=== PATIENT | female | born 1980 | race Caucasian/White ===

== ENCOUNTER → 2017-06-18 13:46 | Outpatient (REF) | payer OTHER, SELFPAY ==
[2017-06-18 15:12] LABS: Amphetamine/Metha Screen,Urine Positive ng/mL (<1000); Barbiturates Screen,Urine Negative ng/mL (<200); Benzodiazepines Screen,Urine Negative ng/mL (200); Cannabinoid Screen,Urine Negative ng/mL (<50); Cocaine Screen,Urine Negative ng/g (<300); Methadone Screen,Urine Negative ng/mL (<300); Opiate Screen,Urine Negative ng/mL (<300); Phencyclidine Screen,Urine Negative ng/mL (<25)
== END ==
LOC: LAB 13:46
PROVIDERS: Visit Provider Emergency Medicine
DX: Z79.899 Other long term (current) drug therapy (principal)
CPT/HCPCS: 80305

== ENCOUNTER → 2017-07-16 12:45 | Outpatient (CLI) | payer OTHER, SELFPAY ==
--- NOTE | 2017-07-16 12:50 | MR_ITS ---
MR lumbar spine wo con, MR 3-d myelogram/MRCP HISTORY: Low back pain with bilateral leg pain ORDERING PHYSICIAN: Markell Mejia MD PATIENT AGE: 36 years COMPARISON: None TECHNIQUE: Standard multiplanar multiecho sequences are performed without contrast. 3-D MIP and myelographic images are also rendered and reviewed FINDINGS: There is normal alignment. Spinal cord ends at the L1-L2 level. T12-L1, L1-L2, L2-L3, L3-L4, and L4-L5 have an unremarkable appearance. Minimal bulging disc at L5-S1. There is mild left-sided foraminal narrowing with some facet hypertrophic change on the left. No disc disc herniation or canal stenosis. Incidental note is a T2 hyperintensity of the T11 vertebral body which measures 5 mm isointense on T1. This is of unknown clinical significance. IMPRESSION: 1. Minimal bulging disc at L5-S1 with mild left-sided foraminal narrowing. 2. No disc herniation or canal stenosis. 3. Nonspecific T2 hyperintensity of T11 vertebral body. If there is pain in this region then consider bone scan for further evaluation to determine activity of the lesion.
== END ==
PROVIDERS: Family Provider Emergency Medicine; PCP Emergency Medicine; Visit Provider Emergency Medicine
DX: M54.9 Dorsalgia, unspecified (principal); M54.5 Low back pain
CPT/HCPCS: 72148; 76376

== ENCOUNTER 2017-07-16 14:16 | Outpatient (RCR) | payer OTHER, SELFPAY | END 2017-07-16 14:17 | disposition home or self-care (01) | LOC: PT 14:16 | PROVIDERS: Family Provider Emergency Medicine; PCP Emergency Medicine; Visit Provider Emergency Medicine | DX: M54.9 Dorsalgia, unspecified (principal) ==

== ENCOUNTER → 2017-08-06 11:15 | Outpatient (REF) | payer OTHER, SELFPAY ==
[2017-08-06 13:37] LABS: Microscopic, Urine URINE MICROSCOPIC (MICROSCOPIC)
[2017-08-06 13:55] LABS: Appearance,Urine SL CLOUDY (Clear); Bilirubin,Urine Negative (Negative); Blood, Urine Negative (Negative); Color,Urine YELLOW (Yellow); Glucose,Urine (UA) Negative (Negative); Ketones,Urine Negative (Negative); Leukocyte Esterase,Urine TRACE (Negative); Nitrate,Urine POSITIVE (Negative); Protein,Urine Negative (Negative); Specific Gravity, Urine 1.025 (1.005-1.030); Urobilinogen,Urine 0.2 EU/dl (0.2)
[2017-08-06 14:00] LABS: Basophils # 0.1 K/mm3 (0-0.2); Basophils % 0.6 % (0.1-2.0); Eosinophils # 0.2 K/mm3 (0.0-0.4); Eosinophils % 2.5 % (0.1-12.0); Hematocrit 42.1 % (37.0-47.0); Hemoglobin 13.4 g/dL (12.2-16.2); Lymphocytes # 2.3 K/mm3 (0.7-4.5); Lymphocytes % 31.4 K/mm3 (10-50); Mean Corpuscular HGB Conc 31.8 g/dL (31.8-35.4); Mean Corpuscular Hemoglobin 30.5 pg (27.0-31.2); Mean Corpuscular Volume 96.1 fl (81-99); Mean Platelet Volume 8.8 fl (7.4-10.4); Monocytes # 0.5 K/mm3 (0.1-1.0); Monocytes % 6.4 % (1.7-9.3); Neutrophils # 4.4 K/mm3 (1.8-7.8); Neutrophils % 59.1 % (37.0-80.0); Platelet Count 224 K/mm3 (142-424); Red Blood Count 4.38 M/mm3 (4.20-5.40); Red Cell Distribution Width 13.6 % (11.5-17.5); White Blood Count 7.4 K/mm3 (4.8-10.8)
[2017-08-06 14:20] LABS: Amphetamine/Metha Screen,Urine Negative ng/mL (<1000); Barbiturates Screen,Urine Negative ng/mL (<200); Benzodiazepines Screen,Urine Negative ng/mL (200); Cannabinoid Screen,Urine Negative ng/mL (<50); Cocaine Screen,Urine Negative ng/g (<300); Methadone Screen,Urine Negative ng/mL (<300); Opiate Screen,Urine Positive ng/mL (<300); Phencyclidine Screen,Urine Negative ng/mL (<25)
[2017-08-06 14:45] LABS: Bacteria,Urine 3+ /lpf
[2017-08-06 15:20] LABS: Erythrocyte Sedimentation Rate 13 mm/hr (0-20)
[2017-08-06 15:57] LABS: C-Reactive Protein < 0.2 mg/L (0.0-0.9)
== END ==
LOC: LAB 11:15
PROVIDERS: Visit Provider Emergency Medicine
DX: R35.0 Frequency of micturition (principal); R53.83 Other fatigue; Z79.899 Other long term (current) drug therapy
CPT/HCPCS: 80305; 81001; 85025; 85651; 86140; 87086; 87088; 87186

== ENCOUNTER → 2017-08-11 13:28 | Outpatient (REF) | payer OTHER, SELFPAY ==
[2017-08-11 18:36] LABS: Amphetamine/Metha Screen,Urine Positive ng/mL (<1000); Barbiturates Screen,Urine Negative ng/mL (<200); Benzodiazepines Screen,Urine Negative ng/mL (200); Cannabinoid Screen,Urine Negative ng/mL (<50); Cocaine Screen,Urine Negative ng/g (<300); Methadone Screen,Urine Negative ng/mL (<300); Opiate Screen,Urine Negative ng/mL (<300); Phencyclidine Screen,Urine Negative ng/mL (<25)
[2017-08-17 23:20] LABS: Opiates Negative ng/mL (Cutoff=100)
== END ==
LOC: LAB 13:28
PROVIDERS: Physician Assistant; Visit Provider Emergency Medicine
DX: Z79.899 Other long term (current) drug therapy (principal)
CPT/HCPCS: 80305; 80361; G0480

== ENCOUNTER → 2017-08-12 12:58 | Outpatient (REF) | payer OTHER, SELFPAY ==
[2017-08-17 12:12] LABS: Amphetamine Positive (.); Amphetamines Positive (.); Methamphetamine Positive (.)
[2017-08-17 23:19] LABS: Amphetamine (GC/MS) 5720 ng/mL (Cutoff=500); Methamphetamine (GC/MS) >4000 ng/mL (Cutoff=500)
== END ==
LOC: LAB 12:58
PROVIDERS: Visit Provider Physician Assistant
DX: Z79.899 Other long term (current) drug therapy (principal)
CPT/HCPCS: 80324

== ENCOUNTER → 2017-08-22 08:54 | Outpatient (CLI) | payer OTHER, SELFPAY ==
[2017-08-22 16:01] LABS: Amphetamine/Metha Screen,Urine Negative ng/mL (<1000); Barbiturates Screen,Urine Negative ng/mL (<200); Benzodiazepines Screen,Urine Negative ng/mL (200); Cannabinoid Screen,Urine Negative ng/mL (<50); Cocaine Screen,Urine Negative ng/g (<300); Methadone Screen,Urine Negative ng/mL (<300); Opiate Screen,Urine Negative ng/mL (<300); Phencyclidine Screen,Urine Negative ng/mL (<25)
== END ==
PROVIDERS: Visit Provider Emergency Medicine
DX: Z79.899 Other long term (current) drug therapy (principal)
CPT/HCPCS: 80305

== ENCOUNTER → 2017-08-25 10:46 | Outpatient (REF) | payer OTHER, SELFPAY ==
[2017-08-25 14:47] LABS: Amphetamine/Metha Screen,Urine Negative ng/mL (<1000); Barbiturates Screen,Urine Negative ng/mL (<200); Benzodiazepines Screen,Urine Negative ng/mL (200); Cannabinoid Screen,Urine Negative ng/mL (<50); Cocaine Screen,Urine Negative ng/g (<300); Methadone Screen,Urine Negative ng/mL (<300); Opiate Screen,Urine Negative ng/mL (<300); Phencyclidine Screen,Urine Negative ng/mL (<25)
== END ==
LOC: LAB 10:46
PROVIDERS: Visit Provider Emergency Medicine
DX: Z79.899 Other long term (current) drug therapy (principal)
CPT/HCPCS: 80305

== ENCOUNTER → 2017-08-25 11:23 | Outpatient (CLI) | payer OTHER, SELFPAY ==
--- NOTE | 2017-08-25 11:29 | NM_ITS ---
NM bone scan limited area Ordering Physician: Markell Mejia MD Patient Age: 36 years: Female HISTORY: ITS.REASON: abnormal finding on MRI L/Spine TECHNIQUE: 3 hours after administration of 24 mCi in the HDP images of the thoracolumbar spine were performed. There are no abnormal areas COMPARISON : CT abdomen pelvis November FINDINGS No significant areas of abnormal activity are seen at the thoracolumbar spine. Lower ribs appear intact as well. I have also reviewed the subtle focal signal abnormality on recent MRI from 07/16/2017. I favor this is a benign focus of some form possibly prominent vascular channel tiny tiny hemangioma or tiny cystic area. In reviewing old CT studies from November 2016 & February 2012 there 4 mm tiny round sclerotic on those studies at T 11 as well as T10 which seems to match and may reflect prominent vascular channel, versus a tiny hemangioma or cyst.. However very tiny indolent appearing feature at this same location on those prior studies tends which is not shown any prominent change intensity reassuring as well. . The remainder areas included in this bone scan areas appears satisfactory as well. The pelvis and lower lumbar spine satisfactory. Normal renal activity bilaterally. Hips unremarkable. ===IMPRESSION======= Normal limited bone scan Normal bone scan of the thoracolumbar spine and pelvis No abnormal activity at T11 nor other vertebral bodies. No significant lesions are felt to be present here. See comments in text
== END ==
PROVIDERS: Family Provider Emergency Medicine; PCP Emergency Medicine; Visit Provider Emergency Medicine
DX: R93.7 Abnormal findings on diagnostic imaging of other parts of musculoskeletal system (principal)
CPT/HCPCS: 78300; A9503

== ENCOUNTER → 2017-09-08 15:08 | Outpatient (POV) | payer OTHER, SELFPAY ==
[2017-09-08 15:12] VITALS: BP 125/87; PULSE 91; RESP 20; O2SAT 99; BMI 23.2
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
== END ==
PROVIDERS: Family Provider Emergency Medicine; PCP Emergency Medicine; Visit Provider Clinical Nurse Specialist Family Health
DX: M54.16 Radiculopathy, lumbar region (principal)
CPT/HCPCS: 99212; 99202

== ENCOUNTER → 2017-09-09 14:08 | Outpatient (REF) | payer OTHER, SELFPAY ==
[2017-09-09 19:40] LABS: Amphetamine/Metha Screen,Urine Negative ng/mL (<1000); Barbiturates Screen,Urine Negative ng/mL (<200); Benzodiazepines Screen,Urine Negative ng/mL (200); Cannabinoid Screen,Urine Negative ng/mL (<50); Cocaine Screen,Urine Negative ng/g (<300); Methadone Screen,Urine Negative ng/mL (<300); Opiate Screen,Urine Negative ng/mL (<300); Phencyclidine Screen,Urine Negative ng/mL (<25)
== END ==
LOC: LAB 14:08
PROVIDERS: Visit Provider Emergency Medicine
DX: Z79.899 Other long term (current) drug therapy (principal); N39.0 Urinary tract infection, site not specified
CPT/HCPCS: 80305; 87086; 87088; 87186

== ENCOUNTER → 2017-10-06 10:14 | Outpatient (REF) | payer OTHER, SELFPAY ==
[2017-10-06 15:07] LABS: Amphetamine/Metha Screen,Urine Negative ng/mL (<1000); Barbiturates Screen,Urine Negative ng/mL (<200); Benzodiazepines Screen,Urine Negative ng/mL (200); Cannabinoid Screen,Urine Negative ng/mL (<50); Cocaine Screen,Urine Negative ng/g (<300); Methadone Screen,Urine Negative ng/mL (<300); Opiate Screen,Urine Negative ng/mL (<300); Phencyclidine Screen,Urine Negative ng/mL (<25)
== END ==
LOC: LAB 10:14
PROVIDERS: Visit Provider Emergency Medicine
DX: Z79.899 Other long term (current) drug therapy (principal)
CPT/HCPCS: 80305

== ENCOUNTER → 2017-11-04 10:07 | Outpatient (REF) | payer OTHER, SELFPAY ==
[2017-11-04 15:27] LABS: Amphetamine/Metha Screen,Urine Positive ng/mL (<1000); Barbiturates Screen,Urine Negative ng/mL (<200); Benzodiazepines Screen,Urine Negative ng/mL (200); Cannabinoid Screen,Urine Negative ng/mL (<50); Cocaine Screen,Urine Negative ng/g (<300); Methadone Screen,Urine Negative ng/mL (<300); Opiate Screen,Urine Negative ng/mL (<300); Phencyclidine Screen,Urine Negative ng/mL (<25)
== END ==
LOC: LAB 10:07
PROVIDERS: Visit Provider Emergency Medicine
DX: M54.16 Radiculopathy, lumbar region (principal); Z79.899 Other long term (current) drug therapy; N39.0 Urinary tract infection, site not specified
CPT/HCPCS: 80305; 87086; 87088; 87186

== ENCOUNTER → 2017-11-18 10:31 | Outpatient (REF) | payer OTHER, SELFPAY ==
[2017-11-18 14:39] LABS: Amphetamine/Metha Screen,Urine Positive ng/mL (<1000); Barbiturates Screen,Urine Negative ng/mL (<200); Benzodiazepines Screen,Urine Negative ng/mL (200); Cannabinoid Screen,Urine Negative ng/mL (<50); Cocaine Screen,Urine Negative ng/g (<300); Methadone Screen,Urine Negative ng/mL (<300); Opiate Screen,Urine Negative ng/mL (<300); Phencyclidine Screen,Urine Negative ng/mL (<25)
== END ==
LOC: LAB 10:31
PROVIDERS: Visit Provider Emergency Medicine
DX: Z79.899 Other long term (current) drug therapy (principal); M54.9 Dorsalgia, unspecified
CPT/HCPCS: 80305; 87086

== ENCOUNTER 2017-12-12 09:35 | Outpatient (CLI) | payer OTHER, SELFPAY ==
--- NOTE | 2017-12-12 11:14 | XR_ITS ---
XR clavicle LT CLINICAL INDICATION: Left clavicular pain ITS.REASON: shoulder pain ORDERING PHYSICIAN: Markell Mejia MD PATIENT AGE: 37 years Comparison: None FINDINGS: No fracture, dislocation, or bony destructive process or significant arthritic change evident IMPRESSION: Negative left clavicle
--- NOTE | 2017-12-12 11:14 | XR_ITS ---
XR shoulder LT min 2V HISTORY: ITS.REASON: shoulder pain ORDERING PHYSICIAN: Markell Mejia MD PATIENT AGE: 37 years Comparison: None FINDINGS: No fracture or dislocation. No lytic or blastic change. There is normal mineralization. The joint spaces are well-preserved. No significant degenerative/arthritic changes. No erosive changes evident. IMPRESSION: Negative, no acute finding
[2017-12-12 11:45] VITALS: BP 120/78; PULSE 83; RESP 18; TEMP 36.5; O2SAT 100
[2017-12-12 12:15] VITALS: BP 120/73; PULSE 86; RESP 18
[2017-12-12 12:23] VITALS: BMI 20.5
[2017-12-12 12:45] VITALS: BP 116/75; PULSE 85; RESP 18
[2017-12-12 13:15] VITALS: BP 105/65; PULSE 78; RESP 18
[2017-12-12 17:16] LABS: Amphetamine/Metha Screen,Urine Positive ng/mL (<1000); Barbiturates Screen,Urine Negative ng/mL (<200); Benzodiazepines Screen,Urine Negative ng/mL (<200); Cannabinoid Screen,Urine Negative ng/mL (<50); Cocaine Screen,Urine Negative ng/mL (<300); Methadone Screen,Urine Negative ng/mL (<300); Opiate Screen,Urine Negative ng/mL (<300); Phencyclidine Screen,Urine Negative ng/mL (<25)
== END 2017-12-12 13:15 | disposition home or self-care (01) ==
LOC: LAB 09:41 → INF 11:05
PROVIDERS: Visit Provider Emergency Medicine
DX: N39.0 Urinary tract infection, site not specified (principal); E86.0 Dehydration; M25.512 Pain in left shoulder; Z79.899 Other long term (current) drug therapy
CPT/HCPCS: 73000; 73030; 80305; 87086; 87088; 87186; 96360; 96375; J2405

== ENCOUNTER → 2018-01-12 11:16 | Outpatient (REF) | payer OTHER, SELFPAY ==
[2018-01-12 14:19] LABS: Amphetamine/Metha Screen,Urine Negative ng/mL (<1000); Barbiturates Screen,Urine Negative ng/mL (<200); Benzodiazepines Screen,Urine Negative ng/mL (<200); Cannabinoid Screen,Urine Negative ng/mL (<50); Cocaine Screen,Urine Negative ng/mL (<300); Methadone Screen,Urine Negative ng/mL (<300); Opiate Screen,Urine Positive ng/mL (<300); Phencyclidine Screen,Urine Negative ng/mL (<25)
== END ==
LOC: LAB 11:16
PROVIDERS: Visit Provider Emergency Medicine
DX: Z79.899 Other long term (current) drug therapy (principal); R53.83 Other fatigue
CPT/HCPCS: 80305

== ENCOUNTER → 2018-02-11 11:07 | Outpatient (CLI) | payer OTHER, SELFPAY ==
[2018-02-11 14:07] LABS: Amphetamine/Metha Screen,Urine Positive ng/mL (<1000); Barbiturates Screen,Urine Negative ng/mL (<200); Benzodiazepines Screen,Urine Negative ng/mL (<200); Cannabinoid Screen,Urine Negative ng/mL (<50); Cocaine Screen,Urine Negative ng/mL (<300); Methadone Screen,Urine Negative ng/mL (<300); Opiate Screen,Urine Negative ng/mL (<300); Phencyclidine Screen,Urine Negative ng/mL (<25)
== END ==
PROVIDERS: Visit Provider Emergency Medicine
DX: Z79.899 Other long term (current) drug therapy (principal)
CPT/HCPCS: 80305

== ENCOUNTER → 2018-03-11 11:23 | Outpatient (CLI) | payer OTHER, SELFPAY | PROVIDERS: Visit Provider Emergency Medicine | DX: Z79.899 Other long term (current) drug therapy (principal) ==

== ENCOUNTER → 2018-04-13 13:56 | Outpatient (CLI) | payer OTHER, SELFPAY ==
[2018-04-13 15:20] LABS: Amphetamine/Metha Screen,Urine Negative ng/mL (<1000); Barbiturates Screen,Urine Negative ng/mL (<200); Benzodiazepines Screen,Urine Negative ng/mL (<200); Cannabinoid Screen,Urine Negative ng/mL (<50); Cocaine Screen,Urine Negative ng/mL (<300); Methadone Screen,Urine Negative ng/mL (<300); Opiate Screen,Urine Negative ng/mL (<300); Phencyclidine Screen,Urine Negative ng/mL (<25)
== END ==
PROVIDERS: Visit Provider Emergency Medicine
DX: Z79.899 Other long term (current) drug therapy (principal)
CPT/HCPCS: 80305

== ENCOUNTER → 2018-05-12 13:21 | Outpatient (CLI) | payer OTHER, SELFPAY ==
[2018-05-12 14:21] LABS: Amphetamine/Metha Screen,Urine Positive ng/mL (<1000); Barbiturates Screen,Urine Negative ng/mL (<200); Benzodiazepines Screen,Urine Negative ng/mL (<200); Cannabinoid Screen,Urine Negative ng/mL (<50); Cocaine Screen,Urine Negative ng/mL (<300); Methadone Screen,Urine Negative ng/mL (<300); Opiate Screen,Urine Negative ng/mL (<300); Phencyclidine Screen,Urine Negative ng/mL (<25)
[2018-05-27 02:13] LABS: Amphetamine Positive (.); Amphetamines Positive (.); Methamphetamine Positive (.)
[2018-05-27 06:19] LABS: Amphetamine (GC/MS) >4000 ng/mL (Cutoff=500); Methamphetamine (GC/MS) >4000 ng/mL (Cutoff=500); Opiates Negative (Cutoff=100)
== END ==
PROVIDERS: Visit Provider Emergency Medicine
DX: Z79.899 Other long term (current) drug therapy (principal)
CPT/HCPCS: 80305; 80324; 80361; 80365; G0480

== ENCOUNTER → 2018-06-11 14:00 | Outpatient (CLI) | payer OTHER, SELFPAY ==
[2018-06-11 14:42] LABS: Amphetamine/Metha Screen,Urine Negative ng/mL (<1000); Barbiturates Screen,Urine Negative ng/mL (<200); Benzodiazepines Screen,Urine Negative ng/mL (<200); Cannabinoid Screen,Urine Negative ng/mL (<50); Cocaine Screen,Urine Negative ng/mL (<300); Methadone Screen,Urine Negative ng/mL (<300); Opiate Screen,Urine Negative ng/mL (<300); Phencyclidine Screen,Urine Negative ng/mL (<25)
== END ==
PROVIDERS: Visit Provider Emergency Medicine
DX: Z79.899 Other long term (current) drug therapy (principal)
CPT/HCPCS: 80305; 80365

== ENCOUNTER → 2018-07-06 11:16 | Outpatient (CLI) | payer OTHER, SELFPAY ==
[2018-07-06 11:28] LABS: Basophils # 0.1 K/mm3 (0-0.2); Basophils % 0.7 % (0.1-2.0); Eosinophils # 0.2 K/mm3 (0.0-0.4); Eosinophils % 2.8 % (0.1-12.0); Hematocrit 41.9 % (37.0-47.0); Hemoglobin 13.1 g/dL (12.2-16.2); Lymphocytes # 2.7 K/mm3 (0.7-4.5); Lymphocytes % 41.4 % (10-50); Mean Corpuscular HGB Conc 31.2 g/dL (31.8-35.4); Mean Corpuscular Volume 96.3 fl (81-99); Mean Platelet Volume 8.1 fl (7.4-10.4); Monocytes # 0.5 K/mm3 (0.1-1.0); Monocytes % 7.2 % (1.7-9.3); Neutrophils # 3.1 K/mm3 (1.8-7.8); Platelet Count 244 K/mm3 (142-424); Red Blood Count 4.35 M/mm3 (4.20-5.40); Red Cell Distribution Width 13.2 % (11.5-17.5); White Blood Count 6.5 K/mm3 (4.8-10.8)
[2018-07-06 12:30] LABS: Thyroid Stimulating Hormone 1.45 uIU/ml (0.358-3.740)
== END ==
PROVIDERS: Visit Provider Obstetrics & Gynecology
DX: R53.83 Other fatigue (principal); F41.9 Anxiety disorder, unspecified
CPT/HCPCS: 36415; 84443; 85025

== ENCOUNTER → 2018-07-08 13:26 | Outpatient (CLI) | payer OTHER, SELFPAY ==
[2018-07-08 17:25] LABS: Amphetamine/Metha Screen,Urine Negative ng/mL (<1000); Barbiturates Screen,Urine Negative ng/mL (<200); Benzodiazepines Screen,Urine Negative ng/mL (<200); Cannabinoid Screen,Urine Negative ng/mL (<50); Cocaine Screen,Urine Negative ng/mL (<300); Methadone Screen,Urine Negative ng/mL (<300); Opiate Screen,Urine Negative ng/mL (<300); Phencyclidine Screen,Urine Negative ng/mL (<25)
[2018-07-12 17:20] LABS: Opiates Negative (Cutoff=100)
== END ==
PROVIDERS: Visit Provider Emergency Medicine
DX: Z79.899 Other long term (current) drug therapy (principal)
CPT/HCPCS: 80305; 80361; 80365; G0480

== ENCOUNTER → 2018-07-09 15:24 | Outpatient (CLI) | payer OTHER, SELFPAY ==
--- NOTE | 2018-07-09 15:29 | US_ITS ---
US transvaginal HISTORY: Abnormal uterine bleeding with intermittent pelvic pain ITS.REASON: pelvic pain ORDERING PHYSICIAN: Han Yen MD PATIENT AGE: 37 years Comparison: None FINDINGS: The uterus is 8 x 4 x 5 cm with a combined endometrial thickness of 2 mm. There is a hypoechoic area to the right of the endometrium in the fundal region which measures 12 x 10 x 7 mm. This does show enhanced through transmission of sound. There was heterogeneous echogenicity in this region on previous ultrasound of 03/03/2007. The right ovary is 2.5 x 2.5 cm and contains 3 small cysts the largest at 1 cm. The left ovary is 2.7 x 1.9 cm and has an unremarkable appearance. There is bilateral ovarian blood flow. No cul-de-sac fluid. IMPRESSION: 1. Hypoechoic area adjacent to the endometrium with enhanced through transmission of sound and may represent a degenerated fibroid 2. Small right ovarian cysts
--- NOTE | 2018-07-09 15:31 | XR_ITS ---
XR scoliosis survey CLINICAL INDICATION: ITS.REASON: scoliosis ORDERING PHYSICIAN: Han Yen MD PATIENT AGE: 37 years Comparison: None FINDINGS: There is mild thoracic scoliosis convex right measuring 11 degrees. No congenital bony anomaly evident. IMPRESSION: Mild dextroscoliosis of the thoracic spine
== END ==
PROVIDERS: PCP Emergency Medicine; Visit Provider Obstetrics & Gynecology
DX: R10.2 Pelvic and perineal pain (principal); M54.9 Dorsalgia, unspecified
CPT/HCPCS: 72081; 76830

== ENCOUNTER → 2018-07-28 11:32 | Outpatient (CLI) | payer OTHER, SELFPAY ==
[2018-07-28 11:38] LABS: Microscopic, Urine URINE MICROSCOPIC (MICROSCOPIC)
[2018-07-28 11:55] LABS: Appearance,Urine TURBID (Clear); Bilirubin,Urine Negative (Negative); Blood, Urine 2+ (Negative); Color,Urine YELLOW (Yellow); Glucose,Urine (UA) Negative (Negative); Ketones,Urine Negative (Negative); Leukocyte Esterase,Urine Negative (Negative); Nitrate,Urine Negative (Negative); Protein,Urine Negative (Negative); Urobilinogen,Urine 0.2 EU/dl (0.2)
[2018-07-28 12:43] LABS: HCG Qualitative, Serum Negative (Negative)
[2018-07-28 12:46] LABS: Bacteria,Urine Trace /lpf; Basophils # 0.1 K/mm3 (0-0.2); Basophils % 0.9 % (0.1-2.0); Eosinophils # 0.1 K/mm3 (0.0-0.4); Eosinophils % 1.8 % (0.1-12.0); Hematocrit 46.2 % (37.0-47.0); Hemoglobin 14.3 g/dL (12.2-16.2); Lymphocytes # 2.2 K/mm3 (0.7-4.5); Lymphocytes % 33.6 % (10-50); Mean Corpuscular HGB Conc 30.9 g/dL (31.8-35.4); Mean Corpuscular Volume 97.1 fl (81-99); Mean Platelet Volume 7.5 fl (7.4-10.4); Monocytes # 0.3 K/mm3 (0.1-1.0); Monocytes % 4.6 % (1.7-9.3); Neutrophils # 3.9 K/mm3 (1.8-7.8); Neutrophils % 59.2 % (37.0-80.0); Platelet Count 236 K/mm3 (142-424); Red Blood Count 4.76 M/mm3 (4.20-5.40); Squamous Epithelial Cell,Urine Occasional #/hpf (0-5); White Blood Count 6.5 K/mm3 (4.8-10.8)
[2018-07-28 15:20] LABS: Alanine Aminotransferase 104 U/L (12-78); Albumin Level 3.9 gm/dL (3.4-5.0); Albumin/Globulin Ratio 1.1 (1.1-1.8); Alkaline Phosphatase 36 U/L (46-116); Anion Gap 11.6 mEq/L (5-15); Aspartate Amino Transferase 57 U/L (15-37); Bilirubin,Total 0.2 mg/dL (0.2-1.0); Blood Urea Nitrogen 9 mg/dL (7-18); Calcium 8.1 mg/dL (8.5-10.1); Carbon Dioxide 29 mmol/L (21.0-32.0); Chloride 105 mmol/L (98-107); Creatinine,Serum 0.74 mg/dL (0.55-1.02); Estimated Glomerular Filt Rate 89 ml/min (>60); GFR (African American) 107 ML/MIN (>60); Globulin 3.7 gm/dl (1.3-3.2); Glucose 76 mg/dL (74-106); Potassium 3.6 mmoL/L (3.5-5.1); Sodium 142 mmol/L (136-145); Total Protein,Serum 7.6 gm/dL (6.4-8.2)
== END ==
PROVIDERS: Visit Provider Obstetrics & Gynecology
DX: Z01.818 Encounter for other preprocedural examination (principal); N93.8 Other specified abnormal uterine and vaginal bleeding; R10.2 Pelvic and perineal pain
CPT/HCPCS: 36415; 80053; 81001; 84703; 85025

== ENCOUNTER 2018-08-06 08:28 | Inpatient (IN) ==
--- NOTE | 2018-08-06 11:40 | Operative Note ---
Date of procedure: 08/06/18 Pre-op Diagnosis:: 1. Dysfunctional uterine bleeding. 2. Pelvic pain. 3. Leiomyomata uteri. 4. Pelvic adhesions. Post-op Diagnosis:: 1. Dysfunctional uterine bleeding. 2. Pelvic pain. 3. Pelvic adhesions. Procedure performed:: Total abdominal hysterectomy, left salpingo-oophorectomy, right salpingectomy, with lysis of adhesions. Surgeon:: Han Yen MD Maintenance Truck Driver(s):: TAHMINA Farmer FURNITURE MOVER HELPER:: Ilya Hodge Anesthesia: GETA Estimated blood loss (mL): 400 Operative findings:: Extensive pelvic adhesions. Operative note:: After the patient was prepped and draped in the usual fashion and general anesthesia was administered, a low Pfannenstiel incision was made to the previous fashion, bleeders being clamped and coagulated along the way. The peritoneum was entered with Metzenbaum scissors, and extended above and below. The bowel was packed away, and the self-retaining [place] retractor with bladder blade was placed. The uterus was slightly boggy, but symmetrical. Each tube showed evidence of previous ligation. Each ovary appeared normal. The left adnexa was adherent deep in the pelvis, but there were no extensive adhesions posterior to the uterus. The uterine fundus was grasped with a double-tooth tenaculum, and the round ligament on either side, cut, and Katina suture with #1 Vicryl. The bladder peritoneum was sharply and bluntly dissected free. The right ovarian ligament was crossclamped and cut, including the proximal portion of the tube within the uterine specimen. This pedicle was Katina sutured, and then free tied with #1 Vicryl. The same process was carried out on the left side. The uterine vessels, the cardinal and uterosacral ligaments were individually, bilaterally, Katina clamped, cut, and Katina suture with #1 Vicryl. Extensive lysis of adhesions was carried out on the left side. The vagina was entered anteriorly with a knife, and uterine specimen was removed with Minh scissors. Alderson clamps were used to tent up the vaginal cuff, which was closed with a running locked suture of #1 Vicryl. The right fallopian tube was then grasped with the Danny clamp, and the mesosalpinx was crossclamped with a hemostat, and excised. This pedicle was suture-ligated and then free tied with 2-0 Vicryl. There was no undue bleeding from that side. However, on the left side there continued to be bleeding and oozing from the left ovarian pedicle and the left pelvic sidewall. After several attempts at suturing, the decision was made to remove the left ovary and distal tube. The infundibulopelvic ligament was crossclamped and cut, thus accomplishing that portion of the procedure. This pedicle was then Katina sutured and then free tied with #1 Vicryl. Extensive irrigation was then carried out, and Gelfoam was placed against the back of the vaginal cuff, which also required spot suturing with 0 Vicryl. A #10 flat Kervin-Valerio drain was placed in the pelvis and brought out to the left of the Pfannenstiel incision. It was sewn in place and attached to a grenade. The peritoneum was grasped with 2 Natalie clamps, and closed with a running semi-lock suture of 0 Vicryl. The muscle was approximated the fascia was closed with a running lock suture of #1 Vicryl. The subcutaneous fat and Evelyn's fascia were closed with a running unlocked suture of 2-0 Vicryl. The skin was closed with a subcuticular suture of 3-0 Vicryl, and appropriately dressed. The urine was clear in the Agrawal catheter. The sponge and needle counts correct. The estimated blood loss was 400 cc. The patient tolerated the procedure well, was taken to PACU in excellent condition. She will be admitted postoperatively. Condition: stable Disposition: PACU Specimens:: 1. Uterus 2. Left tube and ovary. 3. Right fallopian tube. Complications:: None
--- NOTE | 2018-08-06 11:52 | Progress Note ---
[facility] Anesthesia Checklist - Patient Identification Patient Identification: Arm Band - Structural Data Admitted From: Home Planned Operative Procedure/s: Amilcar, right salpingectom, Left SO Consent for Planned Operative Procedure(s) Verified: Yes Verified Documents: Surgical Consent, History and Physical - NPO Status Verified Time NPO: 00:00 - Additional verifications Anesthesia Reactions: No - Airway Assessment C-Spine Mobility Assessed: Yes (mp2) TMJ Mobility Assessed: Yes Dentition: Edentulous - Neurological Assessment Level of Consciousness: Awake, Alert - Anesthesia Plan Anesthesia Risk discussed: Yes Anesthesia Plan: Verified ASA Class: III [facility] History I have reviewed the patient's past medical history: Yes Medical History: Reports:: Anxiety, Asthma, Hepatitis (c), Kidney Stones Denies:: Cancer, Diabetes Mellitus Type 1, Diabetes Mellitus Type 2, Internal Pacemaker, MRSA, Seizures *Have you ever received a pneumonia vaccine?: No *Have you received a flu vaccine this season?: Yes Other Medical History: Denies: Blood Transfusion Reaction Laterality Cases: Bilateral: Tonsillectomy Other Surgeries: Yes: , Ureter Stent. No: Pacemaker Amputation: No Fractures: No - *Social History Educational Level: Completed College Smoking Status: Current every day smoker Tobacco Type: cigarettes # Packs/Day (cigarettes): 1 Alcohol Intake: never Alcohol Intake Frequency:: other Substance Use Type: former substance user *Occupational Status:: unemployed Housing: apartment Household Members: spouse *Travel in the last 8 weeks: None - Psychiatric History Expresses thoughts of harming self/others: None Suicide Plan Description: No Plan Pschychiatric History:: Reports:: Anxiety Family Hx:: Cancer, Diabetes, Heart Attack, Stroke, Thyroid Disorder
--- NOTE | 2018-08-06 11:52 | Progress Note ---
[facility] Anesthesia Record Part I Intake, IV Amount: 900 Estimated blood loss (mL): 400 Urine output (mL): 30 Blood Pressure: 157/93 SaO2: 97 Pulse Rate: 98 Respiratory Rate: 16 Temperature: 98.2 F Patient is:: Drowsy, Stable Stable to PACU at:: 11:40
--- NOTE | 2018-08-06 11:53 | Progress Note ---
[facility] Anesthesia Record Part II Discharge Time: 12:10 Destination: 2nd floor PACU nurse assessment reviewed?: Yes Patient Condition:: Good Anesthesia Complications:: None Swallowing reflex intact?: Yes Cyanosis?: No
[2018-08-06 13:19] LABS: Hematocrit 34.6 % (37.0-47.0); Hemoglobin 11.1 g/dL (12.2-16.2)
--- NOTE | 2018-08-06 14:28 | Progress Note ---
Internal Medicine - PN: Subj *Date: 08/06/18 *Time: 14:27 Interval history: This is day of surgery. I was called to see the patient at approximately 1400 hrs. because of hematuria in her Agrawal catheter. She also has a ALBIN drain, which is draining well. After flushing the Agrawal, bright red blood continues to extrude. I have spoken with Dr. Fitzpatrick (radiologist), and have ordered a cystogram done today. She seems otherwise stable. Exam Vital signs and Labs for Last 24 Hours: Temp Pulse Resp BP Pulse Ox 97.0 F L 88 16 134/85 98 08/06/18 13:30 08/06/18 13:30 08/06/18 13:30 08/06/18 13:30 08/06/18 13:30 Laboratory Results - last 24 hr 08/06/18 08:53: Urine HCG, Qual Negative 08/06/18 12:48: Hgb 11.1 L, Hct 34.6 L I & O for Last 24 hours: Intake & Output 08/04/18 08/05/18 08/06/18 08/07/18 11:59 11:59 11:59 11:59 Intake Total 900 / 900 Output Total 100 / 100 Balance 870 / 870 -100 / -100 Weight 130 lb
[2018-08-06 15:19] LABS: Hematocrit 32.8 % (37.0-47.0); Hemoglobin 10.5 g/dL (12.2-16.2)
--- NOTE | 2018-08-06 15:37 | Progress Note ---
Internal Medicine - PN: Subj *Date: 08/06/18 *Time: 15:36 Interval history: Patient's vital signs are stable, but she continues to have hematuria. A cystogram revealed a posterior bladder leak, and I have spoken with Dr. Davy Allred (urologist), who has agreed to accept the patient in transfer for possible repair. I have discussed this with the patient and her in detail and they accept this process. Transfer and transport are being arranged. Exam Vital signs and Labs for Last 24 Hours: Temp Pulse Resp BP Pulse Ox 97.3 F L 81 16 130/87 98 08/06/18 14:55 08/06/18 14:55 08/06/18 14:55 08/06/18 14:55 08/06/18 14:55 Laboratory Results - last 24 hr 08/06/18 07:20: Urine Color Yellow, Urine Appearance Cloudy, Urine pH 8.5, Ur Specific [place] 1.015, Urine Protein Negative, Urine Glucose (UA) Negative, Urine Ketones 1+, Urine Blood Negative, Urine Nitrate Negative, Urine Bilirubin Negative, Urine Urobilinogen 0.2, Ur Leukocyte Esterase Negative 08/06/18 08:53: Urine HCG, Qual Negative 08/06/18 12:48: Hgb 11.1 L, Hct 34.6 L 08/06/18 15:10: Hgb 10.5 L, Hct 32.8 L I & O for Last 24 hours: Intake & Output 08/04/18 08/05/18 08/06/18 08/07/18 11:59 11:59 11:59 11:59 Intake Total 900 / 900 100 / 100 Output Total 888 / 888 Balance 870 / 870 -788 / -788 Weight 130 lb
--- NOTE | 2018-08-06 16:18 | Discharge Summary ---
General - General Admission date:: 08/06/18 Discharge date: 08/06/18 (Was admitted this morning for definitive surgery for dysfunctional uterine bleeding. Under general anesthesia, she underwent a total abdominal hysterectomy, left salpingo-oophorectomy, and right salpingectomy. There were extensive adhesions especially along the left side of the pelvis, but the procedure went reasonably well. Gelfoam was placed against the back of the vaginal cuff, and a #10 flat ALBIN drain was placed in the pelvis. When the patient returned to the floor from PACU, all amount of blood was noted in the Agrawal catheter. Over time this increased to gross hematuria. The patient's vital signs remained stable. Her hemoglobin prior to surgery was 14 g; her most recent hemoglobin is 10.5 g (400 cc blood loss at surgery). She continues to also drain from her ALBIN drain. After flushing the Agrawal catheter, hematuria persisted. Therefore, a cystogram was carried out in radiology, with the resultant report of a bladder leak posteriorly. I discussed the situation with Dr. Jhonathan Allred (urologist), who agreed to accept the patient in transfer for possible repair. This was discussed in detail with the patient and her , who agreed to the course of action. The patient will be transferred today.) Objective Vital signs: Temp Pulse Resp BP Pulse Ox 97.9 F 75 20 150/94 H 98 08/06/18 16:00 08/06/18 16:00 08/06/18 16:00 08/06/18 16:00 08/06/18 15:30 Results Labs on day of discharge: Labs from last 24 hours 08/06/18 08/06/18 08/06/18 15:10 12:48 08:53 Hgb 10.5 L 11.1 L Hct 32.8 L 34.6 L Urine Color Urine Appearance Urine pH Ur Specific Sutton Urine Protein Urine Glucose (UA) Urine Ketones Urine Blood Urine Nitrate Urine Bilirubin Urine Urobilinogen Ur Leukocyte Esterase Urine RBC Urine WBC Ur Squamous Epith Cells Urine Bacteria Urine HCG, Qual Negative 08/06/18 07:20 Hgb Hct Urine Color Yellow Urine Appearance Cloudy Urine pH 8.5 Ur Specific Sutton 1.015 Urine Protein Negative Urine Glucose (UA) Negative Urine Ketones 1+ Urine Blood Negative Urine Nitrate Negative Urine Bilirubin Negative Urine Urobilinogen 0.2 Ur Leukocyte Esterase Negative Urine RBC None Urine WBC None Ur Squamous Epith Cells Occasional Urine Bacteria Trace Urine HCG, Qual Discharge Plan - Patient Discharge Instructions DIET: NPO - Follow up Plan Disposition: Xfer Other Home Medications: Home Medications Medication Instructions Recorded Confirmed Type Ketotifen Fumarate [Zaditor] 1 drp OPHTHALMIC (EYE) BID 12/12/17 08/06/18 History Loratadine [Allergy Relief] 10 mg PO DAILY 12/12/17 08/06/18 History albuterol sulfate HFA 90 2 puff INHALATION BID #18 g 05/12/18 08/06/18 Rx mcg/actuation aerosol inhaler oxycodone-acetaminophen 5 mg-325 1 tab PO BID PRN #60 tab 07/08/18 08/06/18 Rx mg tablet Diclofenac Sodium [Voltaren 100gm 2 g TOPICAL BID 08/04/18 08/06/18 History Topical Gel] Fluticasone Propionate 1 spray INTRANASAL DAILY 08/04/18 08/06/18 History Gabapentin 600 mg PO TID 08/04/18 08/06/18 History Mupirocin Calcium [Bactroban 2% 1 applic TOPICAL BID 08/04/18 08/06/18 History Cream 15gm] Quetiapine Fumarate 50 mg PO DAILY 08/04/18 08/06/18 History Prescriptions/Medication Reconciliation: New 0.9 % Sodium Chloride [Sod Chlor 0.9% 25mL Bag] 25 ml IV NEEDED PRN bag PRN Reason: For Use With Iv Promethazine 0.9 % Sodium Chloride [Saline Flush 10mL syringe] 10 ml IV NEEDED PRN syringe PRN Reason: Maintain Iv Site 0.9 % Sodium Chloride [Sod Chlor 0.9% 25mL Bag] 25 ml IV NEEDED PRN bag PRN Reason: For Use With Iv Promethazine Discontinued albuterol sulfate HFA 90 mcg/actuation aerosol inhaler 2 puff INHALATION BID #18 g oxycodone-acetaminophen 5 mg-325 mg tablet 1 tab PO BID PRN #60 tab PRN Reason: pain Ketotifen Fumarate [Zaditor] 1 drp OPHTHALMIC (EYE) BID Mupirocin Calcium [Bactroban 2% Cream 15gm] 1 applic TOPICAL BID Gabapentin 600 mg PO TID Fluticasone Propionate 1 spray INTRANASAL DAILY Quetiapine Fumarate 50 mg PO DAILY Loratadine [Allergy Relief] 10 mg PO DAILY Diclofenac Sodium [Voltaren 100gm Topical Gel] 2 g TOPICAL BID
[2018-08-06 16:38] LABS: Hemoglobin 9.5 g/dL (12.2-16.2)
== END 2018-08-06 16:45 | disposition short-term general hospital (02) | DRG 742 ==
LOC: OR 08:28 → 2ND 08:35 → OB 12:49
PROVIDERS: ADMIT Obstetrics & Gynecology; ATTEND Obstetrics & Gynecology
CPT/HCPCS: 36415; 74430; 81001; 81025; 85014; 85018; 96374; J2405; Q9966

== ENCOUNTER 2018-08-19 15:46 | Outpatient (CLI) | payer OTHER, SELFPAY ==
[2018-08-19 17:05] VITALS: BP 125/76; PULSE 82; RESP 18; O2SAT 99
--- NOTE | 2018-08-19 17:29 | PC.NURSE ---
1715 - ZOFRAN 4MG AND MORPHINE 4 MG GIVEN IVP OVER 3 MIN. AT THIS TIME.
[2018-08-19 17:35] VITALS: BP 109/77; PULSE 78; RESP 18; O2SAT 99
[2018-08-19 18:13] VITALS: BP 98/73; PULSE 77; RESP 18; O2SAT 99
== END 2018-08-19 18:19 | disposition home or self-care (01) ==
LOC: INF 15:47
PROVIDERS: PCP Emergency Medicine; Visit Provider Emergency Medicine
DX: G89.18 Other acute postprocedural pain (principal); R11.2 Nausea with vomiting, unspecified
CPT/HCPCS: 96360; 96374; 96375; J2405

== ENCOUNTER → 2018-10-14 16:36 | Outpatient (CLI) | payer OTHER, SELFPAY ==
[2018-10-14 18:40] LABS: Amphetamine/Metha Screen,Urine Positive ng/mL (<1000); Barbiturates Screen,Urine Negative ng/mL (<200); Benzodiazepines Screen,Urine Negative ng/mL (<200); Cannabinoid Screen,Urine Negative ng/mL (<50); Cocaine Screen,Urine Negative ng/mL (<300); Methadone Screen,Urine Negative ng/mL (<300); Opiate Screen,Urine Negative ng/mL (<300); Phencyclidine Screen,Urine Negative ng/mL (<25)
[2018-10-19 00:06] LABS: Amphetamines Negative (Cutoff=500)
[2018-10-20 15:09] LABS: Alprazolam Negative (Cutoff=100); Benzodiazepines Negative ng/mL (Cutoff=100); Clonazepam Negative (Cutoff=100); Flurazepam Negative (Cutoff=100); Lorazepam Negative (Cutoff=100); Midazolam Negative (Cutoff=100); Temazepam Negative (Cutoff=100); Triazolam Negative (Cutoff=100)
[2018-10-21 06:52] LABS: Opiates Negative (Cutoff=100)
== END ==
PROVIDERS: Visit Provider Emergency Medicine
DX: Z79.899 Other long term (current) drug therapy (principal)
CPT/HCPCS: 80305; 80324; 80346; 80361; 80365; G0480

== ENCOUNTER → 2019-01-11 13:52 | Outpatient (CLI) | payer OTHER, SELFPAY ==
[2019-01-11 15:44] LABS: Amphetamine/Metha Screen,Urine Negative ng/mL (<1000); Barbiturates Screen,Urine Negative ng/mL (<200); Benzodiazepines Screen,Urine Negative ng/mL (<200); Cannabinoid Screen,Urine Negative ng/mL (<50); Cocaine Screen,Urine Negative ng/mL (<300); Methadone Screen,Urine Negative ng/mL (<300); Opiate Screen,Urine Negative ng/mL (<300); Phencyclidine Screen,Urine Negative ng/mL (<25)
== END ==
PROVIDERS: Visit Provider Emergency Medicine
DX: Z79.899 Other long term (current) drug therapy (principal)
CPT/HCPCS: 80305

== ENCOUNTER → 2019-02-05 13:23 | Outpatient (CLI) | payer OTHER, SELFPAY ==
[2019-02-05 15:18] LABS: Amphetamine/Metha Screen,Urine Negative ng/mL (<1000); Barbiturates Screen,Urine Negative ng/mL (<200); Benzodiazepines Screen,Urine Positive ng/mL (<200); Cannabinoid Screen,Urine Negative ng/mL (<50); Cocaine Screen,Urine Negative ng/mL (<300); Methadone Screen,Urine Negative ng/mL (<300); Opiate Screen,Urine Positive ng/mL (<300); Phencyclidine Screen,Urine Negative ng/mL (<25)
[2019-02-06 22:28] LABS: HIV Screen 4th Generation wRfx Non Reactive (Non Reactive)
== END ==
PROVIDERS: Visit Provider Emergency Medicine
DX: Z79.899 Other long term (current) drug therapy (principal); R53.83 Other fatigue
CPT/HCPCS: 80305; 86703; G0432

== ENCOUNTER → 2019-03-05 13:44 | Outpatient (CLI) | payer OTHER, SELFPAY ==
[2019-03-05 17:38] LABS: Amphetamine/Metha Screen,Urine Negative ng/mL (<1000); Barbiturates Screen,Urine Negative ng/mL (<200); Benzodiazepines Screen,Urine Negative ng/mL (<200); Cannabinoid Screen,Urine Negative ng/mL (<50); Cocaine Screen,Urine Negative ng/mL (<300); Methadone Screen,Urine Negative ng/mL (<300); Opiate Screen,Urine Positive ng/mL (<300); Phencyclidine Screen,Urine Negative ng/mL (<25)
== END ==
PROVIDERS: Visit Provider Emergency Medicine
DX: Z79.891 Long term (current) use of opiate analgesic (principal)
CPT/HCPCS: 80305

== ENCOUNTER → 2019-05-03 13:29 | Outpatient (CLI) | payer OTHER, SELFPAY ==
[2019-05-03 15:31] LABS: Amphetamine/Metha Screen,Urine Negative ng/mL (<1000); Barbiturates Screen,Urine Negative ng/mL (<200); Benzodiazepines Screen,Urine Negative ng/mL (<200); Cannabinoid Screen,Urine Negative ng/mL (<50); Cocaine Screen,Urine Negative ng/mL (<300); Methadone Screen,Urine Negative ng/mL (<300); Opiate Screen,Urine Positive ng/mL (<300); Phencyclidine Screen,Urine Negative ng/mL (<25)
== END ==
PROVIDERS: Visit Provider Emergency Medicine
DX: Z79.899 Other long term (current) drug therapy (principal)
CPT/HCPCS: 80305

== ENCOUNTER → 2019-05-25 13:54 | Outpatient (CLI) | payer OTHER, SELFPAY ==
[2019-05-25 16:43] LABS: Amphetamine/Metha Screen,Urine Negative ng/mL (<1000); Barbiturates Screen,Urine Negative ng/mL (<200); Benzodiazepines Screen,Urine Negative ng/mL (<200); Cannabinoid Screen,Urine Negative ng/mL (<50); Cocaine Screen,Urine Negative ng/mL (<300); Methadone Screen,Urine Negative ng/mL (<300); Opiate Screen,Urine Positive ng/mL (<300); Phencyclidine Screen,Urine Negative ng/mL (<25)
[2019-06-03 10:21] LABS: Oxycodone Positive (.); Oxymorphone Negative (Cutoff=100)
[2019-06-03 11:13] LABS: Oxycodone Confirm >3000 ng/mL (Cutoff=100)
== END ==
PROVIDERS: Visit Provider Emergency Medicine
DX: Z79.899 Other long term (current) drug therapy (principal)
CPT/HCPCS: 80305; 80365

== ENCOUNTER → 2019-06-28 12:44 | Outpatient (POV) | payer OTHER, SELFPAY | PROVIDERS: Visit Provider Specialist | DX: M79.602 Pain in left arm (principal) | CPT/HCPCS: 95886; 95908 ==

== ENCOUNTER → 2019-07-21 13:51 | Outpatient (CLI) | payer MEDICAID, SELFPAY ==
[2019-07-21 19:31] LABS: Amphetamine/Metha Screen,Urine Positive ng/mL (<1000); Barbiturates Screen,Urine Negative ng/mL (<200); Benzodiazepines Screen,Urine Negative ng/mL (<200); Cannabinoid Screen,Urine Negative ng/mL (<50); Cocaine Screen,Urine Negative ng/mL (<300); Methadone Screen,Urine Negative ng/mL (<300); Opiate Screen,Urine Negative ng/mL (<300); Phencyclidine Screen,Urine Negative ng/mL (<25)
[2019-08-01 18:13] LABS: Amphetamine Positive (.); Amphetamines Positive (.); Methamphetamine Positive (.)
[2019-08-01 22:06] LABS: Amphetamine (GC/MS) 1982 ng/mL (Cutoff=500); Methamphetamine (GC/MS) 5752 ng/mL (Cutoff=500); Opiates Negative (Cutoff=100)
== END ==
PROVIDERS: Visit Provider Emergency Medicine
DX: Z79.899 Other long term (current) drug therapy (principal)
CPT/HCPCS: 80305; 80324; 80361; 80365; G0480

== ENCOUNTER → 2019-07-22 13:39 | Outpatient (CLI) | payer MEDICAID, SELFPAY ==
--- NOTE | 2019-07-22 13:40 | MR_ITS ---
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 3-D MIP and myelographic images are also rendered and reviewed FINDINGS: There is straightening of the cervical lordosis which could be due to patient positioning or muscle spasm. The craniocervical junction has an unremarkable appearance. Unremarkable appearing spinal cord. C2-C3: Unremarkable. C3-C4: Unremarkable. C4-C5: Unremarkable. C5-C6: There is mild degenerative disc disease at C5-C6. There is a broad based disc protrusion with associated mild uncovertebral osteophytes. This is causing narrowing of the canal measuring 8 mm. This is slightly eccentric toward the left and is causing severe bilateral lateral recess and foraminal narrowing which is greater on the left. There is some compression with contour deformity of the anterior aspect of the cord. C6-C7, C7-T1, and T1-T2 to have an unremarkable appearance. IMPRESSION: Broad-based disc protrusion/disc osteophyte complex at C5-C6 which is eccentric toward the left causing canal stenosis with severe bilateral lateral recess and foraminal narrowing greater on the left. The canal measures 8 mm. There is some compression with contour deformity along the anterior aspect of the cord with associated degenerative disc disease at this level. Reversal of cervical lordosis Dictated by: Dallas Fitzpatrick MD 07/23/2019 10:21 Electronically signed by Dallas Fitzpatrick MD in [place] 07/23/2019 10:21
== END ==
PROVIDERS: PCP Emergency Medicine; Visit Provider Emergency Medicine
DX: M54.2 Cervicalgia (principal); R94.130 Abnormal response to nerve stimulation, unspecified; R94.131 Abnormal electromyogram [EMG]
CPT/HCPCS: 72141; 76376

== ENCOUNTER → 2019-10-04 15:57 | Outpatient (CLI) | payer MEDICAID, SELFPAY ==
[2019-10-04 16:02] LABS: Microscopic, Urine URINE MICROSCOPIC (MICROSCOPIC)
[2019-10-04 16:21] LABS: Basophils # 0.1 K/mm3 (0-0.2); Basophils % 0.9 % (0.1-2.0); Eosinophils # 0.2 K/mm3 (0.0-0.4); Eosinophils % 2.2 % (0.1-12.0); Hematocrit 48.6 % (37.0-47.0); Hemoglobin 15.4 g/dL (12.2-16.2); Lymphocytes # 2.5 K/mm3 (0.7-4.5); Lymphocytes % 33.9 % (10-50); Mean Corpuscular HGB Conc 31.8 g/dL (31.8-35.4); Mean Corpuscular Hemoglobin 30.4 pg (27.0-31.2); Mean Corpuscular Volume 95.5 fl (81-99); Mean Platelet Volume 8.2 fl (7.4-10.4); Monocytes # 0.4 K/mm3 (0.1-1.0); Monocytes % 5.6 % (1.7-9.3); Neutrophils # 4.2 K/mm3 (1.8-7.8); Neutrophils % 57.4 % (37.0-80.0); Platelet Count 252 K/mm3 (142-424); Red Blood Count 5.09 M/mm3 (4.20-5.40); Red Cell Distribution Width 12.9 % (11.5-17.5); White Blood Count 7.3 K/mm3 (4.8-10.8)
[2019-10-04 16:22] LABS: Appearance,Urine CLEAR (Clear); Bilirubin,Urine Negative (Negative); Blood, Urine TRACE-I (Negative); Color,Urine YELLOW (Yellow); Glucose,Urine (UA) Negative (Negative); Ketones,Urine Negative (Negative); Leukocyte Esterase,Urine Negative (Negative); Nitrate,Urine POSITIVE (Negative); Protein,Urine Negative (Negative); Specific Gravity, Urine 1.025 (1.005-1.030); Urobilinogen,Urine 0.2 EU/dl (0.2)
[2019-10-04 16:36] LABS: Bacteria,Urine 1+ /lpf; Urine Pregnancy, HCG Qual. Negative (Negative)
[2019-10-04 17:49] LABS: Chloride 104 mmol/L (98-107); Potassium 4.6 mmoL/L (3.5-5.1); Sodium 140 mmol/L (136-145)
[2019-10-04 17:52] LABS: Anion Gap 15.6 mEq/L (5-15); Blood Urea Nitrogen 20 mg/dl (7-17); Carbon Dioxide 25 mmol/L (22.0-30.0); Estimated Glomerular Filt Rate 94 ml/min (>60); GFR (African American) 114 ML/MIN (>60)
[2019-10-04 17:53] LABS: Calcium 10.2 mg/dl (8.4-10.2); Glucose 81 mg/dl (74-100)
[2019-10-04 18:34] LABS: Activated Partial Thrombo Time 27.5 seconds (23.6-34.0); INR 1.01 (0.9-1.1); Prothrombin Time 10.5 seconds (9.4-11.8)
== END ==
PROVIDERS: Visit Provider Neurological Surgery
DX: M79.602 Pain in left arm (principal)
CPT/HCPCS: 36415; 80048; 81001; 81025; 85025; 85610; 85730; 87086; 87088; 87186

== ENCOUNTER → 2020-01-17 16:25 | Outpatient (CLI) | payer MEDICAID, SELFPAY ==
--- NOTE | 2020-01-17 16:29 | XR_ITS ---
PROCEDURE: XR CERVICAL SPINE 5V CLINICAL INDICATION: neck pain Neck pain following injury, prior surgery COMPARISON: No exams were available for comparison FINDINGS: Prior anterior cervical disc fusion at C5-C6 with disc spacer. There is good alignment. There is reversal of the upper cervical lordosis which may be due to patient positioning or muscle spasm. There is 2-3 mm anterolisthesis of C2 on C3. No acute fracture or dislocation. The disc spaces and neural foramina are well preserved. IMPRESSION: Postsurgical changes. Reversal of cervical lordosis which may be due to patient positioning or muscle spasm. No acute fracture Dictated b Dallas Fitzpatrick MD 01/17/2020 22:50 Dallas Fitzpatrick MD in [facility] 01/17/2020 22:50
== END ==
PROVIDERS: PCP Emergency Medicine; Visit Provider Emergency Medicine
DX: M54.2 Cervicalgia (principal)
CPT/HCPCS: 72050

== ENCOUNTER 2020-03-21 19:02 | Emergency (ER) | payer MEDICAID, SELFPAY ==
[2020-03-21 19:04] VITALS: BP 140/81; PULSE 68; RESP 16; TEMP 37.1; O2SAT 99; BMI 24.7
[2020-03-21 19:16] VITALS: BMI 24.7
--- NOTE | 2020-03-21 19:17 | CT_ITS ---
PROCEDURE: CT CERVICAL SPINE WO CON CLINICAL INDICATION: fall Left-sided neck pain following injury COMPARISON: No exams were available for comparison TECHNIQUE: Axial images obtained with sagittal and coronal reformats. All CT scans at the facility use one or more dose reduction, viz: automated exposure control, ma/kV adjustment per patient size (including targeted exams where dose is matched to indication, i.e. head), or iterative reconstruction technique. Axial spiral CT scanning performed of the cervical spine beginning at the base of the skull and continuing to the upper T-spine. 3-D multiplanar reconstruction with 3-D manipulation of volumetric data set in image rendering was completed by the radiologist and/or technologist with the supervision of the radiologist on independent workstation. FINDINGS: Normal alignment. No fracture or dislocation. Prior anterior cervical disc fusion at C5-C6 with degenerative disc disease. There is uncovertebral hypertrophy with bilateral foraminal narrowing greater on the left. There is canal stenosis at 10 mm. There is mild cervical curvature convex right. IMPRESSION: 1. No acute finding. 2. Prior anterior cervical fusion at C5-C6 with degenerative disc disease at that level with narrowing of the canal and mild bilateral foraminal narrowing Dictated by: Dallas Fitzpatrick MD 03/22/2020 06:42 Dallas Fitzpatrick MD in [facility] 03/22/2020 06:42
--- NOTE | 2020-03-21 19:17 | XR_ITS ---
PROCEDURE: XR CHEST 2V CLINICAL HISTORY: fall Posttraumatic pain COMPARISON: CR CXR CHEST(2 VIEWS-NOT PORTABLE) from 09/21/2015 CR CXR CHEST(2 VIEWS-NOT PORTABLE) from 10/15/2016 CR XR CHEST 2V from 08/14/2019 FINDINGS: The cardiomediastinal silhouette and pulmonary vascularity are within normal limits. The lungs are clear without infiltrates, suspicious nodules, or pleural effusions. Bone plate is present along the lower cervical spine. IMPRESSION: No acute findings. Dictated by: Dallas Fitzpatrick MD 03/22/2020 05:21 Dallas Fitzpatrick MD in [facility] 03/22/2020 05:21
--- NOTE | 2020-03-21 19:18 | XR_ITS ---
PROCEDURE: XR PELVIS 1-2V CLINICAL INDICATION: fall Pain COMPARISON: No exams were available for comparison TECHNIQUE: XR Pelvis AP View FINDINGS: No fracture or dislocation is evident. No significant degenerative change. There is a 16 mm sclerotic focus overlying the proximal shaft of the femur medially on the right. Femur films may provide further evaluation. IMPRESSION: 16 mm sclerotic focus proximal right femur. Suggest dedicated femur films for further evaluation. Otherwise negative with no acute finding. Dictated by: Dallas Fitzpatrick MD 03/22/2020 05:23 Dallas Fitzpatrick MD in [facility] 03/22/2020 05:23
[2020-03-21 19:30] VITALS: BP 147/82; PULSE 66; RESP 17; O2SAT 99
[2020-03-21 20:00] VITALS: BP 137/79; PULSE 69; RESP 17; O2SAT 100
--- NOTE | 2020-03-21 20:14 | HMH.EDFALL ---
ED Disposition Clinical Impression: Cervical radicular pain Disposition: Home, Self-Care Condition on Discharge: Good Instructions: DI for Cervical Radiculopathy Additional Instructions: use meds and call pcp in am for follow up and possible mri Prescriptions: predniSONE [Prednisone 20mg Tab] 20 mg PO BID #10 tab Transmission Status: Pending to [facility] Referrals: Markell Mejia MD [Primary Care Provider] - - Critical Care Critical Care Time: No Attestation: On 03/21/20, the high probability of a clinically significant, sudden or life threatening deterioration of the following system(s) required my full and direct attention, intervention and personal management. The time I documented below is in addition to time spent performing reported procedures but includes the following listed in this critical care notation. Medical Decision Making - Medical Records Medical records reviewed: Yes: I reviewed the patient's medical records. - Tab Inquiry Pt receiving controlled substance: No Vital Signs: 03/21/20 19:04 03/21/20 19:30 03/21/20 20:00 Temperature 98.8 F Temperature Source Oral Pulse Rate [Left Radial] 68 66 69 Respiratory Rate 16 17 17 Blood Pressure [Right Arm] 140/81 147/82 H 137/79 Blood Pressure Mean [Right Arm] 100 103 98 Blood Pressure Source [Right Arm] Automatic Cuff Automatic Cuff Automatic Cuff Blood Pressure Position [Right Arm] Sitting Supine Supine 02 Sat by Pulse Oximetry 99 99 100 Oxygen Delivery Method Room Air Room Air Room Air Orders (Tests/Meds): ORDERS Category Date Time Status CT cervical spine wo con Stat Cat Scan 03/21/20 19:17 Taken Chest XR 2 view (NOT portable) [XR chest 2V] Stat Exams 03/21/20 19:17 Taken XR pelvis 1-2V Stat Exams 03/21/20 19:18 Taken - Radiology Data #1 Image(s): Chest, Pelvis Image Reviewed: Yes I reviewed the patient's radiology image Preliminary Findings: No Fracture Seen - CT Data CT Scan: C-Spine Time Received: 20:[address] Reviewed: Yes: I have viewed the radiologist's interpretation Preliminary Findings: No Fracture Seen - Reevaluation(s) Time: 20:46 Reevaluation #1: no clincal evid of cord syndrome such as ant or central Fall HPI - General Chief Complaint: Extremity Injury, Upper Stated Complaint: AO [id number] injured neck, arm Time Seen by Provider: 03/21/20 20:00 Mode of Arrival: Ambulatory Source of Information: Patient, Relative, Medical Record Limitations: No Limitations Description of Symptoms (Recalled from ER Triage Doc. by RN): Pt c/o tingling left arm pain that radiates to right shoulder from a fall friday night/friday morning. Pt reports sx in September [address] plate for c4-c5 injury. Friday she was bowling and she fell out of bed early friday morning, denies LOC or injury to head. - History of Present Illness HPI Narrative: bowling on friday and had pain to c spine and then fall with dec rom of lt upper ext - hx of neck surg - able to move lt upper ext but has pain - sensation ok MD complaint: fall Onset (ago): day(s) Fall from: standing Fall witnessed: yes, by family Place fall occurred: home Loss of consciousness: none Prolonged down time: no Symptoms prior to fall: none Location of injury: neck Severity: moderate Associated symptoms (after fall): denies - Related Data Home Medications Medication Instructions Recorded Confirmed Cyclobenzaprine HCl 10 mg PO BIDP PRN 03/21/20 03/21/20 [Cyclobenzaprine 10mg Tab*] Ibuprofen [Ibuprofen 800mg 800 mg PO BID PRN 03/21/20 03/21/20 Tablet] Previous Rx's Medication Instructions Recorded predniSONE [Prednisone 20mg 20 mg PO BID #10 tab 03/21/20 Tab] Allergies Allergy/AdvReac Type Severity Reaction Status Date / Time tetracycline [TETRACYCLINE] Allergy Mild Verified 01/17/20 15:44 silver Allergy Verified 01/17/20 15:44 [From Tegaderm AG Mesh] [facility] History - Hep
[2020-03-21 20:30] VITALS: BP 139/78; PULSE 71; RESP 17; O2SAT 99
[2020-03-21 20:58] VITALS: BP 123/74; PULSE 75; RESP 15; TEMP 36.6; O2SAT 98
== END 2020-03-21 21:01 | disposition home or self-care (01) ==
PROVIDERS: Emergency Provider Emergency Medicine; PCP Emergency Medicine
DX: M54.12 Radiculopathy, cervical region (principal); F41.9 Anxiety disorder, unspecified; Z87.442 Personal history of urinary calculi; F17.210 Nicotine dependence, cigarettes, uncomplicated; Z90.710 Acquired absence of both cervix and uterus
CPT/HCPCS: 71046; 72125; 72170; 99283

== ENCOUNTER → 2020-03-30 13:43 | Outpatient (CLI) | payer MEDICAID, SELFPAY ==
--- NOTE | 2020-03-30 13:53 | XR_ITS ---
PROCEDURE: XR FEMUR RT 2V CLINICAL INDICATION: leg pain Follow-up mass COMPARISON: CT ABDPELW/O CT ABD PELVIS W/O CONTRAST from 12/04/2016 CR XR PELVIS 1-2V from 03/21/2020 FINDINGS: There is a sclerotic focus along the proximal femoral shaft medially. This is nonspecific and may only be related to some mild asymmetric cortical thickening. Probably benign. Recommend 3 month follow-up to confirm stability. No fracture or dislocation. No lytic change. Other findings:None. IMPRESSION: Small sclerotic focus along the proximal femoral shaft medially nonspecific possibly related to asymmetric cortical thickening. Consider 3 month follow-up to confirm short term stability. Dictated by: Dallas Fitzpatrick MD 03/30/2020 14:24 Dallas Fitzpatrick MD in [place] 03/30/2020 14:24
== END ==
PROVIDERS: PCP Emergency Medicine; Visit Provider Emergency Medicine
DX: M79.604 Pain in right leg
CPT/HCPCS: 73552

== ENCOUNTER → 2020-04-06 08:50 | Outpatient (CLI) | payer MEDICAID, SELFPAY ==
--- NOTE | 2020-04-06 08:50 | MR_ITS ---
PROCEDURE: MR CERVICAL SPINE WO CON CLINICAL INDICATION: neck pain LT ARM TINGLING AND NUMBNESS. NECK SURGERY IN 09/26. NEEWSYMPTOMS X2-3MONTHS. COMPARISON: MR MR CERVICAL SPINE WO CON from 07/22/2019 TECHNIQUE: Standard multiplanar multiecho sequences are performed without contrast. 3-D MIP and myelographic images are also rendered and reviewed FINDINGS: There is normal alignment. The craniocervical junction has an unremarkable appearance. C2-C3: Minimal anterolisthesis of C2 2 mm. C3-C4: Unremarkable. C4-C5: Mild degenerative disc disease with a small broad-based bulging disc or protrusion which is slightly eccentric toward the left without impingement. Better demonstrated on the axial images.. C5-C6: Interval anterior cervical disc fusion. There is narrowing of the canal at this level at 10 mm with no obvious impingement. There is bilateral foraminal narrowing. Previously noted broad-based disc protrusion at this level is no longer apparent with interval improvement in the canal stenosis and cord compression compared to the previous exam. C6-C7: Unremarkable. C7-T1: Minimal right paracentral disc protrusion without impingement. IMPRESSION: 1. C4-C5: Mild degenerative disc disease with a small broad-based bulging disc or protrusion which is slightly eccentric toward the left without impingement. Better demonstrated on the axial images.. 2. C5-C6: Interval anterior cervical disc fusion. There is narrowing of the canal at this level at 10 mm with no obvious impingement. There is bilateral foraminal narrowing. Previously noted broad-based disc protrusion at this level is no longer apparent with interval improvement in the canal stenosis and cord compression compared to the previous exam. 3. C7-T1: Minimal right paracentral disc protrusion without impingement. Dictated by: Dallas Fitzpatrick MD 04/07/2020 14:29 Dallas Fitzpatrick MD in [place] 04/07/2020 14:29
== END ==
PROVIDERS: PCP Emergency Medicine; Visit Provider Emergency Medicine
DX: M54.2 Cervicalgia (principal)
CPT/HCPCS: 72141; 76376

== ENCOUNTER 2020-04-08 16:15 | Emergency (ER) | payer MEDICAID, SELFPAY ==
[2020-04-08 16:22] VITALS: BMI 27.4
--- NOTE | 2020-04-08 16:27 | XR_ITS ---
PROCEDURE: XR HAND LT MIN 3V CLINICAL INDICATION: CUT WITH SAW Pain and deformity COMPARISON: No exams were available for comparison FINDINGS: There is severely comminuted fracture involving the middle phalanx of the 2nd digit with prominent soft tissue defect with ulnar angulation and displacement of the distal fracture fragments which are severely comminuted. IMPRESSION: Severely comminuted fracture with associated soft tissue defect involving the middle phalanx of the 2nd finger Dictated by: Dallas Fitzpatrick MD 04/08/2020 20:08 Dallas Fitzpatrick MD in [place] 04/08/2020 20:08
--- NOTE | 2020-04-08 16:28 | PC.NURSE ---
RACHAEL JOYA speaking with [facility] hand surgery at this time
[2020-04-08 16:29] VITALS: BP 140/113; PULSE 104; RESP 16; TEMP 36.6; O2SAT 96; BMI 27.4
--- NOTE | 2020-04-08 16:35 | HMH.EDWNDL ---
ED Disposition Clinical Impression: Amputation finger-complicated Qualifiers: Encounter type: initial encounter Qualified Code(s): S68.119A - Complete traumatic metacarpophalangeal amputation of unspecified finger, initial encounter Disposition: Xfer Short-Term Hosp Condition on Discharge: Good Instructions: DI for Laceration Repair Referrals: PCP,No [Primary Care Provider] - Forms: Transfer Record - ED - Critical Care Critical Care Time: No Attestation: On 04/08/20, the high probability of a clinically significant, sudden or life threatening deterioration of the following system(s) required my full and direct attention, intervention and personal management. The time I documented below is in addition to time spent performing reported procedures but includes the following listed in this critical care notation. Medical Decision Making - Tab Inquiry Pt receiving controlled substance: No Vital Signs: 04/08/20 16:29 Temperature 98 F Temperature Source Oral Pulse Rate [Radial] 104 H Respiratory Rate 16 Blood Pressure [Right Arm] 140/113 H Blood Pressure Mean [Right Arm] 122 Blood Pressure Position [Right Arm] Sitting 02 Sat by Pulse Oximetry 96 Oxygen Delivery Method Room Air Orders (Tests/Meds): ED MEDICATIONS Generic Name Dose Route Start Last Admin Trade Name Freq PRN Reason Stop Dose Admin Cefazolin Sodium 2 gm/ Sodium 50 mls @ 100 mls/hr 04/08/20 16:32 Chloride IV 04/08/20 17:01 ONCE ONE Protocol Discontinued Medications Generic Name Dose Route Start Last Admin Trade Name Freq PRN Reason Stop Dose Admin Cefazolin Sodium 1 gm 04/08/20 16:28 Cefazolin 1gm Vial IM 04/08/20 16:29 ONCE ONE Protocol Hydromorphone HCl 1 mg 04/08/20 16:22 04/08/20 16:23 Hydromorphone 2mg/Ml Syringe IV 04/08/20 16:23 1 mg ONCE ONE Administration Ondansetron HCl 4 mg 04/08/20 16:22 04/08/20 16:23 Ondansetron 4mg/2ml Vial IV 04/08/20 16:23 4 mg ONCE ONE Administration Tetanus/Reduced Diphtheria/Acell Pertussis 0.5 ml 04/08/20 16:34 Tet/Diphth/Pert-Adult 0.5ml Syringe IM 04/08/20 16:35 .ONCE ONE ORDERS Category Date Time Status XR hand LT min 3V Stat Exams 04/08/20 16:27 Taken - Radiology Data #1 Image Reviewed: Yes I reviewed the patient's radiology image Preliminary Findings: Abnormal Amputation fracture of the left index finger beyond the PIP joint Medical Decision Narrative: 39-year-old female who presents acutely after dropping a bed frame on her left index finger causing a partial amputation just distal to the PIP joint. She is in severe pain and family members have brought the remaining finger fragments to the ED with her. She will be prophylactically given 2 g of Ancef as well as a tetanus vaccination and treated with IV Dilaudid for pain. X-rays of the hand are obtained demonstrating amputation open fracture and due to the severe nature and requirement for revision amputation the patient was transferred to the [facility] for hand surgery evaluation. Wound/Laceration HPI - General Chief Complaint: Wound/Laceration Stated Complaint: LACERATION Time Seen by Provider: 04/08/20 16:35 Mode of Arrival: Ambulatory Source of Information: Patient, Parent(s) Limitations: No Limitations Description of Symptoms (Recalled from ER Triage Doc. 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 - History of Present Illness Onset (ago): minute(s) Extremity Location: Left: hand (partial amputation) Place: home Patient tetanus UTD: No Context: crush injury Associated symptoms: pain, loss of feeling/numbness, unable to move injured part - Related Data Home Medications Medication Instructions Recorded Confirmed Cyclobenzaprine HCl 10 mg PO BIDP PRN 03/21/20 03/27/20 [Cyclobenzaprine 10mg Tab*] Ibuprofen [Ibuprofen 800mg 800 mg PO BID PRN 03/21/20 03/27/20 Tablet
--- NOTE | 2020-04-08 16:39 | PC.NURSE ---
hand surgeon at has accepted pt to the ER
--- NOTE | 2020-04-08 16:40 | PC.NURSE ---
PT CRYING MOANING WRITHING ON STRETCHER DUE TO PAIN
--- NOTE | 2020-04-08 16:41 | PC.NURSE ---
FAMILY AT BEDSIDE UPDATED ON PLAN OF CARE
[2020-04-08 17:07] VITALS: BP 140/100; PULSE 104; RESP 24; TEMP 36.6; O2SAT 98
--- NOTE | 2020-04-08 17:07 | PC.NURSE ---
REPORT CALLED TO [facility] ED
== END 2020-04-08 17:09 | disposition short-term general hospital (02) ==
PROVIDERS: Emergency Provider Student in an Organized Health Care Education/Training Program
DX: S68.121A Partial traumatic metacarpophalangeal amputation of left index finger, initial encounter (principal); W22.8XXA Striking against or struck by other objects, initial encounter; Y92.019 Unspecified place in single-family (private) house as the place of occurrence of the external cause; F41.9 Anxiety disorder, unspecified; J45.909 Unspecified asthma, uncomplicated; Z87.442 Personal history of urinary calculi; F17.210 Nicotine dependence, cigarettes, uncomplicated; Z23 Encounter for immunization
CPT/HCPCS: 73130; 90715; 96365; 96375; 96376; 99283; J2405

== ENCOUNTER 2020-06-13 18:58 | Emergency (ER) | payer MEDICAID, SELFPAY ==
[2020-06-13 19:41] VITALS: BP 142/87; PULSE 68; RESP 19; TEMP 37; O2SAT 99; BMI 23.0
--- NOTE | 2020-06-13 20:09 | HMH.EDUTC ---
[facility] [place] Clinical Impression: Encounter for laboratory testing for COVID-19 virus Vomiting Qualifiers: Vomiting type: unspecified Vomiting Intractability: unspecified Nausea presence: with nausea Qualified Code(s): R11.2 - Nausea with vomiting, unspecified Disposition: Home, Self-Care Condition on Discharge: Good Instructions: DI for Vomiting -- Adult, DI for Fever (Symptom) -- Adult, Nausea and Vomiting-Adult, DI for COVID-19 (Suspected or Confirmed ), COVID-19: Testing and Tracing, Preventing the Spread of Coronavirus Discharge Instructions Additional Instructions: *Monitor Temp, Over the counter Motrin or Tylenol as directed/as needed Tylenol every 4 hours and Motrin every 6 hours (as long as your family doctor has told you that you can take it) for fever or pain. and straight to ER if unable to lower temp less than 101.0 after medication given ? Avoid fruit juices, as these do not replace minerals and can actually increase diarrhea. ? Children and adults can use sports drinks to replenish electrolytes. Younger children and infants should use products formulated for children, like oral rehydration solutions. ? Eat food in small amounts and let your stomach recover. ? Get lots of rest. You may feel tired or weak. ? No greasy or fried foods for the next 24-48 hours BRAT diet Bananas Rice Apples and [place] ? Make sure to drink plenty of liquids ? Return if needed ? Straight to ER if any life threatening symptoms ? Zofran as prescribed ? You was given an outpatient order for diarrhea panel, please collect specimen and bring back to outpatient lab then call back to the [facility] or follow up with family doctor for results ? Follow up with family doctor in the next 48-72 hours if no improvement or any worsening of symptoms Follow up IMMEDIATELY for new or worsening symptoms or no Noticeable improvement over the next 48-72 hours. 911 for difficulty breathing or swallowing You were tested for today for COVID19 your test result should be back in the next 24-48 hours, you may call to the [facility] to see if your test results are back in the next 48 hours [phone] [facility] hours are 9am-9pm You was given a handout with instructions for Self Quarantine and Self isolation for while you wait on test results and what to do if they are positive If you are positive the Health Dept will be contacting you also Prescriptions: Ondansetron [Zofran 4mg ODT] 4 mg PO TIDP PRN #6 tab PRN Reason: Vomiting Transmission Status: Pending to [facility] Referrals: Markell Mejia MD [Primary Care Provider] - As needed Forms: Work/School Release Time of Disposition: 20:11 Medical Decision Making - Tab Inquiry Pt receiving controlled substance: No Tab was queried for this patient: No Vital Signs: 06/13/20 19:41 06/13/20 20:24 Temperature 98.6 F 98.6 F Temperature Source Oral Pulse Rate 68 Pulse Rate [Right Brachial] 68 Respiratory Rate 19 19 Blood Pressure 142/87 H Blood Pressure [Right Arm] 142/87 H Blood Pressure Mean [Right Arm] 105 Blood Pressure Source [Right Arm] Automatic Cuff Blood Pressure Position [Right Arm] Sitting 02 Sat by Pulse Oximetry 99 Oxygen Delivery Method Room Air Orders (Tests/Meds): ED MEDICATIONS Discontinued Medications Generic Name Dose Route Start Last Admin Trade Name Freq PRN Reason Stop Dose Admin Ondansetron HCl 4 mg 06/13/20 20:24 Ondansetron 4mg Odt SL 06/13/20 20:25 ONCE ONE ORDERS Category Date Time Status Covid-19 Nasal PCR ([facility]) Routine Lab 06/13/20 19:24 Received Medical Decision Narrative: Patient states that she is no longer taking any of her previous prescribed medications and denies [facility] [place] - General Stated complaint: covid test, vomiting Time Seen by Provider: 06/13/20 20:09 Mode of Arrival: Ambulatory Source of Information: Patient Limitations: No Limitations Description of Symptoms (Recalled from Triage Doc. by RN
[2020-06-13 20:24] VITALS: BP 142/87; PULSE 68; RESP 19; TEMP 37; O2SAT 99
== END 2020-06-13 20:30 | disposition home or self-care (01) ==
PROVIDERS: Emergency Provider Nurse Practitioner; PCP Emergency Medicine
DX: Z20.822 Contact with and (suspected) exposure to COVID-19 (principal); J45.909 Unspecified asthma, uncomplicated; F41.9 Anxiety disorder, unspecified; F17.210 Nicotine dependence, cigarettes, uncomplicated
CPT/HCPCS: 99202; G0463; U0003

== ENCOUNTER → 2020-10-09 17:02 | Outpatient (CLI) | payer MEDICAID, SELFPAY ==
[2020-10-09 18:41] LABS: Amphetamine/Metha Screen,Urine Negative ng/ml (<1000)
[2020-10-09 18:42] LABS: Barbiturates Screen,Urine Negative ng/ml (<200)
[2020-10-09 18:43] LABS: Benzodiazepines Screen,Urine Negative ng/ml (<200)
[2020-10-09 18:45] LABS: Cocaine Screen,Urine Negative ng/ml (<300); Methadone Screen,Urine Negative ng/ml (<300)
[2020-10-09 18:46] LABS: Opiate Screen,Urine Negative ng/ml (<300); Phencyclidine Screen,Urine Negative ng/ml (<25)
[2020-10-09 18:52] LABS: Cannabinoid Screen,Urine Negative ng/ml (<50)
== END ==
PROVIDERS: Visit Provider Nurse Practitioner
DX: Z79.899 Other long term (current) drug therapy (principal)
CPT/HCPCS: 80305

== ENCOUNTER → 2020-10-25 08:28 | Outpatient (CLI) | payer MEDICAID, SELFPAY ==
[2020-10-25 11:29] LABS: Opiate Screen,Urine Negative ng/ml (<300); Phencyclidine Screen,Urine Negative ng/ml (<25)
[2020-10-25 11:31] LABS: Amphetamine/Metha Screen,Urine Negative ng/ml (<1000); Barbiturates Screen,Urine Negative ng/ml (<200)
[2020-10-25 11:32] LABS: Benzodiazepines Screen,Urine Negative ng/ml (<200)
[2020-10-25 11:34] LABS: Cannabinoid Screen,Urine Negative ng/ml (<50)
[2020-10-25 11:35] LABS: Cocaine Screen,Urine Negative ng/ml (<300)
[2020-10-25 11:36] LABS: Methadone Screen,Urine Negative ng/ml (<300)
== END ==
PROVIDERS: Visit Provider Nurse Practitioner
DX: Z79.899 Other long term (current) drug therapy (principal)
CPT/HCPCS: 80305

== ENCOUNTER → 2020-11-20 18:27 | Outpatient (CLI) | payer MEDICAID, SELFPAY ==
[2020-11-20 19:00] LABS: Basophils % 0.6 % (0.1-2.0); Eosinophils # 0.1 K/mm3 (0.0-0.4); Eosinophils % 1.7 % (0.1-12.0); Hematocrit 41.8 % (37.0-47.0); Hemoglobin 13.8 g/dL (12.2-16.2); Lymphocytes # 2.6 K/mm3 (0.7-4.5); Lymphocytes % 32.9 % (10-50); Mean Corpuscular Hemoglobin 30.4 pg (27.0-31.2); Mean Corpuscular Volume 92.1 fl (81-99); Mean Platelet Volume 7.4 fl (7.4-10.4); Monocytes # 0.4 K/mm3 (0.1-1.0); Monocytes % 4.8 % (1.7-9.3); Neutrophils # 4.7 K/mm3 (1.8-7.8); Platelet Count 236 K/mm3 (142-424); Red Blood Count 4.54 M/mm3 (4.20-5.40); Red Cell Distribution Width 13.3 % (11.5-17.5); White Blood Count 7.8 K/mm3 (4.8-10.8)
[2020-11-20 19:17] LABS: Amphetamine/Metha Screen,Urine Negative ng/ml (<1000)
[2020-11-20 19:18] LABS: Barbiturates Screen,Urine Negative ng/ml (<200)
[2020-11-20 19:19] LABS: Benzodiazepines Screen,Urine Negative ng/ml (<200); Cannabinoid Screen,Urine Negative ng/ml (<50)
[2020-11-20 19:20] LABS: Cocaine Screen,Urine Negative ng/ml (<300)
[2020-11-20 19:21] LABS: Methadone Screen,Urine Negative ng/ml (<300); Opiate Screen,Urine Negative ng/ml (<300)
[2020-11-20 19:22] LABS: Phencyclidine Screen,Urine Negative ng/ml (<25)
[2020-11-20 19:27] LABS: Chloride 105 mmol/L (98-107)
[2020-11-20 19:28] LABS: Potassium 4.2 mmoL/L (3.5-5.1); Sodium 140 mmol/L (136-145)
[2020-11-20 19:30] LABS: Alanine Aminotransferase 65 U/L (12-78); Albumin Level 4.8 g/dl (3.5-5.0); Albumin/Globulin Ratio 1.3 (1.1-1.8); Alkaline Phosphatase 49 U/L (38-126); Anion Gap 13.2 mEq/L (5-15); Aspartate Amino Transferase 48 U/L (14-36); Bilirubin,Total 0.3 mg/dl (0.2-1.3); Blood Urea Nitrogen 15 mg/dl (7-17); Carbon Dioxide 26 mmol/L (22.0-30.0); Estimated Glomerular Filt Rate 80 ml/min (>60); GFR (African American) 97 ML/MIN (>60); Globulin 3.7 g/dL (1.3-3.2); Total Protein,Serum 8.5 g/dl (6.3-8.2)
[2020-11-20 19:31] LABS: Calcium 9.3 mg/dl (8.4-10.2); Glucose 74 mg/dl (74-100)
[2020-11-20 19:34] LABS: INR 0.93 (0.9-1.1)
[2020-11-22 09:23] LABS: HIV Screen 4th Generation wRfx Non Reactive (Non Reactive)
[2020-11-22 12:48] LABS: Hepatitis C Antibody >11.0 s/co ratio (0.0-0.9)
== END ==
PROVIDERS: Visit Provider Emergency Medicine
DX: Z79.899 Other long term (current) drug therapy (principal); Z11.4 Encounter for screening for human immunodeficiency virus [HIV]; R76.8 Other specified abnormal immunological findings in serum
CPT/HCPCS: 36415; 80053; 80305; 85025; 85610; 86703; 87380; G0432

== ENCOUNTER → 2020-12-13 15:10 | Outpatient (CLI) | payer MEDICAID, SELFPAY ==
[2020-12-13 18:05] LABS: Amphetamine/Metha Screen,Urine Negative ng/ml (<1000)
[2020-12-13 18:06] LABS: Barbiturates Screen,Urine Negative ng/ml (<200); Benzodiazepines Screen,Urine Negative ng/ml (<200)
[2020-12-13 18:07] LABS: Cannabinoid Screen,Urine Negative ng/ml (<50)
[2020-12-13 18:08] LABS: Cocaine Screen,Urine Negative ng/ml (<300); Methadone Screen,Urine Negative ng/ml (<300)
[2020-12-13 18:09] LABS: Opiate Screen,Urine Negative ng/ml (<300)
[2020-12-13 18:10] LABS: Phencyclidine Screen,Urine Negative ng/ml (<25)
== END ==
PROVIDERS: Visit Provider Nurse Practitioner
DX: F11.20 Opioid dependence, uncomplicated (principal)
CPT/HCPCS: 80305

== ENCOUNTER 2022-01-29 15:42 | Emergency (ER) | payer MEDICAID, SELFPAY ==
[2022-01-29 16:24] VITALS: BP 137/73; PULSE 77; RESP 18; TEMP 36.9; O2SAT 98; BMI 31.4
--- NOTE | 2022-01-29 16:31 | HMH.EDUTC ---
[facility] [place] Disposition Clinical Impression: History of exposure to blood or body fluid, Viral syndrome Otitis media Qualifiers: Otitis media type: suppurative Chronicity: acute Laterality: bilateral Recurrence: non-recurrent Spontaneous tympanic membrane rupture: without spontaneous rupture Qualified Code(s): H66.003 - Acute suppurative otitis media without spontaneous rupture of ear drum, bilateral Disposition: Home, Self-Care Condition on Discharge: Good Instructions: Middle Ear Infection Additional Instructions: Drink plenty of fluids. Take tylenol or ibuprofen for pain or fever. Take the medications as directed. Follow up with your regular doctor. GO TO THE ER FOR ANY WORSENING SYMPTOMS Quarantine until you know the results of your covid-19 test. Notify your school or workplace of your results and follow their instructions regarding return to work/school. Prescriptions: cephALEXin [cephALEXin 500mg capsule] 500 mg PO Q6H 10 Days #40 cap Transmission Status: Received by [facility] predniSONE [Prednisone 20mg Tab] 20 mg PO BID 3 Days #6 tab Transmission Status: Received by [facility] Referrals: Provider,Referral, [Primary Care Provider] - Time of Disposition: 16:37 Medical Decision Making - Medical Records Medical records reviewed: No: I reviewed the patient's medical records. - Tab Inquiry Pt receiving controlled substance: No Vital Signs: 01/29/22 16:24 01/29/22 17:19 Temperature 98.5 F 98.5 F Temperature Source Oral Pulse Rate 77 Pulse Rate [Left] 77 Respiratory Rate 18 18 Blood Pressure 137/73 Blood Pressure [Right Arm] 137/73 Blood Pressure Mean [Right Arm] 94 02 Sat by Pulse Oximetry 98 - Lab Data Lab results reviewed: Yes: I reviewed the patient's lab results. Orders (Tests/Meds): ORDERS Category Date Time Status Covid-19 Nasal PCR ([facility]) Routine Lab 01/29/22 16:48 Received HIV Panel [id number] Stat Lab 01/29/22 17:15 Received Hepatitis Panel (4) Stat Lab 01/29/22 17:15 Received [facility] HPI - General Stated complaint: AO 01/25@1730@WM STRAUSS Time Seen by Provider: 01/29/22 16:31 Mode of Arrival: Ambulatory Source of Information: Patient Limitations: No Limitations Description of Symptoms (Recalled from Triage Doc. by RN): patient comes in for complaints of headache, vomitting. those symptoms began 2 days ago. patient is also here to get her thumb checked out and have lab work done. patient took an at home covid test and it was negative. HEENT Symptoms (Recalled from RN notes): Yes Resp Symptoms (Recalled from RN notes): No Skin Symptoms (Recalled from RN notes): No MS Symptoms (Recalled from RN notes): No Functional Status (Recalled from RN notes): n/a - History of Present Illness Provider Complaint: She states that she needs some blood drawn after she was injured at [email or web address] 4 days ago. She got a laceration on her right thumb from a broken bottle on the shelf at [facility]. She went to then and got 3 stitches and a tdap immunization. She is also having ear pain, ear pressure and a headache for the past 2 days. She states that she gets ear infections at times and she feels like this when she does. - Related Data Previous Rx's Medication Instructions Recorded Ondansetron [Zofran 4mg ODT] 4 mg PO TIDP PRN #6 tab 06/13/20 cephALEXin [cephALEXin 500mg 500 mg PO Q6H 10 Days #40 cap 01/29/22 capsule] predniSONE [Prednisone 20mg 20 mg PO BID 3 Days #6 tab 01/29/22 Tab] Allergies Allergy/AdvReac Type Severity Reaction Status Date / Time tetracycline [TETRACYCLINE] Allergy Mild Verified 04/24/20 15:39 silver Allergy Verified 04/24/20 15:39 [From Teg[employer]erm [employer] Mesh] - Worker's Comp Is this a Worker's Comp case?: No [facility] History - Hepatitis A Screen Attestation statement:: This patient has been screened for Hepatitis A risk factors. I have reviewed the patient's past medical history: Yes
[2022-01-29 17:19] VITALS: BP 137/73; PULSE 77; RESP 18; TEMP 36.9
[2022-01-31 11:22] LABS: HIV Screen 4th Generation wRfx Non Reactive (Non Reactive)
[2022-02-02 21:01] LABS: Hep A Ab, IgM Negative; Hepatitis B Core Antibody IgM Negative; Hepatitis B Surface Antigen Negative; Hepatitis C Antibody >11.0
== END 2022-01-29 17:19 | disposition home or self-care (01) ==
PROVIDERS: Emergency Provider Nurse Practitioner Family
DX: Z77.21 Contact with and (suspected) exposure to potentially hazardous body fluids (principal); B34.9 Viral infection, unspecified
CPT/HCPCS: 80074; 86703; 99212; C9803; G0432; G0463; U0003; U0005

== ENCOUNTER 2024-02-12 14:52 | Emergency (ER) | payer MEDICAID, SELFPAY ==
[2024-02-12 15:10] VITALS: BP 130/73; PULSE 72; RESP 20; TEMP 36.8; O2SAT 98; BMI 34.5
[2024-02-12 15:27] LABS: Apearance,Urine Cloudy (Clear); Bilirubin,Urine Negative (Negative); Blood, Urine Negative (Negative); Color,Urine Dark Yellow (Yellow); Glucose,Urine (UA) Negative (Negative); Ketones,Urine Negative (Negative); PH,Urine 6.5 (5.0-8.5); Protein,Urine Negative (Negative); UTC Leukocyte Esterase,Urine 1+ (Negative); UTC Nitrate,Urine Positive (Negative); Urobilinogen,Urine 0.2 EU/dl (0.2)
--- NOTE | 2024-02-12 15:56 | ED_ITS ---
Discharge Plan Disposition Patient Disposition: Home, Self-Care Condition: Good Prescriptions Prescriptions: New nitrofurantoin monohyd/m-cryst [Macrobid] 100 mg capsule 100 mg PO Q12H 7 Days Qty: 14 0RF Rx Instructions: must administer with a meal/food phenazopyridine [Pyridium] 200 mg tablet 200 mg PO Q8H 2 Days Qty: 6 0RF No Action trazodone 50 mg tablet 50 mg PO HS Patient Comments: TAKE 1/2 TO 1 TABLET BY MOUTH DAILY AT BEDTIME hydrocodone-acetaminophen 7.5-325 mg tablet 1 tab PO Q8HP PRN (Reason: Pain) Patient Comments: TAKE 1 TABLET BY MOUTH EVERY 8 HOURS NEEDED FOR SEVERE PAIN gabapentin 300 mg capsule 300 mg PO DAILY Patient Comments: TAKE ONE CAPSULE BY MOUTH DAILY FOR 7 DAYS THEN TAKE 2 CAPSULES DAILY FOR 7 DAYS THEN START 3 CAPSULES DAILY prazosin 2 mg capsule 2 mg PO DAILY Patient Comments: TAKE 1 CAPSULE BY MOUTH DAILY AT BEDTIME aripiprazole 30 mg tablet 30 mg PO DAILY Patient Comments: TAKE 1 TABLET BY MOUTH DAILY desvenlafaxine succinate 100 mg tablet extended release 24 hr 100 mg PO DAILY Patient Comments: TAKE 1 TABLET BY MOUTH DAILY melatonin-lemon balm leaf extr 10-1 mg tablet 1 tab PO DAILY Patient Comments: TAKE 1 TABLET BY MOUTH EVERY NIGHT AT BEDTIME methocarbamol 750 mg tablet 750 mg PO DAILYP PRN (Reason: Pain) Referrals Follow up/Referrals: Eliseo Ibarra [Primary Care Provider] - See instructions Activity Restrictions/Add. Instructions Additional Instructions/Restrictions: *Increase fluids. Water not Soda or Tea *Start antibiotic immediately and be sure to take as ordered for the FULL length of time although you should start to see improvement over the next 48 hours *Pyridium as needed Remember this medication will turn your urine . This is normal but it will stain what ever it gets on *You should not use Pyridium for more than 48 hours. If so , follow up with your primary physician to review urine culture and ensure that antibiotic is adequate for infection *Be SURE to follow up anytime for new or worsening symptoms with your family doctor. AND in 48 hours for urine culture results with your family doctor, if you do not have a doctor then you may call back to the [facility] for urine culture results and further treatment. We do recommend that you choose and establish care with a Primary Care Physician. ?AND follow up with them ?in 10-14 days to repeat UA to ensure infection is resolved and blood no longer present *Be sure to let your PCP know that we sent urine cultures from the [facility] so they can follow up to ensure that you area the on the correct antibiotic Call your doctor office and make appointment for 48 hours (2 days from today) ?to follow up and get the results of your urine culture and further treatment Clinical Impressions Clinical Impression: UTI (urinary tract infection) Instructions Patient Instructions: DI for Urinary Tract Infection (UTI) Print Language Print Language: Welsh Discharge ED Provider: Aide Ruffin [facility] [place] General Stated complaint: pain and frequent urination Mode of Arrival: Ambulatory Source of Information: Patient Limitations: No Limitations Time Seen by Provider: 02/12/24 15:56 Description of Symptoms (Recalled from Triage Doc. by RN): PATIENT C/O URINARY FREQUENCY AND LOWER BACK PAIN X 4 DAYS. PATIENT ALSO REQUESTING STD TEST HEENT Symptoms (Recalled from RN notes): No Resp Symptoms (Recalled from RN notes): No Skin Symptoms (Recalled from RN notes): No MS Symptoms (Recalled from RN notes): No Functional Status (Recalled from RN notes): WNL History of Present Illness Provider Complaint: Patient states that she has been feeling achy in her lower back, burning with urination and feeling of urgency and frequency States that she feels like she may have a UTI but also wants to get checked for STDs Related Data Home Medications ?Medication ?Instructions ?Recorded ?Confirmed aripiprazole 30 mg tablet 30 mg PO DAILY 02/12/24 02/12/24 desvenlafaxine succinate 100 mg 100 mg PO DAILY 02/12/24 02/12/24 tablet,extended release 24 hr gabapentin 300 mg capsule 300 mg PO DAILY 02/12/24 02/12/24 hydrocodone 7.5 mg-acetaminophen 1 tab PO Q8HP PRN Pain 02/12/24 02/12/24 325 mg tablet melatonin 10 mg-lemon balm leaf 1 tab PO DAILY 02/12/24 02/12/24 extract 1 mg tablet methocarbamol 750 mg tablet 750 mg PO DAILYP PRN Pain 02/12/24 02/12/24 prazosin 2 mg capsule 2 mg PO DAILY 02/12/24 02/12/24 trazodone 50 mg tablet 50 mg PO HS 02/12/24 02/12/24 Previous Rx's ?Medication ?Instructions ?Recorded nitrofurantoin 100 mg PO Q12H 7 days #14 caps 02/12/24 monohydrate/macrocrystals 100 mg capsule (Macrobid) phenazopyridine 200 mg tablet 200 mg PO Q8H pain 2 days #6 tabs 02/12/24 (Pyridium) Allergies Allergy/AdvReac Type Severity Reaction Status Date / Time tetracycline [TETRACYCLINE] Allergy Mild Verified 04/24/20 15:39 silver Allergy Verified 04/24/20 15:39 [From Tegaderm [employer] Mesh] Worker's Comp Is this a Worker's Comp case?: No [facility] Disclaimer: The information contained in this section may have been updated after the patient was seen, as this information can be updated by other users. Medical History (Updated 02/12/24 @ 16:06 by Aide Ruffin APRN) Depression Anxiety Urinary tract infection Kidney stone Asthma Hypertension Surgical History (Updated 02/12/24 @ 15:22 by Carlie Pop RN) History of tonsillectomy History of hysterectomy History of cholecystectomy History of section Social History Smoking Status: Current every day smoker tobacco type: cigarettes packs per day: 1 alcohol intake: never substance use type: former substance user current occupational status: other Travel in the last 8 weeks: None household members: spouse housing: house caffeine: No ROS Obtained: Yes All systems reviewed & no additional complaints except as documented and Yes Systems reviewed as appropriate & no additional complaints except as documented Constitutional Constitutional: Reports system reviewed and no additional complaints, except as documented, Reports as per HPI, Denies body ache, Denies chills, Denies fever(s) and Denies headache(s) ENT Ears, Nose, Mouth, and Throat: Reports system reviewed and no additional complaints, except as documented, Reports as per HPI and Denies headache(s) Cardiovascular Cardiovascular: Reports system reviewed and no additional complaints, except as documented and Reports as per HPI Respiratory Respiratory: Reports system reviewed and no additional complaints, except as documented and Reports as per HPI Gastrointestinal Gastrointestingal: Reports system reviewed and no additional complaints, except as documented and as per HPI; Denies abdominal pain, diarrhea, nausea or vomiting Genitourinary Female Genitourinary: Reports system reviewed and no additional complaints, except as documented, Reports as per HPI, Reports dysuria, Reports urinary frequency and Reports urinary urgency Neurologic Neurologic: Denies headache(s) Physical Exam General General appearance: alert and in no apparent distress ENT ENT exam: Present mucous membranes moist Respiratory Respiratory exam: Present normal lung sounds bilaterally; Absent respiratory distress or wheezes Cardiovascular Cardiovascular exam: Present regular rate, normal rhythm and normal heart sounds Abdominal Exam Abdominal exam: Present soft and normal bowel sounds; Absent distention or tenderness Neurological Exam Neurological exam: Present alert, oriented X3 and normal gait Medical Decision Making Tab Inquiry Pt receiving controlled substance: No Tab was queried for this patient: No Vital Signs: 02/12/24 15:10 Temperature 98.3 F Temperature Source Oral Pulse Rate [Left Brachial] 72 Respiratory Rate 20 Blood Pressure [Left Arm] 130/73 Blood Pressure Mean [Left Arm] 92 Blood Pressure Source [Left Arm] Automatic Cuff Blood Pressure Position [Left Arm] Sitting 02 Sat by Pulse Oximetry 98 Oxygen Delivery Method Room Air Lab Data Lab Results 02/12/24 15:22: Urine Color Dark yellow, Urine Appearance Cloudy, Urine pH 6.5, Ur Specific [place] 1.020, Urine Protein Negative, Urine Glucose (UA) Negative, Urine Ketones Negative, Urine Blood Negative, Urine Nitrate Positive A, Urine Bilirubin Negative, Urine Urobilinogen 0.2, Ur Leukocyte Esterase 1+ A Orders (Tests/Meds): ORDERS Category Date Time Status UA [Urinalysis and Microscopic] Stat Lab 02/12/24 15:22 Ordered Urine Culture Stat Micro 02/12/24 15:15 Received
[2024-02-12 16:03] LABS: Microscopic, Urine URINE MICROSCOPIC (MICROSCOPIC)
[2024-02-12 16:27] VITALS: BP 130/73; PULSE 72; RESP 20; TEMP 36.8; O2SAT 98
[2024-02-12 17:55] LABS: Bilirubin,Urine Negative (Negative); Blood, Urine Negative (Negative); Color,Urine YELLOW (Yellow); Glucose,Urine (UA) Negative (Negative); Ketones,Urine Negative (Negative); Leukocyte Esterase,Urine 1+ (Negative); Nitrate,Urine POSITIVE (Negative); PH,Urine 6.5 (5.0-8.5); Protein,Urine Negative (Negative); Urobilinogen,Urine 0.2 EU/dl (0.2)
[2024-02-12 17:58] LABS: Appearance,Urine Slightly Cloudy (Clear)
[2024-02-12 18:09] LABS: Bacteria,Urine 3+ /lpf
--- NOTE | 2024-02-14 10:59 | PC.NURSE ---
REVIEWED URINE CULTURE RESULTS WITH Chris SHARMA APRN, NO CHANGE NEEDED AT THIS TIME
[2024-02-15 23:07] LABS: Neisseria gonorrhoeae, NAA Negative (Negative)
--- NOTE | 2024-02-16 12:59 | PC.NURSE ---
URINE CULTURE RESULTS REVIEWED BY Micaela ANGUIANO APRN, NO CHANGES NEEDED AT THIS TIME
== END 2024-02-12 16:29 | disposition home or self-care (01) ==
PROVIDERS: Emergency Provider Nurse Practitioner; PCP Family Medicine
DX: N39.0 Urinary tract infection, site not specified (principal); B96.1 Klebsiella pneumoniae [K. pneumoniae] as the cause of diseases classified elsewhere; M54.59 Other low back pain; R30.0 Dysuria; R35.0 Frequency of micturition
CPT/HCPCS: 81001; 81003; 87086; 87088; 87186; 87491; 87591; 99212; 99214; G0463

== ENCOUNTER 2024-02-20 21:08 | Emergency (ER) | payer MEDICAID, SELFPAY ==
[2024-02-20 21:09] VITALS: BP 146/91; PULSE 73; RESP 21; TEMP 36.6; O2SAT 95; BMI 34.7
--- NOTE | 2024-02-20 21:25 | XR_ITS ---
PROCEDURE INFORMATION: Exam: XR Chest Exam date and time: 02/20/2024 9:41 PM Age: 43 years old Clinical indication: Dyspnea TECHNIQUE: Imaging protocol: Radiologic exam of the chest. Views: 1 view. COMPARISON: CR XR CHEST 2V 03/21/2020 7:24 PM FINDINGS: Lungs: Unremarkable. No consolidation. Pleural spaces: Unremarkable. No pleural effusion. No pneumothorax. Heart/Mediastinum: Unremarkable. No cardiomegaly. Bones/joints: Unremarkable. IMPRESSION: No acute findings.
--- NOTE | 2024-02-20 21:41 | ECG_ITS ---
APPROVED REPORT Exam: Resting ECG HR:63 bpm ECG Measurements Heart Rate 63 AXES PA 155 P 52 QRSd 87 QRS 38 QT 395 T 34 QTc 403 Conclusion SINUS RHYTHM NORMAL ECG UNCONFIRMED REPORT Electronically signed by : James Garcia, 02/20/2024 23:45:26
[2024-02-20 22:01] VITALS: BP 145/87; PULSE 69; RESP 21; O2SAT 98
[2024-02-20 22:02] LABS: NT Pro Brain Natriuretic Pep. 251 pg/mL (0-125)
[2024-02-20 22:04] LABS: Appearance,Urine CLEAR (Clear); Bilirubin,Urine Negative (Negative); Blood, Urine Negative (Negative); Color,Urine YELLOW (Yellow); Glucose,Urine (UA) Negative (Negative); Ketones,Urine Negative (Negative); Leukocyte Esterase,Urine Negative (Negative); Microscopic, Urine URINE MICROSCOPIC (MICROSCOPIC); Nitrate,Urine Negative (Negative); Protein,Urine Negative (Negative); Urobilinogen,Urine 0.2 EU/dl (0.2)
[2024-02-20 22:12] LABS: Amorphous Sediment,Urine 2+ /lpf; Bacteria,Urine Trace /lpf; Squamous Epithelial Cell,Urine Occasional #/hpf (0-5); WBC,Urine Occasional #/hpf (0-3)
--- NOTE | 2024-02-20 22:20 | HMH.EDGENADL ---
Discharge Plan Disposition Patient Disposition: Home, Self-Care Condition: Good Prescriptions Prescriptions: No Action trazodone 50 mg tablet 50 mg PO HS Patient Comments: TAKE 1/2 TO 1 TABLET BY MOUTH DAILY AT BEDTIME hydrocodone-acetaminophen 7.5-325 mg tablet 1 tab PO Q8HP PRN (Reason: Pain) Patient Comments: TAKE 1 TABLET BY MOUTH EVERY 8 HOURS NEEDED FOR SEVERE PAIN gabapentin 300 mg capsule 300 mg PO DAILY Patient Comments: TAKE ONE CAPSULE BY MOUTH DAILY FOR 7 DAYS THEN TAKE 2 CAPSULES DAILY FOR 7 DAYS THEN START 3 CAPSULES DAILY prazosin 2 mg capsule 2 mg PO DAILY Patient Comments: TAKE 1 CAPSULE BY MOUTH DAILY AT BEDTIME aripiprazole 30 mg tablet 30 mg PO DAILY Patient Comments: TAKE 1 TABLET BY MOUTH DAILY desvenlafaxine succinate 100 mg tablet extended release 24 hr 100 mg PO DAILY Patient Comments: TAKE 1 TABLET BY MOUTH DAILY melatonin-lemon balm leaf extr 10-1 mg tablet 1 tab PO DAILY Patient Comments: TAKE 1 TABLET BY MOUTH EVERY NIGHT AT BEDTIME methocarbamol 750 mg tablet 750 mg PO DAILYP PRN (Reason: Pain) nitrofurantoin monohyd/m-cryst [Macrobid] 100 mg capsule 100 mg PO Q12H 7 Days Qty: 14 0RF Rx Instructions: must administer with a meal/food phenazopyridine [Pyridium] 200 mg tablet 200 mg PO Q8H 2 Days Qty: 6 0RF Referrals Follow up/Referrals: Gaetano Whitt MD [Staff Physician] - See instructions Eliseo Ibarra [Primary Care Provider] - See instructions Activity Restrictions/Add. Instructions Additional Instructions/Restrictions: No emergent medical condition identified today to review the cause of your edema. No evidence of an acute cardiopulmonary emergency or abnormalities associated with your liver kidneys etc. I do recommend you follow-up closely with our body trimmer for further evaluation of your heart. Clinical Impressions Clinical Impression: Bilateral leg edema, Dyspnea Print Language Print Language: Azeri Discharge ED Provider: Oriana Garcia General Adult HPI General Chief complaint: PAIN Stated complaint: Feet swollen,cough,SOA Time Seen by Provider: 02/20/24 21:17 Mode of Arrival: Ambulatory Source of Information: Patient Limitations: No Limitations Description of Symptoms (Recalled from ER Triage Doc. by RN): pt reports severe pain in the bottoms of both feet when walking, pt states she feels like she is stepping on legos, beginning yesterday. pt is also reporting increased swelling in both ankles and feet. pt is also complaining of shortness of breath and cough that began today. History of Present Illness HPI narrative: Patient is a 43-year-old female presenting today with bilateral lower extremity swelling and shortness of breath. She states this has been ongoing for the last 2 days. She recently was diagnosed with urinary tract infections been on antibiotics but denies any other past medical history including liver or kidney disorder any type of heart failure or cardiovascular disease DVT PE etc. She denies any fevers or chills. States she has had significant exertional dyspnea. Related Data Home Medications ?Medication ?Instructions ?Recorded ?Confirmed aripiprazole 30 mg tablet 30 mg PO DAILY 02/12/24 02/12/24 desvenlafaxine succinate 100 mg 100 mg PO DAILY 02/12/24 02/12/24 tablet,extended release 24 hr gabapentin 300 mg capsule 300 mg PO DAILY 02/12/24 02/12/24 hydrocodone 7.5 mg-acetaminophen 1 tab PO Q8HP PRN Pain 02/12/24 02/12/24 325 mg tablet melatonin 10 mg-lemon balm leaf 1 tab PO DAILY 02/12/24 02/12/24 extract 1 mg tablet methocarbamol 750 mg tablet 750 mg PO DAILYP PRN Pain 02/12/24 02/12/24 prazosin 2 mg capsule 2 mg PO DAILY 02/12/24 02/12/24 trazodone 50 mg tablet 50 mg PO HS 02/12/24 02/12/24 Previous Rx's ?Medication ?Instructions ?Recorded nitrofurantoin 100 mg PO Q12H 7 days #14 caps 02/12/24 monohydrate/macrocrystals 100 mg capsule (Macrobid) phenazopyridine 200 mg tablet 200 mg PO Q8H pain 2 days #6 tabs 02/12/24 (Pyridium) Allergies Allergy/AdvReac Type Severity Reaction Status Date / Time tetracycline [TETRACYCLINE] Allergy Mild Verified 04/24/20 15:39 silver Allergy Verified 04/24/20 15:39 [From Tegaderm AG Mesh] [facility] Disclaimer: The information contained in this section may have been updated after the patient was seen, as this information can be updated by other users. Medical History (Updated 02/20/24 @ 23:10 by Oriana Garcia MD) Depression Anxiety Urinary tract infection Kidney stone Asthma Hypertension Surgical History (Updated 02/12/24 @ 15:22 by Carlie Pop RN) History of tonsillectomy History of hysterectomy History of cholecystectomy History of section Social History Smoking Status: Former smoker tobacco type: cigarettes packs per day: 1 alcohol intake: never substance use type: former substance user current occupational status: other Travel in the last 8 weeks: None household members: spouse housing: house caffeine: No ROS Obtained: Yes All systems reviewed & no additional complaints except as documented Physical Exam General General appearance: alert Respiratory Respiratory exam: Present normal lung sounds bilaterally; Absent respiratory distress Cardiovascular Cardiovascular exam: Present regular rate; Absent normal rhythm Extremities Exam Extremities exam: Present other (2+ symmetric bilateral lower extremity pitting edema) Neurological Exam Neurological exam: Present alert and oriented X3 Medical Decision Making Tab Inquiry Pt receiving controlled substance: No Vital Signs: 02/20/24 21:09 02/20/24 22:01 02/20/24 23:11 Temperature 97.9 F 98.3 F Temperature Source Oral Oral Pulse Rate 69 73 Pulse Rate [Right] 73 Respiratory Rate 21 21 17 Blood Pressure 145/87 H 155/93 H Blood Pressure [Right Arm] 146/91 H Blood Pressure Mean [Right Arm] 109 Blood Pressure Source Automatic Cuff Blood Pressure Position Supine 02 Sat by Pulse Oximetry 95 98 Oxygen Delivery Method Room Air Room Air Lab Data Lab results reviewed: Yes I reviewed the patient's lab results. Lab Results 02/20/24 21:32: WBC Cancelled, Corrected WBC Cancelled, RBC Cancelled, Hgb Cancelled, Hct Cancelled, MCV Cancelled, MCH Cancelled, MCHC Cancelled, RDW Cancelled, Plt Count Cancelled, MPV Cancelled, Neut % (Auto) Cancelled, Lymph % (Auto) Cancelled, Traill % (Auto) Cancelled, Eos % (Auto) Cancelled, Baso % (Auto) Cancelled, Neut # (Auto) Cancelled, Lymph # (Auto) Cancelled, [place]ill # (Auto) Cancelled, Eos # (Auto) Cancelled, Baso # (Auto) Cancelled, Sodium Cancelled, Potassium Cancelled, Chloride Cancelled, Carbon Dioxide Cancelled, Anion Gap Cancelled, BUN Cancelled, Creatinine Cancelled, Estimated Creat Clear Cancelled, Estimated GFR Cancelled, Est GFR ( Amer) Cancelled, Glucose Cancelled, Calcium Cancelled, Total Bilirubin Cancelled, AST Cancelled, ALT Cancelled, Alkaline Phosphatase Cancelled, Troponin I Cancelled, NT-Pro-B Natriuret Pep 251 H, Total Protein Cancelled, Albumin Cancelled, Globulin Cancelled, Albumin/Globulin Ratio Cancelled, TSH Cancelled 02/20/24 22:00: Urine Color Yellow 02/20/24 22:00: Urine Color Yellow, Urine Appearance Clear 02/20/24 22:00: Urine Appearance Sl cloudy, Urine pH 7.0 02/20/24 22:00: Urine pH 7.0, Ur Specific [place] 1.020 02/20/24 22:00: Ur Specific [place] 1.020, Urine Protein Negative 02/20/24 22:00: Urine Protein Negative, Urine Glucose (UA) Negative 02/20/24 22:00: Urine Glucose (UA) Negative, Urine Ketones Negative 02/20/24 22:00: Urine Ketones Negative, Urine Blood Negative 02/20/24 22:00: Urine Blood Negative, Urine Nitrate Negative 02/20/24 22:00: Urine Nitrate Negative, Urine Bilirubin Negative 02/20/24 22:00: Urine Bilirubin Negative, Urine Urobilinogen 0.2 02/20/24 22:00: Urine Urobilinogen 0.2, Ur Leukocyte Esterase Negative 02/20/24 22:00: Ur Leukocyte Esterase Negative, Urine RBC None 02/20/24 22:00: Urine RBC Occasional, Urine WBC Occasional 02/20/24 22:00: Urine WBC 3-5, Ur Squamous Epith Cells Occasional 02/20/24 22:00: Ur Squamous Epith Cells 3-5, Amorphous Sediment 2+ 02/20/24 22:00: Amorphous Sediment 2+, Urine Bacteria Trace 02/20/24 22:00: Urine Bacteria Trace 02/20/24 22:15: WBC 7.3, RBC 4.18 L, Hgb 12.1 L, Hct 38.7, MCV 92.6, MCH 29.0, MCHC 31.3 L, RDW 14.3, Plt Count 275, MPV 7.9, Neut % (Auto) 55.3, Lymph % (Auto) 35.3, Traill % (Auto) 5.5, Eos % (Auto) 3.1, Baso % (Auto) 0.8, Neut # (Auto) 4.0, Lymph # (Auto) 2.6, Traill # (Auto) 0.4, Eos # (Auto) 0.2, Baso # (Auto) 0.1, PT 10.4, INR 0.92, D-Dimer 0.52 H, Sodium 142, Potassium 4.1, Chloride 112 H, Carbon Dioxide 26, Anion Gap 8.1, BUN 19 H, Creatinine 0.80, Estimated Creat Clear 125, Estimated GFR 79, Est GFR ( Amer) 95, Glucose 100, Calcium 9.4, Total Bilirubin 0.3, AST 23, ALT 21, Alkaline Phosphatase 41, Troponin I < 0.01, NT-Pro-B Natriuret Pep < 20.0, Total Protein 6.5, Albumin 3.9, Globulin 2.6, Albumin/Globulin Ratio 1.5 02/20/24 22:15 02/20/24 22:15 Orders (Tests/Meds): ORDERS Category Date Time Status CXR --portable [XR chest portable] Stat Exams 02/20/24 21:25 Completed POCUS Point of Care (ER Only) Stat Exams 02/20/24 21:25 Ordered BNP [NT Pro Brain Natriuretic Pep.] Stat Lab 02/20/24 21:32 Completed Complete Blood Count Auto Diff Stat Lab 02/20/24 22:15 Completed Comprehensive Metabolic Panel Stat Lab 02/20/24 22:15 Completed D-Dimer Stat Lab 02/20/24 22:15 Completed NT Pro Brain Natriuretic Pep. Stat Lab 02/20/24 22:15 Completed PT INR [Prothrombin Time INR] Stat Lab 02/20/24 22:15 Completed Troponin I Stat Lab 02/20/24 22:15 Completed UA [Urinalysis and Microscopic] Stat Lab 02/20/24 22:00 Completed Urinalysis and Microscopic Stat Lab 02/20/24 22:00 Completed Medical Decision Narrative: 43-year-old with above history and physical differential includes decompensated heart failure, pulmonary embolism, liver or kidney disease, etc. Bedside ultrasound of the heart and lungs are unremarkable no evidence of definitive decompensated heart failure remainder of her workup is currently pending Reassessment patient remains very stable vitals stable no evidence of decompensated heart failure D-dimer 0.52 regarding pulmonary embolism this is less than years criteria will not get a CT PE I think that a DVT is very unlikely. Labs otherwise unremarkable no evidence of any significant liver disease kidney disease etc. She has been advised to follow-up closely with cardiology for more comprehensive valuation of her heart. She was discharged in a stable condition and very nontoxic on appearance. She is been advised to use compression stockings and elevation of her lower extremity as she may just have some venous insufficiency. Procedures Miscellaneous Procedure Procedure Performed: Limited cardiac ultrasound Indication: Dyspnea Identified structures: The heart was visualized in the parasternal long axis, parastenal short axis, apical four chamber and subxyphiod views. The IVC was visualized in the short axis and long axis at its entry into the right atrium. Findings: Normal LVEF no evidence of right heart strain IVC is less than 2 cm with normal respirophasic variation Impression: Normal limited bedside ultrasound of the heart Images were saved to permanent archive The study was technically adequate CPT: 64512-99 This study was performed by [facility], and I personally interpreted all images/videos. Based on my clinical judgement, these images were adequate and did not necessitate further imaging. Limited lung ultrasound A focused ultrasound exam of the pleural spaces was performed to evaluate for pneumothorax, pulmonary edema, pleural effusion and/or consolidation. The ultrasound was performed with the following indications, as noted in the H&P: Dyspnea Identified structures: Right and left thoracic cavities were examined. Findings: Bilateral lung sliding present no B-lines or pleural effusions or consolidation Impression: No evidence of pneumothorax pleural effusion B-lines or consolidation Images were sent to permanent archive The study was technically adequate CPT 86142-87 This study was performed by [facility], and I personally interpreted all images/videos. Based on my clinical judgement, these images were adequate and did not necessitate further imaging. Critical Care Critical Care Time Critical Care Time: No
[2024-02-20 22:49] LABS: Albumin Level 3.9 g/dl (3.5-5.0); Chloride 112 mmol/L (98-107); Potassium 4.1 mmoL/L (3.5-5.1); Sodium 142 mmol/L (136-145)
[2024-02-20 22:50] LABS: D-Dimer 0.52 ug/mL (0.0-0.5)
[2024-02-20 22:51] LABS: Basophils # 0.1 K/mm3 (0-0.2); Basophils % 0.8 % (0.1-2.0); Eosinophils # 0.2 K/mm3 (0.0-0.4); Eosinophils % 3.1 % (0.1-12.0); Hematocrit 38.7 % (37.0-47.0); Hemoglobin 12.1 g/dL (12.2-16.2); Lymphocytes # 2.6 K/mm3 (0.7-4.5); Lymphocytes % 35.3 % (10-50); Mean Corpuscular HGB Conc 31.3 g/dL (31.8-35.4); Mean Corpuscular Volume 92.6 fl (81-99); Mean Platelet Volume 7.9 fl (7.4-10.4); Monocytes # 0.4 K/mm3 (0.1-1.0); Monocytes % 5.5 % (1.7-9.3); Neutrophils % 55.3 % (37.0-80.0); Platelet Count 275 K/mm3 (142-424); Red Blood Count 4.18 M/mm3 (4.20-5.40); Red Cell Distribution Width 14.3 % (11.5-17.5); White Blood Count 7.3 K/mm3 (4.8-10.8)
[2024-02-20 22:52] LABS: Alanine Aminotransferase 21 U/L (12-78); Albumin/Globulin Ratio 1.5 (1.1-1.8); Alkaline Phosphatase 41 U/L (38-126); Anion Gap 8.1 mEq/L (5-15); Aspartate Amino Transferase 23 U/L (14-36); Bilirubin,Total 0.3 mg/dl (0.2-1.3); Blood Urea Nitrogen 19 mg/dl (7-17); Calcium 9.4 mg/dl (8.4-10.2); Carbon Dioxide 26 mmol/L (22.0-30.0); Creatinine Clearance Estimated 125 mL/min (50-200); Estimated Glomerular Filt Rate 79 ml/min (>60); GFR (African American) 95 ML/MIN (>60); Globulin 2.6 g/dL (1.3-3.2); Glucose 100 mg/dl (74-100); Total Protein,Serum 6.5 g/dl (6.3-8.2)
[2024-02-20 22:59] LABS: INR 0.92 (0.9-1.1); Prothrombin Time 10.4 seconds (10.1-12.5)
[2024-02-20 23:01] LABS: NT Pro Brain Natriuretic Pep. < 20.0 pg/mL (0-125)
[2024-02-20 23:05] LABS: Troponin I < 0.01 ng/ml (0.00-0.034)
[2024-02-20 23:11] VITALS: BP 155/93; PULSE 73; RESP 17; TEMP 36.8; O2SAT 98
--- NOTE | 2024-02-20 23:16 | PC.NURSE ---
2220: both lower legs and feet wrapped in sophia wraps and feet/legs elevated.
== END 2024-02-20 23:18 | disposition home or self-care (01) ==
PROVIDERS: Emergency Provider Student in an Organized Health Care Education/Training Program; PCP Family Medicine
DX: R06.02 Shortness of breath (principal); R60.0 Localized edema
CPT/HCPCS: 71045; 80053; 81001; 83880; 84484; 85025; 85378; 85610; 93005; 99285

== ENCOUNTER 2024-03-13 16:45 | Emergency (ER) | payer MEDICAID, SELFPAY ==
[2024-03-13 16:46] VITALS: BP 134/68; PULSE 65; RESP 20; TEMP 36.7; O2SAT 98; BMI 34.7
[2024-03-13 16:50] VITALS: BP 134/68; PULSE 66; O2SAT 98
--- NOTE | 2024-03-13 16:54 | ECG_ITS ---
APPROVED REPORT Exam: Resting ECG HR:63 bpm ECG Measurements Heart Rate 63 AXES OK 148 P 63 QRSd 84 QRS 5 QT 391 T 31 QTc 398 Conclusion SINUS RHYTHM WITH SINUS ARRHYTHMIA LOW QRS VOLTAGE IN PRECORDIAL LEADS [QRS DEFLECTION < 1.0 mV IN CHEST LEADS] BORDERLINE ECG UNCONFIRMED REPORT Electronically signed by : James Garcia, 03/14/2024 22:54:41
[2024-03-13 17:01] VITALS: BP 122/67; PULSE 78; O2SAT 96
--- NOTE | 2024-03-13 17:45 | CT_ITS ---
PROCEDURE INFORMATION: Exam: CTA Chest With Contrast Exam date and time: 03/13/2024 6:10 PM Age: 43 years old Clinical indication: Dyspnea; Additional info: Unilateral leg swelling, dyspnea TECHNIQUE: Imaging protocol: Computed tomographic angiography of the chest with contrast. Exam focused on the arteries. 3D rendering (Not supervised by radiologist): MIP and/or 3D reconstructed images were created by the technologist. Radiation optimization: All CT scans at this facility use at least one of these dose optimization techniques: automated exposure control; mA and/or kV adjustment per patient size (includes targeted exams where dose is matched to clinical indication); or iterative reconstruction. Contrast material: ISOUVE 370; Contrast volume: 70 ml; Contrast route: INTRAVENOUS (IV); COMPARISON: CR XR CHEST PORTABLE 02/20/2024 9:41 PM FINDINGS: Limitations: Motion artifact - mild. Pulmonary arteries: No definite pulmonary embolism. Vasculature: Minimal atherosclerotic disease. No aneurysm. Lungs: No consolidation. Calcified granuloma within RIGHT lower lobe. Pleural spaces: No significant pleural effusion. No pneumothorax. Heart: No cardiomegaly. No pericardial effusion. Lymph nodes: Few subcentimeter short axis mediastinal lymph nodes. Gallbladder and biliary ducts: Cholecystectomy. Bones/joints: No acute fracture. Soft tissues: Unremarkable. IMPRESSION: No definite CT evidence of pulmonary embolism.
--- NOTE | 2024-03-13 17:47 | ED_ITS ---
Discharge Plan Disposition Patient Disposition: Home, Self-Care Prescriptions Prescriptions: New cefdinir 300 mg capsule 300 mg PO BID 7 Days Qty: 14 0RF No Action trazodone 100 mg tablet 100 mg PO HS Patient Comments: TAKE 1 TO 2 TABLETS BY MOUTH ONCE A DAY AT BEDTIME hydrocodone-acetaminophen 7.5-325 mg tablet 1 tab PO Q8HP PRN (Reason: Pain) Patient Comments: TAKE 1 TABLET BY MOUTH EVERY 8 HOURS NEEDED FOR SEVERE PAIN gabapentin 300 mg capsule 300 mg PO DAILY Patient Comments: TAKE ONE CAPSULE BY MOUTH DAILY FOR 7 DAYS THEN TAKE 2 CAPSULES DAILY FOR 7 DAYS THEN START 3 CAPSULES DAILY prazosin 2 mg capsule 2 mg PO DAILY Patient Comments: TAKE 1 CAPSULE BY MOUTH DAILY AT BEDTIME aripiprazole 30 mg tablet 30 mg PO DAILY Patient Comments: TAKE 1 TABLET BY MOUTH DAILY desvenlafaxine succinate 100 mg tablet extended release 24 hr 100 mg PO DAILY Patient Comments: TAKE 1 TABLET BY MOUTH DAILY melatonin-lemon balm leaf extr 10-1 mg tablet 1 tab PO DAILY Patient Comments: TAKE 1 TABLET BY MOUTH EVERY NIGHT AT BEDTIME methocarbamol 750 mg tablet 750 mg PO DAILYP PRN (Reason: Pain) Referrals Follow up/Referrals: Eliseo Ibarra [Primary Care Provider] - See instructions Activity Restrictions/Add. Instructions Additional Instructions/Restrictions: No definitive emergent medical condition associated with your edema. No evidence of pulmonary embolism DVT heart failure etc. I recommend that you keep your follow-up appoint with cardiology. Incidentally we found a urinary tract infection which may be the cause of your acute fatigue but we have not definitively ruled out all cardiopulmonary pathology but no evidence of emergent medical condition at the moment. Clinical Impressions Clinical Impression: Dyspnea on exertion, Edema, UTI (urinary tract infection), Fatigue Print Language Print Language: Yoruba Discharge ED Provider: Oriana Garcia General Adult HPI General Chief complaint: Shortness of Breath/Dyspnea Stated complaint: SOA,Right leg pain,no injury Time Seen by Provider: 03/13/24 17:02 Mode of Arrival: Ambulatory Source of Information: Patient Limitations: No Limitations Description of Symptoms (Recalled from ER Triage Doc. by RN): Complaint of SOA for a few weeks and right thigh pain for 1 week. History of Present Illness HPI narrative: Patient is a 43-year-old female presents today with worsening whole body edema and dyspnea over the last several weeks. Actually saw her in the emergency department a few weeks ago she had a D-dimer of 0.52 and was negative from a years criteria standpoint and did not get a CT PE she had whole body edema at that point had no definitive diagnosis such as cirrhosis protein-losing enteropathy nephrotic syndrome etc. She had a bedside ultrasound which was unremarkable. However she states her last several weeks that she has gotten worse from [place] exertion standpoint states that her edema has not improved. She followed up with cardiology and they had planned to do a echo CT PE and a duplex ultrasound of the lower extremities and she return to the emergency department with worsening symptoms. No other specific changes. Related Data Home Medications ?Medication ?Instructions ?Recorded ?Confirmed aripiprazole 30 mg tablet 30 mg PO DAILY 02/12/24 03/10/24 desvenlafaxine succinate 100 mg 100 mg PO DAILY 02/12/24 03/10/24 tablet,extended release 24 hr gabapentin 300 mg capsule 300 mg PO DAILY 02/12/24 03/10/24 hydrocodone 7.5 mg-acetaminophen 1 tab PO Q8HP PRN Pain 02/12/24 03/10/24 325 mg tablet melatonin 10 mg-lemon balm leaf 1 tab PO DAILY 02/12/24 03/10/24 extract 1 mg tablet methocarbamol 750 mg tablet 750 mg PO DAILYP PRN Pain 02/12/24 03/10/24 prazosin 2 mg capsule 2 mg PO DAILY 02/12/24 03/10/24 trazodone 100 mg tablet 100 mg PO HS 03/10/24 03/10/24 Previous Rx's ?Medication ?Instructions ?Recorded cefdinir 300 mg capsule 300 mg PO BID 7 days #14 caps 03/13/24 Allergies Allergy/AdvReac Type Severity Reaction Status Date / Time tetracycline [TETRACYCLINE] Allergy Mild Verified 03/10/24 11:02 silver Allergy Verified 03/10/24 11:02 [From Tegaderm AG Mesh] [facility] Disclaimer: The information contained in this section may have been updated after the patient was seen, as this information can be updated by other users. Medical History Depression Anxiety Urinary tract infection Kidney stone Asthma Hypertension Surgical History History of tonsillectomy History of hysterectomy History of cholecystectomy History of section Social History Smoking Status: Former smoker tobacco type: cigarettes packs per day: 1 alcohol intake: never substance use type: former substance user current occupational status: other Travel in the last 8 weeks: None household members: spouse housing: house caffeine: No Other Medical History Have you received the Flu Vaccine for this season: Yes Have you received the Pneumonia Vaccine: No ROS Obtained: Yes All systems reviewed & no additional complaints except as documented Physical Exam General General appearance: alert Respiratory Respiratory exam: Present other (Oxygen saturations 100% on room air); Absent normal lung sounds bilaterally or respiratory distress Cardiovascular Cardiovascular exam: Present regular rate, normal rhythm and other (2+ bilateral and symmetric lower extremity edema) Neurological Exam Neurological exam: Present alert and oriented X3 Medical Decision Making Medical Records Screening: Per USPSTF and CDC recommendations, given the prevalence of disease in our region, it is our hospital?s policy to screen for HIV and viral Hepatitis for all patients aged 18 and over and those with ongoing risk factors. Tab Inquiry Pt receiving controlled substance: No Vital Signs: 03/13/24 16:46 03/13/24 16:50 03/13/24 17:01 Temperature 98.1 F Temperature Source Oral Pulse Rate 66 78 Pulse Rate [Radial] 65 Respiratory Rate 20 Blood Pressure 134/68 122/67 Blood Pressure [Right Arm] 134/68 Blood Pressure Mean 83 77 Blood Pressure Mean [Right Arm] 90 Blood Pressure Source [Right Arm] Automatic Cuff Blood Pressure Position [Right Arm] Sitting 02 Sat by Pulse Oximetry 98 98 96 Oxygen Delivery Method Room Air Room Air Room Air 03/13/24 18:27 03/13/24 18:30 Temperature Temperature Source Pulse Rate 57 L 58 L Pulse Rate [Radial] Respiratory Rate Blood Pressure 111/62 105/57 L Blood Pressure [Right Arm] Blood Pressure Mean 74 72 Blood Pressure Mean [Right Arm] Blood Pressure Source [Right Arm] Blood Pressure Position [Right Arm] 02 Sat by Pulse Oximetry 98 96 Oxygen Delivery Method Room Air Room Air Lab Data Lab results reviewed: Yes I reviewed the patient's lab results. Lab Results 03/13/24 17:10: WBC 7.4, RBC 4.27, Hgb 12.9, Hct 38.5, MCV 90.1, MCH 30.3, MCHC 33.6, RDW 14.0, Plt Count 198, MPV 8.7, Neut % (Auto) 60.8, Lymph % (Auto) 28.8, [place] % (Auto) 5.9, Eos % (Auto) 3.5, Baso % (Auto) 0.9, Neut # (Auto) 4.5, Lymph # (Auto) 2.1, [place] # (Auto) 0.4, Eos # (Auto) 0.3, Baso # (Auto) 0.1, PT 10.4, INR 0.92, Sodium 137, Potassium 4.0, Chloride 102, Carbon Dioxide 28, Anion Gap 11.0, BUN 13, Creatinine 0.80, Estimated Creat Clear 125, Estimated GFR 79, Est GFR ( Amer) 95, Glucose 101 H, Calcium 9.8, Total Bilirubin 0.3, AST 21, ALT 16, Alkaline Phosphatase 39, Troponin I < 0.01, NT-Pro-B Natriuret Pep < 20.0, Total Protein 7.3, Albumin 4.4, Globulin 2.9, Albumin/Globulin Ratio 1.5, TSH 2.07, HIV 1&2 Antibody Rapid Nonreactive 03/13/24 17:50: Urine Color Yellow, Urine Appearance Cloudy, Urine pH 7.5, Ur Specific [place] 1.015, Urine Protein Negative, Urine Glucose (UA) Negative, Urine Ketones Negative, Urine Blood Negative, Urine Nitrate Positive, Urine Bilirubin Negative, Urine Urobilinogen 0.2, Ur Leukocyte Esterase Trace, Urine RBC Occasional, Urine WBC 3-5, Ur Squamous Epith Cells 3-5, Amorphous Sediment 1+, Urine Bacteria 4+ 03/13/24 17:10 03/13/24 17:10 Orders (Tests/Meds): ED MEDICATIONS Discontinued Medications Generic Name Dose Route Start Last Admin Trade Name Freq PRN Reason Stop Dose Admin Iopamidol 70 ml 03/13/24 18:13 03/13/24 18:14 Iopamidol-370 (76%);100ml Bottle IV 03/13/24 18:14 70 ml ONCE ONE Administration Sodium Chloride 50 ml 03/13/24 18:13 03/13/24 18:14 0.9 % Sodium Chloride 50 Ml Vial IV 03/13/24 18:14 50 ml ONCE ONE Administration ORDERS Category Date Time Status CT angio chest PE protocol Stat Cat Scan 03/13/24 17:45 Taken POCUS Point of Care (ER Only) Stat Exams 03/13/24 17:46 Ordered BNP [NT Pro Brain Natriuretic Pep.] Stat Lab 03/13/24 17:10 Completed CBC w/Auto Diff [Complete Blood Count Auto Diff] Stat Lab 03/13/24 17:10 Completed CMP [Comprehensive Metabolic Panel] Stat Lab 03/13/24 17:10 Completed HIV (1&2) Antibody Rapid Stat Lab 03/13/24 17:10 Completed Hep C Ab with Reflex to RNA Stat Lab 03/13/24 17:10 Received PT INR [Prothrombin Time INR] Stat Lab 03/13/24 17:10 Completed TSH [Thyroid Stimulating Hormone] Stat Lab 03/13/24 17:10 Completed Trop I [Troponin I] Stat Lab 03/13/24 17:10 Completed Troponin I Q3H Lab 03/13/24 21:00 Ordered Troponin I Q3H Lab 03/14/24 00:00 Ordered UA [Urinalysis and Microscopic] Stat Lab 03/13/24 17:50 Completed Urine Culture Stat Micro 03/13/24 17:50 Received Medical Decision Narrative: 43-year-old with above history and physical with worsening symptoms with associated edema. Differential remains liver disease kidney disease heart failure clotting disorder pulmonary embolism DVT etc. I had a discussion with her last time with a D-dimer of 0.52 which is right around the cutoff for a DVT but at that time at a low pretest probability of PE and it was unlikely to be a PE at that point based on years criteria do not get a CT PE however symptoms are worsening we will obtain that test today. I will also do a bedside ultrasound of her heart as well as of her lower extremity to rule out a DVT. I still favor a more systemic condition at this point. She is in no respiratory distress has normal vital signs no oxygenation issues and will reassess shortly. Reassessment 722 patient's vital signs of remained very stable and on serial assessment she looks very good. CT scan performed [facility] but shows no evidence of pulmonary embolism or any other lung pathology. Limited ultrasound of the heart was unremarkable as well as DVT ultrasound. She had some localized discomfort in the popliteal fossa on the right knee and there is no abnormality there specifically no evidence of any clots soft tissue erythema or redness or swelling or fluid collection such as a Delgado's cyst etc. Her weight also was 189 pounds which is only 4 pounds above her normal weight prior to this episode. Overall she does not have any significant anasarca any distress any edema that seems to be elsewhere in the lungs etc. She is fatigued and has had some dyspnea on exertion on her urinalysis she was nitrate positive with trace leuks and whites as well as bacteria. This could be the cause of her fatigue and we will treat her with 7 days of cefdinir. Overall there remain some diagnostic uncertainty as I do not believe we have explained to completely her exertional dyspnea etc. While there is no evidence of a definitive emergent medical condition I have added advised that she continue to follow-up with cardiology and her primary care doctor. Patient was discharged in a stable condition Procedures Miscellaneous Procedure Procedure Performed: Limited cardiac ultrasound Indication: Dyspnea Identified structures: The heart was visualized in the parasternal long axis, parastenal short axis, apical four chamber and subxyphiod views. The IVC was visualized in the short axis and long axis at its entry into the right atrium. Findings: Normal LVEF no pericardial effusion no evidence of advanced right heart strain IVC is less than 2 cm with 100% respirophasic variation Impression: Normal limited cardiac ultrasound Images were saved to permanent archive The study was technically adequate CPT: 96128-90 This study was performed by me, and I personally interpreted all images/videos. Based on my clinical judgement, these images were adequate and did not necessitate further imaging. Structures identified Common femoral veins and popliteal veins on the right Findings complete compression of right common femoral veins and right popliteal veins with normal augmentation Impression no evidence of right DVT The study was performed by me and I personally interpreted all images and videos based on my clinical judgment these images were adequate and did not necessitate further imaging Critical Care Critical Care Time Critical Care Time: No
[2024-03-13 17:57] LABS: Basophils # 0.1 K/mm3 (0-0.2); Basophils % 0.9 % (0.1-2.0); Eosinophils # 0.3 K/mm3 (0.0-0.4); Eosinophils % 3.5 % (0.1-12.0); Hematocrit 38.5 % (37.0-47.0); Hemoglobin 12.9 g/dL (12.2-16.2); Lymphocytes # 2.1 K/mm3 (0.7-4.5); Lymphocytes % 28.8 % (10-50); Mean Corpuscular HGB Conc 33.6 g/dL (31.8-35.4); Mean Corpuscular Hemoglobin 30.3 pg (27.0-31.2); Mean Corpuscular Volume 90.1 fl (81-99); Mean Platelet Volume 8.7 fl (7.4-10.4); Monocytes # 0.4 K/mm3 (0.1-1.0); Monocytes % 5.9 % (1.7-9.3); Neutrophils # 4.5 K/mm3 (1.8-7.8); Neutrophils % 60.8 % (37.0-80.0); Platelet Count 198 K/mm3 (142-424); Red Blood Count 4.27 M/mm3 (4.20-5.40); White Blood Count 7.4 K/mm3 (4.8-10.8)
[2024-03-13 18:01] LABS: Chloride 102 mmol/L (98-107)
[2024-03-13 18:02] LABS: Albumin Level 4.4 g/dl (3.5-5.0); Sodium 137 mmol/L (136-145)
[2024-03-13 18:05] LABS: Alanine Aminotransferase 16 U/L (12-78); Albumin/Globulin Ratio 1.5 (1.1-1.8); Alkaline Phosphatase 39 U/L (38-126); Aspartate Amino Transferase 21 U/L (14-36); Bilirubin,Total 0.3 mg/dl (0.2-1.3); Blood Urea Nitrogen 13 mg/dl (7-17); Calcium 9.8 mg/dl (8.4-10.2); Carbon Dioxide 28 mmol/L (22.0-30.0); Creatinine Clearance Estimated 125 mL/min (50-200); Estimated Glomerular Filt Rate 79 ml/min (>60); GFR (African American) 95 ML/MIN (>60); Globulin 2.9 g/dL (1.3-3.2); Glucose 101 mg/dl (74-100); Total Protein,Serum 7.3 g/dl (6.3-8.2)
[2024-03-13 18:06] LABS: INR 0.92 (0.9-1.1); Prothrombin Time 10.4 seconds (10.1-12.5)
[2024-03-13 18:08] LABS: Microscopic, Urine URINE MICROSCOPIC (MICROSCOPIC)
[2024-03-13 18:10] LABS: Bilirubin,Urine Negative (Negative); Blood, Urine Negative (Negative); Color,Urine YELLOW (Yellow); Glucose,Urine (UA) Negative (Negative); Ketones,Urine Negative (Negative); Leukocyte Esterase,Urine TRACE (Negative); Nitrate,Urine POSITIVE (Negative); PH,Urine 7.5 (5.0-8.5); Protein,Urine Negative (Negative); Specific Gravity, Urine 1.015 (1.005-1.030); Urobilinogen,Urine 0.2 EU/dl (0.2)
[2024-03-13 18:12] LABS: HIV (1&2) Antibody Rapid NONREACTIVE (NONREACTIVE)
[2024-03-13 18:13] LABS: NT Pro Brain Natriuretic Pep. < 20.0 pg/mL (0-125)
[2024-03-13] MEDS: 0.9 % SODIUM CHLORIDE 50 ML VIAL IV (18:14)
[2024-03-13] MEDS: IOPAMIDOL-370 (76%);100ML BOTTLE 70 ML IV (18:14)
[2024-03-13 18:18] LABS: Troponin I < 0.01 ng/ml (0.00-0.034)
[2024-03-13 18:27] VITALS: BP 111/62; PULSE 57; O2SAT 98
[2024-03-13 18:30] VITALS: BP 105/57; PULSE 58; O2SAT 96
[2024-03-13 18:35] LABS: Thyroid Stimulating Hormone 2.07 uIU/mL (0.465-4.68)
[2024-03-13 18:45] LABS: Appearance,Urine Cloudy (Clear)
[2024-03-13 19:03] LABS: RBC,Urine Occasional #/hpf (0-3)
[2024-03-13 19:04] LABS: Amorphous Sediment,Urine 1+ /lpf; Bacteria,Urine 4+ /lpf
[2024-03-13 19:23] VITALS: BP 134/87; PULSE 65; RESP 16; TEMP 36.3; O2SAT 99
--- NOTE | 2024-03-16 08:03 | PC.NURSE ---
reviewed urine culture results with Dr. Ordaz. No new orders.
== END 2024-03-13 19:28 | disposition home or self-care (01) ==
PROVIDERS: Emergency Provider Student in an Organized Health Care Education/Training Program; PCP Family Medicine
DX: N39.0 Urinary tract infection, site not specified (principal); R06.00 Dyspnea, unspecified; R53.83 Other fatigue; R60.9 Edema, unspecified; R06.09 Other forms of dyspnea
CPT/HCPCS: 71275; 80053; 81001; 83880; 84443; 84484; 85025; 85610; 87086; 87088; 87186; 87389; 93005; 96374; 96375; 99285; Q9967

== ENCOUNTER 2024-03-17 10:14 | Outpatient (CLI) | payer MEDICAID, SELFPAY ==
--- NOTE | 2024-03-17 10:18 | CA_ITS ---
FINAL REPORT CLINICAL HISTORY: Bilateral lower extremity edema. FINDINGS: Color Doppler, duplex Doppler and compression sonography of the bilateral lower extremities was performed. There is no evidence of deep venous thrombosis from the level of the groin to the calf. The deep veins are patent and compressible. IMPRESSION: No evidence of deep venous thrombosis bilateral lower extremities. Reviewed, Interpreted and Dictated by Ray Solomon III, MD Transcribed by Sadaf Whiting Authenticated and [facility]
--- NOTE | 2024-03-17 10:19 | CT_ITS ---
FINAL REPORT TECHNIQUE: Thin section axial CT images of the chest were obtained with contrast. Three-D reformatted images were also obtained.This study was performed with techniques to keep radiation doses as low as reasonably achievable (ALARA). Individualized dose reduction techniques using automated exposure control or adjustment of mA and/or kV according to the patient's size were employed. CLINICAL HISTORY: rule out PE/elevated d-dimer COMPARISON: 03/13/2024 FINDINGS: There is no evidence of pulmonary embolism. There is no evidence of thoracic aortic aneurysm or dissection. There is no evidence of mediastinal or hilar mass or adenopathy. There is no evidence of pulmonary mass or suspicious nodule. A calcified granuloma is present at the right lung base. No localized inflammatory process is seen within the lungs. Limited images of the upper abdomen reveal that a prior cholecystectomy has been performed. IMPRESSION: No evidence of pulmonary embolism. No mass or localized inflammatory process. Reviewed, Interpreted and Dictated by Ray Solomon III, MD Transcribed by Tana Garentt Authenticated and [facility]
[2024-03-17] MEDS: SODIUM CHLORIDE 0.9% 10ML SYR (RAD ONLY) 10 ML IV (10:54)
[2024-03-17] MEDS: IOPAMIDOL-370 (76%);100ML BOTTLE 75 ML IV (10:54)
[2024-03-17] MEDS: 0.9 % SODIUM CHLORIDE 50 ML VIAL IV (10:54)
== END 2024-03-17 23:59 | disposition home or self-care (01) ==
LOC: RT 10:15
PROVIDERS: PCP Family Medicine; Visit Provider Nurse Practitioner Family
DX: R07.89 Other chest pain (principal); R06.09 Other forms of dyspnea; R60.0 Localized edema; R79.89 Other specified abnormal findings of blood chemistry
CPT/HCPCS: 71275; 93970; Q9967

== ENCOUNTER 2024-03-19 09:14 | Outpatient (CLI) | payer MEDICAID, SELFPAY ==
--- NOTE | 2024-03-19 | CA_ITS ---
APPROVED REPORT Exam: Exercise Treadmill Technologist: Molly Cheema, Ht: 5 ft 3 in Wt: 193 lbs BSA: 1.90 m2 HR: 62 bpm BP: 132/76 mmHg Rhythm: Nsr, ns t wave abns inferiorly Medical History Medical History: HTN, Smoking Medications: Trazadone,,,,, Gabapentin,,,,, PraZOSIN,,,,, MeLATONIN,,,,, Methocarbamol,,,,, Aripiprazole,,,,, Hydrocodone Acetaminophen,,,,, Desvenlafaxine SUCCINATE er,,,,, Allergies: tetracycline, silver Cardiac Risk Factors: HTN, FHX of CAD, Smoking Stress Test Details Test: Robe, Exercise stress testing was performed using a modified Robe protocol. HR Resting HR: 64 bpm Max Heart Rate (APMHR): 178 bpm Max HR Achieved: 147 bpm Target HR (85% APMHR): 151 bpm % of APMHR: 83 Recovery HR: 73 bpm HR response to stress: Blunted HR response to stress BP Resting BP: 132.0/76 mmHg Max BP: 216/82 mmHg Recovery BP: 134.0/76.0 mmHg BP response to stress: Abnormal hypertensive response to stress. ECG Resting ECG: Nsr, t wave abns inferiorly Stress EC mm horizontal ST depression Arrhythmia: None Clinical Exercise duration: 06:15 min Highest Stage Achieved: Exercise capacity: 7.0 METs Stress ECG Conclusion Pt exercised 6:15 on Robe protocol Max HR: 147 % of PM: 83% Max BP: 216/82 Mets: 7.0 Test stopped due to: soa No cp [address] depression Conclusion: Overall nondiagnostic ECG stress test. Equivocal EKG changes for HR achieved (83% of PM) GXT only (no imaging). Further evaluation with alternative imaging modalities is recommended. Test Summary REST . . . . . . . Standing REST . . . . . . . Sitting REST 03:45 0.0 0.0 64 . 132/ 76 . . Stage 1 01:00 10.0 1.7 108 . . . . Stage 1 02:00 10.0 1.7 112 . . . . Stage 1 03:00 10.0 1.7 115 . 176/ 86 . . Stage 2 01:00 12.0 2.5 124 . . . . Stage 2 02:00 12.0 2.5 134 . . . . Stage 2 03:00 12.0 2.5 140 . 216/ 82 . . Stage 3 00:15 14.0 3.4 142 . . . Stop exercise at 06:15 RECOVERY 01:00 0.0 0.0 116 . . . . RECOVERY 02:00 0.0 0.0 95 . 184/ 84 . . RECOVERY 03:00 0.0 0.0 78 . 136/ 80 . . RECOVERY 04:00 0.0 0.0 77 . 136/ 80 . . RECOVERY 05:00 0.0 0.0 72 . 134/ 76 . . RECOVERY 05:20 0.0 0.0 76 . 134/ 76 . . Electronically signed by : Gregoria Potts MD 04/01/2024 13:04:39
--- NOTE | 2024-03-19 09:35 | CA_ITS ---
APPROVED REPORT EXAM: Comprehensive 2D, Doppler, and color-flow Echocardiogram [place] Washing System Operator: Alis Jung, RCS, RVS Ht: 5 ft 3 in Wt: 193lbs BSA: 1.90 BP: 123/63 mmHg Indications: CP, Abn EKG, [place], CP, Smoker 2D Dimensions IVSd 0.68 cm F: 0.6-1.0 LVEF (Visual) 59.10 % PWd 0.74 cm F: 0.6 - 1.0 LA Volume 33.50 mL LVDd 5.08 cm F: 3.9 - 5.3 LA Volume Index [id number] mL/m2 (M/F) 16-34 LVDs 3.48 cm F: 2.2 - 3.5 Left Atrium 3.03 cm F: 2.7 - 3.8 M-Mode Dimensions RVDd 1.31 cm (0.9-2.6) LA Diam 3.40 cm (1.9-4.0) LVDd 5.16 cm (3.5-5.7) LVDs 3.86 cm (3.5-5.7) IVSd 0.84 cm (0.6-1.1) PWd 0.77 cm (0.6-1.1) EF (Teich) 49.40% FS 25.20% EDV (Teich) 127.20 mL ESV (Teich) 64.30 mL LV Diastology E Decel Time 257 (160-240 msec) E/A Ratio 1.44 MED A' 8.90 cm/s LAT A' 11.80 cm/s Aortic Valve DAVID Index 1.38 cm2/m2 AoV Peak Germán. 123.0 (50-130 cm/s) AO Peak GR. 6.00 mmHg AO Mean GR. 3.00 (<5 mmHg) AO VTI 25.1 (18-25 cm) DAVID (VTI) 2.70 (2.5-4.5 cm2) Mitral Valve MV A Velocity 73.0 (40-130 cm/s) E/A Ratio 1.44 Tricuspid Valve TR P. Velocity 225.00 cm/s RAP Estimate 10.00 mmHg RVSP 30.30 mmHg Left Ventricle The left ventricle is normal size. The left ventricular systolic function is normal. The left ventricular ejection fraction is within the normal range. There is normal left ventricular wall thickness. There is normal LV segmental wall motion. The left ventricular diastolic function is normal. LVEF is 55%. Right Ventricle The right ventricle is normal size. The right ventricular systolic function is normal. Atria The left atrium size is normal. The right atrium size is normal. There is no Doppler evidence of interatrial shunt. Aortic Valve The aortic valve opens well. There is no aortic valvular stenosis. No aortic regurgitation is present. Mitral Valve The mitral valve is normal in structure. No evidence of mitral valve stenosis. Trace mitral regurgitation. Tricuspid Valve The tricuspid valve leaflets are thin and pliable. RVSP is 20-25 mmHg. Mild tricuspid regurgitation. Pulmonic Valve The pulmonary valve is normal in structure. Trace pulmonic regurgitation. Great Vessels The aortic root is normal in size. The ascending aorta is not well-visualized. IVC is normal in size and collapses >50% with inspiration. Pericardium There is no pericardial effusion. Other Information Study Quality: Fair Conclusion Normal biventricular systolic function. Mild TR. RVSP 20-25 mmHg. Electronically signed by : Gregoria Potts MD 03/24/2024 10:03:01
== END 2024-03-19 23:59 | disposition home or self-care (01) ==
LOC: RT 09:15
PROVIDERS: PCP Family Medicine; Visit Provider Nurse Practitioner Family
DX: R07.89 Other chest pain (principal); R06.09 Other forms of dyspnea; R60.0 Localized edema; R79.89 Other specified abnormal findings of blood chemistry
CPT/HCPCS: 93017; 93018; 93306

== ENCOUNTER 2024-04-21 19:40 | Emergency (ER) | payer MEDICAID, SELFPAY ==
[2024-04-21] VITALS (9 sets, daily range): BP systolic 122–150; BP diastolic 72–97; PULSE 63–92; RESP 13–20; TEMP 37; O2SAT 96–99; BMI 34.7
--- OUTSIDE RECORDS SUMMARY | 2024-04-21 20:07 | XMS_ITS | Encounter Summary ---
Author Organization [facility] Address [address] 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 (Primary Dx); Spondylosis of cervical region without myelopathy or radiculopathy Social History Tobacco Use Types Packs/Day Years Used Date Smoking Tobacco: Former Cigarettes 0.3 10 0 06/2012 - 06/2022 Smokeless Tobacco: Never Alcohol Use Standard Drinks/Week Comments Never 0 (1 standard drink = 0.6 oz pur e alcohol) Comments No Sex and Gender Information Value Date Recorded Sex Assigned at Not on file Legal Sex Female 7:41 PM EDT Gender Identity Not on file Sexual Orientation Not on file documented as of this encounter Miscellaneous Notes * Progress Notes - Oriana De León, DO - 04/20/2024 11:00 AM EST Images from the original note were not included. Interventional Pain Medicine Follow Up Patient Note Subjective: Interval hx: Patient presents today for follow up of her neck pain. She is undergoing bilateral C3,C4, C5 MBB#2 today. In terms of her medications, she is prescribed hydrocodone/APAP 7.5/325mg TID PRN, Gabapentin 300mgTID, Desvenlafaxine 100mg daily, Robaxin 750 mg QID. Reports still gets at least 50% pain relief from their medication regimen. Denies any medication related side effects including constipation or sedation. Pt reports they keep the medications in a safe place. Last dose of hydrocodone: 04/16/24 History of Present Illness: Taniya Martin is a 43 y.o. female presents for evaluation of neck pain. She is s/p C5-6 ACDF [address]Dr. Connor in September of 2019 for cervical myelopathy. 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 ARIPiprazole (Abilify) 30 MG tablet Take 1 tablet (30 mg) by mouth 1 (one) time each day. desvenlafaxine (Pristiq) 100 MG 24 hr tablet Take 1 tablet (100 mg) by mouth 1 (one) time each day. gabapentin (Neurontin) 300 MG capsule Take 1 capsule (300 mg) by mouth 3 (three) times a day. gabapentin (Neurontin) 300 MG capsule Take 1 capsule (300 mg) by mouth 3 (three) times a day. HYDROcodone-acetaminophen (Afton) 7.5-325 MG tablet Take 1 tablet (7.5 mg of hydrocodone) by mouth every 8 (eight) hours if needed for severe pain (pain). ibuprofen 800 MG tablet Take 1 tablet (800 mg) by mouth 3 (three) times a day if needed. methocarbamol (Robaxin) 750 MG tablet Take 1 tablet (750 mg) by mouth 4 (four) times a day. traZODone (Desyrel) 100 MG tablet TAKE 1 TO 2 TABLETS BY MOUTH ONCE A DAY AT BEDTIME Previous Pain Medications: Afton Methocarbamol Lyrica Previous Non-Interventional Treatment: Physical therapy - unable to tolerate HEP due to pain Ice Ibuprofen Tylenol Previous Interventions/Consults: NSGY Previous Interventional Injections: Denies Other Medical History reports that she quit smoking about 22 months ago. Her smoking use included cigarettes. She startedsmoking about 11 years ago. She has a 2.5 pack-year smoking history. She has never used smokeless tobacco. 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 Patient is appropriate historian and cooperative throughout exam.Well nourished, well groomed. Alert and oriented x4. Head Normocephalic and atraumatic. Eyes Pupils are equal, round, and reactive to light. Neck No tracheal deviation or JVD noted. Cardiovascular Minimal to no peripheral edema Pulmonary/Chest No increased effort noted, no shortness of breath Neurological Alert and oriented to person, place, and time Skin Skin is warm and dry Psychiatric Normal mood and affect, behavior and judgment Neurologic & Musculoskeletal Exam Cervical Region Exam Right (+/-) Left (+/-) Cervical Musculature Tender w/ Palpation + ++ Cervical Facets Pain w/ Extension + + Upper Extremity Spurling's - + Upper Extremity Bakody's - - Sensation Right Left Neck normal normal C5: Shoulder normal normal C6: Thumb, radial aspect hand/forearm (Radial Nerve) normal normal C7: Long finger (Median Nerve) normal normal C8: Little finger, ulnar aspect of hand/forearm (Ulnar n.) normal normal T1: Medial forearm/arm normal normal Motor Strength Right Left C5: Shoulder abduction (Deltoid) 5/5 5/5 C5: Elbow flexion (Biceps, Brachialis) 5/5 5/5 C6: Wrist extension (ECRB, ECRL) 10/11 10/11 C7: Elbow extension (Triceps) 10/11 10/11 C8: Finger flexion (Design Intern Strength) 10/11 10/11 T1: Finger abduction 10/11 10/11 Reflexes Right Left C5: Biceps 2/4 2/4 C6: Brachioradialus 2/4 2/4 C7: Triceps / 2/4 Hoffmans absent absent Clonus <3 beat <3 beat Imaging: Images of the following studies have been personally reviewed and my independent interpretation reveals as written: 12/23/23 Cervical MRI - small disc bulge at C6-C7 without significant compression of nerve roots or spinal cord Assessment & Plan: Taniya Martin is a 43 y.o. female with hx of C5-[address] Connor (2019) who presents for chronic neck pain. #Axial Neck Pain, Chronic Worsening #Cervical Spondylosis #Facetogenic pain -04/20/24 C3,C4,C5 mbb second diagnostic block performed with fluoroscopy today -If successful, will order RFA performed with fluoroscopy #Cervical Radicular Syndrome Chronic Worsening -Symptoms in the C6/C7 dermatome -Can consider CALE pending Cervical MBBs -Follow up 2-4 weeks post-procedure #Chronic Pain #Chronic Prescription Opioid Use -Drug therapy requiring intensive monitoring for toxicity - Currently utilizes Hydrocodone - Acetaminophen 7.5-325mg TID PRN, Gabapentin 300mg TID, Desvenlafaxine 100mg daily, Robaxin 750 mg QID - discussed risk of chronic opoid use, including risk of tolerance and opoid induced hyperalgesia, patient expressed understanding and would like to continue medications until she undergoes injections - Last took Afton: 04/16/24, states only taking Afton several times a week PRN A. Opioid agreement: next visit B. UDS results reviewed: will send LCMS for confirmation purposes -will refill hydrocodone/APAP 7.5/325mg TID PRN #20 and gabapentin 300mg TID #90 today - follow up in one month for medication management C. PDMP/ALONDRA report obtained today and reviewed: appropriative D. As documented in the signed opioid agreement, the patient is aware of the risks associated with the administration of chronic opioids, including the risk of overdose and , the risk of developing misuse, abuse, and addiction to the prescribed medications, as well as the other risks associated with chronic opioid administration. Routine assessment for mental health conditions have been assessed during this visit, and the patient has been properly screened for substance use disorders (riskof developing and presence of these conditions). Cosigned by Markell Lucas MD at 04/20/2024 2:45 PM EST Associated attestation - Markell Lucas MD - 04/20/2024 2:45 PM EST I saw and evaluated the patient with the resident/fellow. I discussed the case with the resident/fellow and agree with the findings and plan as documented. documented in this encounter Plan of Treatment Upcoming Encounters Date Type Department Care Team (Late st Contact Info) Description 05/17/2024 2:00 PM EST Office Visit [facility] Interventional Pain Medicine [address] [place] [address] Markell Lucas MD [address] [facility] [address] [place] [address] 06/08/2024 2:00 PM EST Procedure Visit [facility] Interventional Pain Medicine [address] [place] [address] Markell Lucas MD [address] [facility] [address] [phone] Pending Results Name Type Priority Associated Diagnoses Date /Time Pain Management, Quantitative Urine Drug Testing Lab Routine 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 prescription 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 04/20/2024 11:50 AM EST Pain Management, Quantitative Urine Drug Testing Lab Routine [facility] prescription opiate use 04/20/2024 11:50 AM EST documented as of this encounter Visit Diagnoses Diagnosis [facility] prescription opiate use- Primary Spondylosis of cervical region without myelopathy or radiculopathy documented in this encounter Additional Health Concerns Assessment Noted Time A fall risk assessment has been complete d for the patient 04/20/2024 11:16 AM EST A Body Mass Index follow-up plan has been documented for the patient 04/20/2024 1:08 PM EST documented as of this encounter Care Teams Hair Colorist Relationship Specialty Start Date End Date Eliseo Ibarra MD [address] [place] [id number] PCP - General 01/30/24 documented as of this encounter
--- OUTSIDE RECORDS SUMMARY | 2024-04-21 20:07 | XMS_ITS | Encounter Summary ---
Author Organization [facility] Address [address] [place] [address] Care Team Providers Care Management Trainee Program Stores Name Role Phone Eliseo Ibarra MD Primary Care Provider Encounter Details Date Type Department Care Team (Late st Contact Info) Description 01/30/2024 9:45 AM EDT Office Visit [facility] [address] [place] [address] Osman Connor MD [address] [facility] [address] [place] [address] Cervicalgia (Primary Dx); Status post cervical spinal fusion; Cervical spondylosis with myelopathy Social History Tobacco Use Types Packs/Day Years Used Date Smoking Tobacco: Former Cigarettes 0.3 10 0 06/2012 - 06/2022 Smokeless Tobacco: Never Tobacco Cessation:Counseling Given: Not Answered Alcohol Use Standard Drinks/Week Comments Never 0 (1 standard drink = 0.6 oz pur e alcohol) Comments No Sex and Gender Information Value Date Recorded Sex Assigned at Not on file Legal Sex Female 7:41 PM EDT Gender Identity Not on file Sexual Orientation Not on file documented as of this encounter Last Filed Vital Signs Vital Sign Reading Time Taken Comments Blood Pressure 124/82 01/30/2024 9:45 AM EDT Pulse - - Temperature - - Respiratory Rate - - Oxygen Saturation - - Inhaled Oxygen Concentration - - Weight 78.5 kg (173 lb) 01/30/2024 9:45 AM EDT Height 157.5 cm (5' 2 ) 01/30/2024 9:45 AM EDT Body Mass Index 31.64 01/30/2024 9:45 AM EDT documented in this encounter Miscellaneous Notes * Progress Notes - Marquis Cruz MD - 01/30/2024 9:45 AM EDT We had the pleasure of seeing your patient in our clinic today for Neurosurgical follow up. Chief Complaint Neck and LUE pain History Of Present Illness Taniya Martin is a 43 y.o. female presents for neurosurgical follow-up of axial neck pain with radiation down entire left upper extremity. Patient has a history of C5-[address] Connor in 2019 for cervical myelopathy. 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 She was last seen 2 months ago and found to have small disc bulge at the adjacent C6-7 level without neurologic compression and referred for interventional pain management as she failed physical therapy. Since last seen she continues on her gabapentin, Robaxin, and [place] and these have helped the pain significantly. She missed her appointment for interventional pain so has this scheduled in the near future. She continues to not smoke. No other significant changes. Current medications & allergies and past medical, surgical, family, and social history all reviewed. Review of Systems 14 point review of systems was performed and was negative except as noted per HPI. Physical Exam GEN: well developed, no acute distress HEENT: normocephalic, atraumatic, no scleral icterus, oropharynx clear PULM: clear to auscultation bilaterally, no increased work of breathing, normal effort CV: normal rate and regular rhythm, no gallops/murmurs/rubs ABD: soft, non-tender, non-distended MSK: no joint swelling, normal range of motion SKIN: warm and dry, capillary refill <2 seconds PSYCHE: normal mood and affect Neuro Exam GCS (EMV): 465 Awake, alert, oriented Follows commands appropriately Speech clear PERRL, EOMI CN 2-12 grossly intact No drift Strength 5/5 throughout Reflexes 2+ in bilateral biceps and knees Positive Bassam's bilaterally Last Recorded Vitals Visit Vitals Vitals: 01/30/24 0945 BP: 124/82 Imaging I personally reviewed, independently interpreted, and read available radiology reports (as available) for the following studies, and with the following findings: No new relevant imaging to review since last seen. Again reviewed MRI cervical spine 12/23/2023 demonstrating C5-6 ACDF and adjacent small disc bulge at C6-7 without significant compression of nerve roots or spinal cord Assessment and Plan Taniya Martin is a 43 y.o. female with a history of C5-[place] [address] Connor presenting for neurosurgical follow up for months of axial [id number]-right neck pain with radiation to the entire left upper extremity in a nondermatomal fashion. MRI demonstrates no clear nerve root impin gement or spinal cord compression, only small disc bulge at C6-7 adjacent to previous fusion. Patient was not helped by physical therapy but missed her interventional pain management appointment since last seen, so she has this scheduled for the near future but has not yet undergone intervention. As such we recommend she pursue this conservative method for treatment for pain. We will refill her medications and see her back in March to evaluate response to IVP. Thank you for allowing us to be a part of your patient's care. Please do not hesitate to contact usat the [facility] if there are any questions or concerns. Marquis Cruz MD Resident Physician, PGY-4 Department of Neurosurgery [facility] Cosigned by Osman Connor MD at 01/30/2024 10:28 AM EDT Associated attestation - Osman Connor MD - 01/30/2024 10:28 AM EDT I saw and evaluated the patient with the resident/fellow. I discussed the case with the resident/fellow and agree with the findings and plan as documented. documented in this encounter Plan of Treatment Upcoming Encounters Date Type Department Care Team (Late st Contact Info) Description 05/17/2024 2:00 PM EST Office Visit [facility] Interventional Pain Medicine [address] [place] [address] Markell Lucas MD [address] [address] 06/08/2024 2:00 PM EST Procedure Visit [facility] Interventional Pain Medicine [address] [place] [address] Markell Lucas MD [facility] [address] [address] documented as of this encounter Visit Diagnoses Diagnosis Cervicalgia- Primary Status post cervical spinal fusion Arthrodesis status Cervical spondylosis with myelopathy documented in this encounter Additional Health Concerns Assessment Noted Time A fall risk assessment has been complete d for the patient 01/30/2024 9:49 AM EDT A Body Mass Index follow-up plan has been documented for the patient 01/30/2024 10:28 AM EDT documented as of this encounter Care Teams Management Trainee Program Stores Relationship Specialty Start Date End Date Eliseo Ibarra MD [address] [place] [address] [address] [place] [address] PCP - General 01/30/24 documented as of this encounter
--- OUTSIDE RECORDS SUMMARY | 2024-04-21 20:07 | XMS_ITS | Encounter Summary ---
Author Organization [facility] Address [address] [place] [address] Care Team Providers Care Emt I/99 Name Role Phone Eliseo Ibarra MD Primary Care Provider + [phone] Reason for Referral * Other Medical (Routine) - Closed Specialty Diagnoses / Procedures Referred By Contac t Referred To Contact Pain Medicine Diagnoses Spondylosis of cervical region without myelopathy or radiculopathy Procedures Facet MBB - Cervical / Thoracic Markell Lucas MD [address] [address] Phone: tel: fax: Referral ID Status Reason Start Date Expiration Date Visits Re quested Visits Authorized [id number] Closed 02/25/2024 08/26/2025 1 1 Reason for Visit * Reason Comments Consult * Consultation (Routine) - Closed Specialty Diagnoses / Procedures Referred By Contac t Referred To Contact Pain Medicine Diagnoses Neck pain Osman Connor MD [id number] [place] [address] Phone: tel: fax: Markell Lucas MD [address] [address] Phone: tel: fax: Referral ID Status Reason Start Date Expiration Date V isits Requested Visits Authorized [id number] Closed Specialty Services Required 12/29/2023 06/29/2025 1 1 Encounter Details Date Type Department Care Team (Late st Contact Info) Description 02/25/2024 9:00 AM EDT Office Visit [facility] Interventional Pain Medicine [address] [facility] [place] [address] Markell Lucas MD [address] [facility] [address] [place] [address] Spondylosis of cervical region without myelopathy or radiculopathy (Primary Dx); Neck pain; Cervicalgia; Status post cervical spinal fusion; Cervical spondylosis with myelopathy; Controlled substance agreement signed Social History Tobacco Use Types Packs/Day Years [...] Sign Reading Time Taken Comments Blood Pressure 119/81 02/25/2024 8:51 AM EDT Pulse 74 02/25/2024 8:51 AM EDT Temperature 36.5 ??C (97.7 ??F) 02/25/2024 8:51 AM ED T Respiratory Rate 18 02/25/2024 8:51 AM EDT Oxygen Saturation - - Inhaled Oxygen Concentration - - Weight 86.2 kg (190 lb) 02/25/2024 8:51 AM EDT Height 157.5 cm (5' 2 ) 02/25/2024 8:51 AM EDT Body Mass Index 34.75 02/25/2024 8:51 AM EDT documented in this encounter Miscellaneous Notes * Progress Notes - Oriana De León, DO - 02/25/2024 9:00 AM EDT Images from the original note were not included. Interventional Pain Medicine New Patient Note Subjective: Referring Physician: Osman Connor MD [address] [address] Record Review: I personally reviewed NSGY records Chief Complaint: Axial neck pain with LUE radiation History of Present Illness: Taniya Martin is a 43 y.o. female presents for evaluation of neck pain. She is s/p C5-6 ACDF byDr. Connor in September of 2019 for cervical myelopathy. 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 desvenlafaxine (Pristiq) 50 MG 24 hr tablet gabapentin (Neurontin) 300 MG capsule Take 1 capsule (300 mg) by mouth 3 (three) times a day. HYDROcodone-acetaminophen ([place]) 7.5-325 MG tablet Take 1 tablet (7.5 mg of hydrocodone) by mouth every 8 (eight) hours if needed for severe pain (pain). ibuprofen 800 MG tablet Take 1 tablet (800 mg) by mouth 3 (three) times a day if needed. methocarbamol (Robaxin) 750 MG tablet Take 1 tablet (750 mg) by mouth 4 (four) times a day. pregabalin (Lyrica) 100 MG capsule Take 1 capsule (100 mg) by mouth 3 (three) times a day. pregabalin (Lyrica) 75 MG capsule Take 1 capsule (75 mg) by mouth 3 (three) times a day. traZODone (Desyrel) 50 MG tablet TAKE 1/2 TO 1 TABLET BY MOUTH NIGHTLY NEEDED FOR SLEEP Previous Pain Medications: [place] Methocarbamol Lyrica Previous Non-Interventional Treatment: Physical therapy - unable to tolerate HEP due to pain Ice Ibuprofen Tylenol Previous Interventions/Consults: MELISSAGY Previous Interventional Injections: Denies Other Medical History reports that she quit smoking about 20 months ago. Her smoking use included cigarettes. She startedsmoking about 11 years ago. She has a 2.5 pack-year smoking history. She has never used smokeless tobacco. 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 Review of Systems: CONSTITUTIONAL: denies fevers, chills [...] 5/5 5/5 C6: Wrist extension (ECRB, ECRL) 5/5 5/5 C7: Elbow extension (Triceps) 10/11 10/11 C8: Finger flexion (Accredited Pharmacy Technician Strength) 10/11 10/11 T1: Finger abduction 10/11 10/11 Reflexes Right Left C5: Biceps 2/4 2/4 C6: Brachioradialus 2/4 2/4 C7: Triceps 2/4 2/4 Hoffmans absent absent Clonus <3 beat <3 beat Lumbar Region Exam Right (+/-) Left (+/-) Lumbar Musculature Tender w/ palpation - - Lumbar Facet Pain w/ extension - - Lower Extremity SLR - - Lower Extremity Crossed SLR - - Sensation Right Left L2: Proximal anterior thigh normal normal L3: Mid anterior thigh normal normal L4: Medial leg/foot, great toe (Saphenous n.) normal normal L5: Dorsum of mid foot normal normal S1: Lateral leg/foot, little toe, Back of leg (Sural n.) normal normal Motor Strength Right Left L2: Hip flexion (Iliopsoas) 10/11 10/11 L3: Knee extension (Quad) 10/11 10/11 L4: Ankle DF (TA) 10/11 10/11 L5: Great Toe DF (EHL) 10/11 10/11 S1: Ankle Pf, Foot Eversion (Peroneal longus/brevis) 10/11 10/11 Reflexes Right Left L4: Patellar 2/4 2/ S1: Achilles 2/4 2/ Babinski Absent Absent Clonus Absent Absent Sacroiliac Joint Exam Right Left Marlena's Finger (PSIS) - - ARACELIS - - Gaenslen's - - Compression - - Distraction - - Imaging: Images of the following studies have [...] Pain, Chronic Worsening #Cervical Spondylosis #Facetogenic pain -Will trial a C3,C4,C5 mbb first diagnostic block performed with fluoroscopy -If successful, will confirm with second diagnostic block then procedure to RFA performed with fluoroscopy #Cervical Radicular Syndrome [...] until she undergoes injections - Last took [place] 02/23/24 A. Opioid agreement: next visit B. UDS results reviewed: today appropriate, will send off LCMS for confirmation C. PDMP/ALONDRA report obtained today and reviewed: [...] (riskof developing and presence of these conditions). -Return in one month for medication follow up, we have specifically discussed the risks and benefits of her medications, specifically the opioid medication. Discussed with her the risk of continued use and how that potentiates the risk for chronic use. She would like to stay on the medication untilwe can find out the efficacy of the injections. The do our best to wean her off her medications after that Cosigned by Markell Lucas MD at 02/25/2024 9:37 AM EDT Associated attestation - Markell Lucas MD - 02/25/2024 9:37 AM EDT I saw and evaluated the patient with the resident/fellow. I discussed the case with the resident/fellow and agree with the findings and plan as documented. documented in this encounter Plan of Treatment Upcoming Encounters Date Type Department Care Team (Jonathon alvarez Contact Info) Description 05/17/2024 2:00 PM EST Office Visit [facility] Interventional Pain Medicine [address] [place] [address] Markell Lucas MD [address] [facility] [address] [place] [address] 06/08/2024 2:00 PM EST Procedure Visit [facility] Interventional Pain Medicine [address] [place] [address] Markell Lucas MD [address] [facility] [address] [place] [address] documented as of this encounter Procedures Procedure Name Priority Date/Time Associated Diagnosis Comments PAIN MANAGEMENT, QUANTITATIVE URINE DRUG TESTING Routine 02/25/2024 9:31 AM EDT Controlled substance agreement signed PAIN MANAGEMENT, QUANTITATIVE URINE DRUG TESTING Routine 02/25/2024 9:31 AM EDT Controlled substance agreement signed documented in this encounter Results * [address] IR FACET INJECTION CHARGE, DC INJ DX/THER AGNT PARAVERT FACET JOINT,IMG GUIDE,CERV/THORAC, 2ND LEVEL (03/23/2024 9:30 AM EDT) Narrative Markell Lucas MD - 03/23/2024 9:30 AM EDT Markell Lucas MD ? 03/23/2024 11:34 AM Facet MBB - Cervical / Thoracic Performed by: Mello Palacio MD Authorized by: Markell Lucas MD ?? us Markell Lucas MD IN CLINIC/BEDSIDE ORDERABLES Final Result * Pain Management, Quantitative Urine Drug Testing (02/25/2024 9:31 AM EDT) [facility] [place] Alprazolam <20 <20 ng/mL 02/27 9:51 AM EDT [facility] [place] Midazolam <20 <20 ng/mL 2023 9:51 AM EDT [facility] [place] Triazolam <20 <20 ng/mL 2023 9:51 AM EDT [facility] Alprazolam <10 <10 ng/mL 02/28/2024 9:51 AM EDT [facility] Aminoclonazepam <20 <20 ng/mL 9:51 AM EDT [facility] Amphetamine <50 <50 ng/mL 02/28/2024 9:51 AM EDT [facility] Benzoylecgonine <50 <50 ng/mL 9:51 AM EDT [facility] Buprenorphine <10 <10 ng/mL 02/28/2024 9:51 AM EDT [facility] Buprenorphine Glucuronide <50 <50 ng/mL 02/28/2024 9:51 AM EDT [facility] Butalbital <50 <50 ng/mL 02/28/2024 9:51 AM EDT [facility] 9 Carboxy THC <10 <10 ng/mL 02/28/2024 9:51 AM EDT [facility] 9 Carboxy THC Glucuronide <25 <25 ng/mL 02/28/2024 9:51 AM EDT [facility] Clonazepam <10 <10 ng/mL 02/28/2024 9:51 AM EDT [facility] Codeine <50 <50 ng/mL 02/28/2024 9:51 AM EDT [facility] Codeine Glucuronide <50 <50 ng/mL 02/27 9:51 AM EDT [facility] Cyclobenzaprine <50 <50 ng/mL 9:51 AM EDT [facility] Desmethyl Tramadol <50 <50 ng/mL 2023 9:51 AM EDT [facility] Diazepam <10 <10 ng/mL 02/28/2024 9:51 AM EDT [facility] EDDP - Methadone Metabolite <50 <50 ng/mL 02/28/2024 9:51 AM EDT [facility] Fentanyl <1 <1 ng/mL 02/28/2024 9:51 AM EDT [facility] Hydrocodone <50 <50 ng/mL 02/28/2024 9:51 AM EDT [facility] Hydromorphone <50 <50 ng/mL 02/28/2024 9:51 AM EDT [facility] Hydromorphone Glucuronide <50 <50 ng/mL 02/28/2024 9:51 AM EDT [facility] Lorazepam <20 <20 ng/mL 02/28/2024 9:51 AM EDT [facility] Lorazepam Glucuronide <50 <50 ng/mL 02/28/2024 9:51 AM EDT [facility] MDA <50 <50 ng/mL 02/28/2024 9:51 AM EDT [facility] MDMA <50 <50 ng/mL 02/28/2024 9:51 AM EDT [facility] Meperidine <50 <50 ng/mL 02/28/2024 9:51 AM EDT [facility] Methadone <50 <50 ng/mL 02/28/2024 9:51 AM EDT [facility] Methamphetamine <50 <50 ng/mL 9:51 AM EDT [facility] Methylphenidate <50 <50 ng/mL 9:51 AM EDT [facility] 6 Monoacetyl morphine <10 <10 ng/mL 02/28/2024 9:51 AM EDT [facility] Morphine <50 <50 ng/mL 02/28/2024 9:51 AM EDT [facility] Morphine Glucuronide <50 <50 ng/mL 02/08 9:51 AM EDT [facility] Naloxone <50 <50 ng/mL 02/28/2024 9:51 AM EDT [facility] Naloxone Glucuronide <50 <50 ng/mL 02/08 9:51 AM EDT [facility] Norbuprenorphine <10 <10 ng/mL 02/28/20 9:51 AM EDT [facility] Norbuprenorphine Glucuronide <50 <50 ng/mL 02/28/2024 9:51 AM EDT [facility] Nordiazepam <20 <20 ng/mL 02/28/2024 9:51 AM EDT [facility] Norfentanyl <2 <2 ng/mL 02/28/2024 9:51 AM EDT [facility] Normeperidine <50 <50 ng/mL 02/28/2024 9:51 AM EDT [facility] PCP Quant, Ur <50 <50 ng/mL 02/28/2024 9:51 AM EDT [facility] Phenobarbital <50 <50 ng/mL 02/28/2024 9:51 AM EDT [facility] Oxazepam <20 <20 ng/mL 02/28/2024 9:51 AM EDT [facility] Oxazepam Glucuronide <50 <50 ng/mL 02/08 9:51 AM EDT [facility] Oxycodone <50 <50 ng/mL 02/28/2024 9:51 AM EDT [facility] Oxymorphone <50 <50 ng/mL 02/28/2024 9:51 AM EDT [facility] Oxymorphone Glucuronide <50 <50 ng/mL 02/28/2024 9:51 AM EDT [facility] Secobarbital <50 <50 ng/mL 02/28/2024 9:51 AM EDT [facility] Tramadol <50 <50 ng/mL 02/28/2024 9:51 AM EDT [facility] Temazepam <20 <20 ng/mL 02/28/2024 9:51 AM EDT [facility] Temazepam Glucuronide <50 <50 ng/mL 02/28/2024 9:51 AM EDT [facility] Urine Urine specimen obtained by clean catch procedure / Unknown Non-blood Collection / Unknown 02/25/2024 9:31 AM EDT 02/25/2024 7:18 PM EDT Narrative [facility] - 02/28/2024 9:51 AM EDT Methodology:Quantitative Liquid Chromatography-Tandem Mass Spectrometry (LC- MS/MS) This report is intended for use in clinical monitoring or management of ? patients. It is NOT intended for use in employment-related drug testing. For pain management, the absence of expected drug(s) and/or drug metabolite(s) may indicate non-compliance, inappropriate timing of specimen collection relative to drug administration, poor drug absorption, or limitations of testing. Interpretive questions should be directed to the laboratory. This test was developed and its performance characteristics determined by [facility] in manner consistent with CLIA requirements. This test has not been cleared or approved by the FDA. us Markell Lucas MD LAB URINE ORDERABLES Final R esult [facility] [address] [place] [address] documented in this encounter Visit Diagnoses Diagnosis Spondylosis of cervical region without myelopathy or radiculopathy- Primary Neck pain Cervicalgia Cervicalgia Status post cervical spinal fusion Arthrodesis status Cervical spondylosis with myelopathy Controlled substance agreement signed Spondylosis of cervical region without myelopathy or radiculopathy- Primary documented in this encounter Additional Health Concerns Assessment Noted Time A fall risk assessment has been complete d for the patient 02/25/2024 8:51 AM EDT A Body Mass Index follow-up plan has been documented for the patient 02/25/2024 9:37 AM EDT documented as of this encounter Care Teams Emt I/99 Relationship Specialty Start Date End Date Eliseo Ibarra MD [address] [place] [address] PCP - General 01/30/24 documented as of this encounter
--- OUTSIDE RECORDS SUMMARY | 2024-04-21 20:07 | XMS_ITS | Encounter Summary ---
Author Organization [facility] Address [address] [place] [address] Care Team Providers Care Collection Card Clerk Name Role Phone Al, Lora Drew VALERIO Primary Care Provider Encounter Details Date Type Department Care Team (Late st Contact Info) Description 12/23/2023 Orders Only External Location [address] [place] [address] Provider, External Social History Tobacco Use Types Packs/Day Years [...] on file documented as of this encounter Plan of Treatment Upcoming Encounters Date Type Department Care Team (Late st Contact Info) Description 05/17/2024 2:00 PM EST Office Visit [facility] Interventional Pain Medicine [address] [place] [address] Markell Lucas MD [address] [facility] [address] [place] [address] 06/08/2024 2:00 PM EST Procedure Visit [facility] Interventional Pain Medicine [address] [place] [address] Markell Lucas MD [address] [facility] [address] [place] [address] documented as of this encounter Procedures Procedure Name Priority Date/Time Associated Diagnosis Comments MR NEURO OUTSIDE IMAGES 12/23/2023 12:53 PM EDT documented in this encounter Results * MR NEURO OUTSIDE IMAGES (12/23/2023 12:53 PM EDT) Anatomical Region Laterality Modality Magnetic Resonan ce 12/23/2023 12:5 3 PM EDT us External Provider IMG MRI PROCEDURES Final Resul t documented in this encounter Visit Diagnoses Not on filedocumented in this encounter Additional Health Concerns Assessment Noted Time A fall risk assessment has been complete d for the patient 12/04/2023 1:59 PM EDT A Body Mass Index follow-up plan has been documented for the patient 12/09/2023 8:26 PM EDT documented as of this encounter Care Teams Collection Card Clerk Relationship Specialty Start Date End Date Ira Melendez APRN [address] [place] [address] PCP - General 12/28/22 01/29/24 documented as of this encounter
--- OUTSIDE RECORDS SUMMARY | 2024-04-21 20:07 | XMS_ITS | Encounter Summary ---
Author Organization [facility] Address [address] [place] [address] Care Team Providers Care Accounts Receivable Processor Name Role Phone Eliseo Ibarra MD Primary Care Provider Encounter Details Date Type Department Care Team (Late Contact Info) Description 04/20/2024 Orders Only External Location [address] [place] [address] Provider, External Social History Tobacco Use Types [...] Encounters Date Type Department Care Team (Late Contact Info) Description 05/17/2024 2:00 PM EST Office Visit [facility] Interventional Pain Medicine [address] [place] [address] Markell Lucas MD [address] [facility] [address] [place] [address] 06/08/2024 2:00 PM EST Procedure Visit [facility] Interventional Pain Medicine [address] [place] [address] Markell Lucas MD [address] [facility] [address] [place] [address] documented as of this encounter Procedures Procedure Name Priority Date/Time Associated Diagnosis Comments POC ULTRASOUND 04/20/2024 documented in this encounter Results * POC Imaging (04/20/2024) Anatomical Region Laterality Modality Pelvis Other 04/20/2024 us External Provider IMG POINT OF CARE ULTRASOUND F inal Result documented in this encounter Visit Diagnoses Not on filedocumented in this encounter Additional Health Concerns Assessment Noted Time A fall risk assessment has been complete d for the patient 04/20/2024 11:16 AM EST A Body Mass Index follow-up plan has been documented for the patient 04/20/2024 1:08 PM EST documented as of this encounter Care Teams Accounts Receivable Processor Relationship Specialty Start Date End Date Eliseo Ibarra MD [address] [place] [address] [address] [place] [address] PCP - General 01/30/24 documented as of this encounter
--- OUTSIDE RECORDS SUMMARY | 2024-04-21 20:07 | XMS_ITS | Encounter Summary ---
Author Organization [facility] Address [address] [place] [address] Care Team Providers Care Clearing Tub Worker Name Role Phone Eliseo Ibarra MD Primary Care Provider [phone] Encounter Details Date Type Department Care Team (Late st Contact Info) Description 02/26/2024 Orders Only [facility] Interventional Pain Medicine [address] [place] [address] Markell Lucas MD [address] [facility] [address] [place] [address] Radiculopathy, cervical region (Primary Dx) Social History Tobacco Use Types Packs/Day Years [...] encounter Miscellaneous Notes * Progress Notes - Markell Lucas MD - 02/26/2024 3:34 PM EDT Patient was started on medications at her visit with the neurosurgeons, she would like these to be continued. I discussed with the patient risks benefits and alternatives of continuing these medications and the likelihood that she will become a chronic opioid user as well as the risks of chronic opioid therapy to include addiction withdrawal dependence overdose sedation and actually worsening pain. She wishes to proceed documented in this encounter Plan of Treatment Upcoming Encounters Date Type Department Care Team (Late st Contact Info) Description 05/17/2024 2:00 PM EST Office Visit [facility] Interventional Pain Medicine [address] [place] [address] Markell Lucas MD [address] [facility] [address] [address] 06/08/2024 2:00 PM EST Procedure Visit [facility] Interventional Pain Medicine [address] [place] [address] Markell Lucas MD [address] [address] documented as of this encounter Visit Diagnoses Diagnosis Radiculopathy, cervical region- Primary Brachial neuritis or radiculitis nos documented in this encounter Additional Health Concerns Assessment Noted Time A fall risk assessment has been complete d for the patient 02/25/2024 8:51 AM EDT A Body Mass Index follow-up plan has been documented for the patient 02/25/2024 9:37 AM EDT documented as of this encounter Care Teams Clearing Tub Worker Relationship Specialty Start Date End Date Eliseo Ibarra MD [address] [place] [address] [address] [place] [address] PCP - General 01/30/24 documented as of this encounter
--- OUTSIDE RECORDS SUMMARY | 2024-04-21 20:07 | XMS_ITS | Encounter Summary ---
Author Organization [facility] Address [address] [place] [address] Care Team Providers Care Hand Shaker Name Role Phone AlIra vick Drew VALERIO Primary Care Provider [phone] Encounter Details Date Type Department Care Team (Latest Contact Info) Description 12/26/2023 Travel Social History Tobacco Use Types Packs/Day Years [...] Description 05/17/2024 2:00 PM EST Office Visit [facility] Interventional Pain Medicine [address] [place] [address] Markell Lucas MD [address] [address] 06/08/2024 2:00 PM EST Procedure Visit [facility] Interventional Pain Medicine [address] [place] [address] Markell Lucas MD [address] [place] [address] documented as of this encounter Visit Diagnoses Not on filedocumented in this encounter Additional Health Concerns Assessment Noted Time A fall risk assessment has been complete d for the patient 12/26/2023 3:16 PM EDT A Body Mass Index follow-up plan has been documented for the patient 12/26/2023 4:40 PM EDT documented as of this encounter Care Teams Hand Shaker Relationship Specialty Start Date End Date Ira Melendez APRN [address] [place] [address] PCP - General 12/28/22 01/29/24 documented as of this encounter
--- OUTSIDE RECORDS SUMMARY | 2024-04-21 20:07 | XMS_ITS | Encounter Summary ---
Author Organization [facility] Address [address] [place] [address] Care Team Providers Care Timber Grader Name Role Phone Eliseo Ibarra MD Primary Care Provider [phone] Reason for Referral * Other Medical (Routine) - Closed Specialty Diagnoses / Procedures Referred By Contac t Referred To Contact Pain Medicine Diagnoses Spondylosis of cervical region without myelopathy or radiculopathy Procedures Facet MBB - Cervical / Thoracic Markell Lucas MD [address] [address] Phone: tel: fax: [facility] Interventional Pain Medicine [address] [place] [address] Phone: tel: fax: Referral ID Status Reason Start Date Expiration Date Visits Re quested Visits Authorized [id number] Closed 03/23/2024 09/22/2025 1 1 Reason for Visit * Reason Comments Injections * Other Medical (Routine) - Closed Specialty Diagnoses / Procedures Referred By Contac t Referred To Contact Pain Medicine Diagnoses Spondylosis of cervical region without myelopathy or radiculopathy Procedures Facet MBB - Cervical / Thoracic Markell Lucas MD [address] [address] Phone: tel: fax: Referral ID Status Reason Start Date Expiration Date Visits Re quested Visits Authorized [id number] Closed 02/25/2024 08/26/2025 1 1 Encounter Details Date Type Department Care Team (Late st Contact Info) Description 03/23/2024 9:30 AM EDT Procedure Visit [facility] Interventional Pain Medicine [address] [facility] [place] [address] Markell Lucas MD [address] [facility] [address] [place] [address] Spondylosis of cervical region without myelopathy or radiculopathy (Primary Dx) Social History Tobacco Use Types [...] Sign Reading Time Taken Comments Blood Pressure 133/83 03/23/2024 9:55 AM EDT Pulse 67 03/23/2024 9:55 AM EDT Temperature 36.4 ??C (97.5 ??F) 03/23/2024 9:19 AM ED T Respiratory Rate 16 03/23/2024 9:55 AM EDT Oxygen Saturation 97% 03/23/2024 9:55 AM EDT Inhaled Oxygen Concentration - - Weight 86.2 kg (190 lb 0.6 oz) 03/23/2024 9:19 A M EDT Height 157.5 cm (5' 2 ) 03/23/2024 9:19 AM EDT Body Mass Index 34.76 03/23/2024 9:19 AM EDT documented in this encounter Miscellaneous Notes * Clinician Note - Jenn Campoverde RN - 03/23/2024 9:30 AM EDT Patient ID: Taniya Martin is a 43 y.o. female. Procedure: bilateral cervical MBB Pre-Procedure Pre-Procedure Checklist Procedure verified with patient/guardian: yes Consent signed, dated, timed, and present: yes History and Physical performed: yes Nursing Assessment performed: yes Pre-Procedure/Sedation Assessment and Plan performed: yes Discharge instructions reviewed with patient/guardian: yes Plan of Care reviewed with patient/guardian: yes Patient's/Guardian's questions addressed: yes Review of Systems General appearance: normal Respiratory effort: normal Mobility: normal Skin: normal Orientation to person, time, and place: normal Mood and affect: normal Intra-Procedure Prep & Positioning The patient was prepped and draped in usual sterile fashion and placed in a prone position. Time Out A timeout was called at 9:39 AM by benjamín, immediately prior to the procedure, in accordance with [employer] policy. Procedure Start Time: 9:44 AM Procedure End Time: 9:51 AM Fluoro Time: 33.9 seconds Fluoro Dose: 5.275 mGy Post-Procedure Discharge Status Orientation to person, time, and place: normal Mood and affect: normal Discharge disposition: home Mode of exit: walked @ 1005 Patient verbalizes understanding of follow-up appointments, post-procedure care, and medications. * Progress Notes - Mello Palacio MD - 03/23/2024 9:30 AM EDTAssociated Order(s): Facet MBB - Cervical / Thoracic Pre-Procedure Diagnose(s): Spondylosis of cervical region without myelopathy or radiculopathy Post-Procedure Diagnose(s): Spondylosis of cervical region without myelopathy or radiculopathy Patient ID: Taniya Martin is a 43 y.o. female. Encounter Diagnosis Name Primary? Spondylosis of cervical region without myelopathy or radiculopathy Facet MBB - Cervical / Thoracic Performed by: Mello Palacio MD Authorized by: Markell Lucas MD Patient seen and evaluated prior to their procedure.There is nothing in the patient's overall condition that would affect the planned course of the patient's treatment today that requires additional interventions to reduce risk to the patient. Procedure(s): Bilateral C3, C4, and C5 Cervical Medial Branch block #1 Anesthesia Type: Local only Complications: None Follow-up Plan: Procedure or clinic follow up based on pain relief Procedure: This patient was seen earlier for a comprehensive evaluation of their painful condition.After discussing treatment options, the patient elected to proceed with a cervical medial branch block. Written, informed consent was obtained before the start of the procedure. The patient's history of present illness, past medical history (including current medications and allergies), and physical examination were reviewed with the patient immediately before the procedure, and it was confirmed directly with the patient that they desired to proceed. The patient ambulated to the operating room and was placed in the prone position with pressure points padded. A time out was performed, confirming the patient's identification, allergy status, the side(s) of the procedure, and the procedure(s) to be performed. All operators were wearing hats, masksand sterile gloves. The patient underwent ChloraPrep skin prep followed by sterile drape. Attention was placed towards the completion of the injection at the sites mentioned above. At each level, The fluoroscope was positioned to precisely superimpose the target articular pillar at this level. The needle insertion site was identified and marked. The patient received: 1% lidocaine to anesthetize the skin and subcutaneous tissues. Under fluoroscopic guidance using a coaxial approach, a 22 gauge 3.5 inch needle was advanced through the skin and posterolateral neck muscles toward the waist of the target articular pillar. Repeated imaging was performed with every 1 cm of needle advancement, until os was contacted. The fluoroscope was then rotated to obtain a true lateral, which showed the needle tip at the midpoint of the articular pillar. Aspiration was negative for blood and CSF.After negative aspiration, approximately 0.2 mL of contrast dye was injected showing adequate spread and no venous uptake. 0.5 ml of 2% lidocaine was then injected. The stylette was replaced and the needles was removed. Sterile bandages were applied over the puncture sites. Following completion of the procedure, the patient was transported to the PACU, then was later discharged in stable condition. Assessment/Plan #Chronic Axial Neck Pain #Cervical Spondylosis #Facetogenic pain Pre-Injection Numerical Rating Scale Pain Score: 7/10 Post-Injection Numerical Rating Scale Pain Score: 0/10 Patient Reports 100 % pain relief following the procedure performed as mentioned above. Functional improvement after medial branch block: improvement in neck flexion, rotation, extension,standing, walking Will order and proceed with facet medial branch diagnostic block #2 at the same mentioned levels and laterality as performed above under fluoroscopy Post-Procedure Owestry Disability Index (JAKE) No questionnaires on file. Cosigned by Markell Lucas MD at 03/23/2024 11:34 AM EDT Associated attestation - Markell Lucas MD - 03/23/2024 11:34 AM EDT I was present for the entirety of the procedure(s). documented in this encounter Plan of Treatment Upcoming Encounters Date Type Department Care Team (Late st Contact Info) Description 05/17/2024 2:00 PM EST Office Visit [facility] Interventional Pain Medicine [address] [place] [phone] Markell Lucas MD [facility] [address] [place] [phone] 06/08/2024 2:00 PM EST Procedure Visit [facility] Interventional Pain Medicine [address] [place] [phone] Markell Lucas MD [address] [place] [address] [address] [phone] documented as of this encounter Procedures Procedure Name Priority Date/Time Associated Diagnosis Comments SD INJ DX/THER AGNT PARAVERT FACET JOINT,IMG GUIDE,CERV/THORAC, 2ND LEVEL Routine 03/23/2024 9:30 AM EDT Spondylosis of cervical region without myelopathy or radiculopathy [id number] IR FACET INJECTION CHARGE Routine 03/23/2024 9:30 AM EDT Spondylosis of cervical region without myelopathy or radiculopathy documented in this encounter Results * [id number] IR FACET INJECTION CHARGE, SD INJ DX/THER AGNT PARAVERT FACET JOINT,IMG GUIDE,CERV/THORAC, 2ND LEVEL (04/20/2024 11:30 AM EST) Markell Ybarra MD - 04/20/2024 11:30 AM EST Markell Lucas MD ? 04/20/2024 ??1:08 PM Facet MBB - Cervical / Thoracic Performed by: Oriana De León DO Authorized by: Markell Lucas MD ?? us Markell Lucas MD IN CLINIC/BEDSIDE ORDERABLES Final Result * [id number] IR FACET INJECTION CHARGE, SD INJ DX/THER AGNT PARAVERT FACET JOINT,IMG GUIDE,CERV/THORAC, 2ND LEVEL (03/23/2024 9:30 AM EDT) Markell Ybarra MD - 03/23/2024 9:30 AM EDT Markell Lucas MD ? 03/23/2024 11:34 AM Facet MBB - Cervical / Thoracic Performed by: Mello Palacio MD Authorized by: Markell Lucas MD ?? us Markell Lucas MD IN CLINIC/BEDSIDE ORDERABLES Final Result documented in this encounter Visit Diagnoses Diagnosis Spondylosis of cervical region without myelopathy or radiculopathy- Primary Spondylosis of cervical region without myelopathy or radiculopathy documented in this encounter Administered Medications Inactive Administered Medications - up to 3 most recent administrations Medication Order MAR Action Action Date Dose Rate Site bupivacaine PF (Marcaine) 0.25 % injection 25 mg 25 mg (10 mL), Injection, Once, 1 dose, On Fri03/23/24 at 1000, RoutineIndications:Spondylosis of cervical region without myelopathy or radiculopathy Given by Other 03/23/2024 9:41 AM EDT 25 mg lidocaine (Xylocaine) 1 % injection 30 mL 30 mL, Injection, Once, 1 dose, On Fri03/23/24 at 1000, RoutineIndications:Spondylosis of cervical region without myelopathy or radiculopathy Given by Other 03/23/2024 9:41 AM EDT 30 mL sodium bicarbonate 8.4 % injection 50 mEq 50 mEq, Subcutaneous, Once, 1 dose, On 03/23/24 at 1000, RoutineIndications:Spondylosis of cervical region without myelopathy or radiculopathy Given by Other 03/23/2024 9:41 AM EDT 50 mEq Other documented in this encounter Additional Health Concerns Assessment Noted Time A fall risk assessment has been complete d for the patient 03/23/2024 9:19 AM EDT A Body Mass Index follow-up plan has been documented for the patient 03/23/2024 1:48 PM EDT documented as of this encounter Care Teams Timber Grader Relationship Specialty Start Date End Date Eliseo Ibarra MD [address] [place] [address] PCP - General 01/30/24 documented as of this encounter
--- OUTSIDE RECORDS SUMMARY | 2024-04-21 20:07 | XMS_ITS | Encounter Summary ---
Author Organization Healthcare Address [address] [place] [address] Care Team Providers Care Dining Room Supervisor Name Role Phone Ira Melendez Drew VALERIO Primary Care Provider [phone] Encounter Details Date Type Department Care Team (Late st Contact Info) Description 12/26/2023 [facility]ill [facility] [address] [place] [address] Cecelia Vilchis MD [address] [place] [address] Social History Tobacco Use Types Packs/Day Years [...] Description 05/17/2024 2:00 PM EST Office Visit [facility] Interventional Pain Medicine [address] [place] [address] Markell Lucas MD [address] [facility] [address] [place] [phone] 06/08/2024 2:00 PM EST Procedure Visit [facility] Interventional Pain Medicine [address] [place] [address] Markell Lucas MD [address] [facility] [address] [place] [address] documented as of this encounter Visit Diagnoses Not on filedocumented in this encounter Additional Health Concerns Assessment Noted Time A fall risk assessment has been complete d for the patient 12/26/2023 3:16 PM EDT A Body Mass Index follow-up plan has been documented for the patient 12/26/2023 4:40 PM EDT documented as of this encounter Care Teams Dining Room Supervisor Relationship Specialty Start Date End Date Ira Melendez APRN [address] [place] [address] [id number] PCP - General 12/28/22 01/29/24 documented as of this encounter
--- OUTSIDE RECORDS SUMMARY | 2024-04-21 20:07 | XMS_ITS | Encounter Summary ---
Author Organization [facility] Address [address] [place] [address] Care Team Providers Care Clip Riveter Name Role Phone Al, Lora Drew VALERIO Primary Care Provider Encounter Details Date Type Department Care Team (Late st Contact Info) Description 12/23/2023 Orders Only External Location [address] [place] [address] Provider, External Social History Tobacco Use Types [...] Description 05/17/2024 2:00 PM EST Office Visit [facility] Interventional Pain Medicine [address] [place] [address] Markell Lucas MD [address] [facility] [address] [place] [address] 06/08/2024 2:00 PM EST Procedure Visit [facility] Interventional Pain Medicine [address] [place] [address] Markell Lucas MD [address] [facility] [address] [place] [address] documented as of this encounter Procedures Procedure Name Priority Date/Time Associated Diagnosis Comments CT NEURO OUTSIDE IMAGES 12/23/2023 11:35 AM EDT documented in this encounter Results * CT NEURO OUTSIDE IMAGES (12/23/2023 11:35 AM EDT) Anatomical Region Laterality Modality Computed Tomogra phy 12/23/2023 11:3 5 AM EDT us External Provider IMG CT PROCEDURES Final Result documented in this encounter Visit Diagnoses Not on filedocumented in this encounter Additional Health Concerns Assessment Noted Time A fall risk assessment has been complete d for the patient 12/04/2023 1:59 PM EDT A Body Mass Index follow-up plan has been documented for the patient 12/09/2023 8:26 PM EDT documented as of this encounter Care Teams Clip Riveter Relationship Specialty Start Date End Date Ira Melendez APRN [address] [place], [place] [id number] PCP - General 12/28/22 01/29/24 documented as of this encounter
--- OUTSIDE RECORDS SUMMARY | 2024-04-21 20:07 | XMS_ITS | Encounter Summary ---
Author Organization [facility] Address [address] [place] [address] Care Team Providers Care Resp Ther Name Role Phone Eliseo Ibarra MD Primary Care Provider Encounter Details Date Type Department Care Team (Latest Contact Info) Description 01/30/2024 Travel Social History Tobacco Use Types Packs/Day [...] 05/17/2024 2:00 PM EST Office Visit [facility] Interventional Pain Medicine [address] [place] [phone] Markell Lucas MD [address] [phone] 06/08/2024 2:00 PM EST Procedure Visit [facility] Interventional Pain Medicine [address] [place] [address] Markell Lucas MD [address] [phone] documented as of this encounter Visit Diagnoses Not on filedocumented in this encounter Additional Health Concerns Assessment Noted Time A fall risk assessment has been complete d for the patient 01/30/2024 9:49 AM EDT A Body Mass Index follow-up plan has been documented for the patient 01/30/2024 10:28 AM EDT documented as of this encounter Care Teams Resp Ther Relationship Specialty Start Date End Date Eliseo Ibarra MD [address] [place] [address] [address] [place] [address] PCP - General 01/30/24 documented as of this encounter
--- OUTSIDE RECORDS SUMMARY | 2024-04-21 20:07 | XMS_ITS | Encounter Summary ---
Author Organization Healthcare Address [address] [place] [address] Care Team Providers Care Wind Operations Manager Name Role Phone Eliseo Ibarra MD Primary Care Provider [phone] Encounter Details Date Type Department Care Team (Late st Contact Info) Description 03/23/2024 10:00 AM EDT Office Visit [facility] Interventional Pain Medicine [address] [place] [phone] Markell Lucas MD [address] [facility] [address] [place] [address] Spondylosis of lumbosacral region without myelopathy or radiculopathy (Primary Dx); Spondylosis of cervical region without [...] encounter Miscellaneous Notes * Progress Notes - Mello Palacio MD - 03/23/2024 10:00 AM EDT Images from the original note were not included. Interventional Pain Medicine Follow Up Patient Note Subjective: Interval hx: Patient presents today for follow up of neck pain. Has bilateral C3/4/5 MBB #1 today. Regarding her medications, she continues to take her hydrocodone/APAP 7.5/325mg TID PRN. She does state that when it is rainy and cold, her pain flares up and she has to take an extra pill therefore is asking if her medication frequency can be increased. Last dose of hydrocodone: yesterday PM History of Present Illness: Taniya Martin is a 43 y.o. female presents for evaluation of neck pain. She is s/p C5-6 ACDF byDr. Connor in September of 2019 for cervical myelopathy. 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 HYDROcodone-acetaminophen (Wheelwright) 7.5-325 MG tablet Take 1 tablet (7.5 mg of hydrocodone) by mouth every 8 (eight) hours if needed for severe pain (pain). HYDROcodone-acetaminophen (Wheelwright) 7.5-325 MG tablet Take 1 tablet (7.5 mg of hydrocodone) by mouth 2 (two) times a day if needed for severe pain. ibuprofen 800 MG tablet Take 1 tablet (800 mg) by mouth 3 (three) times a day if needed. methocarbamol (Robaxin) 750 MG tablet Take 1 tablet (750 mg) by mouth 4 (four) times a day. traZODone (Desyrel) 100 MG tablet TAKE 1 TO 2 TABLETS BY MOUTH ONCE A DAY AT BEDTIME Previous Pain Medications: Wheelwright Methocarbamol Lyrica Previous Non-Interventional Treatment: Physical therapy - unable to tolerate HEP due to pain Ice Ibuprofen Tylenol Previous Interventions/Consults: NSGY Previous Interventional Injections: Denies Other Medical History reports that she quit smoking about 21 months ago. Her smoking use included cigarettes. She startedsmoking about 11 years ago. She has a 2.5 pack-year smoking history. She has never used smokeless tobacco. Diabetes: Denies A1C: N/a Anticoagulation: Denies Work Status: [employer] Review of Systems: CONSTITUTIONAL: denies fevers, chills [...] 5/5 5/5 C6: Wrist extension (ECRB, ECRL) / 5/5 C7: Elbow extension (Triceps) / 5/5 C8: Finger flexion ([employer]man [employer]rength) / 5/ T1: Finger abduction 5/ 5/5 Reflexes Right Left C5: Biceps 2/4 2/4 [...] Pain, Chronic Worsening #Cervical Spondylosis #Facetogenic pain -Planned for C3,C4,C5 mbb first diagnostic block performed with fluoroscopy today -If successful, will confirm with second diagnostic [...] until she undergoes injections - Last took Wheelwright 03/22/24 A. Opioid agreement: next visit B. UDS results reviewed: today appropriate - last LCMS 02/25/24 reviewed and no positives noted even though per chart review, patient's last dose of hydrocodone was on 02/23/24 -last LCMS should have shown metabolites based on her last dose of medication -will refill hydrocodone/APAP 7.5/325mg TID PRN #60 and gabapentin 300mg TID #90 today -will review pill count in 2 weeks C. PDMP/ALONDRA report obtained today and reviewed: [...] conditions). Cosigned by Markell Lucas MD at 03/23/2024 11:44 AM EDT Associated attestation - Markell Lucas MD - 03/23/2024 11:44 AM EDT I saw and evaluated the patient with the resident/fellow. I discussed the case with the resident/fellow and agree with the findings and plan as documented. documented in this encounter Plan of Treatment Upcoming Encounters Date Type Department Care Team (Late st Contact Info) Description 05/17/2024 2:00 PM EST Office Visit [facility] Interventional Pain Medicine [facility] [place] [phone] Markell Lucas MD [address] [place] [phone] 06/08/2024 2:00 PM EST Procedure Visit [facility] Interventional Pain Medicine [address] [place] [phone] Markell Lucas MD [facility] [address] [phone] documented as of this encounter Visit Diagnoses Diagnosis Spondylosis of lumbosacral region without myelopathy or radiculopathy- Primary Spondylosis of cervical region without myelopathy or radiculopathy documented in this encounter Additional Health Concerns Assessment Noted Time A fall risk assessment has been complete d for the patient 03/23/2024 9:19 AM EDT A Body Mass Index follow-up plan has been documented for the patient 03/23/2024 1:48 PM EDT documented as of this encounter Care Teams Wind Operations Manager Relationship Specialty Start Date End Date Eliseo Ibarra MD [address] [place] [address] PCP - General 01/30/24 documented as of this encounter
--- OUTSIDE RECORDS SUMMARY | 2024-04-21 20:07 | XMS_ITS | Encounter Summary ---
Author Organization [facility] Address [address] [place] [address] Care Team Providers Care Senior Policy Advisor Name Role Phone Eliseo Ibarra MD Primary Care Provider [phone] Reason for Referral * Other Medical (Routine) - Pending Review Specialty Diagnoses / Procedures Referred By Contac t Referred To Contact Diagnoses Spondylosis of cervical region without myelopathy or radiculopathy Procedures RFA - Cervical / Thoracic Markell Lucas MD [facility] [address] [address] Phone: tel: fax: Referral ID Status Reason Start Date Expiration Date V isits Requested Visits Authorized [id number] Pending Review 04/20/2024 10/20/2025 1 1 Reason for Visit * Reason Comments Injections * Other Medical (Routine) - Closed Specialty Diagnoses / Procedures Referred By Contac t Referred To Contact Pain Medicine Diagnoses Spondylosis of cervical region without myelopathy or radiculopathy Procedures Facet MBB - Cervical / Thoracic Markell Lucas MD [address] [address] Phone: tel: fax: [facility] Interventional Pain Medicine [address] [place] [address] Phone: tel: fax: Referral ID Status Reason Start Date Expiration Date Visits Re quested Visits Authorized [id number] Closed 03/23/2024 09/22/2025 1 1 Encounter Details Date Type Department Care Team (Late st Contact Info) Description 04/20/2024 11:30 AM EST Procedure Visit [facility] Interventional Pain Medicine [address] [place] [address] Markell Lucas MD [address] [facility] [address] [place] [address] Spondylosis of cervical region without [...] Sign Reading Time Taken Comments Blood Pressure 149/94 04/20/2024 11:46 AM EST Pulse 71 04/20/2024 11:46 AM EST Temperature 36.5 ??C (97.7 ??F) 04/20/2024 11:[address] Respiratory Rate 16 04/20/2024 11:46 AM EST Oxygen Saturation 99% 04/20/2024 11:46 AM EST Inhaled Oxygen Concentration - - Weight 86.2 kg (190 lb) 04/20/2024 11:16 AM EST Height 157.5 cm (5' 2 ) 04/20/2024 11:16 AM EST Body Mass Index 34.75 04/20/2024 11:16 AM EST documented in this encounter Miscellaneous Notes * Clinician Note - Vy Chairez RN - 04/20/2024 11:30 AM EST Patient ID: Taniya Martin is a 43 y.o. female. Procedure: Abner Cervical MBB Pre-Procedure Pre-Procedure Checklist Procedure verified with patient/guardian: yes Consent signed, dated, timed, and present: yes History and Physical performed: yes Nursing Assessment performed: yes Pre-Procedure/Sedation Assessment and Plan performed: yes Discharge instructions reviewed with patient/guardian: yes Plan of Care reviewed with patient/guardian: yes Patient's/Guardian's questions addressed: yes Pre-Procedure Questions Last dose of blood thinner: none taken per patient report Review of Systems General appearance: normal Respiratory effort: normal Mobility: normal Skin: normal Orientation to person, time, and place: normal Mood and affect: normal Intra-Procedure Prep & Positioning The patient was prepped and draped in usual sterile fashion and placed in a prone position. Time Out A timeout was called at 11:35 AM by benjamín, immediately prior to the procedure, in accordance with [employer] policy. Procedure Start Time: 11:37 AM Procedure End Time: 11:43 AM Fluoro Time: 20.2 seconds Fluoro Dose: 1.912 mGy Post-Procedure Discharge Status Orientation to person, time, and place: normal Mood and affect: normal Discharge disposition: home Mode of exit: walked @11:59 AM Patient verbalizes understanding of follow-up appointments, post-procedure care, and medications. * Progress Notes - Oriana De León, - 04/20/2024 11:30 AM ESTAssociated Order(s): Facet MBB - Cervical / Thoracic [...] León DO Authorized by: Markell Lucas MD Patient seen and evaluated prior to their procedure.There is nothing in the patient's overall condition that would affect the planned course of the patient's treatment today that requires additional interventions to reduce risk to the patient. Procedure(s): Bilateral C3, C4, and C5 Cervical Medial Branch block #2 Anesthesia Type: Local only Complications: None Follow-up [...] hats, masksand sterile gloves. The patient underwent Betadine skin prep followed by sterile drape. Attention [...] pain Pre-Injection Numerical Rating Scale Pain Score: 6/10 Post-Injection Numerical Rating Scale Pain Score: 0/10 Patient Reports 100 % pain relief following the procedure performed as mentioned above. Functional improvement after medial branch block: improvement in neck flexion, rotation, extension,standing, walking Will order and proceed with facet medial branch radiofrequency ablation at the same mentioned levels and laterality as above performed medial branch blocks under fluoroscopy Post-Procedure Owestry Disability Index (JAKE): 8 Cosigned by Markell Lucas MD at 04/20/2024 1:08 PM EST Associated attestation - Markell Lucas MD - 04/20/2024 1:08 PM EST I was present for the entirety of the procedure(s). documented in this encounter Plan of Treatment Upcoming Encounters Date Type Department Care Team (Late st Contact Info) Description 05/17/2024 2:00 PM EST Office Visit [facility] Interventional Pain Medicine [address] [place], [place] [phone] Markell Lucas MD [address] [facility] [address] [place] [address] [phone] 06/08/2024 2:00 PM EST Procedure Visit [facility] Interventional Pain Medicine [address] [place] [phone] Markell Lucas MD [facility] [address] [place] [address] [phone] Scheduled Orders Name Type Priority Associated Diagnoses Orde r Schedule RFA - Cervical / Thoracic Procedures Routine Spondylosis of cervical region without myelopathy or radiculopathy 1 Occurrences starting 04/20/2024 until 04/20/2025 documented as of this encounter Procedures Procedure Name Priority Date/Time Associated Diagnosis Comments [place] INJ DX/THER AGNT PARAVERT FACET JOINT,IMG GUIDE,CERV/THORAC, 2ND LEVEL Routine 04/20/2024 11:30 AM EST Spondylosis of cervical region without myelopathy or radiculopathy [address] IR FACET INJECTION CHARGE Routine 04/20/2024 11:30 AM EST Spondylosis of cervical region without myelopathy or radiculopathy documented in this encounter Results * [address] IR FACET INJECTION CHARGE, [place] INJ DX/THER AGNT PARAVERT FACET JOINT,IMG GUIDE,CERV/THORAC, 2ND LEVEL (04/20/2024 11:30 AM EST) Narrative Markell Lucas MD - 04/20/2024 11:30 AM EST Markell Lucas MD ? 04/20/2024 ??1:08 PM Facet MBB - Cervical / Thoracic Performed by: Oriana De León, DO Authorized by: Markell Lucas MD ?? [...] (10 mL), Injection, Once, 1 dose, On Fri04/20/24 at 1230, RoutineIndications:Spondylosis of cervical region without myelopathy or radiculopathy Given by Other 04/20/2024 11:36 AM EST 25 mg lidocaine (Xylocaine) 1 % injection 30 mL 30 mL, Injection, Once, 1 dose, On Fri04/20/24 at 1230, RoutineIndications:Spondylosis of cervical region without myelopathy or radiculopathy Given by Other 04/20/2024 11:36 AM EST 30 mL sodium bicarbonate 8.4 % injection 50 mEq 50 mEq, Subcutaneous, Once, 1 dose, On Fri04/20/24 at 1230, RoutineIndications:Spondylosis of cervical region without myelopathy or radiculopathy Given by Other 04/20/2024 11:36 AM EST 50 mEq Other documented in this encounter Additional Health Concerns Assessment Noted Time A fall risk assessment has been complete d for the patient 04/20/2024 11:16 AM EST A Body Mass Index follow-up plan has been documented for the patient 04/20/2024 1:08 PM EST documented as of this encounter Care Teams Senior Policy Advisor Relationship Specialty Start Date End Date Eliseo Ibarra MD [address] [facility] [address] [place] [address] PCP - General 01/30/24 documented as of this encounter
--- OUTSIDE RECORDS SUMMARY | 2024-04-21 20:07 | XMS_ITS | Encounter Summary ---
Author Organization [facility] Address [address] [place] [address] Care Team Providers Care Pipe Connector Name Role Phone Eliseo Ibarra MD Primary Care Provider Encounter Details Date Type Department Care Team (Latest Contact Info) Description 02/25/2024 Travel Social History Tobacco Use Types Packs/Day [...] Description 05/17/2024 2:00 PM EST Office Visit [facility] Interventional Pain Medicine [address] [place] [phone] Markell Lucas MD [address] [address] 06/08/2024 2:00 PM EST Procedure Visit [facility] Interventional Pain Medicine [address] [place] [address] Markell Lucas MD [address] [phone] documented as of this encounter Visit Diagnoses Not on filedocumented in this encounter Additional Health Concerns Assessment Noted Time A fall risk assessment has been complete d for the patient 02/25/2024 8:51 AM EDT A Body Mass Index follow-up plan has been documented for the patient 02/25/2024 9:37 AM EDT documented as of this encounter Care Teams Pipe Connector Relationship Specialty Start Date End Date Eliseo Ibarra MD [address] [place] [address] [address] [place] [address] PCP - General 01/30/24 documented as of this encounter
--- OUTSIDE RECORDS SUMMARY | 2024-04-21 20:07 | XMS_ITS | Encounter Summary ---
Author Organization [facility] Address [address] [place] [address] Care Team Providers Care Field Sales Trainer Name Role Phone Eliseo Ibarra MD Primary Care Provider Encounter Details Date Type Department Care Team (Latest Contact Info) Description 03/23/2024 Travel Social History Tobacco Use Types Packs/Day [...] Description 05/17/2024 2:00 PM EST Office Visit [facility] Interventional Pain Medicine [address] [place] [phone] Markell Lucas MD [address] [address] 06/08/2024 2:00 PM EST Procedure Visit [facility] Interventional Pain Medicine [address] [place] [address] Markell Lucas MD [address] [phone] documented as of this encounter Visit Diagnoses Not on filedocumented in this encounter Additional Health Concerns Assessment Noted Time A fall risk assessment has been complete d for the patient 03/23/2024 9:19 AM EDT A Body Mass Index follow-up plan has been documented for the patient 03/23/2024 1:48 PM EDT documented as of this encounter Care Teams Field Sales Trainer Relationship Specialty Start Date End Date Eliseo Ibarra MD [address] [place] [address] [address] [place] [address] PCP - General 01/30/24 documented as of this encounter
--- OUTSIDE RECORDS SUMMARY | 2024-04-21 20:07 | XMS_ITS | Encounter Summary ---
Author Organization [facility] Address [address] [place] [address] Care Team Providers Care Prior Authorization Nurse Name Role Phone Eliseo Ibarra MD Primary Care Provider Encounter Details Date Type Department Care Team (Late Contact Info) Description 03/23/2024 Orders Only External Location [address] [place] [address] Provider, External Social History Tobacco Use Types [...] Description 05/17/2024 2:00 PM EST Office Visit [facility] Interventional Pain Medicine [address] [place] [address] Markell Lucas MD [address] [facility] [address] [place] [address] 06/08/2024 2:00 PM EST Procedure Visit [facility] Interventional Pain Medicine [address] [place] [address] Markell Lucas MD [address] [facility] [address] [place] [address] documented as of this encounter Procedures Procedure Name Priority Date/Time Associated Diagnosis Comments POC ULTRASOUND 03/23/2024 documented in this encounter Results * POC Imaging (03/23/2024) Anatomical Region Laterality Modality Pelvis Other 03/23/2024 us External Provider IMG POINT OF CARE [...] documented as of this encounter Care Teams Prior Authorization Nurse Relationship Specialty Start Date End Date Eliseo Ibarra MD [address] [place] [address] [address] [place] [address] PCP - General 01/30/24 documented as of this encounter
--- OUTSIDE RECORDS SUMMARY | 2024-04-21 20:07 | XMS_ITS | Encounter Summary ---
Author Organization [facility] Address [address] [place] [address] Care Team Providers Care Attending Urologist Name Role Phone Eliseo Ibarra MD Primary Care Provider Reason for Visit * Reason Onset Date Comments HCN - Rx Refill Request 02/26/2024 Encounter Details Date Type Department Care Team (Late st Contact Info) Description 02/26/2024 Telephone [facility] Interventional Pain Medicine [address] [facility] [place] [address] Markell Lucas MD [address] [facility] [address] [place] [address] HCN - Rx Refill Request Social History Tobacco Use Types Packs/Day Years [...] as of this encounter Miscellaneous Notes * Telephone Encounter - Cheryl Helton LPN - 02/26/2024 3:51 PM EDT Returned call , medications are at pharmacy now * Telephone Encounter - Tamica Alexandra - 02/26/2024 9:10 AM EDT Medication Refill Request Medication Name: Gabapentin 300 mg, Minto 7.5-325 mg, Methocarbamol 750 mg, Narcan 4 mg/.01 ml, (Ptis needing these sent back in by Dr. Lucas for her insurance to cover the cost.) Dosage: see chart Preferred Pharmacy & Location: Patient Preferred Pharmacy in Chart: [id number] - [place], [place] - [address] [address] [address] [facility] [address] [address] [address] [facility] [place] [address] Days of medication remaining (if under 3 days please piter as urgent): 0 Best contact number: [phone] (mobile) Optimal time of day to reach caller: ANYTIME Additional comments/information from caller: None Note: Please do not reply to this message. Follow-up communication and further actions as a result of this message need to be communicated with the patient directly, if the patient is not active onMyChart. If the patient is active on MyChart, they will receive notification of the communication/outcome via MyChart. documented in this encounter Plan of Treatment Upcoming Encounters Date Type Department Care Team (Late st Contact Info) Description 05/17/2024 2:00 PM EST Office Visit [facility] Interventional Pain Medicine [address] [place] [address] Markell Lucas MD [address] [facility] [address] [place] [phone] 06/08/2024 2:00 PM EST Procedure Visit [facility] Interventional Pain Medicine [address] [place] [address] Markell Lucas MD [facility] [address] [place] [address] documented as of this encounter Visit Diagnoses Diagnosis Cervicalgia Status post cervical spinal fusion Arthrodesis status Cervical spondylosis with myelopathy documented in this encounter Additional Health Concerns Assessment Noted Time A fall risk assessment has been complete d for the patient 02/25/2024 8:51 AM EDT A Body Mass Index follow-up plan has been documented for the patient 02/25/2024 9:37 AM EDT documented as of this encounter Care Teams Attending Urologist Relationship Specialty Start Date End Date Eliseo Ibarra MD [address] [place] [address] [address] [place] [address] PCP - General 01/30/24 documented as of this encounter
--- OUTSIDE RECORDS SUMMARY | 2024-04-21 20:07 | XMS_ITS | Encounter Summary ---
Author Organization [facility] Address [address] [place] [address] Care Team Providers Care Jewel Inserter Name Role Phone Ira Melendez APRN Primary Care Provider Reason for Visit * Reason Comments Head Injury Encounter Details Date Type Department Care Team (Late st Contact Info) Description 12/26/2023 3:15 PM EDT Office Visit [place] [facility] [address] [place] [address] Osman Connor MD [address] [place] [address] Cervical spondylosis with myelopathy (Primary Dx) Social History Tobacco Use Types [...] Sign Reading Time Taken Comments Blood Pressure 128/90 12/26/2023 3:12 PM EDT Pulse 77 12/26/2023 3:12 PM EDT Temperature - - Respiratory Rate 18 12/26/2023 3:12 PM EDT Oxygen Saturation 99% 12/26/2023 3:12 PM EDT Inhaled Oxygen Concentration - - Weight 78.5 kg (173 lb) 12/26/2023 3:12 PM EDT Height 157.5 cm (5' 2 ) 12/26/2023 3:12 PM EDT Body Mass Index 31.64 12/26/2023 3:12 PM EDT documented in this encounter Miscellaneous Notes * Progress Notes - Cecelia Vilchis MD - 12/26/2023 3:15 PM EDT We had the pleasure of seeing your patient in our clinic today for continued Neurosurgical evaluation. Chief Complaint Followup after MRI History Of Present Illness Taniya Martin is a 42 y.o. female who returns today for follow-up regarding neck pain. The patient is well known to the neurosurgical clinic. She has a past medical history significant for a C5-6ACDF completed by Dr. Connor in September 27, 2019 for cervical myelopathy. She did well postoperatively. She was last seen in the clinic on 11/2023, for axial neck pain, [id number], numbness/t ingling in left arm over the past couple of months. Plan was made to have her followup after MRI. In addition to these mentioned symptoms, today she also reports weakness in her left hand and feels unsteady when walking. No incontinence or saddle anesthesia. She has tried PT without relief and is taking lyrica and robaxin for her symptoms. Has not attempted steroid injections yet. She states her quality of life is greatly affected and symptoms are ultimately impacting all aspects of daily living. She is a nonsmoker. Not on blood thinners. Social History Reviewed and noncontributory except as mentioned in HPI Medications Relevant meds were reviewed and mentioned in HPI Allergies Tetracyclines & related, Tegaderm ag mesh [silver], Tetracycline, Chlorhexidine, Penicillins, and Wound dressing adhesive Review of Systems 14 point review of systems was performed and was negative except as noted per HPI. 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 Assessment and Plan Taniya Martin is a 43 y.o. female with recurrent neck and radicular pain after C5-6 ACDF, completed by Dr. Connor in September 27, 2019 for cervical myelopathy. Her symptoms have been debilitating, although her radiographic findings do not indicate proportionate severity. Given that the patient hasn't attempted epidural injections, we will refer her to interventional pain medicine prior to considering additional management options. We will see her back in clinic in one month to see how she isdoing. -interventional pain referral for epidural injections -Taper off lyrica and start gabapentin (1 tab daily 7xdays, then 1 tab BID 7xdays, then onwards 1 tab TID) -norco 5-325mg PRN -followup in clinic in one month Cecelia Vilchis MD Resident Physician, PGY-1 Department of Neurosurgery [facility] Cosigned by Osman Connor MD at 12/26/2023 4:39 PM EDT Associated attestation - Osman Connor MD - 12/26/2023 4:39 PM EDT I saw and evaluated the patient with the resident/fellow. I discussed the case with the resident/fellow and agree with the findings and plan as documented. documented in this encounter Plan of Treatment Upcoming Encounters Date Type Department Care Team (Late st Contact Info) Description 05/17/2024 2:00 PM EST Office Visit [facility] Interventional Pain Medicine [address] [place] [phone] Markell Lucas MD [address] [facility] [address] [place] [address] 06/08/2024 2:00 PM EST Procedure Visit [facility] Interventional Pain Medicine [address] [place] [address] Markell Lucas MD [address] [facility] [address] [place] [address] documented as of this encounter Visit Diagnoses Diagnosis Cervical spondylosis with myelopathy- Primary documented in this encounter Additional Health Concerns Assessment Noted Time A fall risk assessment has been complete d for the patient 12/26/2023 3:16 PM EDT A Body Mass Index follow-up plan has been documented for the patient 12/26/2023 4:40 PM EDT documented as of this encounter Care Teams Jewel Inserter Relationship Specialty Start Date End Date Ira Melendez APRN [address] [place] [address] PCP - General 12/28/22 01/29/24 documented as of this encounter
--- OUTSIDE RECORDS SUMMARY | 2024-04-21 20:07 | XMS_ITS | Clinical Summary ---
Author Organization [facility] Address [address] [place] [address] Care Team Providers Care Helium Arc Welder Name Role Phone Eliseo Ibarra MD Primary Care Provider Allergies Active Allergy Reactions Criticality Noted Date Comments Chlorhexidine Unknown - Patient st ates they do not know rxn details Low 04/03/2021 Penicillins Unknown - Patient st ates they do not know rxn details Low 04/03/2021 Silver Hives Medium 01/25/2022 Tetracycline Hives Medium 01/25/2022 Tetracyclines & Related Other - please d ocument in the comment field,Rash High 01/28/2016 Wound Dressing Adhesive Rash Low 10/21/2021 Medications estradiol (Estring) 2 MG vaginal ring Insert 2 mg into the vagina every 3 (three) months. Last filled 06/2022 . follow package directions Active fluticasone (Flonase) 50 MCG/ACT nasal spray Administer 2 sprays into each nostril 1 (one) time each day. Shake gently. Before first use, prime pump. After use, clean tip and replace cap. Active acetaminophen (Tylenol) 500 MG tablet 1 tablet (500 mg). Active albuterol (Ventolin HFA) 108 (90 Base) MCG/ACT inhaler 020 Active cetirizine (ZyrTEC) 10 MG tablet Take 1 tablet (10 mg) by mouth 1 (one) time each day. Active famotidine (Pepcid) 20 MG tablet Take 1 tablet (20 mg) by mouth. Active hydroCHLOROthiaz ben (HYDRODiuril) 25 MG tablet Take 1 tablet (25 mg) by mouth 1 (one) time each day. Active ibuprofen 800 MG tablet Take 1 tablet (800 mg) by mouth 3 (three) times a day if needed. Active sucralfate (Carafate) 1 g tablet Active amLODIPine (Norvasc) 5 MG tablet Take 1 tablet (5 mg) by mouth 1 (one) time each day. 023 Active loratadine (Claritin) 10 MG tablet Take 1 tablet (10 mg) by mouth 1 (one) time each day. Active oxybutynin (Ditropan) 5 MG tablet Take 1 tablet (5 mg) by mouth 1 (one) time each day. Active desvenlafaxine (Pristiq) 100 MG 24 hr tablet Take 1 tablet (100 mg) by mouth 1 (one) time each day. 023 Active Blood Glucose Monitoring Suppl (ONE TOUCH ULTRA 2) w/Device kit device kit follow package directions Active OneTouch Ultra test strip Active Lancets (OneTouch Delica Plus [id number]) misc Active prazosin (Minipress) 2 MG capsule Take 1 capsule (2 mg) by mouth every night. Active ARIPiprazole (Abilify) 30 MG tablet Take 1 tablet (30 mg) by mouth 1 (one) time each day. Active Melatonin 10 MG tablet Take 1 tablet by mouth every night. Active methocarbamol (Robaxin) 750 MG tabletIndication s:Cervicalgia,St atus post cervical spinal fusion,Cervical spondylosis with myelopathy Take 1 tablet (750 mg) by mouth 4 (four) times a day. 120 tablet 2 024 Active naloxone (Narcan) 4 mg/0.1 mL nasal spray 1. Give 1 spray in nostril for no/slow breathing or cannot wake after opioid use 2. Call 911 3. Repeat in other nostril if symptoms continue 1 each Active gabapentin (Neurontin) 300 MG capsule Take 1 capsule (300 mg) by mouth 3 (three) times a day. 90 capsule Active Additional Information Patient not taking.Reported on 04/20/2024 cefdinir (Omnicef) 300 MG capsule TAKE 1 CAPSULE BY MOUTH TWICE DAILY FOR 7 DAYS Active traZODone (Desyrel) 100 MG tablet TAKE 1 TO 2 TABLETS BY MOUTH ONCE A DAY AT BEDTIME Active gabapentin (Neurontin) 300 MG capsuleIndicatio ns:Spondylosis of cervical region without myelopathy or radiculopathy Take 1 capsule (300 mg) by mouth 3 (three) times a day. 90 capsule 024 2024 Active HYDROcodone-acet aminophen ([place]) 7.5-325 MG tabletIndication s:Spondylosis of cervical region without myelopathy or radiculopathy Take 1 tablet (7.5 mg of hydrocodone) by mouth every 8 (eight) hours if needed for severe pain (pain) for up to 20 doses. 20 tablet Active traZODone (Desyrel) 50 MG tablet TAKE 1/2 TO 1 TABLET BY MOUTH NIGHTLY NEEDED FOR SLEEP 2023 Discontinued HYDROcodone-acet aminophen ([place]) 7.5-325 MG tablet Take 1 tablet (7.5 mg of hydrocodone) by mouth every 8 (eight) hours if needed for severe pain (pain). 60 tablet 024 2023 Discontinued(R eorder) gabapentin (Neurontin) 300 MG capsule Take 1 capsule (300 mg) by mouth 3 (three) times a day. 90 capsule 024 2023 Discontinued(R eorder) HYDROcodone-acet aminophen ([place]) 7.5-325 MG tablet Take 1 tablet (7.5 mg of hydrocodone) by mouth 2 (two) times a day if needed for severe pain. 60 tablet 024 2023 Discontinued gabapentin (Neurontin) 300 MG capsuleIndicatio ns:Spondylosis of cervical region without myelopathy or radiculopathy Take 1 capsule (300 mg) by mouth 3 (three) times a day. 90 capsule 024 2023 Discontinued(R eorder) HYDROcodone-acet aminophen ([place]) 7.5-325 MG tabletIndication s:Spondylosis of cervical region without myelopathy or radiculopathy Take 1 tablet (7.5 mg of hydrocodone) by mouth every 8 (eight) hours if needed for severe pain (pain). 60 tablet 024 2023 Discontinued(R eorder) Hospital, Clinic, or Other Facility Administered Medication Ordered Dose Route Frequency Start Date End Date Status sodium bicarbonate 8.4 % injection 50 mEqIndications:Spondylosis of cervical region without myelopathy or radiculopathy 50 mEq SC Once 03/23/2024 03/23/20 24 Ended lidocaine (Xylocaine) 1 % injection 30 mLIndications:Spondylosis of cervical region without myelopathy or radiculopathy 30 mL IJ Once 03/23/2024 03/23/20 24 Ended bupivacaine PF (Marcaine) 0.25 % injection 25 mgIndications:Spondylosis of cervical region without myelopathy or radiculopathy 25 mg IJ Once 03/23/2024 03/23/20 24 Ended lidocaine (Xylocaine) 1 % injection 30 mLIndications:Spondylosis of cervical region without myelopathy or radiculopathy 30 mL IJ Once 04/20/2024 04/20/20 24 Ended bupivacaine PF (Marcaine) 0.25 % injection 25 mgIndications:Spondylosis of cervical region without myelopathy or radiculopathy 25 mg IJ Once 04/20/2024 04/20/20 24 Ended sodium bicarbonate 8.4 % injection 50 mEqIndications:Spondylosis of cervical region without myelopathy or radiculopathy 50 mEq SC Once 04/20/2024 04/20/20 24 Ended Active Problems Problem Noted Date Diagnosed Date Abdominal pain 09/04/2022 Hx laparoscopic cholecystectomy 09/04/2022 Overview (09/04/2022): Surgery date 07/21/[address] Kirby vs available [facility] attending History of psychiatric treatment 07/21/2022 Resolved Problems Problem Noted Date Diagnosed Date Resolved Date Cholelithiasis 07/20/2022 07/22/2022 Overview (07/20/2022): No pericholecystic fluid No GB wall thickening Neg thomas sign No signs of cholecystitis Does not meet [place] guidelines for cholangitis, did not start on abx at this time Dilated cbd, acquired 07/20/20222022 Overview (07/20/2022): cbd 7.5mm No stones seen Normal t bili Recheck labs in AM Consider MRCP to further evaluate for potential distal stone Diarrhea 07/20/2022 07/22/2022 Overview (07/20/2022): Stool studies GERD (gastroesophageal reflux disease) 07/20/2022 07/22/2022 Overview (07/20/2022): Takes home medication PRN Add as needed Calculus of gallbladder with out cholecystitis without obstruction 07/20/2022 07/22/2022 Encounters Date Type Department Care Team Description 04/20/2024 11:30 AM EST Procedure Visit [facility] Interventional Pain Medicine [address] [place] [phone] Markell Lucas MD Spondylosis of cervical region without myelopathy or radiculopathy 04/20/2024 11:00 AM EST Office Visit 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 Interventional Pain Medicine [address] [place] [phone] Markell Lucas MD Spondylosis of lumbosacral region without myelopathy or radiculopathy (Primary Dx); Spondylosis of cervical region without myelopathy or radiculopathy 03/23/2024 9:30 AM EDT Procedure Visit [facility] Interventional Pain Medicine [address] [place] [phone] Markell Lucas MD Spondylosis of cervical region without myelopathy or radiculopathy (Primary Dx) 03/23/2024 Orders Only External Location [address] [place] [address] Provider, External 03/23/2024 Travel 02/26/[address] [facility] Interventional Pain Medicine [address] [place] [phone] Markell Lucas MD Radiculopathy, cervical region (Primary Dx) 02/26/[address] [facility] Interventional Pain Medicine [address] [place] [phone] aMrkell Lucas MD [facility] - Rx Refill Request 02/25/2024 9:00 AM EDT Office Visit [facility] Interventional Pain Medicine [address] [place] [phone] Markell Lucas MD Spondylosis of cervical region without myelopathy or radiculopathy (Primary Dx); Neck pain; Cervicalgia; Status post cervical spinal fusion; Cervical spondylosis with myelopathy; Controlled substance agreement signed 02/25/2024 Travel 01/30/2024 9:45 AM EDT Office Visit [facility] [address] [place] [address] Osman Connor MD Cervicalgia (Primary Dx); Status post cervical spinal fusion; Cervical spondylosis with myelopathy 01/30/2024 Travel from Last 3 Months Immunizations Name Administration Dates Next Due Tdap 01/25/2022 Family History Medical History Relation Name Comments Cardiac disorder Mother Colon cancer Mother Hypertension Mother Stroke Mother Cardiac disorder Other 1 Stroke Other 2 Hypertension Other 3 Colon cancer Other 4 Relation Name Status Comments Mother Other 1 Other 2 Other 3 Other 4 Social History Tobacco Use Types Packs/Day Years [...] on file Sexual Orientation Not on file Last Filed Vital Signs Vital Sign Reading [...] Mass Index 34.75 04/20/2024 11:16 AM EST Plan of Treatment Upcoming Encounters Date Type Department Care Team (Late st Contact Info) Description 05/17/2024 2:00 PM EST Office Visit [facility] Interventional Pain Medicine [address] [place] [phone] Markell Lucas MD [address] [place] [phone] 06/08/2024 2:00 PM EST Procedure Visit [facility] Interventional Pain Medicine [address] [place] [phone] Markell Lucas MD [address] [facility] [address] [phone] Health Maintenance Due Date Last Done Comments Dental Oral Exam 1981 Dental Prophylaxis 1981 Dental X-Ray: Bitewings 1981 Dental X-Ray: Full Mouth 1981 [facility]-Depression Screening 1981 [facility]-Infant/Child/Adol SDOH Screenings 1981 [facility]-Pneumococcal Vaccine: Pediatrics (0 to 5 Years) and At-Risk Patients (6 to 64 Years) (1 of 2 - PCV) 12/13/1987 [facility]-Varicella Vaccines (1 of 2 - 13+ 2-dose series) 1994 [facility]- SDOH Screenings 12/13/1999 [facility]-Adult SDOH Screenings 12/13/1999 [facility]-Hepatitis B Vaccines (1 of 3 - 19+ 3-dose series) 2000 [facility]-Zoster Vaccines (1 of 2) 2000 [id number] Vaccine (4 - season) 2024 07/07/2021, 11/28/2020, 10/27/2020 [facility]-Influenza Vaccine (#1) 02/08/202402/04, 03/19/2022, 03/11/2018 [facility]-DTaP,Tdap,and Td Vaccines (3 - Td or Tdap) 01/26/2032 01/25/2022, 04/08/2020 [facility]-RSV Vaccine: 60+ Years or (1 - 1-dose 75+ series) 2056 [facility]-HIV Screening Completed 07/19/2022, 07/19/2022 [facility]-Hepatitis C Screening Completed 07/19/2022 [facility]-Obesity Intervention Completed 024, 04/20/2024, 03/23/2024, Additional history exists [facility]-HIB Vaccines Aged Out No longer e ligible based on patient's age to complete this topic [facility]-HPV Vaccines Aged Out No longer e ligible based on patient's age to complete this topic [facility]-Hepatitis A Vaccines Aged Out No longer eligible based on patient's age to complete this topic [facility]-IPV Vaccines Aged Out No longer e ligible based on patient's age to complete this topic [facility]-Rotavirus Vaccines Aged Out No lo nger eligible based on patient's age to complete this topic Procedures Procedure Name Priority Date/Time Associated Diagnosis Comments ME INJ DX/THER AGNT PARAVERT FACET JOINT,IMG GUIDE,CERV/THORAC, 2ND LEVEL Routine 04/20/2024 11:30 AM EST Spondylosis of cervical region without myelopathy or radiculopathy 50395 IR FACET INJECTION CHARGE Routine 04/20/2024 11:30 AM EST Spondylosis of cervical region without myelopathy or radiculopathy POC ULTRASOUND 04/20/2024 ME INJ DX/THER AGNT PARAVERT FACET JOINT,IMG GUIDE,CERV/THORAC, 2ND LEVEL Routine 03/23/2024 9:30 AM EDT Spondylosis of cervical region without myelopathy or radiculopathy [id number] IR FACET INJECTION CHARGE Routine 03/23/2024 9:30 AM EDT Spondylosis of cervical region without myelopathy or radiculopathy POC ULTRASOUND 03/23/2024 PAIN MANAGEMENT, QUANTITATIVE URINE DRUG TESTING Routine 02/25/2024 9:31 AM EDT Controlled substance agreement signed PAIN MANAGEMENT, QUANTITATIVE URINE DRUG TESTING Routine 02/25/2024 9:31 AM EDT Controlled substance agreement signed HEPATITIS C ANTIBODY - ED W/REFLEX TO HCV QUANT PCR STAT 07/19/2022 6:45 PM EST HIV 1/2 ANTIBODY/ANTIGEN SCREEN WITH REFLEX TO HIV I/II DIFFERENTIATION STAT 07/19/2022 6:45 PM EST from Last 3 Months or Most Recently Relevant to Health Maintenance Results * [id number] IR FACET INJECTION CHARGE, ME INJ DX/THER AGNT PARAVERT FACET JOINT,IMG GUIDE,CERV/THORAC, 2ND LEVEL (04/20/2024 11:30 AM EST) Narrative Markell Lucas MD - 04/20/2024 11:30 AM EST Markell Lucas MD ? 04/20/2024 ??1:08 PM Facet MBB - Cervical / Thoracic Performed by: Oriana De León, DO Authorized by: Markell Lucas MD ?? us Markell Lucas MD IN CLINIC/BEDSIDE ORDERABLES Final Result * POC Imaging (04/20/2024) Only the most recent of2 resultswithin the time period is included. Anatomical Region Laterality Modality Pelvis Other 04/20/2024 us External Provider IMG POINT OF CARE ULTRASOUND F inal Result * [id number] IR FACET INJECTION CHARGE, ME INJ DX/THER AGNT PARAVERT FACET JOINT,IMG GUIDE,CERV/THORAC, 2ND LEVEL (03/23/2024 9:30 AM EDT) Narrative Markell Lucas MD - 03/23/2024 9:30 AM EDT Markell Lucas MD ? 03/23/2024 11:34 AM Facet MBB - Cervical / Thoracic Performed by: Mello Palacio MD Authorized by: Makrell Lucas MD ?? us Markell Lucas MD IN CLINIC/BEDSIDE ORDERABLES Final Result * Pain Management, Quantitative Urine Drug Testing (02/25/2024 9:31 AM EDT) [facility] Alprazolam <20 <20 ng/mL 02/27 9:51 AM EDT [facility] [place] Midazolam <20 <20 ng/mL 2023 9:51 AM EDT [facility] [place] Triazolam <20 <20 ng/mL 2023 9:51 AM EDT [facility] Alprazolam <10 <10 ng/mL 02/28/2024 9:51 AM EDT [facility] Aminoclonazepam <20 <20 ng/mL 4 9:51 AM EDT [facility] Amphetamine <50 <50 ng/mL 02/28/2024 9:51 AM EDT [facility] Benzoylecgonine <50 <50 ng/mL 9:51 AM EDT [facility] Buprenorphine <10 <10 ng/mL 02/28/2024 9:51 AM EDT [facility] Buprenorphine Glucuronide <50 <50 ng/mL 02/28/2024 9:51 AM EDT [facility] Butalbital <50 <50 ng/mL 02/28/2024 9:51 AM EDT [facility] 9 Carboxy THC <10 <10 ng/mL 02/28/2024 9:51 AM EDT [facility] 9 Carboxy THC Glucuronide <25 <25 ng/mL 02/28/2024 9:51 AM EDT [facility] Clonazepam <10 <10 ng/mL 02/28/2024 9:51 AM EDT [facility] Codeine <50 <50 ng/mL 02/28/2024 9:51 AM EDT [facility] Codeine Glucuronide <50 <50 ng/mL 02/27 9:51 AM EDT [facility] Cyclobenzaprine <50 <50 ng/mL 9:51 AM EDT [facility] Desmethyl Tramadol <50 <50 ng/mL 2023 9:51 AM EDT [facility] Diazepam <10 <10 ng/mL 02/28/2024 9:51 AM EDT [facility] EDDP - Methadone Metabolite <50 <50 ng/mL 02/28/2024 9:51 AM EDT [facility] Fentanyl <1 <1 ng/mL 02/28/2024 9:51 AM EDT [facility] Hydrocodone <50 <50 ng/mL 02/28/2024 9:51 AM EDT [facility] Hydromorphone <50 <50 ng/mL 02/28/2024 9:51 AM EDT [facility] Hydromorphone Glucuronide <50 <50 ng/mL 02/28/2024 9:51 AM EDT [facility] Lorazepam <20 <20 ng/mL 02/28/2024 9:51 AM EDT [facility] Lorazepam Glucuronide <50 <50 ng/mL 02/28/2024 9:51 AM EDT [facility] MDA <50 <50 ng/mL 02/28/2024 9:51 AM EDT [facility] MDMA <50 <50 ng/mL 02/28/2024 9:51 AM EDT [facility] Meperidine <50 <50 ng/mL 02/28/2024 9:51 AM EDT [facility] Methadone <50 <50 ng/mL 02/28/2024 9:51 AM EDT [facility] Methamphetamine <50 <50 ng/mL 9:51 AM EDT [facility] Methylphenidate <50 <50 ng/mL 9:51 AM EDT [facility] 6 Monoacetyl morphine <10 <10 ng/mL 02/28/2024 9:51 AM EDT [facility] Morphine <50 <50 ng/mL 02/28/2024 9:51 AM EDT [facility] Morphine Glucuronide <50 <50 ng/mL 02/08 9:51 AM EDT [facility] Naloxone <50 <50 ng/mL 02/28/2024 9:51 AM EDT [facility] Naloxone Glucuronide <50 <50 ng/mL 02/08 9:51 AM EDT [facility] Norbuprenorphine <10 <10 ng/mL 02/28/20 9:51 AM EDT [facility] Norbuprenorphine Glucuronide <50 <50 ng/mL 02/28/2024 9:51 AM EDT [facility] Nordiazepam <20 <20 ng/mL 02/28/2024 9:51 AM EDT [facility] Norfentanyl <2 <2 ng/mL 02/28/2024 9:51 AM EDT [facility] Normeperidine <50 <50 ng/mL 02/28/2024 9:51 AM EDT [facility] PCP Quant, Ur <50 <50 ng/mL 02/28/2024 9:51 AM EDT [facility] Phenobarbital <50 <50 ng/mL 02/28/2024 9:51 AM EDT [facility] Oxazepam <20 <20 ng/mL 02/28/2024 9:51 AM EDT [facility] Oxazepam Glucuronide <50 <50 ng/mL 02/08 9:51 AM EDT [facility] Oxycodone <50 <50 ng/mL 02/28/2024 9:51 AM EDT [facility] Oxymorphone <50 <50 ng/mL 02/28/2024 9:51 AM EDT [facility] Oxymorphone Glucuronide <50 <50 ng/mL 02/28/2024 9:51 AM EDT [facility] Secobarbital <50 <50 ng/mL 02/28/2024 9:51 AM EDT [facility] Tramadol <50 <50 ng/mL 02/28/2024 9:51 AM EDT [facility] Temazepam <20 <20 ng/mL 02/28/2024 9:51 AM EDT [facility] Temazepam Glucuronide <50 <50 ng/mL 02/28/2024 9:51 AM EDT [facility] Urine Urine specimen obtained by clean catch procedure / Unknown Non-blood Collection / Unknown 02/25/2024 9:31 AM EDT 02/25/2024 7:18 PM EDT Narrative [facility] - 02/28/2024 9:51 AM EDT Methodology:Quantitative [...] developed and its performance characteristics determined by [facility] in manner consistent with CLIA requirements. This test has not been cleared or approved by the FDA. Markell Lucas MD LAB URINE ORDERABLES Final R esult [facility] [address] [place] [address] * HIV 1 & 2 Antibody/Antigen Screen (07/19/2022 6:45 PM EST) HIV 1 & 2 Antibody/Antigen Screen Non Reactive Non Reactive 07/19/2022 7:46 PM EST [facility] Comment:Screening for HIV 1 & 2 antibodies, and P24 antigen is NONREACTIVE. No confirmatory testing is required. Blood Venous blood specimen / Unknown Venipuncture / Unknown 07/19/2022 6:45 PM EST 07/19/2022 7:05 PM EST us Fadumo Gleason MD LAB BLOOD ORDERABLES Final Re sult [facility] [address] [place] [address] * (ABNORMAL) Hepatitis C Antibody - ED (07/19/2022 6:45 PM EST) Hepatitis C Antibody Positive(A ) Negative 07/19/2022 7:58 PM EST [facility] Blood Venous blood specimen / Unknown Venipuncture / Unknown 07/19/2022 6:45 PM EST 07/19/2022 7:05 PM EST Fadumo Gleason MD LAB BLOOD ORDERABLES Final Re sult Performing Organization Address City/[facility]/ZIP Co de Phone Number [facility] [address] [place] [address] from Last 3 Months or Most Recently Relevant to Health Maintenance Insurance [facility] MEDICAID Advance Directives * Full Code (Latest Code Status on File) Date Activated Date Inactivated Comments 07/20/2022 3:29 AM 07/22/2022 8:11 PM Question Answer Comments Patient has decision-making capacity? Yes Care Teams Helium Arc Welder Relationship Specialty Start Date End Date Eliseo Ibarra MD [address] [place] [address] PCP - General 01/30/24
--- OUTSIDE RECORDS SUMMARY | 2024-04-21 20:07 | XMS_ITS | Encounter Summary ---
Author Organization [facility] Address [address] [place] [address] Care Team Providers Care Promotional Advertising Assistant Name Role Phone Eliseo Ibarra MD Primary Care Provider [phone] Encounter Details Date Type Department Care Team (Latest Contact Info) Description 04/20/2024 Travel Social History Tobacco Use Types Packs/Day [...] Description 05/17/2024 2:00 PM EST Office Visit [facility] Interventional Pain Medicine [address] [place] [phone] Markell Lucas MD [address] [phone] 06/08/2024 2:00 PM EST Procedure Visit [facility] Interventional Pain Medicine [address] [place] [address] Markell Lucas MD [address] [phone] documented as of this encounter Visit Diagnoses Not on filedocumented in this encounter Additional Health Concerns Assessment Noted Time A fall risk assessment has been complete d for the patient 04/20/2024 11:16 AM EST A Body Mass Index follow-up plan has been documented for the patient 04/20/2024 1:08 PM EST documented as of this encounter Care Teams Promotional Advertising Assistant Relationship Specialty Start Date End Date Eliseo Ibarra MD [address] [place] [address] [address] [place] [address] PCP - General 01/30/24 documented as of this encounter
--- OUTSIDE RECORDS SUMMARY | 2024-04-21 20:07 | XMS_ITS | Encounter Summary ---
Author Organization [facility] Address [address] [place] [address] Care Team Providers Care Agricultural And Forestry Supervisor Name Role Phone Al, Lora Drew VALERIO Primary Care Provider [phone] Encounter Details Date Type Department Care Team (Late Contact Info) Description 12/04/2023 [facility]ill [facility] [address] [place] [address] Eufemia Acharya, PA [address] [place] [address] Cervicalgia (Primary Dx); Status post cervical spinal fusion; Cervical spondylosis with myelopathy; Claustrophobia Social History Tobacco Use Types Packs/Day Years [...] Description 05/17/2024 2:00 PM EST Office Visit [facility] Interventional Pain Medicine [address] [place] [phone] Markell Lucas MD [address] [facility] [address] [place] [address] 06/08/2024 2:00 PM EST Procedure Visit [facility] Interventional Pain Medicine [address] [place] [address] Markell Lucas MD [address] [facility] [address] [place] [address] documented as of this encounter Visit Diagnoses Diagnosis Cervicalgia- Primary Status post cervical spinal fusion Arthrodesis status Cervical spondylosis with myelopathy Claustrophobia Other isolated or specific phobias documented in this encounter Additional Health Concerns Assessment Noted Time A fall risk assessment has been complete d for the patient 12/04/2023 1:59 PM EDT A Body Mass Index follow-up plan has been documented for the patient 12/09/2023 8:26 PM EDT documented as of this encounter Care Teams Agricultural And Forestry Supervisor Relationship Specialty Start Date End Date Ira Melendez APRN [address] [place] [id number] PCP - General 12/28/22 01/29/24 documented as of this encounter
--- OUTSIDE RECORDS SUMMARY | 2024-04-21 20:07 | XMS_ITS | Encounter Summary ---
Author Organization Healthcare Address [address] [place] [address] Care Team Providers Care Permanent Waver Name Role Phone Ira Melendez Drew VALERIO Primary Care Provider [phone] Encounter Details Date Type Department Care Team (Late st Contact Info) Description 12/26/2023 [facility]ill [facility] [address], [address] [place] [address] Cecelia Vilchis MD [address] [place] [address] Social History Tobacco Use Types [...] Description 05/17/2024 2:00 PM EST Office Visit [facility] Interventional Pain Medicine [address] [place] [address] Markell Lucas MD [address] [facility] [address] [place] [phone] 06/08/2024 2:00 PM EST Procedure Visit [facility] Interventional Pain Medicine [address] [facility] [place] [address] Markell Lucas MD [address] [facility] [address] [place] [address] documented as of this encounter Visit Diagnoses Not on filedocumented in this encounter Additional Health Concerns Assessment Noted Time A fall risk assessment has been complete d for the patient 12/26/2023 3:16 PM EDT A Body Mass Index follow-up plan has been documented for the patient 12/26/2023 4:40 PM EDT documented as of this encounter Care Teams Permanent Waver Relationship Specialty Start Date End Date Ira Melendez APRN [address] [place] [address] [phone] PCP - General 12/28/22 01/29/24 documented as of this encounter
--- OUTSIDE RECORDS SUMMARY | 2024-04-21 20:08 | XMS_ITS | Encounter Summary ---
Author Organization Healthcare Address [address] [place] [address] Care Team Providers Care Corporate Pilot Name Role Phone Ira Melendez APRN Primary Care Provider [phone] Encounter Details Date Type Department Care Team (Latest Contact Info) Description 12/04/2023 3:20 PM EDT - 12/04/2023 11:59 PM EDT Hospital Encounter [facility] Rad[facility] [address], [address] [place] [address] Cervicalgia; Status post cervical spinal fusion Discharge Disposition: Home or Self Care Social History Tobacco Use Types Packs/Day Years [...] on file documented as of this encounter Medications at Time of Discharge acetaminophen (Tylenol) 500 MG tablet 1 tablet (500 mg). albuterol (Ventolin HFA) 108 (90 Base) MCG/ACT inhaler 09/16/2019 amLODIPine (Norvasc) 5 MG tablet Take 1 tablet (5 mg) by mouth 1 (one) time each day. 12/30/2022 Blood Glucose Monitoring Suppl (ONE TOUCH ULTRA 2) w/Device kit device kit follow package directions 11/13/2023 cetirizine (ZyrTEC) 10 MG tablet Take 1 tablet (10 mg) by mouth 1 (one) time each day. 10/03/2022 desvenlafaxine (Pristiq) 100 MG 24 hr tablet Take 1 tablet (100 mg) by mouth 1 (one) time each day. 12/23/2022 estradiol (Estring) 2 MG vaginal ring Insert 2 mg into the vagina every 3 (three) months. Last filled 06/2022 . follow package directions famotidine (Pepcid) 20 MG tablet Take 1 tablet (20 mg) by mouth. 04/22/2022 fluticasone (Flonase) 50 MCG/ACT nasal spray Administer 2 sprays into each nostril 1 (one) time each day. Shake gently. Before first use, prime pump. After use, clean tip and replace cap. hydroCHLOROthiazi de (HYDRODiuril) 25 MG tablet Take 1 tablet (25 mg) by mouth 1 (one) time each day. 11/19/2022 ibuprofen 800 MG tablet Take 1 tablet (800 mg) by mouth 3 (three) times a day if needed. 03/19/2022 Lancets (OneTouch Delica Plus [id number]) [facility] 11/12/2023 loratadine (Claritin) 10 MG tablet Take 1 tablet (10 mg) by mouth 1 (one) time each day. Proteocyte DiagnosticsTouch Ultra test strip 11/13/2023 oxybutynin (Ditropan) 5 MG tablet Take 1 tablet (5 mg) by mouth 1 (one) time each day. 12/30/2022 prazosin (Minipress) 2 MG capsule Take 1 capsule (2 mg) by mouth every night. 11/05/2023 sucralfate (Carafate) 1 g tablet 11/19/2022 ARIPiprazole (Abilify) 5 MG tablet 06/04/2023 4 desvenlafaxine (Pristiq) 50 MG 24 hr tablet 11/25/2022 4 diazePAM (Valium) 5 MG tabletIndications :Claustrophobia May take 1-2 tablets po one hour prior to the MRI, may repeat 15 minutes prior if needed. 4 tablet 12/04/2023 4 Melatonin 10 MG sublingual tablet Take 1 tablet by mouth every night. 11/25/2023 4 methocarbamol (Robaxin) 750 MG tabletIndications :Cervicalgia,Stat us post cervical spinal fusion,Cervical spondylosis with myelopathy Take 1 tablet (750 mg) by mouth 4 (four) times a day. 120 tablet 2 12/04/2023 4 pregabalin (Lyrica) 100 MG capsuleIndication s:Cervicalgia,Sta tus post cervical spinal fusion,Cervical spondylosis with myelopathy Take 1 capsule (100 mg) by mouth 3 (three) times a day. 90 capsule 2 12/04/2023 4 pregabalin (Lyrica) 75 MG capsuleIndication s:Cervicalgia,Sta tus post cervical spinal fusion,Cervical spondylosis with myelopathy Take 1 capsule (75 mg) by mouth 3 (three) times a day. 90 capsule 10/07/2023 4 traZODone (Desyrel) 50 MG tablet TAKE 1/2 TO 1 TABLET BY MOUTH NIGHTLY NEEDED FOR SLEEP 11/05/2023 4 documented as of this encounter Plan of Treatment Upcoming Encounters Date Type Department Care Team (Late st Contact Info) Description 05/17/2024 2:00 PM EST Office Visit [facility] Interventional Pain Medicine [address] [place] [address] Markell Lucas MD [address] [phone] 06/08/2024 2:00 PM EST Procedure Visit [facility] Interventional Pain Medicine [address] [place] [phone] Markell Lucas MD [address] [facility] [address] [phone] documented as of this encounter Procedures Procedure Name Priority Date/Time Associated Diagnosis Comments XR CERVICAL SPINE COMPLETE 4 TO 5 VIEWS Routine 12/04/2023 3:29 PM EDT Cervicalgia Status post cervical spinal fusion documented in this encounter Results * XR Cervical Spine Complete 4 To 5 Views (12/04/2023 3:29 PM EDT) Anatomical Region Laterality Modality Spine, C-spine Digital Radiogra phy Impressions 12/04/2023 3:35 PM EDT Anterior cervical discectomy and fusion at C5-C6 without hardware complication. CRITICAL RESULT: ?? No. COMMUNICATION: Per this written report. Drafted by Kendrick Mccann MD on 12/04/2023 3:33 PM Final report signed by Kendrick Mccann MD on 12/04/2023 3:35 PM Narrative 12/04/2023 3:35 PM EDT CLINICAL INDICATION: rule out instability TECHNIQUE: XR CERVICAL SPINE COMPLETE 4 TO 5 VIEWS COMPARISON: None. FINDINGS: 5 views of the cervical spine show changes of anterior cervical discectomy and fusion C5-C6 without hardware complication. Minimal posterior subluxation at C4-C5 in extension that reduces in flexion. Minimal anterior subluxation at C6-C7 that is unchanged in flexion and extension. Procedure Note Kendrick Mccann MD - 12/04/2023 CLINICAL INDICATION: rule out instability TECHNIQUE: XR CERVICAL SPINE COMPLETE 4 TO 5 VIEWS COMPARISON: None. FINDINGS: 5 views of the cervical spine show changes of anterior cervical discectomyand fusion C5-C6 without hardware complication. Minimal posteriorsubluxation at C4-C5 in extension that reduces in flexion. Minimalanterior subluxation at C6-C7 that is unchanged in flexion andextension. IMPRESSION: Anterior cervical discectomy and fusion at C5-C6 without hardwarecomplication. CRITICAL RESULT: No. COMMUNICATION: Per this written report. Drafted by Kendrick Mccann MD on 12/04/2023 3:33 PM Final report signed by Kendrick Mccann MD on 12/04/2023 3:35 PM Eufemia CACERES IMMely XR PROCEDURES Final Result documented in this encounter Visit Diagnoses Diagnosis Cervicalgia Status post cervical spinal fusion Arthrodesis status documented in this encounter Additional Health Concerns Assessment Noted Time A fall risk assessment has been complete d for the patient 12/04/2023 1:59 PM EDT A Body Mass Index follow-up plan has been documented for the patient 12/09/2023 8:26 PM EDT documented as of this encounter Care Teams Corporate Pilot Relationship Specialty Start Date End Date Ira Melendez APRN [address] [place] [address] PCP - General 12/28/22 01/29/24 documented as of this encounter
--- OUTSIDE RECORDS SUMMARY | 2024-04-21 20:08 | XMS_ITS | Encounter Summary ---
Author Organization Healthcare Address [address] [place] [address] Care Team Providers Care Padder Cushion Name Role Phone Ira Melendez APRN Primary Care Provider [phone] Reason for Visit * Reason Onset Date Comments Med Refill 10/06/2023 Encounter Details Date Type Department Care Team (Late st Contact Info) Description 10/06/2023 Telephone [place] [facility] [address], [address] [place] [address] Marla Newman RN [facility] Med Refill Social History Tobacco Use Types Packs/Day Years [...] encounter Miscellaneous Notes * Telephone Encounter - Marla Newman RN - 10/06/2023 7:16 AM EDT Refill request sent in via email for pregabalin 50mg. Last office visit was 01/07/2023. documented in this encounter Plan of Treatment Upcoming Encounters Date Type Department Care Team (Late st Contact Info) Description 05/17/2024 2:00 PM EST Office Visit [facility] Interventional Pain Medicine [address] [place] [address] Markell Lucas MD [address] [address] 06/08/2024 2:00 PM EST Procedure Visit [facility] Interventional Pain Medicine [address] [place] [address] Markell Lucas MD [address] [phone] documented as of this encounter Visit Diagnoses Not on filedocumented in this encounter Additional Health Concerns Assessment Noted Time A fall risk assessment has been complete d for the patient 01/07/2023 11:43 AM EDT A Body Mass Index follow-up plan has been documented for the patient 01/07/2023 12:30 PM EDT documented as of this encounter Care Teams Padder Cushion Relationship Specialty Start Date End Date Ira Melendez APRN [address] [place] [id number] PCP - General 12/28/22 01/29/24 documented as of this encounter
--- OUTSIDE RECORDS SUMMARY | 2024-04-21 20:08 | XMS_ITS | Encounter Summary ---
Author Organization [facility] Address [address] [place] [address] Care Team Providers Care Implementation Director Name Role Phone Markell Mejia MD Primary Care Provider Reason for Visit * Reason Comments Abdominal Pain Encounter Details Date Type Department Care Team ([facility] st Contact Info) Description 09/03/2022 7:13 PM EDT - 09/04/2022 12:49 AM EDT Emergency [facility] [address] [place] [address] oTrin Stacy MD [address] [place] [address] Right lower quadrant abdominal pain (Primary Dx); Diarrhea, unspecified type; Post-op pain Discharge Disposition: Home or Self Care Social History Tobacco Use Types Packs/Day Years Used Date Smoking Tobacco: Every Day Tobacco Cessation:Ready to Q uit: Not Asked; Counseling Given: Not Answered Comments No Sex and Gender Information Value Date Recorded Sex Assigned at Not on file Legal Sex Female 7:41 PM EDT Gender Identity Not on file Sexual Orientation Not on file COVID-19 Exposure Response Date Recorded In the last 10 days, have yo u been in contact with someone who was confirmed or suspected to have Coronavirus/COVID-19? No / Unsure 09/03/2022 6:50 PM EDT documented as of this encounter Last Filed Vital Signs Vital Sign Reading Time Taken Comments Blood Pressure 116/76 09/04/2022 12:47 AM EDT Pulse 75 09/04/2022 12:47 AM EDT Temperature 36.6 ??C (97.9 ??F) 09/04/2022 12:47 AM E DT Respiratory Rate 18 09/04/2022 12:47 AM EDT Oxygen Saturation 94% 09/04/2022 12:47 AM EDT Inhaled Oxygen Concentration - - Weight - - Height - - Body Mass Index - - documented in this encounter Discharge Instructions * Discharge Instructions* Josr Lima APRN - 09/04/2022 12:26 AM EDT Continue your home medications as prescribed. Drink plenty of fluids. Follow up with your doctor torecheck today's symptoms. Follow up with your surgeon to recheck today's symptoms. Return for any worsening of symptoms, development of new symptoms, or for any other concerns. * Attachments The following attachments cannot be sent through Care Everywhere. * Diarrhea, Unknown Cause (Mongolian) * Abdominal Pain, Adult (Mongolian) documented in this encounter Medications at Time of Discharge albuterol (Ventolin HFA) 108 (90 Base) MCG/ACT inhaler 09/16/2019 estradiol (Estring) 2 MG vaginal ring Insert [...] After use, clean tip and replace cap. ibuprofen 800 MG tablet Take 1 tablet (800 mg) by mouth 3 (three) times a day if needed. 03/19/2022 naloxone (Narcan) 4 mg/0.1 mL nasal spray Administer 1 spray (4 mg total) into affected nostril(s) if needed for opioid reversal. Call 911. Give 4 mg (1 spray) into one nostril. Repeat every 2-3 minutes as needed, alternating nostrils, until medical assistance arrives. 1 each 07/22/2022 4 FLUoxetine (PROzac) 60 MG tablet Take 60 mg by mouth every night. 3 fluticasone (Flonase) 50 MCG/ACT nasal spray 09/16/2019 3 methocarbamol (Robaxin) 500 MG tablet Take 500 mg by mouth 2 (two) times a day. 3 documented as of this encounter Miscellaneous Notes * Consults - Torin Villaseñor MD - 09/04/2022 12:14 AM EDTAssociated Order(s): Consult to Emergency General Surgery Consult to Emergency General Surgery Consult performed by: Torin Villaseñor MD Consult ordered by: Josr Lima APRN Reason For Consult RLQ pain, 6 weeks s/p lap ccy and missed clinic appt Requesting Service: ED Requested Date/Time: 09/03/2022 at 2332 History Of Present Illness Taniya Martin is a 41 y.o. female anxiety, GERD, and lap ccy 07/21/2022 (Dr. Kirby; inflammatory changes present, but cholecystectomy was complete and without fenestration) who missed her follow-up appt earlier on 09/03/2022 who presented to [facility] for abdominal pain and diarrhea. Patient reports having diarrhea chronically since after her surgery, however this has worsened over the past 3 days. She states that her abdomen also feels swollen . She reports subjective fevers since symptom onset. She denies emesis, though has had nausea and decreased PO intake. She denies issues with tolerating liquids however. CT imaging without acute concern. SGE consulted given recent surgery and missed appointment. Past Medical History She has a past medical history of Personal history of other diseases of urinary system, Personal history of other endocrine, nutritional and metabolic disease, and Personal history of other specifiedconditions. Surgical History She has a past surgical history that includes Bladder surgery (N/A); Hysterectomy (N/A); section, low transverse (N/A); Dilation and curettage of uterus (N/A); and Cholecystectomy. Family History Family History Problem Relation Name Age of Onset Cardiac disorder Mother Cardiac disorder Other Stroke Mother Stroke Other Hypertension Mother Hypertension Other Colon cancer Mother Colon cancer Other Social History She reports that she has been smoking. She does not have any smokeless tobacco history on file. Shereports that she does not currently use drugs. No history on file for alcohol use. Allergies Tegaderm ag mesh [silver], Tetracycline, Chlorhexidine, Penicillins, and Wound dressing adhesive Medications No current facility-administered medications for this encounter. Current Outpatient Medications Medication Sig Dispense Refill estradiol (Estring) 2 MG vaginal ring Insert 2 mg into the vagina every 3 (three) months. Last filled 06/2022 . follow package directions FLUoxetine (PROzac) 60 MG tablet Take 60 mg by mouth every night. fluticasone (Flonase) 50 MCG/ACT nasal spray Administer 2 sprays into each nostril 1 (one) time each day. Shake gently. Before first use, prime pump. After use, clean tip and replace cap. methocarbamol (Robaxin) 500 MG tablet Take 500 mg by mouth 2 (two) times a day. naloxone (Narcan) 4 mg/0.1 mL nasal spray Administer 1 spray (4 mg total) into affected nostril(s) if needed for opioid reversal. Call 911. Give 4 mg (1 spray) into one nostril. Repeat every 2-3 minutes as needed, alternating nostrils, until medical assistance arrives. 1 each 0 Review of Systems Review of Systems A 14 point ROS was conducted and is negative except as per HPI. Physical Exam Physical Exam Constitutional: General: She is not in acute distress. Appearance: She is obese. She is not ill-appearing. HENT: Head: Normocephalic and atraumatic. Right Ear: External ear normal. Left Ear: External ear normal. Nose: Nose normal. Mouth/Throat: Mouth: Mucous membranes are moist. Eyes: General: Right eye: No discharge. Left eye: No discharge. Extraocular Movements: Extraocular movements intact. Pupils: Pupils are equal, round, and reactive to light. Cardiovascular: Rate and Rhythm: Normal rate and regular rhythm. Pulses: Normal pulses. Pulmonary: Effort: Pulmonary effort is normal. No respiratory distress. Breath sounds: No stridor. Abdominal: General: There is no distension. Palpations: Abdomen is soft. Tenderness: There is no abdominal tenderness. There is no guarding or rebound. Comments: Incisions c/d/i Musculoskeletal: General: No deformity. Normal range of motion. Cervical back: Normal range of motion. No rigidity. Skin: General: Skin is warm. Capillary Refill: Capillary refill takes less than 2 seconds. Coloration: Skin is not jaundiced. Neurological: General: No focal deficit present. Mental Status: She is alert and oriented to person, place, and time. Psychiatric: Mood and Affect: Mood normal. Behavior: Behavior normal. Last Recorded Vitals Blood pressure (!) 145/91, pulse 83, temperature 37.3 ??C (99.2 ??F), resp. rate 16, last menstrualperiod 08/06/2019, SpO2 97 %. Relevant Results CT Abdomen Pelvis w IV Contrast Result Date: 09/03/2022 Impression: Interval cholecystectomy. No free fluid or post surgical fluid collection identified. No other acute findings. CRITICAL RESULT: No. COMMUNICATION: Per this written report. Approved by Nidia Yarbrough DO on 09/03/2022 11:10 PM By electronically signing this report, I, the attending physician, attest that I have personally reviewed the images/data for the above examination(s) and agree with the final edited report. Dictated by Nidia Yarbrough DO on 09/03/2022 11:10 PM Signed by MD Rafaela on 09/03/2022 11:25 PM I have personally and independently reviewed the CT imaging of the abdomen/pelvis. I interpret thatthere are post ccy changes. There is no fluid collection in the RUQ to suggest abscess or bile leak. Appendix appears normal, with air throughout. The small bowel is non-dilated. No significant inflammatory changes in the right doug-abdomen. There is a right ovarian cyst vs follicle, likely physiologic. Labs in last 18 hours CBC WBC 12.46 (H) Hb 13.4 Plt 316 Hct 40.8 ANC 9.05 (H) INR ??, PTT ??, Anti-Xa ?? BMP Na 136 Cl 102 BUN 17 Glu 97 K 3.8 Co2 21 (L) Cr 0.74 Ca 10.1 iCa ?? Mg ??, Phos ?? Lactate ?? LFT AST 10 (L) AlkPhos 41 T Prot 8.0 (H) ALK 10 Bili <0.2 (L) Alb ?? D.Bili ?? Vitals, labs, imaging, results reviewed. Assessment/Plan Active Problems: Abdominal pain Hx laparoscopic cholecystectomy This is a 41 yo lady who presents to [facility] for abdominal pain and diarrhea in setting of lap ccy 6 weeks ago. She is without tenderness on exam, and incisions c/d/i. Her CT scan is unremarkable. She has a mild leukocytosis, but favor symptoms being related to physiologic ovarian follicle vs cyst, orpossible gastroenteritis. Patient able to take in liquids/hydrate adequately. Okay for discharge per SGE standpoint. Will have clinic contact patient to discuss rescheduling postop follow-up if she wishes. Dispo per ED. Toirn Villaseñor MD General Surgery, PGY-2 Pager: [phone] Cosigned by Jamal Wells MD at 09/04/2022 3:06 AM EDT Associated attestation - Jamal Wells MD - 09/04/2022 3:06 AM EDT I saw and evaluated the patient with the resident/fellow. I discussed the case with the resident/fellow and agree with the findings and plan as documented. * ED Provider Notes - Josr Lima, IMAN - 09/03/2022 5:59 PM EDT HPI Chief Complaint Patient presents with Abdominal Pain PIT Note Taniya Martin is a 41 y.o. female who presents to ED with abdominal pain. Pt reports cholecystectomy 3 weeks ago adding she has recently developed symptoms of abdominal pian, swelling, intermittent feeling of a fever, and N/V/D. Patient denies any other medical complaints at this time. History provided by: Patient manager cost used: No Hinckley Coma Scale Score: 15 Patient History Past Medical History: Diagnosis Date Personal history of other diseases of urinary system History of kidney disease Personal history of other endocrine, nutritional and metabolic disease History of hypoglycemia Personal history of other specified conditions History of abdominal pain Past Surgical History: Procedure Laterality Date BLADDER SURGERY N/A Bladder Surgery from [facility] SECTION, LOW TRANSVERSE N/A Section from [facility] CHOLECYSTECTOMY DILATION AND CURETTAGE OF UTERUS N/A Dilation and curettage from [facility] HYSTERECTOMY N/A Hysterectomy from [facility] Family History Problem Relation Name Age of Onset Cardiac disorder Mother Cardiac disorder Other Stroke Mother Stroke Other Hypertension Mother Hypertension Other Colon cancer Mother Colon cancer Other Tobacco Use Smoking status: Every Day Substance Use Topics Drug use: Not Currently Comment: Drug use: History of drug use Immunization History Immunization History: reviewed Allergies: Allergies Allergen Reactions Tegaderm Ag Mesh [Silver] Hives Tetracycline Hives Chlorhexidine Unknown Penicillins Unknown Wound Dressing Adhesive Rash Review of Systems Review of Systems Constitutional: Positive for chills and fever. HENT: Negative for ear pain and sore throat. Eyes: Negative for pain and visual disturbance. Respiratory: Negative for cough and shortness of breath. Cardiovascular: Negative for chest pain and palpitations. Gastrointestinal: Positive for abdominal distention, abdominal pain, diarrhea, nausea and vomiting. Genitourinary: Negative for dysuria and hematuria. Musculoskeletal: Negative for arthralgias and back pain. Skin: Negative for color change and rash. Neurological: Negative for seizures and syncope. All other systems reviewed and are negative. Physical Exam ED Triage Vitals [09/03/22 1804] Temp Heart Rate Resp BP 37.3 ??C (99.2 ??F) 83 16 (!) 145/91 SpO2 Temp src Heart Rate Source Patient Position 97 % -- -- -- BP Location FiO2 (%) -- -- Physical Exam Vitals and nursing note reviewed. Constitutional: General: She is not in acute distress. HENT: Head: Normocephalic. Right Ear: External ear normal. Left Ear: External ear normal. Nose: Nose normal. No rhinorrhea. Mouth/Throat: Mouth: Mucous membranes are moist. Eyes: Extraocular Movements: Extraocular movements intact. Conjunctiva/sclera: Conjunctivae normal. Cardiovascular: Rate and Rhythm: Normal rate and regular rhythm. Pulmonary: Effort: Pulmonary effort is normal. No respiratory distress. Abdominal: General: Abdomen is flat. There is distension. Tenderness: There is abdominal tenderness in the right upper quadrant and right lower quadrant. Musculoskeletal: General: No deformity. Cervical back: Normal range of motion and neck supple. Skin: General: Skin is warm and dry. Coloration: Skin is not jaundiced or pale. Neurological: General: No focal deficit present. Mental Status: She is alert and oriented to person, place, and time. ED Course & MDM Clinical Impressions as of 09/04/22 0041 Right lower quadrant abdominal pain Diarrhea, unspecified type Post-op pain ED Disposition: Discharge Medical Decision Making Date/Time: 09/03/2022/7:02 PM Entered by Maegan Caldwell, acting as scribe for Dr. Stacy. Attending Attestation: The documentation was recorded by Maegan Caldwell, acting as scribe in my presence at the time of the encounter and accurately reflects the service I personally performed. This patient was evaluated in triage by Dr. Stacy, care was followed by myself, Yudi Lima APRN. Taniya Martin is a 41 yrs old female presents today for Patient presents for evaluation of Abdominal Pain, abdominal swelling, and tenderness to the right side of her abdomen. Patient states concerns regarding recent cholecystectomy on 07/22/2022 and that she could be having complications related to this. Examination as above, patient is AAO x 3, she is uncomfortable in appearance, afebrile, non-tachycardic, hypertensive, non-tachypneic, non-hypoxic. Abdomen is tender to palpation to the right lower quadrant, and less so to the right upper quadrant. Based on her history and physical exam, my differential diagnosis included several life threateningconditions including post op abscess, post-op hematoma, appendicitis, gastroenteritis, bowel obstruction. Ruling out the most morbid conditions drove my clinical assessment. In order to fully explore differential these tests and treatments were ordered. Orders Placed This Encounter CT Abdomen Pelvis w IV Contrast CMP Lipase CBC w/diff Lactic acid, venous hCG qualitative Medications lactated Ringer's infusion 1,000 mL (has no administration in time range) HYDROmorphone (Dilaudid) injection 1 mg (has no administration in time range) ondansetron (Zofran) injection 4 mg (has no administration in time range) Old records for this patient including previous op note were reviewed and found to be pertinent. Records review indicates that missed appointment from this am with her surgeon. It should be noted that her chronic conditions includes depression, allergies, which currently is at goal therapy. This complicates her clinical picture because it increases the amount and complexityof data to be reviewed. I interpreted and clinically used the CT Scan prior to its official reading. No free fluid or free air, no obvious masses or fluid collections on my read. Please see the interpretation for final read. Lab results were reviewed independently and can be interpreted as mild leukocytosis present with a value of 12.46, no anemia, no platelet abnormality, lactic acid without elevation, test negative, lipase negative, no significant electrolyte derangement, renal dysfunction, no transaminitis, CT study shows normal appearing appendix, no free fluid or postsurgical fluid collection identified. Patient reevaluated after treatments provided and condition was improved upon my reevaluation. I had an interactive discussion with SGE consult service who advises will see patient in the ED. SGE evaluates, no indication for acute surgical intervention, will help arrange follow up for patient with her surgeon. Patient is ok for discharge. Based on work up today patient did require consult with General Surgery Ultimately, this patient was Was discharged Home (Discharge) The primary encounter diagnosis was Right lower quadrant abdominal pain. Diagnoses of Diarrhea, unspecified type and Post-op pain were also pertinent to this visit. . Patient was counseled on the diagnoses.Discharge medications if any are listed below. Listed medications are thought be either curative for listed diagnoses or will help control ongoing symptoms. Patient is requested to follow up with General Surgery in order to obtain routine follow- up. Instructions on follow up as well as precautions to return to the ER provided verbally by the EDMD, as well as written in patients discharge education packet. ED Prescriptions None Sign Off Checklist Clinical Impression: Complete ED Disposition: Complete - Josr Lima APRN 09/04/22 0041 Cosigned by Torin Stacy MD at 09/06/2022 12:18 PM EDT Associated attestation - Torin Stacy MD - 09/06/2022 12:18 PM EDT I attest to being involved in providing substantive time in patient care. * ED Triage Notes - Shereen Dougherty RN - 09/03/2022 5:59 PM EDT N/V/D and abdominal distention since yesterday. Stefanie 3 weeks ago. Pt also endorses chills. documented in this encounter Plan of Treatment Upcoming Encounters Date Type Department Care Team (Late st Contact Info) Description 05/17/2024 2:00 PM EST Office Visit [facility] [address] [place] [address] [place] [address] [place] [address] [address] [place] [id number] 06/08/2024 2:00 PM EST Procedure Visit [facility] [address] [place] [address] Markell Lucas MD [address] [facility] [address] [place] [address] documented as of this encounter Procedures Procedure Name Priority Date/Time Associated Diagnosis Comments CT ABDOMEN PELVIS W IV CONTRAST STAT 09/03/2022 11:03 PM EDT LACTATE, VENOUS STAT 09/03/2022 8:41 PM EDT CBC WITH AUTO DIFFERENTIAL STAT 09/03/2022 8:41 PM EDT TEST QUALITATIVE PLASMA STAT 09/03/2022 8:41 PM EDT LIPASE, PLASMA STAT 09/03/2022 8:41 PM EDT COMPREHENSIVE METABOLIC PANEL, PLASMA STAT 09/03/2022 8:41 PM EDT documented in this encounter Results * CT Abdomen Pelvis w IV Contrast (09/03/2022 11:03 PM EDT) Anatomical Region Laterality Modality Abdomen, Pelvis Computed Tomogra phy Impressions 09/03/2022 11:25 PM EDT Interval cholecystectomy. No free fluid or post surgical fluid collection identified. No other acute findings. CRITICAL RESULT: ?? No. COMMUNICATION: Per this written report. Approved by Nidia Yarbrough DO on 09/03/2022 11:10 PM By electronically signing this report, I, the attending physician, attest that I have personally reviewed the images/data for the above examination(s) and agree with the final edited report. Dictated by Nidia Yarbrough DO on 09/03/2022 11:10 PM Signed by Eulogio Rocha MD on 09/03/2022 11:25 PM Narrative 09/03/2022 11:25 PM EDT Exam/Procedure: CT ABDOMEN PELVIS W IV CONTRAST ordered by TORIN STACY, [id number] CLINICAL INDICATION: Abdominal pain, fever, post-op 41 y.o. female who presents to ED with abdominal pain. Pt reports cholecystectomy 3 weeks ago adding she has recently developed symptoms of abdominal pian, swelling, intermittent feeling of a fever, and N/V/D. Patient denies any other medical complaints at this time. TECHNIQUE: Imaging of the abdomen and pelvis was performed, from lung bases through pubic symphysis, using spiral technique, following administration of IV contrast, Omnipaque 300, 100 mL. Delayed (excretory phase) images were performed through the kidneys. Reformatted images in the coronal and sagittal planes were generated from the axial data set to facilitate diagnostic accuracy. Total DLP (Dose-Length Product): 691.14 mGy.cm. Please note: The reported value represents the total of one or more individual components during the CT acquisition on this date and at this time, and as such, the same value may appear in more than one CT report depending on the interpreting/reporting physicians. COMPARISON: CT abdomen and pelvis 07/19/2022 FINDINGS: Lung Bases: Bibasilar no site of atelectasis. No consolidation. No effusions. Right lower lobe calcified granuloma. Liver/Gallbladder/Biliary system: The liver demonstrates homogeneous enhancement. Interval cholecystectomy. No significant intra- or extra-hepatic biliary ductal dilatation. No fluid in the gallbladder bed. Spleen: No acute findings. Pancreas: No acute finding. Adrenals: The adrenals are morphologically unremarkable. Kidneys: The kidneys demonstrate symmetric nephrogram and excretion. Several low attenuating lesions within the right kidney, too small to characterize, likely representing simple cysts. No renal or ureteral calculi. No hydronephrosis. Bowel/Mesentery: No perigastric or periduodenal inflammation or fluid. No evidence of a small bowel obstruction. No pericolonic inflammation. No significant colonic distention. Noninflamed appendix. No pneumoperitoneum, pneumatosis or portal venous gas. Vessels/Lymph Nodes: Trace atherosclerotic calcifications of the abdominal aorta, otherwise the abdominal aorta is unremarkable. Visceral and pelvic arteries patent. Portal vein, SMV, splenic vein patent. No lymphadenopathy within the abdomen or pelvis. Fluid Survey: No free fluid in the abdomen. No free fluid in the pelvis. No postsurgical fluid collection identified. Pelvis: Uterus absent. No pelvic masses. Bladder unremarkable. Body Wall: No acute body wall findings. Bones: No aggressive osseous lesions or acute findings. Procedure Note Eulogio Rocha MD - 09/03/2022 Exam/Procedure: CT ABDOMEN PELVIS W IV CONTRAST ordered by TORIN CONTRERAS, [id number] CLINICAL INDICATION: Abdominal pain, fever, post-op 41 y.o. female who presents to ED withabdominal pain. Pt reports cholecystectomy 3 weeks ago adding she hasrecently developed symptoms of abdominal pian, swelling, intermittentfeeling of a fever, and N/V/D. Patient denies any other medical complaintsat this time. TECHNIQUE: Imaging of the abdomen and pelvis was performed, from lung bases throughpubic symphysis, using spiral technique, following administration of IVcontrast, Omnipaque 300, 100 mL. Delayed (excretory phase) images wereperformed through the kidneys. Reformatted images in the coronal andsagittal planes were generated from the axial data set to facilitatediagnostic accuracy. Total DLP (Dose-Length Product): 691.14 mGy.cm. Please note: The reportedvalue represents the total of one or more individual components during theCT acquisition on this date and at this time, and as such, the same valuemay appear in more than one CT report depending on theinterpreting/reporting physicians. COMPARISON: CT abdomen and pelvis 07/19/2022 FINDINGS: Lung Bases: Bibasilar no site of atelectasis. No consolidation. Noeffusions. Right lower lobe calcified granuloma. Liver/Gallbladder/Biliary system: The liver demonstrates homogeneousenhancement. Interval cholecystectomy. No significant intra- orextra-hepatic biliary ductal dilatation. No fluid in the gallbladderbed. Spleen: No acute findings. Pancreas: No acute finding. Adrenals: The adrenals are morphologically unremarkable. Kidneys: The kidneys demonstrate symmetric nephrogram and excretion.Several low attenuating lesions within the right kidney, too small tocharacterize, likely representing simple cysts. No renal or ureteralcalculi. No hydronephrosis. Bowel/Mesentery: No perigastric or periduodenal inflammation or fluid. Noevidence of a small bowel obstruction. No pericolonic inflammation. Nosignificant colonic distention. Noninflamed appendix. No pneumoperitoneum,pneumatosis or portal venous gas. Vessels/Lymph Nodes: Trace atherosclerotic calcifications of the abdominalaorta, otherwise the abdominal aorta is unremarkable. Visceral and pelvicarteries patent. Portal vein, SMV, splenic vein patent. No lymphadenopathywithin the abdomen or pelvis. Fluid Survey: No free fluid in the abdomen. No free fluid in the pelvis.No postsurgical fluid collection identified. Pelvis: Uterus absent. No pelvic masses. Bladder unremarkable. Body Wall: No acute body wall findings. Bones: No aggressive osseous lesions or acute findings. IMPRESSION: Interval cholecystectomy. No free fluid or post surgical fluid collectionidentified. No other acute findings. CRITICAL RESULT: No. COMMUNICATION: Per this written report. Approved by Nidia Yarbrough DO on 09/03/2022 11:10 PM By electronically signing this report, I, the attending physician, attestthat I have personally reviewed the images/data for the aboveexamination(s) and agree with the final edited report. Dictated by Nidia Yarbrough DO on 09/03/2022 11:10 PM Signed by Eulogio Rocha MD on 09/03/2022 11:25 PM us Torin Stacy MD IMG CT PROCEDURES Final Res ult * hCG qualitative (09/03/2022 8:41 PM EDT) Test Negative Negative 09/03/2022 9:35 PM EDT [facility] Blood Venous blood specimen / Unknown Venipuncture / Unknown 09/03/2022 8:41 PM EDT 09/03/2022 8:51 PM EDT Narrative [facility] - 09/03/2022 9:35 PM EDT Reference Range: Males and non- females: Negative. Torin Stacy MD LAB BLOOD ORDERABLES Final Result Performing Organization Address City/[facility] Co de Phone Number [facility] [address] [place] [address] * Lactic acid, venous (09/03/2022 8:41 PM EDT) Lactate, Venous, Whole Blood 0.7 0.5 - 2.2 mmol/L LAB HEMATOLOGY METHOD 09/03/2022 8:56 PM EDT [facility] Blood Venous blood specimen / Unknown Venipuncture / Unknown 09/03/2022 8:41 PM EDT 09/03/2022 8:51 PM EDT Torin Stacy MD LAB BLOOD ORDERABLES Final Result Performing Organization Address [facility] de Phone Number [facility] [address] [place] [address] * (ABNORMAL) CBC w/diff (09/03/2022 8:41 PM EDT) WBC Count 12.46(H) 3.70 - 10.30 10*3/uL LAB HEMATOLOGY METHOD 09/03/2022 8:54 PM EDT [facility] RBC Count 4.61 3.90 - 5.20 10*6/uL LAB HEMATOLOGY METHOD 09/03/2022 8:54 PM EDT [facility] HGB 13.4 11.2 - 15.7 g/dL LAB HEMATOLOGY METHOD 09/03/2022 8:54 PM EDT [facility] HCT 40.8 34.0 - 45.0 % LAB HEMATOLOGY METHOD 09/03/2022 8:54 PM EDT [facility] Platelet Count 316 155 - 369 10*3/uL LAB HEMATOLOGY METHOD 09/03/2022 8:54 PM EDT [facility] MCV 89 79 - 98 fL LAB HEMATOLOGY METHOD 09/03/2022 8:54 PM EDT [facility] MCH 29.1 26.0 - 32.0 pg LAB HEMATOLOGY METHOD 09/03/2022 8:54 PM EDT [facility] MCHC 32.8 30.7 - 35.5 g/dL LAB HEMATOLOGY METHOD 09/03/2022 8:54 PM EDT [facility] RDW 13.0 11.5 - 14.5 % LAB HEMATOLOGY METHOD 09/03/2022 8:54 PM EDT [facility] MPV 9.2 8.8 - 12.5 fL LAB HEMATOLOGY METHOD 09/03/2022 8:54 PM EDT [facility] nRBC 0.0 <=0.0 per 100 WBCs LAB HEMATOLOGY METHOD 09/03/2022 8:54 PM EDT [facility] Differential Type Automated LAB HEMATOLOGY METHOD 09/03/2022 8:54 PM EDT [facility] Neutrophils % 73.0 % LAB HEMATOLOGY METHOD 09/03/2022 8:54 PM EDT [facility] Lymphocytes % 20.0 % LAB HEMATOLOGY METHOD 09/03/2022 8:54 PM EDT [facility] Monocytes % 6.0 % LAB HEMATOLOGY METHOD 09/03/2022 8:54 PM EDT [facility] Eosinophils % 1.0 % LAB HEMATOLOGY METHOD 09/03/2022 8:54 PM EDT [facility] Basophils % 0.0 % LAB HEMATOLOGY METHOD 09/03/2022 8:54 PM EDT [facility] Immature Granulocytes % 0.0 % LAB HEMATOLOGY METHOD 09/03/2022 8:54 PM EDT [facility] Neutrophils Absolute 9.05(H) 1.60 - 6.10 10*3/uL LAB HEMATOLOGY METHOD 09/03/2022 8:54 PM EDT [facility] Lymphocytes Absolute 2.52 1.20 - 3.90 10*3/uL LAB HEMATOLOGY METHOD 09/03/2022 8:54 PM EDT [facility] Monocytes Absolute 0.70 0.30 - 0.90 10*3/uL LAB HEMATOLOGY METHOD 09/03/2022 8:54 PM EDT [facility] Eosinophils Absolute 0.13 0.00 - 0.50 10*3/uL LAB HEMATOLOGY METHOD 09/03/2022 8:54 PM EDT [facility] Basophils Absolute 0.04 0.00 - 0.10 10*3/uL LAB HEMATOLOGY METHOD 09/03/2022 8:54 PM EDT [facility] Immature Granulocytes Absolute 0.02 0.00 - 0.06 10*3/uL LAB HEMATOLOGY METHOD 09/03/2022 8:54 PM EDT [facility] Blood Venous blood specimen / Unknown Venipuncture / Unknown 09/03/2022 8:41 PM EDT 09/03/2022 8:51 PM EDT Narrative [facility] - 09/03/2022 8:54 PM EDT Therapeutic decision making should be based on absolute values, rather than percentages. Torin Stacy MD LAB BLOOD ORDERABLES Final Result Performing Organization Address City/[facility]/ZIP Co de Phone Number [facility] [address] [place] [address] * Lipase (09/03/2022 8:41 PM EDT) Lipase, Plasma 24 19 - 63 U/L 09/03/2022 9:35 PM EDT [facility] Blood Venous blood specimen / Unknown Venipuncture / Unknown 09/03/2022 8:41 PM EDT 09/03/2022 8:51 PM EDT Torin Stacy MD LAB BLOOD ORDERABLES Final Result Performing Organization Address City/[facility]/ZIP Co de Phone Number [facility] [address] [place] [address] * (ABNORMAL) CMP (09/03/2022 8:41 PM EDT) Glucose, Plasma 97 74 - 99 mg/dL 09/03/2022 9:35 PM EDT [facility] BUN, Plasma 17 7 - 21 mg/dL 09/03/2022 9:35 PM EDT [facility] Creatinine, Plasma 0.74 0.60 - 1.10 mg/dL 09/03/2022 9:35 PM EDT [facility] BUN/Creatinine Ratio 23 09/03/2022 9:35 PM EDT [facility] Sodium, Plasma 136 136 - 145 mmol/L 09/03/2022 9:35 PM EDT [facility] Potassium, Plasma 3.8 3.7 - 4.8 mmol/L 09/03/2022 9:35 PM EDT [facility] Chloride, Plasma 102 97 - 107 mmol/L 09/03/2022 9:35 PM EDT [facility] CO2, Plasma 21(L) 22 - 29 mmol/L 09/03/2022 9:35 PM EDT [facility] Anion Gap 13 6 - 16 mmol/L 09/03/2022 9:35 PM EDT [facility] Total Calcium, Plasma 10.1 8.9 - 10.2 mg/dL 09/03/2022 9:35 PM EDT [facility] Total Protein 8.0(H) 6.3 - 7.9 g/dL 09/03/2022 9:35 PM EDT [facility] Albumin, Plasma 4.6 3.5 - 5.2 g/dL 09/03/2022 9:35 PM EDT [facility] AST, Plasma 10(L) 11 - 32 U/L 09/03/2022 9:35 PM EDT [facility] ALT, Plasma 10 8 - 33 U/L 09/03/2022 9:35 PM EDT [facility] Alkaline Phosphatase, Plasma 41 35 - 104 U/L 09/03/2022 9:35 PM EDT [facility] Total Bilirubin, Plasma <0.2(L) 0.2 - 1.1 mg/dL 09/03/2022 9:35 PM EDT [facility] eGFRcr 105.0 mL/min/1.7 3m*2 09/03/2022 9:35 PM EDT [facility] Comment: Reported eGFRcr in mL/min/1.73m2 is based the CKD-EPI 2021 equation that does not use a race coefficient. Effective 01/02/22 our laboratory changed the eGFR calculation to the CKD-EPI 2021 equation from the previously reported eGFR, based on the MDRD equation. ??For comparisons between the two equations, please see laboratory website: ??[email or web address] Blood Venous blood specimen / Unknown Venipuncture / Unknown 09/03/2022 8:41 PM EDT 09/03/2022 8:51 PM EDT Torin Stacy MD LAB BLOOD ORDERABLES Final Result [facility] [address] [place] [address] documented in this encounter Visit Diagnoses Diagnosis Right lower quadrant abdominal pain- Primary Diarrhea, unspecified type Post-op pain Other acute postoperative pain Abdominal pain Abdominal pain, unspecified site Hx laparoscopic cholecystectomy documented in this encounter Administered Medications Inactive Administered Medications - up to 3 most recent administrations Medication Order MAR Action Action Date Dose Rate Site HYDROmorphone (Dilaudid) injection 1 mg 1 mg, Intravenous, Once, 1 dose, On Fri09/03/22 at 1905, STAT Given 09/03/2022 9:03 PM EDT 1 mg HYDROmorphone (Dilaudid) injection 1 mg 1 mg, Intravenous, Once, 1 dose, On Fri09/03/22 at 2220, STAT Given 09/03/2022 10:23 PM EDT 1 mg iohexol (OMNIPaque) 350 MG/ML injection 100 mL 100 mL, Intravenous, Once in imaging, 1 dose, Starting on Fri09/03/22 at 2258, Until Fri09/03/22 at 2259, Routine, Imaging Protocol Orders Given 09/03/2022 10:59 PM EDT 100 mL lactated Ringer's infusion 1,000 mL 1,000 mL, Intravenous, Once, 1 dose, On Fri09/03/22 at 1905, STAT New Bag 09/03/2022 9:02 PM EDT 1,000 mL ondansetron (Zofran) injection 4 mg 4 mg, Intravenous, Once, 1 dose, On Fri09/03/22 at 1905, STAT Given 09/03/2022 9:03 PM EDT 4 mg documented in this encounter Active and Recently Administered Medications Times are shown in EDT. Scheduled Medication Order 09/02/2022 09/03/2022 09/04/2022 HYDROmorphone (Dilaudid) injection 1 mg (COMPLETED) 1 mg, Intravenous, Once, 1 dose, On Fri09/03/22 at 1905, STAT 210 (Given - Provider: Delvin Duran LPN - Comment: US IV needed) HYDROmorphone (Dilaudid) injection 1 mg (COMPLETED) 1 mg, Intravenous, Once, 1 dose, On Fri09/03/22 at 2220, STAT 2223 (Given - Provider: Delvin Duran LPN) iohexol (OMNIPaque) 350 MG/ML injection 100 mL (COMPLETED) 100 mL, Intravenous, Once in imaging, 1 dose, Starting on Fri09/03/22 at 2258, Until Fri09/03/22 at 2259, Routine, Imaging Protocol Orders 2259 (Given - Provider: Juanita Mcginnis) lactated Ringer's infusion 1,000 mL (COMPLETED) 1,000 mL, Intravenous, Once, 1 dose, On Fri09/03/22 at 1905, STAT 2102 (New Bag - Provider: Joy Fuller LPN - Comment: US IV needed)2337 (Stopped - Provider: Vik Duran LPN) ondansetron (Zofran) injection 4 mg (COMPLETED) 4 mg, Intravenous, Once, 1 dose, On Fri09/03/22 at 1905, STAT 2103 (Given - Provider: Delvin Duran LPN - Comment: US IV needed) documented in this encounter Care Teams Implementation Director Relationship Specialty Start Date End Date Markell Mejia MD [address] [place] [address] PCP - General 10/20/20 12/27/22 documented as of this encounter
--- OUTSIDE RECORDS SUMMARY | 2024-04-21 20:08 | XMS_ITS | Encounter Summary ---
Author Organization [facility] Address [address] [place] [address] Care Team Providers Care Tube Bending Machine Operator Name Role Phone Markell Mejia MD Primary Care Provider [phone] Reason for Referral * Imaging (Urgent) - Authorized Specialty Diagnoses / Procedures Referred By Jefe blackwood Referred To Contact Diagnoses Cervicalgia Status post cervical spinal fusion Cervical spondylosis with myelopathy Procedures MR Cervical Spine wo IV Contrast Eufemia Moreau PA [address] [facility] [address] [place] [address] Phone: tel: fax: Referral ID Status Reason Start Date Expiration Date V isits Requested Visits Authorized [id number] Authorized 12/13/2022 06/13/2024 1 1 Reason for Visit * Reason Comments Follow-up Encounter Details Date Type Department Care Team (Late st Contact Info) Description 12/13/2022 11:20 AM EDT Office Visit [place] [facility] [address] [place] [address] Eufemia Moreau PA [address] [facility] [address] [place] [address] Cervicalgia (Primary Dx); Status post cervical spinal fusion; Cervical spondylosis with myelopathy Social History Tobacco Use Types Packs/Day Years Used Date Smoking Tobacco: Every Day Smokeless Tobacco: Never Tobacco Cessation:Ready to Q uit: Not Asked; Counseling Given: Not Answered Alcohol Use Standard Drinks/Week [...] Sign Reading Time Taken Comments Blood Pressure 137/89 12/13/2022 11:08 AM EDT Pulse 69 12/13/2022 11:08 AM EDT Temperature - - Respiratory Rate 17 12/13/2022 11:08 AM EDT Oxygen Saturation 97% 12/13/2022 11:08 AM EDT Inhaled Oxygen Concentration - - Weight 78.9 kg (174 lb) 12/13/2022 11:08 AM EDT Height 157.5 cm (5' 2 ) 12/13/2022 11:08 AM EDT Body Mass Index 31.83 12/13/2022 11:08 AM EDT documented in this encounter Miscellaneous Notes * Progress Notes - Eufemia Moreau PA - 12/13/2022 11:20 AM EDT We had the pleasure of seeing your patient in our clinic today for continued Neurosurgical evaluation. Chief Complaint Neck pain. History Of Present Illness Taniya Martin is a 42 y.o. female returns to the neurosurgical clinic today for follow-up regarding neck pain and pain/paresthesias in both arms. She is status post a prior C5-6 anterior cervicaldiskectomy and fusion for early myelopathy completed by Dr. Woody Connor on October 06, 2019 with good results. She was last seen in the clinic on April 06, 2020 with a new MRI. Her an MRI showed minimal adjacent segment disease at C4-5 without cord compression. She was not a candidate for further neurosurgical intervention at that time. She presents today symptoms have been progressively worsening over the past couple of months to 1 year. She states her neck pain has significantly worsened since she was last seen. She has pain and paresthesias down both arms into her hands along the forearm.She has difficulty getting comfortable. Her pain is now interfering with her ability to sleep at night. She states her fingers feel swollen. She constantly drops items and reports decreased dexterity. She reports unsteady balance. She has increased pain when she walks. She takes Robaxin as needed and alternates between Tylenol/ibuprofen. She is a nonsmoker but occasionally vapes. She denies bowelor bladder incontinence. Past Medical History She has a past [...] reports that she has been smoking. She has never used smokeless tobacco. She reports that she does not currently use drugs. She reports that she does not drink alcohol. Medications Current Outpatient Medications Medication Sig Dispense Refill acetaminophen (Tylenol) 500 MG tablet 1 tablet (500 mg). albuterol (Ventolin HFA) 108 (90 Base) MCG/ACT inhaler cetirizine (ZyrTEC) 10 MG tablet Take 1 tablet (10 mg) by mouth 1 (one) time each day. desvenlafaxine (Pristiq) 50 MG 24 hr tablet TAKE 1 TABLET BY MOUTH EVERY MORNING WITH FOOD estradiol (Estring) 2 MG vaginal ring Insert 2 mg into the vagina every 3 (three) months. Last filled 06/2022 . follow package directions famotidine (Pepcid) 20 MG tablet Take 1 tablet (20 mg) by mouth. fluticasone (Flonase) 50 MCG/ACT nasal spray Administer 2 sprays into each nostril 1 (one) time each day. Shake gently. Before first use, prime pump. After use, clean tip and replace cap. hydroCHLOROthiazide (HYDRODiuril) 25 MG tablet Take 1 tablet (25 mg) by mouth 1 (one) time each day. ibuprofen 800 MG tablet Take 1 tablet (800 mg) by mouth 3 (three) times a day if needed. methocarbamol (Robaxin) 750 MG tablet Take 1 tablet (750 mg) by mouth 2 (two) times a day if needed. naloxone (Narcan) 4 mg/0.1 mL nasal spray Administer 1 spray (4 mg total) into affected nostril(s) if needed for opioid reversal. Call 911. Give 4 mg (1 spray) into one nostril. Repeat every 2-3 minutes as needed, alternating nostrils, until medical assistance arrives. 1 each 0 sucralfate (Carafate) 1 g tablet TAKE 1 TABLET BY MOUTH FOUR TIMES DAILY FOR 14 DAYS DIRECTED No current facility-administered medications for this visit. Allergies Tetracyclines & related, Tegaderm ag mesh [silver], Tetracycline, Chlorhexidine, Penicillins, and Wound dressing adhesive Review of Systems 14 point review of systems was performed and was negative except as noted per HPI. Physical Exam GEN: well developed, no acute distress HEENT: normocephalic, atraumatic, no scleral icterus PULM: no increased work of breathing, normal effort CV: normal rate and regular rhythm MSK: no joint swelling, normal range of motion SKIN: warm and dry PSYCHE: normal mood and affect Neuro Exam GCS (EMV): 465 PERRL, EOMI CN 2-12 grossly intact No drift Strength: Delt Bi Tri Hostess Party Sales Representative Intrinsics RUE: 4/5 5/5 5/5 4/5 5/5 LUE: 4/5 5/5 5/5 5/5 5/5 Sensation was intact to light touch throughout Reflexes: Bi (C5) Br (C6) Tri (C7) Right: Brisk throughout Left: Brisk throughout Positive Waldron's bilaterally No clonus Last Recorded Vitals Visit Vitals BP 137/89 (BP Location: Right arm, Patient Position: Sitting, BP Cuff Size: Small adult) Pulse 69 Resp 17 Ht 1.575 m (5' 2 ) Wt 78.9 kg (174 lb) LMP 08/06/2019 (Exact Date) SpO2 97% BMI 31.83 kg/m?? OB Status Hysterectomy Smoking Status Every Day BSA 1.86 m?? Labs No lab exists for component: ALB Imaging Cervical AP/Lat x-ray films with flexion-extension views were obtained today and personally reviewed by myself with the patient present. Imaging demonstrates stable hardware at C5-6 with interbody spacer. There is no hardware failure or loosening. There is no translational instability in dynamic changes. Assessment and Plan Taniya Martin is a 42 y.o. female status post C5-6 anterior cervical diskectomy and fusion completed in September 2019 returning today with progressively worsening complaints of neck pain and pain/paresthesias in the bilateral upper extremities. Her last MRI from March 2020 showed mild adjacent segment disease at C4-5. We are concerned this has progressed given her symptoms and physical exam findings. She is myelopathic. We will request a new cervical MRI for further review for surgical workup. We will call in Valium for MRI, she claustrophobic. We will request imaging be done at [facility]. We will have the patient return to clinic to see Dr. Osman Connor for follow-up after MRI has been completed. The patient is agreeable plan of care. They had the opportunity to askquestions, all of which were answered to their satisfaction. Assessment/Plan Active Problems: There are no active Hospital Problems. Eufemia Moreau PA-C [facility] Department of Neurosurgery documented in this encounter Plan of Treatment Upcoming Encounters Date Type Department Care Team (Late st Contact Info) Description 05/17/2024 2:00 PM EST Office Visit [facility] Interventional Pain Medicine [facility] [place] [phone] Markell Lucas MD [facility] [address] [phone] 06/08/2024 2:00 PM EST Procedure Visit [facility] Interventional Pain Medicine [address] [place] [phone] Markell Lucas MD [facility] [address] [phone] Scheduled Orders Name Type Priority Associated Diagnoses Orde r Schedule MR Cervical Spine wo IV Contrast Imaging STAT Cervicalgia Status post cervical spinal fusion Cervical spondylosis with myelopathy Expected: 12/13/2022 (Approximate), Expires: 05/15/2024 documented as of this encounter Results * XR Cervical Spine Complete 4 To 5 Views (12/13/2022 12:00 PM EDT) Anatomical Region Laterality Modality Spine, C-spine Digital Radiogra phy Impressions 12/13/2022 3:49 PM EDT 1.Expected postoperative changes of anterior cervical discectomy and fusion at C5-C6. 2.Moderate degenerative disc changes at C4-C5 and C6-C7. No instability in flexion or extension CRITICAL RESULT: ?? No. COMMUNICATION: Per this written report. Drafted by Kendrick Mccann MD on 12/13/2022 3:47 PM Final report signed by Kendrick Mccann MD on 12/13/2022 3:49 PM Narrative 12/13/2022 3:49 PM EDT CLINICAL INDICATION: rule out instability TECHNIQUE: XR CERVICAL SPINE COMPLETE 4 TO 5 VIEWS COMPARISON: April 06, 2020 FINDINGS: 4 views of the cervical spine show changes of anterior cervical discectomy and fusion at C5-C6 with plate and screw construct. No hardware complication. Moderate degenerative disc changes and C4-C5 and C6-C7. Vertebral body alignment is normal. No instability in flexion or extension. Procedure Note Kendrick Mccann MD - 12/13/2022 CLINICAL INDICATION: rule out instability TECHNIQUE: XR CERVICAL SPINE COMPLETE 4 TO 5 VIEWS COMPARISON: April 06, 2020 FINDINGS: 4 views of the cervical spine show changes of anterior cervical discectomyand fusion at C5-C6 with plate and screw construct. No hardwarecomplication. Moderate degenerative disc changes and C4-C5 and C6-C7.Vertebral body alignment is normal. No instability in flexion orextension. IMPRESSION: 1.Expected postoperative changes of anterior cervical discectomy andfusion at C5-C6. 2.Moderate degenerative disc changes at C4-C5 and C6-C7. No instability inflexion or extension CRITICAL RESULT: No. COMMUNICATION: Per this written report. Drafted by Kendrick Mccann MD on 12/13/2022 3:47 PM Final report signed by Kendrick Mccann MD on 12/13/2022 3:49 PM Eufemia CACERES IMG XR PROCEDURES Final Result documented in this encounter Visit Diagnoses Diagnosis Cervicalgia- Primary Status post cervical spinal fusion Arthrodesis status Cervical spondylosis with myelopathy Cervicalgia Status post cervical spinal fusion Arthrodesis status documented in this encounter Additional Health Concerns Assessment Noted Time A Body Mass Index follow-up plan has been documented for the patient 12/13/2022 1:37 PM EDT documented as of this encounter Care Teams Tube Bending Machine Operator Relationship Specialty Start Date End Date Markell Mejia MD [address] [place] [address] PCP - General 10/20/20 12/27/22 documented as of this encounter
--- OUTSIDE RECORDS SUMMARY | 2024-04-21 20:08 | XMS_ITS | Encounter Summary ---
Author Organization [facility] Address [address] [place] [address] Care Team Providers Care Bioinformatics Software Engineer Name Role Phone Markell Mejia MD Primary Care Provider [phone] Reason for Visit * Reason Comments Diarrhea Vomiting Abdominal Pain * Auth/Cert (Routine) Specialty Diagnoses / Procedures Referred By Contac t Referred To Contact Diagnoses Calculus of gallbladder without cholecystitis without obstruction Sriram Higgins DO [address] [facility] [address] [place] [address] Phone: tel: fax: [facility] Emergency Department [address] [place] [address] Phone: tel: Referral ID Status Reason Start Date Expiration Date Visits Re quested Visits Authorized [id number] 1 1 Encounter Details Date Type Department Care Team (Late st Contact Info) Description 07/19/2022 7:14 PM EST - 07/22/2022 6:06 PM EST Emergency [facility] Inpatient [address] [place] [address] Fadumo Mckee MD [address] [place] [address] Sriram Higgins, [address] [facility] [address] [place] [address] Taniya Vines MD [address] [place] [address] Calculus of gallbladder without cholecystitis without obstruction (Primary Dx) Discharge Disposition: Home or Self Care Social History Tobacco Use Types Packs/Day Years Used Date Smoking Tobacco: Every Day Comments No Sex and Gender Information Value Date Recorded Sex Assigned at Not on file Legal Sex Female 7:41 PM EDT Gender Identity Not on file Sexual Orientation Not on file COVID-19 Exposure Response Date Recorded In the last 10 days, have yo u been in contact with someone who was confirmed or suspected to have Coronavirus/COVID-19? No / Unsure 07/19/2022 5:56 PM EST documented as of this encounter Last Filed Vital Signs Vital Sign Reading Time Taken Comments Blood Pressure 118/78 07/22/2022 12:17 PM EST Pulse 76 07/22/2022 12:17 PM EST Temperature 37.3 ??C (99.2 ??F) 07/22/2022 12:[address] Respiratory Rate 16 07/22/2022 12:17 PM EST Oxygen Saturation 92% 07/22/2022 12:17 PM EST Inhaled Oxygen Concentration - - Weight 81.6 kg (180 lb) 07/20/2022 3:38 AM EST Height 157.5 cm (5' 2 ) 07/20/2022 3:38 AM EST Body Mass Index 32.92 07/20/2022 3:38 AM EST documented in this encounter Discharge Instructions * Discharge Instructions* Kathia Field APRN - 07/22/2022 1:48 PM EST Discharge Instructions: Medications: - You should take 500mg Tylenol every 6 hours for mild - moderate pain. -You should take you home 500mg methocarbamol 4 times per day for muscle spasms. - You have been prescribed pain medications to be taken as needed for severe pain. - You should take the stool softener prescribed as long as you are taking narcotics. - You may resume your previous medications unless otherwise instructed. Nutrition: - You should eat a low-fat diet until your body adjusts to not having a gallbladder to aid digestion. See education attached. Activity: - Walking and climbing stairs is ok and encouraged. You should refrain from any strenuous activity/exercise until your follow up appointment. - No lifting anything >5-10lbs for the next 6 weeks. - You may not drive for 48 hours after surgery, or while taking narcotics. Dressing: - Underneath your dressing you have steri strips across your incision. Do not pick them off, they will fall off on their own after approximately 2 weeks. - A special skin glue is used to close and cover your incision. Do not pick it off, it will fall ofon its own after approximately 2 weeks. The glue is waterproof but you should not soak your incision or take a tub bath for 2 weeks. - You may shower. Let the soapy water run over your incisions. Do not scrub at your incisions. After you shower, pat your incisions dry with a clean towel. Potential Issues: - It is normal to have some pain and soreness, especially around the incisions - A small amount of clear drainage from the incision may be expected, call the office if the drainage becomes bloody, purulent (pus), or foul-smelling - Call the office if you start to have increased redness, drainage, swelling, or increased pain around your incision - Call the office if you have a fever greater than 101 F - Call the office if you have severe abdominal discomfort, nausea and vomiting, or feeling unwell Follow Up: -You will be scheduled to follow up with Dr. Kirby September 03, 2022.. You will be called with a time. - You may follow up with us as needed. Questions or Concerns and Appointments If there are questions or concerns after discharge from the hospital, please call [phone] for [employer]. Working hours are Friday - Friday 8:00 AM to 4:00 PM. After hours, weekends and holidays please call [phone] and ask for the resident sediment remediation consultant for Emergency General Surgery. For appointments please call our General Surgery Clinic at [phone]. Medication requests should be made between the hours of 9:00 AM to 3:00 PM Friday thru Friday. Please note that based upon recent changes to [place] law related to prescribing opioid pain medications, our providers will not provide refills on controlled medications after your hospital discharge following a major surgery or trauma. [place], [place] 201 [place]260. * Attachments The following attachments cannot be sent through Care Everywhere. * Diet, Low Fat (Taiwanese) * Cholecystitis, Confirmed (Tai[place]ese) * Laparoscopic Cholecystectomy, Having (Taiwanese) * Incision Care (Taiwanese) * Surgical Site Infections, Preventing (Tai[place]ese) * Controlled Substance Discharge Sheet - [facility] () ([place]ese) * Oxycodone Oral Tablet 5 mg (Tai[place]ese) documented in this encounter Medications at Time [...] (three) times a day if needed. 03/19/2022 acetaminophen (Tylenol) 500 MG tablet Take 1 tablet (500 mg total) by mouth every 6 (six) hours for 10 days. 40 tablet 07/22/2022 3 naloxone (Narcan) 4 mg/0.1 mL nasal spray Administer 1 spray (4 mg total) into affected nostril(s) if needed for opioid reversal. Call 911. Give 4 mg (1 spray) into one nostril. Repeat every 2-3 minutes as needed, alternating nostrils, until medical assistance arrives. 1 each 07/22/2022 4 oxyCODONE (Roxicodone) 5 MG immediate release tablet Take 1 tablet (5 mg total) by mouth every 6 (six) hours if needed for severe pain for up to 3 days. 10 tablet 07/22/2022 3 senna-docusate (Phylicia-Colace) 8.6-50 MG tablet Take 1 tablet by mouth 1 (one) time each day for 10 days. 10 tablet 07/22/2022 3 FLUoxetine (PROzac) 60 MG tablet Take 60 mg by mouth every night. 3 fluticasone (Flonase) 50 MCG/ACT nasal spray 09/16/2019 3 methocarbamol (Robaxin) 500 MG tablet Take 500 mg by mouth 2 (two) times a day. 3 documented as of this encounter Miscellaneous Notes * Care Plan - Celine Hampton RN - 07/22/2022 2:46 PM EST Pt currently resting quietly in bed with no complaints noted at this time. V/S stable with no signsof respiratory distress present. No acute issues this shift. Pt up ambulating in room independently. * Nursing Note - Noah Acuna RN - 07/22/2022 2:18 PM EST Rounded on the pt who was resting in bed with no family present. Introduced myself and my role as the [facility] transition coordinator, left my contact information at the bedside. Pt has steri strips in place over incisions. Instructed to shower daily with soap and water, rinsing thoroughly and patting dry. Do not lift push or pull more than 10lbs for 4-6 weeks. She will be called for a follow up appt after discharge with Mir[facility]. Advised the pt that I am available Friday-Friday from 8am-4pm, after hours or weekend pt may leave a message otherwise pt will need to call the hospital and ask for on-call resident for blue surgery. Nothing further at this time. * Discharge Summary - Kathia Field, MISSILE FACILITIES REPAIRER - 07/22/2022 2:00 PM EST Hospitalization Admit Date/Time: 07/19/2022 7:14 PM Admitting Attending: Sriram Higgins Discharge Date: 07/22/2022 Discharge Attending Physician: Taniya Vines Md PCP name and Address: Markell Mejia MD [address] [place] [address] / [place] [address] Referring provider name and address: No referring provider defined for this encounter. Chief Concern, Brief History of Present Illness, and Hospital Course Taniya Richardson is a 41 y.o. female with PMHx significant for anxiety and GERD who presented to the [facility] on 07/19/2022 with abdominal pain. Patient reports that she was feeling well until 3 days ago when she had an episode of fecal incontinence. Patient reports that she is had episodesof diarrhea since then. Patient denies any blood in her stool. Patient reports that over the past 3days she is had nausea, vomiting, no appetite. She does report that she feels yesterday she then having a fever. Patient reports that she has not been around anyone that is ill over the past weeks. Patient denies having similar pain to this in the past. She reports that she has had an episode multip le years ago at the beginning of [facility] where she did have epigastric pain which was attributed to reflux disease. Patient has not been compliant with reflux medication and takes them p.r.n.. Otherwise patient does not have pain after eating. Patient has not noted that her pain came on after eating during this episode. Upon evaluation patient is hemodynamically normal and afebrile. Patient's laboratory evaluation arenot actionable and of note he does not have a leukocytosis with a white blood cell count 10.5 and her total bilirubin is 0.2. Patient does not have elevated LFTs. Patient's INR is 1.2. Patient's lipase is 32. Patient's imaging reveals a common bile duct dilated to 7.5 mm. Patient does not have identified stones however can not exclude a distal common bile duct stone. Patient does not have pericholecystic fluid, or gallbladder wall thickening of the gallbladder wall is 0.17 mm. Patient has a negative sonographic Piña sign and a negative Piña sign on physical exam. Patient is notably hep C positive. Patient's CT abdomen and pelvis does not show any other acute findings. Diagnosis: calculus of gallbladder without cholecystitis or obstruction 07/[address] Kirby. Her post-operative hospital course was without complication and on 07/22 she was tolerating a diet and her pain was under control. She will follow up with Dr. Kirby September 03, 2022. Surgeries and Procedures Procedures performed in this encounter Procedures Case Request Operating Room: CHOLECYSTECTOMY, LAPAROSCOPIC, CHOLANGIOGRAM CHOLECYSTECTOMY, LAPAROSCOPIC (N/A) Medication List .. acetaminophen 500 MG tablet Commonly known as: Tylenol Take 1 tablet (500 mg total) by mouth every 6 (six) hours for 10 days. estradiol 2 MG vaginal ring Commonly known as: Estring Insert 2 mg into the vagina every 3 (three) months. Last filled 06/2022 . follow package directions FLUoxetine 60 MG tablet Commonly known as: PROzac Take 60 mg by mouth every night. fluticasone 50 MCG/ACT nasal spray Commonly known as: Flonase Administer 2 sprays into each nostril 1 (one) time each day. Shake gently. Before first use, prime pump. After use, clean tip and replace cap. methocarbamol 500 MG tablet Commonly known as: Robaxin Take 500 mg by mouth 2 (two) times a day. naloxone 4 mg/0.1 mL nasal spray Commonly known as: Narcan Administer 1 spray (4 mg total) into affected nostril(s) if needed for opioid reversal. Call 911. Give 4 mg (1 spray) into one nostril. Repeat every 2-3 minutes as needed, alternating nostrils, untilmedical assistance arrives. oxyCODONE 5 MG immediate release tablet Commonly known as: Roxicodone Take 1 tablet (5 mg total) by mouth every 6 (six) hours if needed for severe pain for up to 3 days. senna-docusate 8.6-50 MG tablet Commonly known as: Phylicia-Colace Take 1 tablet by mouth 1 (one) time each day for 10 days. Where to Get Your Medications These medications were sent to [facility] - [place], [place] - [address], [facility] [id number] acetaminophen 500 MG tablet naloxone 4 mg/0.1 mL nasal spray oxyCODONE 5 MG immediate release tablet senna-docusate 8.6-50 MG tablet Discharge Diagnosis Medical Problems Active and Resolved Hospital Problems Hospital History of psychiatric treatment * (Principal) RESOLVED: Calculus of gallbladder without cholecystitis without obstruction RESOLVED: Cholelithiasis Overview Addendum 07/20/2022 4:15 AM by Glo Marr MD No pericholecystic fluid No GB wall thickening Neg piña sign No signs of cholecystitis Does not meet [place] guidelines for cholangitis, did not start on abx at this time RESOLVED: Dilated cbd, acquired Overview Addendum 07/20/2022 4:08 AM by Glo Marr MD cbd 7.5mm No stones seen Normal t bili Recheck labs in AM Consider MRCP to further evaluate for potential distal stone RESOLVED: Diarrhea Overview Signed 07/20/2022 3:26 AM by Glo Marr MD Stool studies RESOLVED: GERD (gastroesophageal reflux disease) Overview Signed 07/20/2022 3:26 AM by Glo Marr MD Takes home medication PRN Add as needed Post Discharge Instructions Medications: - You should take 500mg Tylenol every 6 hours for mild - moderate pain. -You should take you home 500mg methocarbamol 4 times per day for muscle spasms. - You have been prescribed pain medications to be taken as needed for severe pain. - You should take the stool softener prescribed as long as you are taking narcotics. - You may resume your previous medications unless otherwise instructed. Nutrition: - You should eat a low-fat diet until your body adjusts to not having a gallbladder to aid digestion. See education attached. Activity: - Walking and climbing stairs is ok and encouraged. You should refrain from any strenuous activity/exercise until your follow up appointment. - No lifting anything >5-10lbs for the next 6 weeks. - You may not drive for 48 hours after surgery, or while taking narcotics. Dressing: - Underneath your dressing you have steri strips across your incision. Do not pick them off, they will fall off on their own after approximately 2 weeks. - A special skin glue is used to close and cover your incision. Do not pick it off, it will fall ofon its own after approximately 2 weeks. The glue is waterproof but you should not soak your incision or take a tub bath for 2 weeks. - You may shower. Let the soapy water run over your incisions. Do not scrub at your incisions. After you shower, pat your incisions dry with a clean towel. Potential Issues: - It is normal to have some pain and soreness, especially around the incisions - A small amount of clear drainage from the incision may be expected, call the office if the drainage becomes bloody, purulent (pus), or foul-smelling - Call the office if you start to have increased redness, drainage, swelling, or increased pain around your incision - Call the office if you have a fever greater than 101 F - Call the office if you have severe abdominal discomfort, nausea and vomiting, or feeling unwell Follow Up: -You will be scheduled to follow up with Dr. Kirby September 03, 2022.. You will be called with a time. - You may follow up with us as needed. Questions or Concerns and Appointments If there are questions or concerns after discharge from the hospital, please call [phone] for [employer]. Working hours are Friday - Friday 8:00 AM to 4:00 PM. After hours, weekends and holidays please call [phone] and ask for the resident sediment remediation consultant for Emergency General Surgery. For appointments please call our General Surgery Clinic at [phone]. Medication requests should be made between the hours of 9:00 AM to 3:00 PM Friday thru Friday. Please note that based upon recent changes to [place] law related to prescribing opioid pain medications, our providers will not provide refills on controlled medications after your hospital discharge following a major surgery or trauma. [place], [place]:260. Test Results Pending At Discharge Pending Labs Order Current Status Surgical Pathology Exam In process Pertinent Physical Exam At Time of Discharge Physical Exam Vitals and nursing note reviewed. HENT: Head: Normocephalic. Nose: Nose normal. Mouth/Throat: Mouth: Mucous membranes are moist. Pharynx: Oropharynx is clear. Eyes: Conjunctiva/sclera: Conjunctivae normal. Pupils: Pupils are equal, round, and reactive to light. Abdominal: Palpations: Abdomen is soft. Musculoskeletal: General: Normal range of motion. Cervical back: Normal range of motion. Skin: General: Skin is warm and dry. Capillary Refill: Capillary refill takes less than 2 seconds. Comments: Lap sites c/d/i Neurological: General: No focal deficit present. Mental Status: She is alert and oriented to person, place, and time. Mental status is at baseline. Psychiatric: Mood and Affect: Mood normal. Behavior: Behavior normal. Thought Content: Thought content normal. Judgment: Judgment normal. Discharge Disposition/Condition Disposition: Home Condition: Stable (s/sx potential problems absent or manageable) I spent >30 minutes of patient care and instruction time in preparation for this discharge. Cosigned by Taniya Vines MD at 07/26/2022 10:17 AM EST Associated attestation - Taniya Vines MD - 07/26/2022 10:17 AM EST Signature Only * Hospital Course - Kathia Field APRN - 07/22/2022 1:52 PM EST Taniya Richardson is a 41 y.o. female with PMHx significant for anxiety and GERD who presented to the [facility] on 07/19/2022 with abdominal pain. Patient reports that she was feeling well until 3 days ago when she had an episode of fecal incontinence. Patient reports that she is had episodesof diarrhea since then. Patient denies any blood in her stool. Patient reports that over the past 3days she is had nausea, vomiting, no appetite. She does report that she feels yesterday she then having a fever. Patient reports that she has not been around anyone that is ill over the past weeks. Patient denies having similar pain to this in the past. She reports that she has had an episode multip le years ago at the beginning of [facility] where she did have epigastric pain which was attributed to reflux disease. Patient has not been compliant with reflux medication and takes them p.r.n.. Otherwise patient does not have pain after eating. Patient has not noted that her pain came on after eating during this episode. Upon evaluation patient is hemodynamically normal and afebrile. Patient's laboratory evaluation arenot actionable and of note he does not have a leukocytosis with a white blood cell count 10.5 and her total bilirubin is 0.2. Patient does not have elevated LFTs. Patient's INR is 1.2. Patient's lipase is 32. Patient's imaging reveals a common bile duct dilated to 7.5 mm. Patient does not have identified stones however can not exclude a distal common bile duct stone. Patient does not have pericholecystic fluid, or gallbladder wall thickening of the gallbladder wall is 0.17 mm. Patient has a negative sonographic Piña sign and a negative Piña sign on physical exam. Patient is notably hep C positive. Patient's CT abdomen and pelvis does not show any other acute findings. Diagnosis: calculus of gallbladder without cholecystitis or obstruction 07/[address] Kirby. Her post-operative hospital course was without complication and on 07/22 she was tolerating a diet and her pain was under control. She will follow up with Dr. Kirby September 03, 2022. * Care Plan - Fawn Garnett RN - 07/21/2022 9:57 PM EST Problem: Adult Inpatient Plan of Care Goal: Plan of Care Review Outcome: Ongoing, Progressing Flowsheets Taken 07/21/20222155 by Fawn Garnett RN Progress: improving Taken 07/21/2022 0727 by Marichuy Lopez Plan of Care Reviewed With: (PLAN OF CARE DISCUSSED WITH PATIENT DURING PRE-OP INTERVIEW) patient Goal: Patient-Specific Goal (Individualized) Outcome: Ongoing, Progressing Flowsheets (Taken 07/21/20221952) Patient/Family-Specific Goals (Include Timeframe): have adequate pain control this shift Individualized Care Needs: remain free from falls Anxieties, Fears or Concerns: none stated Goal: Absence of Hospital-Acquired Illness or Injury Outcome: Ongoing, Progressing Goal: Optimal Comfort and Wellbeing Outcome: Ongoing, Progressing Goal: Readiness for Transition of Care Outcome: Ongoing, Progressing * Care Plan - Jennifer Camacho - 07/21/2022 4:27 PM EST Problem: Adult Inpatient Plan of Care Goal: Plan of Care Review Outcome: Ongoing, Progressing Goal: Patient-Specific Goal (Individualized) Outcome: Ongoing, Progressing Goal: Absence of Hospital-Acquired Illness or Injury Outcome: Ongoing, Progressing Goal: Optimal Comfort and Wellbeing Outcome: Ongoing, Progressing Goal: Readiness for Transition of Care Outcome: Ongoing, Progressing * Anesthesia PACU Signout - Rio Yepez MD - 07/21/2022 12:21 PM EST Patient: Taniya Richardson Anesthesia Type: general Vitals Value Taken Time BP 130/93 07/21/22 1200 Temp 36.7 ??C (98 ??F) 07/21/22 1130 Pulse 72 07/21/22 1202 Resp 17 07/21/22 1202 SpO2 96 % 07/21/22 1203 Vitals shown include unvalidated device data. Anesthesia PACU Signout Patient location during evaluation: PACU Patient participation: complete - patient participated Level of consciousness: awake and baseline Pain management: adequate (pain score 0-3) Airway patency: natural airway Hydration status: acceptable PONV: none Cardiovascular status: acceptable and hemodynamically stable Respiratory status: acceptable, nasal cannula, nonlabored ventilation and spontaneous ventilation Discharge Disposition: admit to inpatient unit * Op Note - Lalitha Styles MD - 07/21/2022 8:08 AM EST Operative Note Date: 07/21/22 Location: [facility] Name: Taniya Richardson, : 1980, Diagnoses: Pre-op Diagnosis Calculus of gallbladder without cholecystitis without obstruction Post-op Diagnosis Calculus of gallbladder without cholecystitis without obstruction Procedure(s): Laparoscopic cholecystectomy Attending Surgeon(s): * Glenroy Kirby - Primary Commodity Loan Clerk(s): * Lalitha Styles MD - Resident - Assisting Anesthesia: General ASA: II Blood Administration: Blood Product Administration History None Estimated Blood Loss: Minimal Drains: * None in log * Specimen: Specimens ID Source Frozen? 1 Gallbladder No Description: GALLBLADDER Findings: Acutely inflamed appearing gallbladder. Indications: Taniya Richardson is an 41 y.o. female who is having surgery for Calculus of gallbladder without cholecystitis without obstruction. Risks and benefits of proceeding with the operation were discussed with the patient and she elected to proceed. Narrative: After obtaining informed consent the patient was taken to the operating room and placed supine on the operating room table. General anesthesia was induced. Time- out was performed to assure correct patient and procedure. The abdomen was prepped and draped in the usual sterile fashion. Vertical skin incision was made below the umbilicus and the fascia was cleared off and elevated. The fascia was sharply incised and the abdomen was entered after division of the fascia and peritoneum. Trocar was inserted under direct vision and the abdomen was insufflated to a pressure of 15 mmHg. Initial abdominal survey revealed no evidence of unexpected pathology or injury from entry. The patient was positioned with head up and right side up and 3 additional 5 mm working trocars were placed in the right upper abdomen in a subcostal location. Lidocaine was used to numb the peritoneum beforeinsertion. These were placed under direct laparoscopic vision. The fundus of the gallbladder was retracted cephalad and the cystic infundibular junction was exposed. Peritoneum at the cystic infundibular junction was divided on the lateral surfaces of the gallbladder. Dissection was carried for exposure of the cystic plate. Combination of blunt dissection and hook electrocautery were used for exposure of the cystic infundibular junction to identify the cystic duct and cystic artery. There were thick peritoneal attachments and the gallbladder was quite inflamed. Collode's node was prominent on the anterior surface of the gallbladder. The cystic artery wasidentified splaying out onto the gallbladder and was circumferentially dissected .. The cystic ductwas similarly exposed and circumferentially dissected assuring no additional structures were seen to the level of the gallbladder fossa. The cystic duct was noted to be quite short with the common duct visible just below diving into the liver. These cystic duct and cystic artery were then divided and clipped with 2 clips on the stay side of each structure. They were sharply divided with scissors.The gallbladder was then divided from the gallbladder fossa with hook electrocautery. Hemostasis was assured throughout this dissection. The gallbladder was then divided from its attachments to the liver. We placed the specimen in an Endo-Catch bag and removed it from the periumbilical trocar site. The periumbilical trocar was replaced. Hemostasis was then assured throughout the operative field. 5 mm trocars were then removed under direct vision and no bleeding was identified. Fascia at the periumbilical trocar site was then closed with a [id number] Vicryl suture. Subcuticular Monocryl suture was then used for skin closure and sterile steri-strips were applied after assuring hemostasis. There were no immediate complications. The patient tolerated procedure well and was transferred to the recovery room in stable condition. All counts were correct at case conclusion. Complications: None; patient tolerated the procedure well. Submitted by: Lalitha Styles MD - 07/21/2022 Cosigned by Glenroy Kirby MD at 07/22/2022 8:33 AM EST Associated attestation - Glenroy Kirby MD - 07/22/2022 8:33 AM EST I was present for the entirety of the procedure(s). * Significant Event - Lalitha Styles MD - 07/21/2022 7:30 AM EST To OR for laparoscopic cholecystectomy with intraoperative cholangiogram. Patient has been consented for the procedure. Lalitha Styles MD PGY-5 General Surgery Pager #[phone] * H&P - Glo Marr MD - 07/20/2022 4:11 AM ESTAssociated Order(s): Consult to Emergency General Surgery Images from the original note were not included. Department of Surgery Division of Acute Care / Emergency General Surgery History & Physical Note Reason for Consult: Abdominal Pain Requesting Service: ED Consult Date and Time: 07/20/2022 4:16 AM Consult to Emergency General Surgery Consult performed by: Glo Marr MD Consult ordered by: MORRIS Velazquez Reason for consult: Cholelithiasis Assessment/Recommendations: * (Principal) Fall (on) (from) other stairs and steps, initial encounter Adrenal nodule (CMS/HCC) Overview Signed 07/20/2022 1:33 AM by Glo Marr MD Will need follow up AAA (abdominal aortic aneurysm) Overview Signed 07/20/2022 1:35 AM by Glo Marr MD 5x4.5 aneurysm. Vascular surgery follow up needed Iliac artery aneurysm (CMS/HCC) Overview Signed 07/20/2022 1:35 AM by Glo Marr MD 1.8 cm Vascular surgery consulted Mesenteric artery stenosis (CMS/HCC) Overview Signed 07/20/2022 1:36 AM by Glo Marr MD SMA severe stenosis Vascular follow up needed Hydrocele Overview Signed 07/20/2022 1:39 AM by Glo Marr MD Outpatient follow up asympatomatic Inguinal hernia Overview Signed 07/20/2022 1:40 AM by Glo Marr MD Fat containing No acute indication Renal cyst Overview Signed 07/20/2022 1:40 AM by Glo Marr MD No intevention Renal calculi Overview Signed 07/20/2022 1:40 AM by Glo Marr MD No acute intervention Femoral artery occlusion (CMS/HCC) Overview Signed 07/20/2022 1:41 AM by Glo Marr MD Vascular surgery consulted Appears to have skin changes in his toes Rib fracture Overview Signed 07/20/2022 1:42 AM by Glo Marr MD R [id number] Multimodal pain control Pulmonary toilet Sternal manubrial dissociation, closed fracture Overview Signed 07/20/2022 1:42 AM by Glo Marr MD BCI work up Atrial fibrillation Troponin pending Atrial fibrillation (CMS/HCC) Overview Addendum 07/20/2022 3:58 AM by Glo Marr MD Continue home meds On eliquis, will transition to heparin gtt per Vascular recs Subjective History of Present Illness: Chief Complaint: Abdominal Pain Taniya Richardson is a 41 y.o. female with PMHx significant for anxiety and [facility]ER[facility]. Patient reports that she was feeling well until3 days ago when she had an episode of fecal incontinence. Patient reports that she is had episodes of diarrhea since then. Patient denies any blood in her stool. Patient reports that over the past 3 days she is had nausea, vomiting, no appetite. She does report that she feels yesterday she then having a fever. Patient reports that she has not been around anyone that is ill over the past weeks. Patient denies having similar pain to this in the past. She reports that she has had an episode multiple years ago at the beginning of [facility] where she did have epigastric pain which was attributed to reflux disease. Patient has not been compliant with reflux medication and takes them p.r.n.. Otherwisepatient does not have pain after eating. Patient has not noted that her pain came on after eating during this episode. Upon evaluation patient is hemodynamically normal and afebrile. Patient's laboratory evaluation arenot actionable and of note he does not have a leukocytosis with a white blood cell count 10.5 and her total bilirubin is 0.2. Patient does not have elevated LFTs. Patient's INR is 1.2. Patient's lipase is 32. Patient's imaging reveals a common bile duct dilated to 7.5 mm. Patient does not have identified stones however can not exclude a distal common bile duct stone. Patient does not have pericholecystic fluid, or gallbladder wall thickening of the gallbladder wall is 0.17 mm. Patient has a negative sonographic Piña sign and a negative Piña sign on physical exam. Patient is notably hep C positive. Patient's CT abdomen and pelvis does not show any other acute findings. Review of Systems: General: no fatigue, no weakness, + fevers, + chills, no night sweats Skin:no rashes, no sores, no lumps Head: no recent trauma Eyes:no blurring, no tearing, no itching Nose: no sneezing, no itching, no epistaxis Mouth: no hoarseness, no sore throat, no neck swelling Cardiac: no HTN, no palpitations, no dyspnea on exertion, no PND Respiratory: no shortness of air, no coughing, no wheezing, no sputum production GI: + loss of appetite, + nausea, + vomiting, no constipation, + diarrhea, no blood per rectum, + abdominal pain, no jaundice Urinary: no dysuria, no hematuria, no polyuria, no incontinence Vascular: no leg edema, no claudication Neurologic: no loss of sensation, no tingling, no numbness, no fainting, no blackouts, no seizures History Obtained From: Patient Past Medical History: Past Medical History: Diagnosis Date Personal history of other diseases of urinary system History of kidney disease Personal history of other endocrine, nutritional and metabolic disease History of hypoglycemia Personal history of other specified conditions History of abdominal pain Allergies And Reactions: Allergies Allergen Reactions Tegaderm Ag Mesh [Silver] Hives Tetracycline Hives Past Surgical History: Past Surgical History: Procedure Laterality Date BLADDER SURGERY N/A Bladder Surgery from [facility] SECTION, LOW TRANSVERSE N/A Section from [facility] DILATION AND CURETTAGE OF UTERUS N/A Dilation and curettage from [facility] HYSTERECTOMY N/A Hysterectomy from [facility] Family Medical History: Family History Problem Relation Name Age of Onset Cardiac disorder Mother Cardiac disorder Other Stroke Mother Stroke Other Hypertension Mother Hypertension Other Colon cancer Mother Colon cancer Other Social History: Social History Socioeconomic History Marital status: Spouse name: Not on file Number of children: Not on file Years of education: Not on file Highest education level: Not on file Occupational History Not on file Tobacco Use Smoking status: Every Day Smokeless tobacco: Not on file Substance and Sexual Activity Alcohol use: Not on file Drug use: Not Currently Comment: Drug use: History of drug use Sexual activity: Not on file Other Topics Concern Not on file Social History Narrative Not on file Social Determinants of Health Financial Resource Strain: Not on file Food Insecurity: Not on file Transportation Needs: Not on file Physical Activity: Not on file Stress: Not on file Social Connections: Not on file Intimate Partner Violence: Not on file Housing Stability: Not on file Immunizations: Immunization History Administered Date(s) Administered Tdap 01/25/2022 I have updated and confirmed the past medical, surgical, family and social history. Home Medications: Prior to Admission medications Not on File Anti-Thrombotic Medications: Is this patient taking warfarin, new oral anti-coagulant, or anti-platelet medication? No If Yes, What Medication: N/A Current Hospital Medications: Current Facility-Administered Medications Medication Dose Route Frequency Provider Last Rate Last Admin acetaminophen (Tylenol) tablet 1,000 mg 1,000 mg Oral q6h [facility] Glo Marr MD dextrose 5 % and lactated Ringer's infusion 100 mL/hr Intravenous Continuous Glo Marr MD 100 mL/hr at 07/20/22 0344 100 mL/hr at 07/20/22 0344 enoxaparin (Lovenox) syringe 40 mg 40 mg Subcutaneous Daily Glo Marr MD HYDROmorphone (Dilaudid) injection 0.5 mg 0.5 mg Intravenous Once Glo Marr MD ibuprofen tablet 400 mg 400 mg Oral q6h Glo Marr MD 400 mg at 07/20/22 0344 sodium chloride 0.9 % flush 10 mL 10 mL Intravenous q12h PRN Glo Marr MD And sodium chloride 0.9 % flush 10 mL 10 mL Intravenous PRN Glo Marr MD No current outpatient medications on file. Objective Objective: Visit Vitals BP 117/77 (BP Location: Right arm, Patient Position: Lying) Pulse 71 Temp 37.1 ??C (98.8 ??F) (Oral) Ht 1.575 m (5' 2 ) Wt 81.6 kg (180 lb) SpO2 96% BMI 32.92 kg/m?? @ Physical Exam: Physical Exam Constitutional: General: She is not in acute distress. Appearance: Normal appearance. She is normal weight. She is not ill-appearing or toxic-appearing. HENT: Head: Normocephalic and atraumatic. Nose: No congestion or rhinorrhea. Mouth/Throat: Mouth: Mucous membranes are moist. Pharynx: Oropharynx is clear. Eyes: General: No scleral icterus. Comments: Pupils grossly symmetric Neck: Comments: Trachea midline Cardiovascular: Rate and Rhythm: Normal rate and regular rhythm. Pulses: Normal pulses. Pulmonary: Effort: No respiratory distress. Breath sounds: No stridor. Abdominal: General: There is no distension. Palpations: There is no mass. Tenderness: There is abdominal tenderness. There is no guarding or rebound. Comments: Tenderness diffusely across abdomen, worse in RUQ and RLQ Negative piña sign Musculoskeletal: General: No swelling, tenderness or deformity. Skin: General: Skin is warm and dry. Neurological: General: No focal deficit present. Mental Status: She is alert and oriented to person, place, and time. Psychiatric: Mood and Affect: Mood normal. Behavior: Behavior normal. Thought Content: Thought content normal. Judgment: Judgment normal. Laboratory: CBC WBC 6.05 Hb 11.9 Plt 218 Hct 35.9 ANC 8.80 (H) INR ??, PTT ??, Anti-Xa ?? MCV 91 BMP Na 140 Cl 106 BUN 17 Glu 105 (H) K 4.1 Co2 23 Cr 0.69 Ca 9.4 iCa ?? Mg ??, Phos ?? Lactate ?? LFT AST 11 AlkPhos 35 T Prot 7.7 ALK 10 Bili 0.2 Alb ?? D.Bili ?? Imaging: CT Abdomen Pelvis w IV Contrast Result Date: 07/20/2022 No acute intra-abdominal findings. The extrahepatic bile duct is normal in size, without radiopaquestones or obstructing mass. Ectopic insertion of the left ureter at the left anterior base of the bladder. CRITICAL RESULT: No. COMMUNICATION: Per this written report. Approved by Drake English MD on 07/19/2022 11:49 PM By electronically signing this report, I, the attending physician, attest that I have personally reviewed the images/data for the above examination(s) and agree with the final editedreport. Dictated by Drake English MD on 07/19/2022 11:49 PM Signed by Bret Johns MD on 312:11 AM US Abdomen RUQ Result Date: 07/19/2022 Cholelithiasis without sonographic evidence of cholecystitis. Mildly prominent diameter of the common bile duct, could be indicative of distal choledocholithiasis. No intrahepatic ductal dilation is identified. CRITICAL RESULT: No. COMMUNICATION: Per this written report. Dictated by Eulogio Rocha MD on 07/19/2022 8:13 PM Signed by Eulogio Rocha MD on 07/19/2022 8:15 PM Radiographic Interpretation: I have reviewed the imaging above and agree with the radiologist interpretation. CT Abdomen Pelvis w IV Contrast Final Result No acute intra-abdominal findings. The extrahepatic bile duct is normal in size, without radiopaquestones or obstructing mass. Ectopic insertion of the left ureter at the left anterior base of the bladder. CRITICAL RESULT: No. COMMUNICATION: Per this written report. Approved by Drake English MD on 07/19/2022 11:49 PM By electronically signing this report, I, the attending physician, attest that I have personally reviewed the images/data for the above examination(s) and agree with the final edited report. Dictated by Drake English MD on 07/19/2022 11:49 PM Signed by Bret Johns MD on 07/20/2022 12:11 AM US Abdomen RUQ Final Result Cholelithiasis without sonographic evidence of cholecystitis. Mildly prominent diameter of the common bile duct, could be indicative of distal choledocholithiasis. No intrahepatic ductal dilation is identified. CRITICAL RESULT: No. COMMUNICATION: Per this written report. Dictated by Eulogio Rocha MD on 07/19/2022 8:13 PM Signed by Eulogio Rocha MD on 07/19/2022 8:15 PM Assessment/Plan Assessment & Plan: Taniya Richardson is a 41 y.o. female with cholelithiasis and a dilated CBD with concern for potential choledocholithiasis. Medical Problems Problem List * (Principal) Calculus of gallbladder without cholecystitis without obstruction Cholelithiasis Overview Addendum 07/20/2022 4:15 AM by Glo Marr MD No pericholecystic fluid No GB wall thickening Neg piña sign No signs of cholecystitis Does not meet [place] guidelines for cholangitis, did not start on abx at this time Dilated cbd, acquired Overview Addendum 07/20/2022 4:08 AM by Glo Marr MD cbd 7.5mm No stones seen Normal t bili Recheck labs in AM Consider MRCP to further evaluate for potential distal stone Diarrhea Overview Signed 07/20/2022 3:26 AM by Glo Marr MD Stool studies GERD (gastroesophageal reflux disease) Overview Signed 07/20/2022 3:26 AM by Glo Marr MD Takes home medication PRN Add as needed Dispo: Admit to SGE CODE STATUS: full code This Consult, Assessment, and Plan has been discussed with Dr. Higgins, Attending Physician Glo Marr MD General Surgery Resident Pager: [phone] Cosigned by Sriram Higgins DO at 07/28/2022 9:55 PM EST Associated attestation - Sriram Higgins DO - 07/28/2022 9:55 PM EST I've seen /examined the patient. Case D/W residents, Students. Any labs, imaging, bedside data reviewed. Agree w/ plan. Time spent is separate from procedures. * ED Provider Notes - Dena Sow PA - 07/19/2022 5:41 PM EST HPI Chief Complaint Patient presents with Diarrhea Vomiting Abdominal Pain PIT Note Taniya Richardson is a 41 y.o. female who presents to the ED with diarrhea, vomiting, and rt sideabdominal pain. Pt states that she has not been able to keep much food down and is having liquid diarrhea. Pt states that she has had pain like this before and was told that she might need cholecystectomy. Pt denies PMH and taking prescription medications. Pt denies urinary symptoms. Patient denies fever and chills. 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: No No data recorded Patient History Past Medical History: Diagnosis Date Personal history of other diseases of urinary system History of kidney disease Personal history of other endocrine, nutritional and metabolic disease History of hypoglycemia Personal history of other specified conditions History of abdominal pain Past Surgical History: Procedure Laterality Date BLADDER SURGERY N/A Bladder Surgery from [facility] SECTION, LOW TRANSVERSE N/A Section from [facility] DILATION AND CURETTAGE OF UTERUS N/A Dilation and curettage from [facility] HYSTERECTOMY N/A Hysterectomy from [facility] Family History Problem Relation Name Age of [...] Tegaderm Ag Mesh [Silver] Hives Tetracycline Hives Review of Systems Review of Systems Constitutional: Negative for chills and fever. HENT: Negative for ear pain and sore throat. Eyes: Negative for pain and visual disturbance. Respiratory: Negative for cough and shortness of breath. Cardiovascular: Negative for chest pain and palpitations. Gastrointestinal: Positive for abdominal pain, diarrhea, nausea and vomiting. Genitourinary: Negative for dysuria and hematuria. Musculoskeletal: Negative for arthralgias and back pain. Skin: Negative for color change and rash. Neurological: Negative for seizures and syncope. All other systems reviewed and are negative. Physical Exam ED Triage Vitals [07/19/22 1756] Temp Heart Rate Resp BP 37.2 ??C (99 ??F) 83 18 (!) 139/90 SpO2 Temp Source Heart Rate Source Patient Position 97 % Oral -- -- BP Location FiO2 (%) -- -- Physical Exam Vitals and nursing note reviewed. Constitutional: General: She is not in acute distress. Appearance: She is well-developed. HENT: Head: Normocephalic and atraumatic. Eyes: Conjunctiva/sclera: Conjunctivae normal. Cardiovascular: Rate and Rhythm: Normal rate and regular rhythm. Heart sounds: No murmur heard. Pulmonary: Effort: Pulmonary effort is normal. No respiratory distress. Breath sounds: Normal breath sounds. Abdominal: Palpations: Abdomen is soft. Tenderness: There is generalized abdominal tenderness and tenderness in the right upper quadrant. Comments: Diffuse abdominal pain worse in RUQ. Musculoskeletal: General: No swelling. Cervical back: Neck supple. Skin: General: Skin is warm and dry. Capillary Refill: Capillary refill takes less than 2 seconds. Neurological: Mental Status: She is alert. Psychiatric: Mood and Affect: Mood normal. ED Course & MDM Clinical Impressions as of 07/20/22 0223 Calculus of gallbladder without cholecystitis without obstruction ED Disposition: Medical Decision Making Date/Time: 07/19/2022/6:40 PM Entered by Antonette Gary, acting as scribe for Dr. Victorino MD. Scribe Attestation: This note was dictated to me, Miriam Gary, acting as a scribe for Dr. Victorino MD. Attending Attestation: The documentation was recorded by Antonette Gary acting as scribe in my presence at the time of the encounter and accurately reflects the service I personally performed. The patient was evaluated by Dr. Mckee and Calista Sow PA-C. History was obtained from the patient. In summary this is a 41-year-old female who presents with nausea, diarrhea, and right upper quadrant pain that started this morning and has not improved. Patient denies fever. Differential diagnosis includes but is not limited to gastritis, gastroenteritis, pancreatitis, cholecystitis, cholelithiasis, choledocholithiasis. Patient was given 1 L IV fluids, morphine IV, and Zofran IV for her symptoms. Patient continued to have pain and nausea was given an additional dose of morphine and Zofran IV. UA was obtained and is negative for infection. CMP was obtained and shows slightly elevated glucose but is otherwise unremarkable lipase is negative. test is negative. CBC does not show any significant abnormalities including a normal white blood cell count. Ultrasound of right upper quadrant was obtained head shows cholelithiasis without sonographic evidence of cholecystitis. Mildlyprominent diameter of the common bile duct could be indicative of distal coli ductal lithiasis. No i ntrahepatic ductal dilatation is identified. Because patient continued to have significant abdominal pain. IV Dilaudid was given. On my exam patient has diffuse abdominal pain that is worse in the right upper quadrant CT scan of the abdomen and pelvis was obtained. CT scan shows no acute intra-abdominal findings. The extrahepatic bile duct is normal in size without radiopaque stones or obstructing mass. Ectopic insertion of the left ureter at the left anterior base of the bladder. Blue surgery was consulted for symptomatic cholelithiasis. Plan will be based on blue surgery recommendations. Patient was turned over to Willis Woods NP, pending Blue surgery recommendations. ED Prescriptions None Sign Off Checklist Clinical Impression: See Transfer of Care note for Clinical Impression ED Disposition: See Transfer of Care note for ED Disposition - MORRIS Velazquez 07/20/22 0224 Cosigned by Fadumo Mckee MD at 07/20/2022 3:13 AM EST Associated attestation - Fadumo Mckee MD - 07/20/2022 3:13 AM EST I attest to being involved in more than half the total time in patient care. * ED Triage Notes - Malcom Norton - 07/19/2022 5:41 PM EST Vomiting, diarrhea, right side pain times 2 days. * Progress Notes - Abe Woods APRN - 07/19/2022 5:41 PM EST I received sign-out and accepted care of this patient from the departing Drs: resident Omid Sow PA-C and attending Dr. Mckee at 02:00. Please see the primary providers??? note for complete elements of the history, physical exam, and ED course. Illness Severity: Stable Patient Summary: Taniya Richardson is a 41 y.o. female with a PMHx of Past Medical History: Diagnosis Date Personal history of other diseases of urinary system History of kidney disease Personal history of other endocrine, nutritional and metabolic disease History of hypoglycemia Personal history of other specified conditions History of abdominal pain presented to the ED with right upper quadrant pain and nausea/vomiting. Most recent vital signs: Visit Vitals BP 117/77 (BP Location: Right arm, Patient Position: Lying) Pulse 71 Temp 37.1 ??C (98.8 ??F) (Oral) Resp 18 SpO2 96% Smoking Status Every Day Lab and imaging results: Reviewed with off going provider. Action plan (To Do): Awaiting formal evaluation and recommendations per the SGE team. Disposition: Admission to SGE service. Clinical Impressions as of 07/20/22 0221 Calculus of gallbladder without cholecystitis without obstruction - Cosigned by Fadumo Mckee MD at 07/20/2022 3:55 AM EST Associated attestation - Fadumo cMkee MD - 07/20/2022 3:55 AM EST I attest to being involved in providing substantive time in patient care. documented in this encounter Plan of Treatment Upcoming Encounters Date Type Department Care Team (Late st Contact Info) Description 05/17/2024 2:00 PM EST Office Visit [facility] Interventional Pain Medicine [address] [place] [id number] Markell Lucas MD [address] [facility] [address] [place] [address] [place] [phone] 06/08/2024 2:00 PM EST Procedure Visit [facility] Interventional Pain Medicine [address] [place] [phone] Markell Lucas MD [address] [facility] [address] [place] [address] [place] [phone] documented as of this encounter Procedures Procedure Name Priority Date/Time Associated Diagnosis Comments COMPREHENSIVE METABOLIC PANEL, PLASMA Routine 07/22/2022 3:54 AM EST SURGICAL PATHOLOGY EXAM Routine 07/21/2022 8:59 AM EST Calculus of gallbladder without cholecystitis without obstruction CHOLECYSTECTOMY, LAPAROSCOPIC 07/21/2022 7:21 AM EST Calculus of gallbladder without cholecystitis without obstruction Special Needs Intra-op cholangioghram SARS COV-2/COVID-19 BY PCR Routine 07/20/2022 3:57 AM EST CBC W/O DIFFERENTIAL Routine 07/20/2022 3:57 AM EST PHOSPHORUS, PLASMA Routine 07/20/2022 3:57 AM EST MAGNESIUM, PLASMA Routine 07/20/2022 3:57 AM EST COMPREHENSIVE METABOLIC PANEL, PLASMA Routine 07/20/2022 3:[address] ABDOMEN PELVIS W IV CONTRAST STAT 07/19/2022 11:45 PM EST URINALYSIS WITH REFLEX MICROSCOPIC STAT 07/19/2022 8:10 PM EST US ABDOMEN RUQ STAT 07/19/2022 8:05 PM EST ED PROTOCOL HIV 1/2 ANTIBODY/ANTIGEN SCREEN W/REFLEX TO HIV 1/2 ANTIBODY DIFFERENTIATION STAT 07/19/2022 6:45 PM EST HEPATITIS C VIRUS (HCV) QUANTITATIVE PCR - ED STAT 07/19/2022 6:45 PM EST HIV 1/2 ANTIBODY/ANTIGEN SCREEN WITH REFLEX TO HIV I/II DIFFERENTIATION STAT 07/19/2022 6:45 PM EST HEPATITIS C ANTIBODY - ED W/REFLEX TO HCV QUANT PCR STAT 07/19/2022 6:45 PM EST CBC WITH AUTO DIFFERENTIAL STAT 07/19/2022 6:45 PM EST TEST QUALITATIVE PLASMA STAT 07/19/2022 6:45 PM EST LIPASE, PLASMA STAT 07/19/2022 6:45 PM EST COMPREHENSIVE METABOLIC PANEL, PLASMA STAT 07/19/2022 6:45 PM EST documented in this encounter Results * (ABNORMAL) Comprehensive metabolic panel (07/22/2022 3:54 AM EST) Glucose, Plasma 125(H) 74 - 99 mg/dL 07/22/2022 5:12 AM EST [facility] BUN, Plasma 10 7 - 21 mg/dL 07/22/2022 5:12 AM EST [facility] Creatinine, Plasma 0.83 0.60 - 1.10 mg/dL 07/22/2022 5:12 AM EST [facility] BUN/Creatinine Ratio 12 07/22/2022 5:12 AM EST [facility] Sodium, Plasma 144 136 - 145 mmol/L 07/22/2022 5:12 AM [facility] Potassium, Plasma 4.0 3.7 - 4.8 mmol/L 07/22/2022 5:12 AM [facility] Chloride, Plasma 108(H) 97 - 107 mmol/L 07/22/2022 5:12 AM EST [facility] CO2, Plasma 26 22 - 29 mmol/L 07/22/2022 5:12 AM EST [facility] Anion Gap 10 6 - 16 mmol/L 07/22/2022 5:12 AM [facility] Total Calcium, Plasma 8.9 8.9 - 10.2 mg/dL 07/22/2022 5:12 AM [facility] Total Protein 6.2(L) 6.3 - 7.9 g/dL 07/22/2022 5:12 AM [facility] Albumin, Plasma 3.8 3.5 - 5.2 g/dL 07/22/2022 5:12 AM [facility] AST, Plasma 16 11 - 32 U/L 07/22/2022 5:12 AM [facility] ALT, Plasma 16 8 - 33 U/L 07/22/2022 5:12 AM [facility] Alkaline Phosphatase, Plasma 36 35 - 104 U/L 07/22/2022 5:12 AM [facility] Total Bilirubin, Plasma <0.2(L) 0.2 - 1.1 mg/dL 07/22/2022 5:12 AM EST [facility] eGFRcr 91.5 mL/min/1.7 3m*2 07/22/2022 5:12 AM [facility] Comment: Reported eGFRcr in mL/min/1.73m2 is based the CKD-EPI 2021 equation that does not use a race coefficient. Effective 01/02/22 our laboratory changed the eGFR calculation to the CKD-EPI 2021 equation from the previously reported eGFR, based on the MDRD equation. ??For comparisons between the two equations, please see laboratory website: ??[email or web address] Blood Venous blood specimen / Unknown Venipuncture / Unknown 07/22/2022 3:54 AM EST 07/22/2022 4:23 AM EST us Sriram K Ronaldo DO LAB BLOOD ORDERABLES Final Res ult [facility] [address] [place] [address] * Surgical Pathology Exam (07/21/2022 8:59 AM EST) Case Report Surgical Pathology ?Case: [id number] ? Authorizing Provider: ??Glenroy Kirby MD ? Collected: ? 07/21/2022 0859 ? Ordering Location: ? [facility] ? Received: ?07/22/2022 0716 ? Pathologist: ? Bobby Miranda MD ? Specimen: ?Gallbladder, GALLBLADDER ? 07/24/2022 3:24 PM EST [facility] Final Diagnosis A. GALLBLADDER, CHOLECYSTECTOMY: - CHRONIC CHOLECYSTITIS WITH CHOLELITHIASIS (0.9 CM) AND CHOLESTEROLOSIS 07/24/2022 3:24 PM EST [facility] Clinical Information Calculus of gallbladder without cholecystitis without obstruction [K80.20] 07/24/2022 3:24 PM EST [facility] Gross Description A. GALLBLADDER Specimen received in formalin labeled ? gallbladder? consisting of a tompkins/green cholecystectomy specimen measuring 5.3 x 2.2 x 1.2 cm. Exterior surface of specimen is carefully inspected to reveal a mostly glistening exterior surface with areas of focal adhesions without any grossly identifiable defects or perforations identified. A well placed surgical hemoclip is identified at the cystic duct that is carefully removed to reveal a grossly patent cystic duct. The specimen is opened longitudinally to reveal a tompkins/green velvety mucosal lining with multifocal yellow stippling present as well as one yellow/brown cholelith present measuring 0.9 cm greatest dimension. There is approximately 5.0 cc bilious fluid present. Gallbladder wall thickness is measured to 0.2 cm in average thickness. No other gross abnormalities identified upon close inspection. [employer] sections are submitted in one cassette. Rustam Rodriguez DO 07/24/2022 3:24 PM EST [facility] Note: A resident was involved in the service. I attest I examined the relevant preparations for the specimens and confirmed the diagnosis or interpretation. 07/24/2022 3:24 PM EST [facility] Tissue Gallbladder structure / Unknown 07/21/2022 8:59 AM EST 07/22/2022 7:16 AM EST Comment:Pre-op diagnosis: Calculus of gallbladder without cholecystitis without obstruction [K80.20] Glenroy Kirby MD LAB PATHOLOGY ORDERABLES Fin al Result [facility] [address] [place] [address] * Phosphorus (07/20/2022 3:57 AM EST) Phosphorus, Plasma 3.7 2.5 - 4.5 mg/dL 07/20/2022 5:02 AM EST [facility] Blood Venous blood specimen / Unknown Venipuncture / Unknown 07/20/2022 3:57 AM EST 07/20/2022 4:08 AM EST Sriram K Ronaldo DO LAB BLOOD ORDERABLES Final Res ult [facility] [address] [place] [address] * (ABNORMAL) Magnesium (07/20/2022 3:57 AM EST) Magnesium, Plasma 1.7(L) 1.9 - 2.4 mg/dL 07/20/2022 5:02 AM EST [facility] Blood Venous blood specimen / Unknown Venipuncture / Unknown 07/20/2022 3:57 AM EST 07/20/2022 4:08 AM EST Sriram Higgins DO LAB BLOOD ORDERABLES Final Res ult Performing Organization Address [facility]/ZIP Co de Phone Number [facility] [address] [place] [address] * (ABNORMAL) Comprehensive Metabolic Panel (07/20/2022 3:57 AM EST) Glucose, Plasma 85 74 - 99 mg/dL 07/20/2022 5:02 AM EST [facility] BUN, Plasma 13 7 - 21 mg/dL 07/20/2022 5:02 AM EST [facility] Creatinine, Plasma 0.75 0.60 - 1.10 mg/dL 07/20/2022 5:02 AM EST [facility] BUN/Creatinine Ratio 17 07/20/2022 5:02 AM EST [facility] Sodium, Plasma 137 136 - 145 mmol/L 07/20/2022 5:02 AM EST [facility] Potassium, Plasma 3.4(L) 3.7 - 4.8 mmol/L 07/20/2022 5:02 AM EST [facility] Chloride, Plasma 104 97 - 107 mmol/L 07/20/2022 5:02 AM EST [facility] CO2, Plasma 23 22 - 29 mmol/L 07/20/2022 5:02 AM EST [facility] Anion Gap 10 6 - 16 mmol/L 07/20/2022 5:02 AM EST [facility] Total Calcium, Plasma 8.8(L) 8.9 - 10.2 mg/dL 07/20/2022 5:02 AM EST [facility] Total Protein 6.6 6.3 - 7.9 g/dL 07/20/2022 5:02 AM EST [facility] Albumin, Plasma 4.0 3.5 - 5.2 g/dL 07/20/2022 5:02 AM EST [facility] AST, Plasma 12 11 - 32 U/L 07/20/2022 5:02 AM EST [facility] ALT, Plasma 9 8 - 33 U/L 07/20/2022 5:02 AM EST [facility] Alkaline Phosphatase, Plasma 27(L) 35 - 104 U/L 07/20/2022 5:02 AM EST [facility] Total Bilirubin, Plasma 0.2 0.2 - 1.1 mg/dL 07/20/2022 5:02 AM EST [facility] eGFRcr 103.4 mL/min/1.7 3m*2 07/20/2022 5:02 AM EST [facility] Comment: Reported eGFRcr in mL/min/1.73m2 is based the CKD-EPI 2020 equation that does not use a race coefficient. Effective 01/02/22 our laboratory changed the eGFR calculation to the CKD-EPI 2020 equation from the previously reported eGFR, based on the MDRD equation. ??For comparisons between the two equations, please see laboratory website: ??[email or web address] Blood Venous blood specimen / Unknown Venipuncture / Unknown 07/20/2022 3:57 AM EST 07/20/2022 4:08 AM EST us Sriram Higgins DO LAB BLOOD ORDERABLES Final Res ult Performing Organization Address City/State/[facility] Co de Phone Number [facility] [address] [place] [id number] * CBC (07/20/2022 3:57 AM EST) WBC Count 6.05 3.70 - 10.30 10*3/uL LAB HEMATOLOGY METHOD 07/20/2022 4:05 AM EST [facility] RBC Count 3.96 3.90 - 5.20 10*6/uL LAB HEMATOLOGY METHOD 07/20/2022 4:05 AM EST [facility] HGB 11.9 11.2 - 15.7 g/dL LAB HEMATOLOGY METHOD 07/20/2022 4:05 AM EST [facility] HCT 35.9 34.0 - 45.0 % LAB HEMATOLOGY METHOD 07/20/2022 4:05 AM EST [facility] Platelet Count 218 155 - 369 10*3/uL LAB HEMATOLOGY METHOD 07/20/2022 4:05 AM EST [facility] MCV 91 79 - 98 fL LAB HEMATOLOGY METHOD 07/20/2022 4:05 AM EST [facility] MCH 30.1 26.0 - 32.0 pg LAB HEMATOLOGY METHOD 07/20/2022 4:05 AM EST [facility] MCHC 33.1 30.7 - 35.5 g/dL LAB HEMATOLOGY METHOD 07/20/2022 4:05 AM EST [facility] RDW 12.8 11.5 - 14.5 % LAB HEMATOLOGY METHOD 07/20/2022 4:05 AM EST [facility] MPV 9.4 8.8 - 12.5 fL LAB HEMATOLOGY METHOD 07/20/2022 4:05 AM EST [facility] nRBC 0.0 <=0.0 per 100 WBCs LAB HEMATOLOGY METHOD 07/20/2022 4:05 AM EST [facility] Blood Venous blood specimen / Unknown Venipuncture / Unknown 07/20/2022 3:57 AM EST 07/20/2022 4:03 AM EST Srriam Higgins DO LAB BLOOD ORDERABLES Final Res ult [facility] [address] [place] [address] * SARS CoV-2/COVID-19 by PCR (07/20/2022 3:57 AM EST) SARS CoV-2/COVID-1 9 RNA PCR Result Not Detected Not Detected 07/20/2022 5:00 AM EST [facility] Swab Nasopharyngeal structure / Unknown Non-blood Collection / Unknown 07/20/2022 3:57 AM EST 07/20/2022 4:16 AM EST Narrative [facility] - 07/20/2022 5:00 AM EST This assay is for in vitro diagnostic use under FDA emergency use authorization only. Negative results do not preclude infection with the SARS CoV-2 virus and should not be the sole basis of a patient treatment/management or public health decision. Follow up testing should be performed according to the current CDC recommendations. This test was performed on the Xpert Xpress SARS CoV-2 test, a PCR-based method. Negative results should be considered presumptive and do not preclude current or future infection obtained through community transmission or other exposures. Negative results must be considered in the context of an individual's recent exposures, history, presence of clinical signs and symptoms consistent with COVID-19. Sriram Higgins DO LAB MICROBIOLOGY - GENERAL ORD ERABLES Final Result [facility] [address] [place] [address] * CT Abdomen Pelvis w IV Contrast (07/19/2022 11:45 PM EST) Anatomical Region Laterality Modality Abdomen, Pelvis Computed Tomogra phy Impressions 07/20/2022 12:11 AM EST No acute intra-abdominal findings. The extrahepatic bile duct is normal in size, without radiopaque stones or obstructing mass. Ectopic insertion of the left ureter at the left anterior base of the bladder. CRITICAL RESULT: ?? No. COMMUNICATION: Per this written report. Approved by Drake English MD on 07/19/2022 11:49 PM By electronically signing this report, I, the attending physician, attest that I have personally reviewed the images/data for the above examination(s) and agree with the final edited report. Dictated by Drake English MD on 07/19/2022 11:49 PM Signed by Bret Johns MD on 07/20/2022 12:11 AM Narrative 07/20/2022 12:11 AM EST Exam/Procedure: CT ABDOMEN PELVIS W IV CONTRAST ordered by FADUMO MCKEE, [id number] CLINICAL INDICATION: diffuse abdominal pain, diarrhea TECHNIQUE: Imaging of the abdomen and pelvis was performed, from lung bases through pubic symphysis, using spiral technique, following administration of IV contrast, Omnipaque 300, 100 mL. Delayed (excretory phase) images were performed through the kidneys. Reformatted images in the coronal and sagittal planes were generated from the axial data set to facilitate diagnostic accuracy. Total DLP (Dose-Length Product): 1401.84 mGy.cm. Please note: The reported value represents the total of one or more individual components during the CT acquisition on this date and at this time, and as such, the same value may appear in more than one CT report depending on the interpreting/reporting physicians. COMPARISON: Right upper quadrant ultrasound, same day. FINDINGS: Mild respiratory motion artifact Lung Bases: Dependent atelectasis of lung bases. Old calcified granuloma right lung base. Liver/Gallbladder/Biliary system: The liver demonstrates homogeneous enhancement. Normal Gallbladder. [The gallstones reported on the ultrasound is not visible on this exam.] No intra- or extra-hepatic biliary ductal dilatation. The extrahepatic, common. Bile duct measures 6 mm. Spleen: The spleen enhances homogeneously. Pancreas: The pancreas enhances homogeneously. Adrenals: The adrenals are morphologically unremarkable. Kidneys: The kidneys demonstrate symmetric nephrogram and excretion. No renal or ureteral calculi. No hydronephrosis. There are a few 2 to 3 mm hypoattenuating lesions in the right kidney, which are nonspecific. Ectopic insertion of the left ureter at the left anterior bladder base (series 3, images 271 and 277). Bowel/Mesentery: The small bowel loops are not dilated. The large bowel loops are not dilated. The appendix is visualized and normal. Vessels/Lymph Nodes: Minimal vascular calcifications. No lymphadenopathy within the abdomen or pelvis. Fluid Survey: No free fluid in the abdomen. No free fluid in the pelvis. Pelvis: Status post hysterectomy. Body Wall: Normal. Bones: No acute fracture. Procedure Note Bret Johns MD - 07/20/2022 Exam/Procedure: CT ABDOMEN PELVIS W IV CONTRAST ordered by FADUMO BREWSTER [id number] CLINICAL INDICATION: diffuse abdominal pain, diarrhea TECHNIQUE: Imaging of the abdomen and pelvis was performed, from lung bases throughpubic symphysis, using spiral technique, following administration of IVcontrast, Omnipaque 300, 100 mL. Delayed (excretory phase) images wereperformed through the kidneys. Reformatted images in the coronal andsagittal planes were generated from the axial data set to facilitatediagnostic accuracy. Total DLP (Dose-Length Product): 1401.84 mGy.cm. Please note: The reportedvalue represents the total of one or more individual components during theCT acquisition on this date and at this time, and as such, the same valuemay appear in more than one CT report depending on theinterpreting/reporting physicians. COMPARISON: Right upper quadrant ultrasound, same day. FINDINGS: Mild respiratory motion artifact Lung Bases: Dependent atelectasis of lung bases. Old calcified granulomaright lung base. Liver/Gallbladder/Biliary system: The liver demonstrates homogeneousenhancement. Normal Gallbladder. [The gallstones reported on theultrasound is not visible on this exam.] No intra- or extra-hepaticbiliary ductal dilatation. The extrahepatic, common. Bile duct measures 6mm. Spleen: The spleen enhances homogeneously. Pancreas: The pancreas enhances homogeneously. Adrenals: The adrenals are morphologically unremarkable. Kidneys: The kidneys demonstrate symmetric nephrogram and excretion. Norenal or ureteral calculi. No hydronephrosis. There are a few 2 to 3 mmhypoattenuating lesions in the right kidney, which are nonspecific.Ectopic insertion of the left ureter at the left anterior bladder base(series 3, images 271 and 277). Bowel/Mesentery: The small bowel loops are not dilated. The large bowelloops are not dilated. The appendix is visualized and normal. Vessels/Lymph Nodes: Minimal vascular calcifications. No lymphadenopathywithin the abdomen or pelvis. Fluid Survey: No free fluid in the abdomen. No free fluid in the pelvis. Pelvis: Status post hysterectomy. Body Wall: Normal. Bones: No acute fracture. IMPRESSION: No acute intra-abdominal findings. The extrahepatic bile duct is normal insize, without radiopaque stones or obstructing mass. Ectopic insertion of the left ureter at the left anterior base of thebladder. CRITICAL RESULT: No. COMMUNICATION: Per this written report. Approved by Drake English MD on 07/19/2022 11:49 PM By electronically signing this report, I, the attending physician, attestthat I have personally reviewed the images/data for the aboveexamination(s) and agree with the final edited report. Dictated by Drake English MD on 07/19/2022 11:49 PM Signed by Bret Johns MD on 07/20/2022 12:11 AM us Fadumo Mckee MD IMG CT PROCEDURES Final Resul t * Urinalysis with reflex microscopic (07/19/2022 8:10 PM EST) Color, Urine Yellow LAB URINALYSIS - AUTOMATED METHOD 07/19/2022 8:33 PM EST [facility] Clarity, Urine Cloudy LAB URINALYSIS - AUTOMATED METHOD 07/19/2022 8:33 PM EST [facility] Spec Pitts, Urine 1.029 <=1.005 to >=1.030 LAB URINALYSIS - AUTOMATED METHOD 07/19/2022 8:33 PM EST [facility] pH, Urine 5.5 4.5 to 8 LAB URINALYSIS - AUTOMATED METHOD 07/19/2022 8:33 PM EST [facility] Protein, Urine Negative Negative mg/dL LAB URINALYSIS - AUTOMATED METHOD 07/19/2022 8:33 PM EST [facility] Glucose, Urine Negative Negative mg/dL LAB URINALYSIS - AUTOMATED METHOD 07/19/2022 8:33 PM EST [facility] Ketones, Urine Negative Negative mg/dL LAB URINALYSIS - AUTOMATED METHOD 07/19/2022 8:33 PM EST [facility] Blood, Urine Negative Negative LAB URINALYSIS - AUTOMATED METHOD 07/19/2022 8:33 PM EST [facility] Bilirubin, Urine Negative Negative LAB URINALYSIS - AUTOMATED METHOD 07/19/2022 8:33 PM EST [facility] Urobilinogen, Urine 0.2 0.2 to 1.0 mg/dL LAB URINALYSIS - AUTOMATED METHOD 07/19/2022 8:33 PM EST [facility] Leukocytes, Urine Negative Negative LAB URINALYSIS - AUTOMATED METHOD 07/19/2022 8:33 PM EST [facility] Nitrite, Urine Negative Negative LAB URINALYSIS - AUTOMATED METHOD 07/19/2022 8:33 PM EST [facility] Urine Urine specimen obtained by clean catch procedure / Unknown Non-blood Collection / Unknown 07/19/2022 8:10 PM EST 07/19/2022 8:30 PM EST us Fadumo Mckee MD LAB URINE ORDERABLES Final Re sult [facility] [address] [place] [address] * US Abdomen RUQ (07/19/2022 8:05 PM EST) Anatomical Region Laterality Modality Gallbladder Ultrasound Impressions 07/19/2022 8:15 PM EST Cholelithiasis without sonographic evidence of cholecystitis. Mildly prominent diameter of the common bile duct, could be indicative of distal choledocholithiasis. No intrahepatic ductal dilation is identified. CRITICAL RESULT: ?? No. COMMUNICATION: Per this written report. Dictated by Eulogio Rocha MD on 07/19/2022 8:13 PM Signed by Eulogio Rocha MD on 07/19/2022 8:15 PM Narrative 07/19/2022 8:15 PM EST Exam/Procedure: US ABDOMEN RUQ ordered by FADUMO MCKEE [id number] CLINICAL INDICATION: RUQ pain TECHNIQUE: Multiplanar grayscale ultrasound of the right upper quadrant of the abdomen. COMPARISON: None. FINDINGS: Visualized Pancreas: Partial imaging of the pancreas is unremarkable. Appropriate directional flow within the splenic vein on Doppler. Liver: Normal echogenicity without focal lesion identified. Hepatopedal portal vein. Gallbladder: Shadowing gallstones near the neck. No gallbladder wall thickening. No pericholecystic fluid. Sonographic Piña's is reportedly negative. Bile Ducts: No intra-hepatic biliary ductal dilatation. Common bile duct is mildly prominent at 7.5 mm in diameter. Right Kidney: The right kidney measures 9.3 cm in length. Normal cortical echogenicity without focal mass, stone, or hydronephrosis. Fluid Survey: No ascites. Procedure Note Eulogio Rocha MD - 07/19/2022 Exam/Procedure: US ABDOMEN RUQ ordered by FADUMO MCKEE, [id number] CLINICAL INDICATION: RUQ pain TECHNIQUE: Multiplanar grayscale ultrasound of the right upper quadrant of theabdomen. COMPARISON: None. FINDINGS: Visualized Pancreas: Partial imaging of the pancreas is unremarkable.Appropriate directional flow within the splenic vein on Doppler. Liver: Normal echogenicity without focal lesion identified. Hepatopedalportal vein. Gallbladder: Shadowing gallstones near the neck. No gallbladder wallthickening. No pericholecystic fluid. Sonographic Piña's is reportedlynegative. Bile Ducts: No intra-hepatic biliary ductal dilatation. Common bile ductis mildly prominent at 7.5 mm in diameter. Right Kidney: The right kidney measures 9.3 cm in length. Normal corticalechogenicity without focal mass, stone, or hydronephrosis. Fluid Survey: No ascites. IMPRESSION: Cholelithiasis without sonographic evidence of cholecystitis. Mildly prominent diameter of the common bile duct, could be indicative ofdistal choledocholithiasis. No intrahepatic ductal dilation isidentified. CRITICAL RESULT: No. COMMUNICATION: Per this written report. Dictated by Eulogio Rocha MD on 07/19/2022 8:13 PM Signed by Eulogio Rocha MD on 07/19/2022 8:15 PM Fadumo Mckee MD IMG US PROCEDURES Final Resul t * Hepatitis C Virus (HCV) Quantitative PCR - ED (07/19/2022 6:45 PM EST) Hepatitis C Virus (HCV) Quantitative Interpretation Not Detected Not Detected . 07/21/2022 3:15 PM EST [facility] Hepatitis C Virus (HCV) Quantitative Viral Load Log Result <1.08 <1.08 log10 IU/mL 07/21/2022 3:15 PM EST [facility] Hepatitis C Virus (HCV) Quantitative IU/mL Result <12 <12 IU/mL 07/21/2022 3:15 PM EST [facility] Blood Venous blood specimen / Unknown Venipuncture / Unknown 07/19/2022 6:45 PM EST 07/19/2022 7:05 PM EST Narrative [facility] - 07/21/2022 3:15 PM EST The [employer] M2000 HCV test is a Real Time in vitro nucleic acid amplification test for the quantitation of Hepatitis C Viral (HCV) RNA in human serum in HCV-infected individuals. It is intended for use as an aid in the management of HCV-infected individuals undergoing anti-viral therapy. The dynamic range for this test is log10 = 1.08 to 8.00 and/or 12 to 100,000,000 IU/mL. The limit of detection (LOD) for this assay is 12 IU/mL and the limit of quantitation (LOQ) is 12 IU/mL. This assay is FDA approved for clinical use. Fadumo Mckee MD LAB BLOOD ORDERABLES Final Re sult [facility] [address] [place] [address] * HIV 1 & 2 Antibody/Antigen Screen (07/19/2022 6:45 PM EST) Pathologist [facility] HIV 1 & 2 Antibody/Antigen Screen Non Reactive Non Reactive 07/19/2022 7:46 PM EST [facility] Comment:Screening for HIV 1 & 2 antibodies, and P24 antigen is NONREACTIVE. No confirmatory testing is required. Blood Venous blood specimen / Unknown Venipuncture / Unknown 07/19/2022 6:45 PM EST 07/19/2022 7:05 PM EST Fadumo Mckee MD LAB BLOOD ORDERABLES Final Re sult Performing Organization Address City/[facility]/ZIP Co de Phone Number [facility] [address] [place] [address] * hCG qualitative (07/19/2022 6:45 PM EST) [facility] Test Negative Negative 07/19/2022 7:15 PM EST [facility] Blood Venous blood specimen / Unknown Venipuncture / Unknown 07/19/2022 6:45 PM EST 07/19/2022 6:50 PM EST Narrative [facility] - 07/19/2022 7:15 PM EST Reference Range: Males and non- females: Negative. Fadumo Mckee MD LAB BLOOD ORDERABLES Final Re sult Performing Organization Address City/[facility] Co de Phone Number [facility] [address] [place] [address] * (ABNORMAL) CBC w/diff (07/19/2022 6:45 PM EST) [facility] WBC Count 10.05 3.70 - 10.30 10*3/uL LAB HEMATOLOGY METHOD 07/19/2022 6:52 PM EST [facility] RBC Count 4.51 3.90 - 5.20 10*6/uL LAB HEMATOLOGY METHOD 07/19/2022 6:52 PM EST [facility] HGB 13.6 11.2 - 15.7 g/dL LAB HEMATOLOGY METHOD 07/19/2022 6:52 PM EST [facility] HCT 40.4 34.0 - 45.0 % LAB HEMATOLOGY METHOD 07/19/2022 6:52 PM EST [facility] Platelet Count 267 155 - 369 10*3/uL LAB HEMATOLOGY METHOD 07/19/2022 6:52 PM EST [facility] MCV 90 79 - 98 fL LAB HEMATOLOGY METHOD 07/19/2022 6:52 PM EST [facility] MCH 30.2 26.0 - 32.0 pg LAB HEMATOLOGY METHOD 07/19/2022 6:52 PM EST [facility] MCHC 33.7 30.7 - 35.5 g/dL LAB HEMATOLOGY METHOD 07/19/2022 6:52 PM EST [facility] RDW 12.6 11.5 - 14.5 % LAB HEMATOLOGY METHOD 07/19/2022 6:52 PM EST [facility] MPV 9.1 8.8 - 12.5 fL LAB HEMATOLOGY METHOD 07/19/2022 6:52 PM EST [facility] nRBC 0.0 <=0.0 per 100 WBCs LAB HEMATOLOGY METHOD 07/19/2022 6:52 PM [facility] Differential Type Automated LAB HEMATOLOGY METHOD 07/19/2022 6:52 PM [facility] Neutrophils % 88.0 % LAB HEMATOLOGY METHOD 07/19/2022 6:52 PM [facility] Lymphocytes % 7.0 % LAB HEMATOLOGY METHOD 07/19/2022 6:52 PM EST [facility] Monocytes % 4.0 % LAB HEMATOLOGY METHOD 07/19/2022 6:52 PM EST [facility] Eosinophils % 1.0 % LAB HEMATOLOGY METHOD 07/19/2022 6:52 PM EST [facility] Basophils % 0.0 % LAB HEMATOLOGY METHOD 07/19/2022 6:52 PM [facility] Immature Granulocytes % 0.0 % LAB HEMATOLOGY METHOD 07/19/2022 6:52 PM [facility] Neutrophils Absolute 8.80(H) 1.60 - 6.10 10*3/uL LAB HEMATOLOGY METHOD 07/19/2022 6:52 PM EST [facility] Lymphocytes Absolute 0.70(L) 1.20 - 3.90 10*3/uL LAB HEMATOLOGY METHOD 07/19/2022 6:52 PM EST [facility] Monocytes Absolute 0.41 0.30 - 0.90 10*3/uL LAB HEMATOLOGY METHOD 07/19/2022 6:52 PM EST [facility] Eosinophils Absolute 0.08 0.00 - 0.50 10*3/uL LAB HEMATOLOGY METHOD 07/19/2022 6:52 PM [facility] Basophils Absolute 0.03 0.00 - 0.10 10*3/uL LAB HEMATOLOGY METHOD 07/19/2022 6:52 PM EST [facility] Immature Granulocytes Absolute 0.03 0.00 - 0.06 10*3/uL LAB HEMATOLOGY METHOD 07/19/2022 6:52 PM EST [facility] Blood Venous blood specimen / Unknown Venipuncture / Unknown 07/19/2022 6:45 PM EST 07/19/2022 6:50 PM EST Narrative [facility] - 07/19/2022 6:52 PM EST Therapeutic decision making should be based on absolute values, rather than percentages. Result Jodi Mckee MD LAB BLOOD ORDERABLES Final Re sult Performing Organization Address [facility]/ZIP Co de Phone Number [facility] [address] [place] [address] * Lipase (07/19/2022 6:45 PM EST) Pathologist [facility] Lipase, Plasma 32 19 - 63 U/L 07/19/2022 7:15 PM EST [facility] Blood Venous blood specimen / Unknown Venipuncture / Unknown 07/19/2022 6:45 PM EST 07/19/2022 6:50 PM EST Result Jodi Mckee MD LAB BLOOD ORDERABLES Final Re sult Performing Organization Address [facility] Co de Phone Number [facility] [address] [place] [address] * (ABNORMAL) Hepatitis C Antibody - ED (07/19/2022 6:45 PM EST) Pathologist [facility] Hepatitis C Antibody Positive(A ) Negative 07/19/2022 7:58 PM EST [facility] Blood Venous blood specimen / Unknown Venipuncture / Unknown 07/19/2022 6:45 PM EST 07/19/2022 7:05 PM EST Result Jodi Mckee MD LAB BLOOD ORDERABLES Final Re sult Performing Organization Address City/[facility]/ZIP Co de Phone Number [facility] [address] [place] [phone] * (ABNORMAL) CMP (07/19/2022 6:45 PM EST) Glucose, Plasma 105(H) 74 - 99 mg/dL 07/19/2022 7:15 PM EST [facility] BUN, Plasma 17 7 - 21 mg/dL 07/19/2022 7:15 PM EST [facility] Creatinine, Plasma 0.69 0.60 - 1.10 mg/dL 07/19/2022 7:15 PM EST [facility] BUN/Creatinine Ratio 25 07/19/2022 7:15 PM EST [facility] Sodium, Plasma 140 136 - 145 mmol/L 07/19/2022 7:15 PM EST [facility] Potassium, Plasma 4.1 3.7 - 4.8 mmol/L 07/19/2022 7:15 PM EST [facility] Chloride, Plasma 106 97 - 107 mmol/L 07/19/2022 7:15 PM EST [facility] CO2, Plasma 23 22 - 29 mmol/L 07/19/2022 7:15 PM EST [facility] Anion Gap 11 6 - 16 mmol/L 07/19/2022 7:15 PM EST [facility] Total Calcium, Plasma 9.4 8.9 - 10.2 mg/dL 07/19/2022 7:15 PM EST [facility] Total Protein 7.7 6.3 - 7.9 g/dL 07/19/2022 7:15 PM EST [facility] Albumin, Plasma 4.5 3.5 - 5.2 g/dL 07/19/2022 7:15 PM EST [facility] AST, Plasma 11 11 - 32 U/L 07/19/2022 7:15 PM EST [facility] ALT, Plasma 10 8 - 33 U/L 07/19/2022 7:15 PM EST [facility] Alkaline Phosphatase, Plasma 35 35 - 104 U/L 07/19/2022 7:15 PM EST [facility] Total Bilirubin, Plasma 0.2 0.2 - 1.1 mg/dL 07/19/2022 7:15 PM EST [facility] eGFRcr 112.7 mL/min/1.7 3m*2 07/19/2022 7:15 PM EST [facility] Comment: Reported eGFRcr in mL/min/1.73m2 is based the CKD-EPI 2021 equation that does not use a race coefficient. Effective 01/02/22 our laboratory changed the eGFR calculation to the CKD-EPI 2021 equation from the previously reported eGFR, based on the MDRD equation. ??For comparisons between the two equations, please see laboratory website: ??[email or web address]/[email or web address] Blood Venous blood specimen / Unknown Venipuncture / Unknown 07/19/2022 6:45 PM EST 07/19/2022 6:50 PM EST us Fadumo Mckee MD LAB BLOOD ORDERABLES Final Re sult [facility] [address] [place] [id number] documented in this encounter Visit Diagnoses Diagnosis Calculus of gallbladder without cholecystitis without obstruction- Primary Calculus of gallbladder without cholecystitis without obstruction Cholelithiasis Calculus of gallbladder without mention of cholecystitis or obstruction Dilated cbd, acquired Diarrhea GERD (gastroesophageal reflux disease) Esophageal reflux History of psychiatric treatment documented in this encounter Admitting Diagnoses Diagnosis Calculus of gallbladder without cholecystitis without obstruction documented in this encounter Administered Medications Inactive Administered Medications - up to 3 most recent administrations Medication Order MAR Action Action Date Dose Rate Site acetaminophen (Tylenol) tablet 1,000 mg 1,000 mg, Oral, Every 6 hours scheduled, First dose on 07/20/22 at 0600, Until Discontinued, Routine Given 07/22/2022 12:51 PM EST 1,000 mg Given 07/21/2022 11:11 PM EST 1,000 mg Given 07/21/2022 5:04 PM EST 1,000 mg dextrose 5 % and lactated Ringer's infusion 100 mL/hr, Intravenous, Continuous, Starting on 07/20/22 at 0330, Until 07/21/22 at 0955, Routine New Bag 07/21/2022 12:32 AM EST 100 mL/hr 100 m L/hr New Bag 07/20/2022 3:44 AM EST 100 mL/hr 100 mL/hr dextrose 5 % and lactated Ringer's infusion 50 mL/hr, Intravenous, Continuous, Starting on 07/21/22 at 1015, Until 07/22/22 at 2006, Routine New Bag 07/22/2022 8:59 AM EST 50 mL/ hr 50 mL/hr New Bag 07/21/2022 12:34 PM EST 50 mL/hr 50 mL/hr enoxaparin (Lovenox) syringe 40 mg 40 mg, Subcutaneous, Daily, First dose on 07/20/22 at 0900, Until Discontinued, Routine, On hold since 07/21/2022 at 0059 until manually unheld Given 07/20/2022 8:36 AM EST 40 mg Le ft Lower Abdomen enoxaparin (Lovenox) syringe 40 mg 40 mg, Subcutaneous, Daily, First dose (after last modification) on 07/22/22 at 0900, Until Discontinued, Routine, Recovery(Phase II-Outpatient)/On Unit(Inpatient) Given 07/22/2022 8:34 AM EST 40 mg Ri ght Lower Abdomen fentaNYL (Sublimaze) injection 50 mcg 50 mcg, Intravenous, Every 5 min PRN, 4 doses, Starting on 07/21/22 at 0920, Until 07/21/22 at 1217, Routine, Recovery (Phase I only), pain score of 5-8 out of 10 Given 07/21/2022 11:09 AM EST 50 mcg Given 07/21/2022 10:45 AM EST 50 mcg FLUoxetine (PROzac) capsule 60 mg 60 mg, Oral, Daily, First dose on 07/22/22 at 1145, Until Discontinued Given 07/22/2022 12:51 PM EST 60 mg HYDROmorphone (Dilaudid) injection 0.5 mg 0.5 mg, Intravenous, Once, 1 dose, On Fri07/19/22 at 2220, STAT Given 07/19/2022 10:26 PM EST 0.5 mg HYDROmorphone (Dilaudid) injection 0.5 mg 0.5 mg, Intravenous, Once, 1 dose, On 07/20/22 at 0415, STAT Given 07/20/2022 4:19 AM EST 0.5 mg ibuprofen tablet 400 mg 400 mg, Oral, Every 6 hours, First dose on 07/20/22 at 0330, Until Discontinued, Routine Given 07/22/2022 3:07 PM EST 400 mg Given 07/22/2022 8:33 AM EST 400 mg Given 07/22/2022 3:54 AM EST 400 mg iohexol (OMNIPaque) 350 MG/ML injection 100 mL 100 mL, Intravenous, Once in imaging, 1 dose, Starting on Fri07/19/22 at 2344, Until Fri07/19/22 at 2346, Routine, Imaging Protocol Orders Given 07/19/2022 11:46 PM EST 100 mL ipratropium-albuterol (Duo-Neb) 0.5-2.5 mg/3 mL nebulizer solution 3 mL 3 mL, Nebulization, Once, 1 dose, On 07/21/22 at 1115, Routine, Recovery (Phase I only) Given 07/21/2022 11:05 AM EST 3 mL lactated Ringer's infusion 1,000 mL 1,000 mL, Intravenous, Once, 1 dose, On Fri07/19/22 at 1845, STAT New Bag 07/19/2022 8:10 PM EST 1,000 mL methocarbamol (Robaxin) tablet 500 mg 500 mg, Oral, 4 times daily, First dose on 07/21/22 at 1400, Until Discontinued, Routine, Recovery(Phase II-Outpatient)/On Unit(Inpatient) Given 07/22/2022 3:07 PM EST 500 mg Given 07/22/2022 8:33 AM EST 500 mg Given 07/21/2022 9:21 PM EST 500 mg morphine PF 4 mg 4 mg, Intravenous, Once, 1 dose, On Fri07/19/22 at 1845, STAT Given 07/19/2022 6:48 PM EST 4 mg morphine PF 4 mg 4 mg, Intravenous, Once, 1 dose, On Fri07/19/22 at 2035, STAT Given 07/19/2022 8:58 PM EST 4 mg ondansetron (Zofran) injection 4 mg 4 mg, Intravenous, Once, 1 dose, On Fri07/19/22 at 1845, STAT Given 07/19/2022 6:48 PM EST 4 mg ondansetron (Zofran) injection 4 mg 4 mg, Intravenous, Once, 1 dose, On Fri07/19/22 at 2035, STAT Given 07/19/2022 8:57 PM EST 4 mg ondansetron (Zofran) injection 4 mg 4 mg, Intravenous, Every 6 hours PRN, Starting on 07/20/22 at 1005, Until 07/22/22 at 2006, Routine, nausea, vomiting Given 07/22/2022 4:05 AM EST 4 mg Given 07/21/2022 1:08 PM EST 4 mg Given 07/20/2022 4:15 PM EST 4 mg oxyCODONE (Roxicodone) immediate release tablet 10 mg 10 mg, Oral, Once as needed, 1 dose, Starting on 07/21/22 at 0920, Until 07/21/22 at 1045, Routine, Recovery (Phase I only), pain score of 6-8 out of 10 Given 07/21/2022 10:45 AM EST 10 mg oxyCODONE (Roxicodone) immediate release tablet 5 mg 5 mg, Oral, Every 4 hours PRN, Starting on 07/20/22 at 0805, Until 07/22/22 at 2006, Routine, moderate pain, severe pain Given 07/22/2022 3:55 AM EST 5 mg Given 07/21/2022 8:46 PM EST 5 mg Given 07/21/2022 2:23 AM EST 5 mg piperacillin-tazobactam (Zosyn) 3.375 g in sodium chloride 0.9% 100 mL IVPB (Mini-Bag Plus) 3.375 g, Intravenous, Every 6 hours, First dose on 07/20/22 at 0835, Until Discontinued, Routine Bolus 07/21/2022 8:03 AM EST 3.375 g New Bag 07/21/2022 4:00 AM EST 3.375 g New Bag 07/20/2022 10:39 PM EST 3.375 g potassium chloride IVPB 10 mEq 10 mEq, Intravenous, Every 1 hour, 6 doses, First dose on 07/20/22 at 0555, Last dose on 07/20/22 at 1055, Routine New Bag 07/20/2022 4:25 PM EST 10 mEq New Bag 07/20/2022 1:59 PM EST 10 mEq New Bag 07/20/2022 10:58 AM EST 10 mEq promethazine (Phenergan) injection 12.5 mg 12.5 mg, Intravenous, Once, 1 dose, On 07/20/22 at 0200, STAT Given 07/20/2022 2:32 AM EST 12.5 mg promethazine (Phenergan) injection 12.5 mg 12.5 mg, Intravenous, Once, 1 dose, On 07/20/22 at 1300, Routine Given 07/20/2022 1:22 PM EST 12.5 mg promethazine (Phenergan) injection 12.5 mg 12.5 mg, Intravenous, Every 6 hours PRN, Starting on 07/20/22 at 2113, Until 07/22/22 at 2006, Routine, nausea, vomiting, Restricted to patients refractory to ondansetron. When rapid onset is required and oral is insufficient or NPO Given 07/22/2022 8:34 AM EST 12.5 mg Given 07/21/2022 11:12 PM EST 12.5 mg Given 07/21/2022 5:11 PM EST 12.5 mg documented in this encounter Active and Recently Administered Medications Times are shown in EST. Scheduled Medication Order 07/20/2022 07/21/2022 07/22/2022 acetaminophen (Tylenol) tablet 1,000 mg 1,000 mg, Oral, Every 6 hours scheduled, First dose on 07/20/22 at 0600, Until Discontinued, Routine 0539 (Not Given - Provider: Taniya Sr RN - Reason: NPO)1358 (Not Given - Provider: Yasmin Estrada RN - Reason: Hold for condition: must add comment - Comment: nausea)1834 (Given - Provider: Yasmin Estrada RN) 0156 (Not Given - Provider: Mitra Madsen Feolog - Reason: Patient/family refused)0616 (Not Given - Provider: Mitra Q Feolog - Reason: Patient in procedure)0740 (AUG Hold - Provider: Automatic Transfer Provider - Reason: Patient in procedure)1101 (MAR Unhold - Provider: Carolyn Santa, CHRISTOPHER)1106 (Given - Provider: Carolyn Santa, CHRISTOPHER)1704 (Given - Provider: Jennifer Camacho)2311 (Given - Provider: Fawn Garnett, CHRISTOPHER) 0558 (Not Given - Provider: Fawn Garnett RN - Reason: Patient/family refused - Comment: patient sleeping)1251 (Given - Provider: Celine Hampton RN)1800 (Canceled Entry - Provider: Automatic Discharge Provider - Comment: Automatically canceled at discontinue of medication order) enoxaparin (Lovenox) syringe 40 mg (CANCELED) 40 mg, Subcutaneous, Daily, First dose on 07/20/22 at 0900, Until Discontinued, Routine, On hold since Fri07/21/2022 at 0059 until manually unheld 0836 (Given - Provider: Yasmin Estrada RN) 0059 (Held by provider - Provider: Mindy Layne MD - Reason: Upcoming test/procedure)0900 (Dose Auto Held - Provider: Mindy Layne MD)0955 (Unheld by provider - Provider: Lalitha Styles MD) enoxaparin (Lovenox) syringe 40 mg 40 mg, Subcutaneous, Daily, First dose (after last modification) on 07/22/22 at 0900, Until Discontinued, Routine, Recovery(Phase II-Outpatient)/On Unit(Inpatient) 0834 (Given - Provid er: Celine Hampton RN) FLUoxetine (PROzac) capsule 60 mg 60 mg, Oral, Daily, First dose on 07/22/22 at 1145, Until Discontinued 1251 (Given - Provid er: Celine Hampton RN) HYDROmorphone (Dilaudid) injection 0.5 mg (COMPLETED) 0.5 mg, Intravenous, Once, 1 dose, On 07/20/22 at 0415, STAT 0419 (Given - Provider: Taniya Sr RN) ibuprofen tablet 400 mg 400 mg, Oral, Every 6 hours, First dose on 07/20/22 at 0330, Until Discontinued, Routine 0344 (Given - Provider: Taniya Sr RN)0836 (Given - Provider: Yasmin Estrada RN)1616 (Given - Provider: Yasmin Estrada RN)2247 (Given - Provider: Mitra Q Feolog) 0411 (Not Given - Provider: Mitra Q Feolog - Reason: Patient/family refused)0740 (AUG Hold - Provider: Automatic Transfer Provider - Reason: Patient in procedure)0930 (Dose Auto Held - Provider: Automatic Transfer Provider)1217 (MAR Unhold - Provider: Automatic Transfer Provider)1540 (Given - Provider: Jennifer Camacho)2046 (Given - Provider: Fawn Garnett RN) 0354 (Given - Provider: Fawn Garnett RN)0833 (Given - Provider: Celine Hampton RN)1507 (Given - Provider: Celine Hampton RN) ipratropium-albuterol (Duo-Neb) 0.5-2.5 mg/3 mL nebulizer solution 3 mL (COMPLETED) 3 mL, Nebulization, Once, 1 dose, On 07/21/22 at 1115, Routine, Recovery (Phase I only) 1105 (Given - Provider: Teetee Montesinos) methocarbamol (Robaxin) tablet 500 mg 500 mg, Oral, 4 times daily, First dose on 07/21/22 at 1400, Until Discontinued, Routine, Recovery(Phase II-Outpatient)/On Unit(Inpatient) 1412 (Given - Provider: Jennifer Camacho)1704 (Given - Provider: Jennifer Camacho)2121 (Given - Provider: Fawn Garnett RN) 0833 (Given - Provider: Celine Hampton RN)1507 (Given - Provider: Celine Hampton RN)1800 (Canceled Entry - Provider: Automatic Discharge Provider - Comment: Automatically canceled at discontinue of medication order) piperacillin-tazobacta m (Zosyn) 3.375 g in sodium chloride 0.9% 100 mL IVPB (Mini-Bag Plus) (CANCELED) 3.375 g, Intravenous, Every 6 hours, First dose on 07/20/22 at 0835, Until Discontinued, Routine 0930 (Not Given - Provider: Yasmin Estrada RN - Reason: Hold for condition: must add comment - Comment: lost IV access)1448 (New Bag - Provider: Yasmin Estrada RN)1834 (Stopped - Provider: Yasmin Estrada RN)2239 (New Bag - Provider: Mitra Q Feolog - Comment: no IV access) 0400 (New Bag - Provider: Mitra Q Feolog)0803 (Bolus - Provider: Tereso Mullins CRNA)1038 (Not Given - Provider: Carolyn Santa RN - Reason: Hold for condition: must add comment - Comment: given in OR at 0803) potassium chloride IVPB 10 mEq (COMPLETED) 10 mEq, Intravenous, Every 1 hour, 6 doses, First dose on 07/20/22 at 0555, Last dose on 07/20/22 at 1055, Routine 0618 (New Bag - Provider: Taniya Sr RN)0731 (New Bag - Provider: Yasmin Estrada RN - Comment: Number 2 of 6)0932 (New Bag - Provider: Yasmin Estrada RN - Comment: lost IV access. #3 of 6)1058 (New Bag - Provider: Yasmin Estrada RN - Comment: #4 of 6)1359 (New Bag - Provider: Yasmin Estrada RN - Comment: Multiple IV meds)1625 (New Bag - Provider: Yasmin Estrada RN - Comment: Pt does not tolerate med going at normal rate, must infuse slower.) promethazine (Phenergan) injection 12.5 mg (COMPLETED) 12.5 mg, Intravenous, Once, 1 dose, On 07/20/22 at 0200, STAT 0232 (Given - Provider: Lorraine Enriquez) promethazine (Phenergan) injection 12.5 mg (COMPLETED) 12.5 mg, Intravenous, Once, 1 dose, On 07/20/22 at 1300, Routine 1322 (Given - Provider: Yasmin Estrada RN) Continuous Medication Order 07/20/2022 07/21/2022 07/22/2022 dextrose 5 % and lactated Ringer's infusion (CANCELED) 100 mL/hr, Intravenous, Continuous, Starting on 07/20/22 at 0330, Until 07/21/22 at 0955, Routine 0344 (New Bag - Provider: Taniya Sr RN) 0032 (New Bag - Provider: Mitra Aponte) dextrose 5 % and lactated Ringer's infusion 50 mL/hr, Intravenous, Continuous, Starting on 07/21/22 at 1015, Until 07/22/22 at 2006, Routine 1234 (New Bag - Provider: Jennifer Camacho) 0859 (New Bag - Provider: Celine Hampton, RN)1451 (Stopped - Provider: Celine Hampton, RN) PRN Medication Order 07/20/2022 07/21/2022 07/22/2022 bupivacaine PF (Marcaine) 0.25 % injection (CANCELED) As needed, Starting on 07/21/22 at 0808, Until 07/21/22 at 0948, Routine, Intraprocedure 0808 (Given - Provider: Glenroy Kirby MD) fentaNYL (Sublimaze) injection 50 mcg (CANCELED) 50 mcg, Intravenous, Every 5 min PRN, 4 doses, Starting on 07/21/22 at 0920, Until 07/21/22 at 1217, Routine, Recovery (Phase I only), pain score of 5-8 out of 10 1045 (Given - Provider: Carolyn Santa RN)1109 (Given - Provider: Carolyn Santa RN) morphine PF 2 mg 2 mg, Intravenous, Every 3 hours PRN, 3 doses, Starting on 07/21/22 at 0954, Until 07/22/22 at 2005, Routine, Recovery(Phase II-Outpatient)/On Unit(Inpatient), severe pain ondansetron (Zofran) injection 4 mg 4 mg, Intravenous, Every 6 hours PRN, Starting on 07/20/22 at 1005, Until 07/22/22 at 2005, Routine, nausea, vomiting 1020 (Given - Provider: Yasmin Estrada RN)1615 (Given - Provider: Yasmin Estrada RN) 0740 (MAR Hold - Provider: Automatic Transfer Provider - Reason: Patient in procedure)1217 (MAR Unhold - Provider: Automatic Transfer Provider)1308 (Given - Provider: Jennifer Camacho) 0405 (Given - Provider: Fawn Garnett RN) oxyCODONE (Roxicodone) immediate release tablet 10 mg (COMPLETED)(Linked Group 1) 10 mg, Oral, Once as needed, 1 dose, Starting on 07/21/22 at 0920, Until 07/21/22 at 1045, Routine, Recovery (Phase I only), pain score of 6-8 out of 10 1045 (Given - Provider: Carolyn Santa RN) oxyCODONE (Roxicodone) immediate release tablet 5 mg 5 mg, Oral, Every 4 hours PRN, Starting on 07/20/22 at 0805, Until 07/22/22 at 2005, Routine, moderate pain, severe pain 0858 (Given - Provider: Yasmin Estrada RN)1616 (Given - Provider: Yasmin Estrada RN)2124 (Given - Provider: Mitra Aponte) 0223 (Given - Provider: Mitra Aponte)0740 (AUG Hold - Provider: Automatic Transfer Provider - Reason: Patient in procedure)1217 (AUG Unhold - Provider: Automatic Transfer Provider)2046 (Given - Provider: Fawn Garnett, CHRISTOPHER) 0355 (Given - Provider: Fawn Garnett RN) oxyCODONE (Roxicodone) immediate release tablet 5 mg 5 mg, Oral, Every 6 hours PRN, Starting on 07/21/22 at 0954, Until 07/22/22 at 2006, Routine, Recovery(Phase II-Outpatient)/On Unit(Inpatient), severe pain promethazine (Phenergan) injection 12.5 mg 12.5 mg, Intravenous, Every 6 hours PRN, Starting on 07/20/22 at 2113, Until 07/22/22 at 2005, Routine, nausea, vomiting, Restricted to patients refractory to ondansetron. When rapid onset is required and oral is insufficient or NPO 2200 (Given - Provider: Mitra Aponte) 0740 (AUG Hold - Provider: Automatic Transfer Provider - Reason: Patient in procedure)1217 ([facility] Unhold - Provider: Automatic Transfer Provider)1711 (Given - Provider: Jennifer Camacho)2312 (Given - Provider: Fawn Garnett RN) 0834 (Given - Provider: Celine Hampton RN) Linked Groups Order Group 1: oxyCODONE (Roxicodone) immediate release tablet 5 mg (COMPLETED) 5 mg, Oral, Once as needed, 1 dose, Starting on 07/21/22 at 0920, Until 07/21/22 at 1045, Routine, Recovery (Phase I only), pain score of 3-5 out of 10 Or oxyCODONE (Roxicodone) immediate release tablet 10 mg (COMPLETED)Jump to med 10 mg, Oral, Once as needed, 1 dose, Starting on 07/21/22 at 0920, Until 07/21/22 at 1045, Routine, Recovery (Phase I only), pain score of 6-8 out of 10 documented in this encounter Additional Health Concerns Infection Onset Date Last Indicated Resolved Time Gastrointestinal Rule-Out 07/20/2022 07/20/2022 1:09 PM EST documented as of this encounter Care Teams Bioinformatics Software Engineer Relationship Specialty Start Date End Date Markell Mejia MD [address] [place] [address] PCP - General 10/20/20 12/27/22 documented as of this encounter
--- OUTSIDE RECORDS SUMMARY | 2024-04-21 20:08 | XMS_ITS | Encounter Summary ---
Author Organization [facility] Address [address] [place] [address] Care Team Providers Care Adult And Pediatric Neurologist Name Role Phone Markell Mejia MD Primary Care Provider + [phone] Ira Melendez APRN Primary Care Provider [phone] Eliseo Ibarra MD Primary Care Provider + [phone] Encounter Details Date Type Department Care Team (Late st Contact Info) Description 12/19/2022 Orders Only External Location [address] [place] [id number] Provider, External Social History Tobacco Use Types Packs/Day Years Used Date Smoking Tobacco: Every Day Smokeless Tobacco: Never Alcohol Use Standard Drinks/Week [...] Description 05/17/2024 2:00 PM EST Office Visit [facility] Interventional Pain Medicine [address] [place] [address] Markell Lucas MD [address] [facility] [address] [place] [address] 06/08/2024 2:00 PM EST Procedure Visit [facility] Interventional Pain Medicine [address] [facility] [place] [address] Markell Lucas MD [address] [facility] [address] [place] [address] documented as of this encounter Procedures Procedure Name Priority Date/Time Associated Diagnosis Comments MR NEURO OUTSIDE IMAGES 12/19/2022 4:22 PM EDT documented in this encounter Results * MR NEURO OUTSIDE IMAGES (12/19/2022 4:22 PM EDT) Anatomical Region Laterality Modality Magnetic Resonan ce 12/19/2022 4:22 PM EDT us External Provider IMG MRI PROCEDURES Final Resul t documented in this encounter Visit Diagnoses Not on filedocumented in this encounter Additional Health Concerns Assessment Noted Time A Body Mass Index follow-up plan has been documented for the patient 12/13/2022 1:37 PM EDT documented as of this encounter Care Teams Adult And Pediatric Neurologist Relationship Specialty Start Date End Date Markell Mejia MD [address] [place] [id number] PCP - General 10/20/20 12/27/22 Ira Melendez APRN [address] [place] [address] [id number] PCP - General 12/28/22 01/29/24 Eliseo Ibarra MD [address] [place] [address] [address] [place] [address] PCP - General 01/30/24 documented as of this encounter
--- OUTSIDE RECORDS SUMMARY | 2024-04-21 20:08 | XMS_ITS | Encounter Summary ---
Author Organization [facility] Address [address] [place] [address] Care Team Providers Care Ultrasound Sonographer Name Role Phone AlIra vick Drew VALERIO Primary Care Provider [phone] Encounter Details Date Type Department Care Team (Late st Contact Info) Description 01/07/2023 Refill [facility] [address] [place] [address] Eufemia Acharya, PA [address] [place] [address] Cervicalgia (Primary Dx); Status post [...] Description 05/17/2024 2:00 PM EST Office Visit [facility] Interventional Pain Medicine [address] [place] [address] Markell Lucas MD [address] [facility] [address] [place] [address] 06/08/2024 2:00 PM EST Procedure Visit [facility] Interventional Pain Medicine [address] [place] [address] Markell Lucas MD [address] [facility] [address] [place] [address] documented as of this encounter [...] documented as of this encounter Care Teams Ultrasound Sonographer Relationship Specialty Start Date End Date Ira Melendez APRN [address] [place] [id number] PCP - General 12/28/22 01/29/24 documented as of this encounter
--- OUTSIDE RECORDS SUMMARY | 2024-04-21 20:08 | XMS_ITS | Encounter Summary ---
Author Organization [facility] Address [address] [place] [address] Care Team Providers Care Scale Expert Name Role Phone Ira Melendez APRN Primary Care Provider [phone] Encounter Details Date Type Department Care Team (Late st Contact Info) Description 01/07/2023 11:15 AM EDT Office Visit [place] [facility] [address] [place] [address] Osman Connor MD [address] [place] [address] Cervicalgia (Primary Dx); Status post cervical spinal fusion Social History Tobacco Use Types Packs/Day Years [...] Sign Reading Time Taken Comments Blood Pressure 140/86 01/07/2023 11:46 AM EDT Pulse - - Temperature - - Respiratory Rate - - Oxygen Saturation - - Inhaled Oxygen Concentration - - Weight 80.4 kg (177 lb 3.2 oz) 01/07/2023 11:46 AM EDT Height 157.5 cm (5' 2 ) 01/07/2023 11:46 AM EDT Body Mass Index 32.41 01/07/2023 11:46 AM EDT documented in this encounter Miscellaneous Notes * Progress Notes - Eufemia Moreau PA - 01/07/2023 11:15 AM EDT We had the pleasure of seeing your patient in our clinic today for continued Neurosurgical evaluation. Chief Complaint Follow-up to review new cervical MRI. History Of Present Illness Taniya Martin is a 42 y.o. female returns today for continued neurosurgical surveillance. She is here to follow-up after undergoing a new cervical MRI. The patient has a past medical history significant for a C5-6 ACDF completed in September [address] Osman Connor for cervical myelopathy. She did well postoperatively but was last seen in the clinic on December 13, 2022 with recurrent neckpain and pain/paresthesias in the bilateral upper extremities ongoing for the past couple of months. Symptoms have been progressively worsening since she was last seen. She had to the ER x1 visit secondary to increased pain. She returns today with ongoing symptoms of neck pain and pain/paresthesiasin the bilateral upper extremities, left greater than right. She frequently drops items. She statesher balance is terrible. She takes Robaxin and alternates between Tylenol and ibuprofen. She is nothad any recent physical therapy on her neck or injection therapy. She denies bowel or bladder incontinence. She does vape on occasion. Past Medical History She has a past [...] Other Social History She reports that she quit smoking about 6 months ago. Her smoking use included cigarettes. She has a 2.50 pack-year smoking history. She has never used smokeless tobacco. She reports that she does not currently use drugs. She reports that she does not drink alcohol. Medications Current Outpatient Medications Medication Sig Dispense Refill acetaminophen (Tylenol) 500 MG tablet 1 tablet (500 mg). albuterol (Ventolin HFA) 108 (90 Base) MCG/ACT inhaler amLODIPine (Norvasc) 5 MG tablet Take 1 tablet (5 mg) by mouth 1 (one) time each day. cetirizine (ZyrTEC) 10 MG tablet Take 1 tablet (10 mg) by mouth 1 (one) time each day. desvenlafaxine (Pristiq) 100 MG 24 hr tablet Take 1 tablet (100 mg) by mouth 1 (one) time each day. famotidine (Pepcid) 20 MG tablet Take 1 [...] 3 (three) times a day if needed. loratadine (Claritin) 10 MG tablet Take 1 tablet (10 mg) by mouth 1 (one) time each day. methocarbamol (Robaxin) 750 MG tablet Take 1 tablet (750 mg) by mouth 2 (two) times a day if needed. oxybutynin (Ditropan) 5 MG tablet Take 1 tablet (5 mg) by mouth 1 (one) time each day. desvenlafaxine (Pristiq) 50 MG 24 hr tablet TAKE 1 TABLET BY MOUTH EVERY MORNING WITH FOOD (Patientnot taking: Reported on 01/07/2023) diazePAM (Valium) 5 MG tablet May take 1-2 tablets po one hour prior to the MRI, may repeat 15 minutes prior if needed. (Patient not taking: Reported on 01/07/2023) 4 tablet 0 estradiol (Estring) 2 MG vaginal ring Insert 2 mg into the vagina every 3 (three) months. Last filled 06/2022 . follow package directions (Patient not taking: Reported on 01/07/2023) naloxone (Narcan) 4 mg/0.1 mL nasal spray Administer 1 spray (4 mg total) into affected nostril(s) if needed for opioid reversal. Call 911. Give 4 mg (1 spray) into one nostril. Repeat every 2-3 minutes as needed, alternating nostrils, until medical assistance arrives. (Patient not takin. Give 1 spray in nostril for no/slow breathing or cannot wake after opioid use 2. Call 911 3. Repeat in other nostril if symptoms continue Reported on 01/07/2023) 1 each 0 sucralfate (Carafate) 1 g tablet TAKE 1 TABLET BY MOUTH FOUR TIMES DAILY FOR 14 DAYS DIRECTED (Patient not taking: Reported on 01/07/2023) No current facility-administered medications for this visit. [...] intact No drift Strength: Delt Bi Tri Methods Study Analyst Intrinsics RUE: 4/5 5/5 5/5 4/5 5/5 LUE: 4/5 5/5 5/5 5/5 5/5 Sensation was intact to light touch throughout Reflexes: Bi (C5) Br (C6) Tri (C7) Right: Brisk throughout Left: Brisk throughout Positive Waldron's bilaterally No clonus Last Recorded Vitals Visit Vitals BP (!) 140/86 (BP Location: Right arm, Patient Position: Sitting, BP Cuff Size: Adult) Ht 1.575 m (5' 2 ) Wt 80.4 kg (177 lb 3.2 oz) LMP 08/06/2019 (Exact Date) BMI 32.41 kg/m?? OB Status Hysterectomy Smoking Status Former BSA 1.88 m?? Labs No lab exists for component: ALB Imaging MRI of the cervical spine dated 12/19/2022 was personally reviewed today by myself and Dr. Osman Connor. Imaging demonstrates postoperative changes at C5-6 with adjacent segment disease at C4-5 and C6-7 without cord compression. There is straightening of the cervical lordosis. We compared her mostrecent MRI to prior studies from prior to surgery which showed large central disc herniation at C5-6 resulting in cord signal changes. Assessment and Plan Taniya Martin is a 42 y.o. female with prior history of C5-6 ACDF in September 2019 with good results returns today for continued neurosurgical surveillance regarding recurrent neck pain and bilateral upper extremity pain with paresthesias, left greater than right. A personally reviewed her cervical MRI obtained on 12/19/2022 which showed expected postoperative changes at C5-6 with good decompression. There is mild adjacent segment disease at C4-5 and C6-7 without cord compression. The patient's cervical condition is not amenable to further neurosurgical intervention. We are recommending outpatient physical therapy and provided her a script for treatment. We will also begin the patient on atrial of Lyrica 50 mg to take twice daily. [facility] request #[id number] was reviewed and appropriate. They had the opportunity to ask questions, all of which were answered to their satisfaction. No further neurosurgical follow-up is indicated. We will release the patient back to your care. They are welcome to follow up with neurosurgery on an as-needed basis. I reviewed this patient's history, exam,and imaging with Dr. Osman Connor. He guided plan of care for this patient. The total [id number] spent on this visit was greater than 30 minutes, with the majority (>50%) of the time spentin counseling, discussing pathology and management options, and coordination of care. Assessment/Plan Active Problems: There are no active Hospital Problems. Eufemia Moreau PA-C [facility] [place] Department of Neurosurgery Cosigned by Osman Connor MD at 01/07/2023 2:03 PM EDT Associated attestation - Osman Connor MD - 01/07/2023 2:03 PM EDT I evaluated this patient with the CHARMAINE, including taking the history, performing a neurological examination and studying images. I prescribed the elected course of treatment. documented in this encounter Plan of Treatment Upcoming Encounters Date Type Department Care Team (Late st Contact Info) Description 05/17/2024 2:00 PM EST Office Visit [facility] Interventional Pain Medicine [address] [place] [phone] Markell Lucas MD [address] [facility] [address] [address] 06/08/2024 2:00 PM EST Procedure Visit [facility] Interventional Pain Medicine [address] [place] [address] Markell Lucas MD [address] [facility] [address] [phone] documented as of this encounter Visit Diagnoses [...] documented as of this encounter Care Teams Scale Expert Relationship Specialty Start Date End Date Ira Melendez APRN [address] [place], [place] [id number] PCP - General 12/28/22 01/29/24 documented as of this encounter
--- OUTSIDE RECORDS SUMMARY | 2024-04-21 20:08 | XMS_ITS | Encounter Summary ---
Author Organization [facility] Address [address] [place] [address] Care Team Providers Care Generator Mechanic Name Role Phone Ira Melendez APRN Primary Care Provider [phone] Encounter Details Date Type Department Care Team (Late st Contact Info) Description 03/20/2023 Telephone [place] [facility] [address], [address] [place] [address] Osman Connor MD [address] [facility] [address] [place] [address] Social History Tobacco Use Types Packs/Day Years [...] encounter Miscellaneous Notes * Telephone Encounter - Eufemia Acharya PA - 03/20/2023 2:20 PM EDT Message sent to patient. * Telephone Encounter - Eufemia Acharya PA - 03/20/2023 2:20 PM EDT Medication authorized by Dr. Connor. * Telephone Encounter - Eufemia Acharya PA - 03/20/2023 12:48 PM EDT Tab request #: [id number] reviewed and appropriate. We will refill Lyrica 75 mg to take 2-3 timesa day. Will send to patient's pharmacy. * Telephone Encounter - Eufemia Acharya PA - 03/20/2023 12:33 PM EDT Tab is pending manual process. We will follow up later. documented in this encounter Plan of Treatment Upcoming Encounters Date Type Department Care Team (Late st Contact Info) Description 05/17/2024 2:00 PM EST Office Visit [facility] Interventional Pain Medicine [address] [place] [address] Markell Lucas MD [address] [phone] 06/08/2024 2:00 PM EST Procedure Visit [facility] Interventional Pain Medicine [address] [place] [phone] Markell Lucas MD [address] [facility] [address] [phone] documented as of this encounter Visit Diagnoses Not on filedocumented in this encounter Additional Health Concerns Assessment Noted Time A fall risk assessment has been complete d for the patient 01/07/2023 11:43 AM EDT A Body Mass Index follow-up plan has been documented for the patient 01/07/2023 12:30 PM EDT documented as of this encounter Care Teams Generator Mechanic Relationship Specialty Start Date End Date Ira Melendez APRN [address] [place] [id number] PCP - General 12/28/22 01/29/24 documented as of this encounter
--- OUTSIDE RECORDS SUMMARY | 2024-04-21 20:08 | XMS_ITS | Encounter Summary ---
Author Organization [facility] Address [address] [place] [address] Care Team Providers Care Weigher And Grader Name Role Phone Ira Melendez APRN Primary Care Provider [phone] Reason for Referral * Imaging (Routine) - Authorized Specialty Diagnoses / Procedures Referred By Jefe t Referred To Contact Diagnoses Cervicalgia Status post cervical spinal fusion Cervical spondylosis with myelopathy Myelopathy (CMS/HCC) Procedures MR Cervical Spine wo IV Contrast Eufemia Moreau PA [address] [address] Phone: tel: fax: Referral ID Status Reason Start Date Expiration Date V isits Requested Visits Authorized [id number] Authorized 12/09/2023 06/09/2025 1 1 * Imaging (Routine) - Authorized Specialty Diagnoses / Procedures Referred By Contac t Referred To Contact Diagnoses Cervicalgia Status post cervical spinal fusion Cervical spondylosis with myelopathy Myelopathy ([facility]/HCC) Procedures CT Cervical Spine wo IV Contrast Eufemia Moreau PA [address] [address] Phone: tel: fax: Referral ID Status Reason Start Date Expiration Date V isits Requested Visits Authorized [id number] Authorized 12/09/2023 06/09/2025 1 1 Encounter Details Date Type Department Care Team (Late st Contact Info) Description 12/04/2023 2:40 PM EDT Office Visit [place] [facility] [address] [place] [address] Eufemia Moreau PA [address] [place] [address] Cervicalgia (Primary Dx); Status post cervical spinal fusion; Cervical spondylosis with myelopathy; Myelopathy (CMS/FORMERLY [facility]) Social History Tobacco Use Types Packs/Day Years [...] Sign Reading Time Taken Comments Blood Pressure 135/88 12/04/2023 1:59 PM EDT Pulse 84 12/04/2023 1:59 PM EDT Temperature - - Respiratory Rate - - Oxygen Saturation 97% 12/04/2023 1:59 PM EDT Inhaled Oxygen Concentration - - Weight 78.5 kg (173 lb) 12/04/2023 1:59 PM EDT Height 157.5 cm (5' 2 ) 12/04/2023 1:59 PM EDT Body Mass Index 31.64 12/04/2023 1:59 PM EDT documented in this encounter Miscellaneous Notes * Progress Notes - Eufemia Moreau PA - 12/04/2023 2:40 PM EDT We had the pleasure of seeing your patient in our clinic today for continued Neurosurgical evaluation. Chief Complaint Follow up regarding increasing complaints of neck pain. History Of Present Illness Taniya Martin is a 42 y.o. female who returns today for follow-up regarding neck pain. The patient is well known to the neurosurgical clinic. She has a past medical history significant for a C5-6ACDF completed by Dr. Connor in September 27, 2019 for cervical myelopathy. She did well postoperatively. She was last seen in the clinic on 01/07/2023 with recurrent neck pain and bilateral upper extremity pain and paresthesias, [id number]. Her cervical MRI at that time showed postoperative changes at C5-6 with good decompression. There was mild adjacent segment disease at C4-5 and C6-7 without cord compression. The patient's cervical condition was not amenable to further neurosurgical intervention. She returns today with progressively worsening complaints of axial neck pain, [id number]-right, over the past couple of months. She denies any specific injury. She endorses left upper extremity pain and states her hands feel swollen. She has increased pain with cervical range of motion. She is not able to sleep well at night secondary to pain. She reports a lot of pain that sh oots to the left shoulder blade and down the left upper extremity in a nondermatomal distribution but feels it mostly down the back of her arm. She will experience some right arm pain with lifting. She has numbness and tingling in both arms. She drops items frequently and is right-hand dominant. She states her balance is unsteady, worse when she is getting up from a seated position. She has had 1fall since she was last seen. She was on Lyrica 100 mg 3 times daily and Robaxin, which were both beneficial. She is currently out of medication. She denies bowel or bladder incontinence. She does not had any recent physical therapy or injection therapy. She states her quality of life is greatly affected and symptoms are ultimately impacting all aspects of daily living. She is a nonsmoker. Past Medical History She has a past medical history of Personal history of other diseases of urinary system, Personal history of other endocrine, nutritional and metabolic disease, and Personal history of other specifiedconditions. Surgical History She has a past surgical history that includes Bladder surgery (N/A); Hysterectomy (N/A); section, low transverse (N/A); Dilation and curettage of uterus (N/A); Cholecystectomy; and Gallbladder surgery (N/A). Family History Family History Problem Relation Name Age of Onset Cardiac disorder Mother Cardiac disorder Other Stroke Mother Stroke Other Hypertension Mother Hypertension Other Colon cancer Mother Colon cancer Other Social History She reports that she quit smoking about 18 months ago. Her smoking use included cigarettes. She started smoking about 11 years ago. She has a 2.5 pack-year smoking history. She has never used smokeless tobacco. She reports that she does not currently use drugs. She reports that she does not drink alcohol. Medications Current Outpatient Medications Medication Sig Dispense Refill acetaminophen (Tylenol) 500 MG tablet 1 tablet (500 mg). albuterol (Ventolin HFA) 108 (90 Base) MCG/ACT inhaler Blood Glucose Monitoring Suppl (ONE TOUCH ULTRA 2) w/Device kit device kit follow package directions desvenlafaxine (Pristiq) 100 MG 24 hr tablet [...] 3 (three) times a day if needed. Lancets (eCardioTouch Delica Plus [id number]) misc TEST DAILY DIRECTED loratadine (Claritin) 10 MG tablet Take 1 tablet (10 mg) by mouth 1 (one) time each day. Melatonin 10 MG sublingual tablet Take 1 tablet by mouth every night. eCardioTouch Ultra test strip TEST GLUCOSE ONCE DAILY prazosin (Minipress) 2 MG capsule Take 1 capsule (2 mg) by mouth every night. pregabalin (Lyrica) 75 MG capsule Take 1 capsule (75 mg) by mouth 3 (three) times a day. 90 capsule0 traZODone (Desyrel) 50 MG tablet TAKE 1/2 TO 1 TABLET BY MOUTH NIGHTLY NEEDED FOR SLEEP amLODIPine (Norvasc) 5 MG tablet Take 1 tablet (5 mg) by mouth 1 (one) time each day. (Patient not taking: Reported on 12/04/2023) cetirizine (ZyrTEC) 10 MG tablet Take 1 tablet (10 mg) by mouth 1 (one) time each day. (Patient nottaking: Reported on 12/04/2023) desvenlafaxine (Pristiq) 50 MG 24 hr tablet TAKE 1 TABLET BY MOUTH EVERY MORNING WITH FOOD (Patientnot taking: Reported on 01/07/2023) diazePAM (Valium) 5 MG tablet May take 1-2 tablets po one hour prior to the MRI, may repeat 15 minutes prior if needed. 4 tablet 0 estradiol (Estring) 2 MG vaginal ring Insert 2 mg into the vagina every 3 (three) months. Last filled 06/2022 . follow package directions (Patient not taking: Reported on 12/04/2023) hydroCHLOROthiazide (HYDRODiuril) 25 MG tablet Take 1 tablet (25 mg) by mouth 1 (one) time each day. (Patient not taking: Reported on 12/04/2023) methocarbamol (Robaxin) 750 MG tablet Take 1 tablet (750 mg) by mouth 4 (four) times a day. 120 tablet 2 oxybutynin (Ditropan) 5 MG tablet Take 1 tablet (5 mg) by mouth 1 (one) time each day. (Patient nottaking: Reported on 12/04/2023) pregabalin (Lyrica) 100 MG capsule Take 1 capsule (100 mg) by mouth 3 (three) times a day. 90 capsule 2 sucralfate (Carafate) 1 g tablet TAKE 1 TABLET BY MOUTH FOUR TIMES DAILY FOR 14 DAYS DIRECTED (Patient not taking: Reported on 01/07/2023) No current facility-administered medications for this visit. Allergies Tetracyclines & related, Tegaderm ag mesh [silver], Tetracycline, Chlorhexidine, Penicillins, and Wound dressing adhesive Review of Systems 14 point review of systems was performed and was negative except as noted per HPI. General Physical Exam Constitutional Oriented to person, place, and time. Appears well-developed and well-nourished. Head Normocephalic and atraumatic. Eyes Pupils are equal, round, and reactive to light. Neck No tracheal deviation or JVD noted. No previous surgical scars Cardiovascular Minimal to no peripheral edema, intact distal pulses Pulmonary/Chest Effort normal, no shortness of breath Neurological Alert and oriented to person, place, and time Skin Skin is warm and dry Psychiatric Normal mood and affect, behavior and judgment Objective: MUSCULOSKELETAL EXAM: Motor Strength Right Left C5: Shoulder abduction (Deltoid) 5/5 5/5 C5: Elbow flexion (Biceps, Brachialis) 10/11 10/11 C6: Wrist extension (ECRB, ECRL) 10/11 10/11 C7: Elbow extension (Triceps) 09/11 09/11 C8: Finger flexion (Air Car[employer] Operations Inspector Strength) 10/11 09/11 T1: Finger abduction 10/11 10/11 Sensation Right Left Neck normal normal C5: Shoulder normal normal C6: Thumb, radial aspect hand/forearm (Radial Nerve) normal normal C7: Long finger (Median Nerve) normal normal C8: Little finger, ulnar aspect of hand/forearm (Ulnar n.) normal normal T1: Medial forearm/arm normal normal Reflexes Right Left C5: Biceps 1/ 0/4 C6: Brachioradialus 1/4 0/4 C7: Triceps 1/ 1 Hoffmans Positive Positive Clonus <3 beat <3 beat Last Recorded Vitals Visit Vitals BP 135/88 (BP Location: Left arm, Patient Position: Sitting) Pulse 84 Ht 1.575 m (5' 2 ) Wt 78.5 kg (173 lb) LMP 08/06/2019 (Exact Date) SpO2 97% BMI 31.64 kg/m?? OB Status Hysterectomy Smoking Status Former BSA 1.85 m?? Labs No lab exists for component: ALB Imaging Cervical AP/lateral x-ray films with flexion-extension views were obtained today and personally reviewed by myself. Imaging demonstrates anterior cervical diskectomy and fusion at C5-6 without hardware complication. There is minimal posterior subluxation at C4-5 in extension that reduces in flexionwith minimal anterior subluxation at C6-7 that is unchanged in flexion and extension. Assessment and Plan Taniya Martin is a 42 y.o. female with history of a C5-[address] Connor in 2019 for cervical myelopathy who returns today with progressively worsening symptoms of axial neck pain andleft upper extremity pain and paresthesias. She also endorses weakness and gait instability. She frequently drops items and has had 1 fall. Cervical x-ray films show minimal posterior subluxation at C4-5 in extension that reduces in flexion and minimal anterior subluxation at C6-7 that is unchangedin flexion-extension. The patient's symptoms are consistent with cervical myelopathy. We are concerned for cord compression. She is myelopathic on physical examination. We will request a new cervicalMRI for review to rule out neural compression. We will also request a CT scan of the cervical spineto rule out pseudoarthrosis. We will request imaging be completed at [facility] and open MRI. She will require Valium for procedure. We will refill Lyrica and methocarbamol today. Tab request was reviewed and appropriate. The patient is agreeable to plan of care. They had the opportunity to ask questions, all of which were answered to their satisfaction. This note was dictated using voice to text software and may contain minor errors. Assessment/Plan Active Problems: There are no active Hospital Problems. Eufemia Moreau PA-C [facility] Department of Neurosurgery documented in this encounter Plan of Treatment Upcoming Encounters Date Type Department Care Team (Late st Contact Info) Description 05/17/2024 2:00 PM EST Office Visit [facility] Interventional Pain Medicine [facility] [place] [address] [place] [address] [place] [address] [address] [address] 06/08/2024 2:00 PM EST Procedure Visit [facility] Interventional Pain Medicine [address] [place] [id number] Markell Lucas MD [address] [facility] Pt [address] [phone] Scheduled Orders Name Type Priority Associated Diagnoses Orde r Schedule CT Cervical Spine wo IV Contrast Imaging Routine Cervicalgia Status post cervical spinal fusion Cervical spondylosis with myelopathy Myelopathy (CMS/HCC) Expected: 12/09/2023 (Approximate), Expires: 06/10/2025 MR Cervical Spine wo IV Contrast Imaging Routine Cervicalgia Status post cervical spinal fusion Cervical spondylosis with myelopathy Myelopathy (CMS/HCC) Expected: 12/09/2023 (Approximate), Expires: 06/10/2025 documented as of this encounter Results * [...] MD on 12/04/2023 3:35 PM Eufemia CACERES IMG XR PROCEDURES Final Result documented in this encounter Visit Diagnoses Diagnosis Cervicalgia- Primary Status post cervical spinal fusion Arthrodesis status Cervical spondylosis with myelopathy Myelopathy (CMS/HCC) Unspecified disease of spinal cord Cervicalgia Status post cervical spinal fusion Arthrodesis status documented in this encounter Additional Health Concerns Assessment Noted Time A fall risk assessment has been complete d for the patient 12/04/2023 1:59 PM EDT A Body Mass Index follow-up plan has been documented for the patient 12/09/2023 8:26 PM EDT documented as of this encounter Care Teams Weigher And Grader Relationship Specialty Start Date End Date Ira Melendez APRN [address] [place] [address] [phone] PCP - General 12/28/22 01/29/24 documented as of this encounter
--- OUTSIDE RECORDS SUMMARY | 2024-04-21 20:08 | XMS_ITS | Encounter Summary ---
Author Organization [facility] Address [address] [place] [address] Care Team Providers Care Mapping Pilot Name Role Phone Josey Melendeza Drew VALERIO Primary Care Provider [phone] Reason for Visit * Reason Comments Headache Encounter Details Date Type Department Care Team ([facility] st Contact Info) Description 12/28/2022 9:03 PM EDT - 12/29/2022 3:30 AM EDT Emergency [facility] Emergency Department [address] [place] [address] Shabbir Wyatt MD [address] [place] [address] Nonintractable headache, unspecified chronicity pattern, unspecified headache type (Primary Dx) Discharge Disposition: Home or Self [...] Sign Reading Time Taken Comments Blood Pressure 118/75 12/29/2022 3:29 AM EDT Pulse 80 12/29/2022 3:29 AM EDT Temperature 36.9 ??C (98.5 ??F) 12/29/2022 3:29 AM ED T Respiratory Rate 16 12/29/2022 3:29 AM EDT Oxygen Saturation 98% 12/29/2022 3:29 AM EDT Inhaled Oxygen Concentration - - Weight 79.4 kg (175 lb) 12/28/2022 8:59 PM EDT Height 157.5 cm (5' 2 ) 12/28/2022 8:59 PM EDT Body Mass Index 32.01 12/28/2022 8:59 PM EDT documented in this encounter Discharge Instructions * Discharge Instructions* The, Isa Echavarria MD - 12/29/2022 3:22 AM EDT You were seen and evaluated today in the emergency department. Follow-up with primary care provider. Return to the ED if any symptoms change or worsen. Follow-up with all specialists. * Attachments The following attachments cannot be sent through Care Everywhere. * Headaches, Self-Care for (Jamaican) * Pain, Understanding Headache (Jamaican) documented in this encounter Medications at Time of Discharge acetaminophen (Tylenol) 500 MG tablet 1 tablet (500 mg). albuterol (Ventolin HFA) 108 (90 Base) MCG/ACT inhaler 09/16/2019 cetirizine (ZyrTEC) 10 MG tablet Take 1 [...] After use, clean tip and replace cap. hydroCHLOROthiaz ben (HYDRODiuril) 25 MG tablet Take 1 tablet (25 mg) by mouth 1 (one) time each day. 11/19/2022 ibuprofen 800 MG tablet Take 1 tablet (800 mg) by mouth 3 (three) times a day if needed. 03/19/2022 sucralfate (Carafate) 1 g tablet 11/19/2022 naloxone (Narcan) 4 mg/0.1 mL nasal spray Administer 1 spray (4 mg total) into affected nostril(s) if needed for opioid reversal. Call 911. Give 4 mg (1 spray) into one nostril. Repeat every 2-3 minutes as needed, alternating nostrils, until medical assistance arrives. 1 each 07/22/2022 4 desvenlafaxine (Pristiq) 50 MG 24 hr tablet 11/25/2022 4 diazePAM (Valium) 5 MG tabletIndication s:Claustrophobia May take 1-2 tablets po one hour prior to the MRI, may repeat 15 minutes prior if needed. 4 tablet 12/13/2022 4 methocarbamol (Robaxin) 750 MG tablet Take 1 tablet (750 mg) by mouth 2 (two) times a day if needed. 11/19/2022 4 documented as of this encounter Miscellaneous Notes * ED Provider Notes - Memo Franks MD - 12/28/2022 8:51 PM EDT - HPI Chief Complaint Patient presents with Headache Taniya Martin is a 42 YOF with past medical history of cervical spine fusion complicated by paresthesias in the arms and legs who presents to the emergency department with 24 hours of headaches andworsening left-sided paresthesias and diffuse weakness in the arms and legs. The patient reports that last night she felt hurt trapezius muscles tightening up which led to a extremely painful occipital headache. The patient attempted to reduce the discomfort with Robaxin and Tylenol, neither of which was successful. In the emergency department the patient is clearly uncomfortable, on exam she is unable to shrug shoulders, has weakness in both upper extremities and both lower extremities, but isable to move her neck from side to side and chin to chest without discomfort. She is also able to roll back and forth in the bed without discomfort. She is hemodynamically stable reports no chest pain, shortness of breath, or leg swelling. Natalie Coma Scale Score: 15 Patient History Past Medical History: Diagnosis Date Personal history of other diseases of urinary system History of kidney disease Personal history of other endocrine, nutritional and metabolic disease History of hypoglycemia Personal history of other specified conditions History of abdominal pain Past Surgical History: Procedure Laterality Date BLADDER SURGERY N/A Bladder Surgery from [email or web address] SECTION, LOW TRANSVERSE N/A Section from [email or web address] CHOLECYSTECTOMY DILATION AND CURETTAGE OF UTERUS N/A Dilation and curettage from [facility] HYSTERECTOMY N/A Hysterectomy from [facility] Family History Problem Relation Name Age of Onset Cardiac disorder Mother Cardiac disorder Other Stroke Mother Stroke Other Hypertension Mother Hypertension Other Colon cancer Mother Colon cancer Other Tobacco Use Smoking status: Every Day Smokeless tobacco: Never Substance Use Topics Alcohol use: Never Drug use: Not Currently Comment: Drug use: History of drug use Immunization History Immunization History: not reviewed Allergies: Allergies Allergen Reactions Tetracyclines & Related Other and Rash Tegaderm Ag Mesh [Silver] Hives Tetracycline Hives Chlorhexidine Unknown Penicillins Unknown Wound Dressing Adhesive Rash Review of Systems Review of Systems Constitutional: Negative for activity change and fever. HENT: Negative for congestion, hearing loss and sinus pressure. Eyes: Negative for pain, discharge and redness. Respiratory: Negative for apnea, cough and shortness of breath. Cardiovascular: Negative for chest pain and leg swelling. Gastrointestinal: Negative for abdominal distention and abdominal pain. Genitourinary: Negative for difficulty urinating and pelvic pain. Musculoskeletal: Negative for arthralgias and joint swelling. Skin: Negative for color change and pallor. Neurological: Positive for weakness and headaches. Negative for dizziness and seizures. Psychiatric/Behavioral: Negative for agitation and decreased concentration. Physical Exam ED Triage Vitals [12/28/222058] Temp Heart Rate Resp BP 37.1 ??C (98.8 ??F) 72 18 (!) 151/95 SpO2 Temp Source Heart Rate Source Patient Position 98 % Oral -- Sitting BP Location FiO2 (%) Right arm -- Physical Exam Constitutional: Appearance: She is well-developed. HENT: Head: Normocephalic and atraumatic. Mouth/Throat: Mouth: Mucous membranes are moist. Eyes: General: No visual field deficit. Extraocular Movements: Extraocular movements intact. Pupils: Pupils are equal, round, and reactive to light. Cardiovascular: Rate and Rhythm: Normal rate and regular rhythm. Pulmonary: Effort: Pulmonary effort is normal. Breath sounds: Normal breath sounds. Abdominal: Palpations: Abdomen is soft. Musculoskeletal: General: Normal range of motion. Cervical back: Normal range of motion. Skin: General: Skin is warm and dry. Capillary Refill: Capillary refill takes less than 2 seconds. Neurological: Mental Status: She is alert and oriented to person, place, and time. GCS: GCS eye subscore is 4. GCS verbal subscore is 5. GCS motor subscore is 6. Cranial Nerves: No cranial nerve deficit, dysarthria or facial asymmetry. Sensory: No sensory deficit. Motor: Weakness present. Psychiatric: Mood and Affect: Mood normal. Speech: Speech normal. Behavior: Behavior normal. ED Course & MDM Medical Decision Making Patient evaluated and treated with Dr. Wyatt. In summary, this 42 y.o. female presents to the emergency department with 24 hours of intractable headaches. On initial evaluation the patient is clearly uncomfortable, but able to move well in the bed. She has diffuse weakness of the upper and lowerextremities, and reports paresthesias in all 4 limbs. Patient reports occipital headache and pain and tightness and the trapezius muscles. Differential diagnosis includes but is not limited to migraine, tension headache, muscle strain. Based on these concerns, the following were ordered: Orders Placed This Encounter Insert peripheral IV Patient received tramadol and droperidol for treatment. At this point in treatment care was handed off to Dr. Moss The ED Prescriptions None Sign Off Checklist Clinical Impression: See Transfer of Care note for Clinical Impression ED Disposition: See Transfer of Care note for ED Disposition - Memo Franks MD Resident 12/28/22 [id number] Cosigned by Shabbir Wyatt MD at 12/29/2022 7:19 PM EDT Associated attestation - Shabbir Wyatt MD - 12/29/2022 7:19 PM EDT I saw and evaluated the patient with the resident/fellow. I discussed the case with the resident/fellow and agree with the findings and plan as documented. Patient with known longstanding cervical radiculopathy overall well-appearing is moving around in bed in complaining of diffuse neck pain is gotten worse she has been seen and evaluated in neurosurgery clinic for this for which x-rays and recent MRI was performed which she has follow-up for on the 07 of January. Symptoms are not different than usual but they are both her baseline the right now she is having exacerbation of her chronic condition she is not having urinary retention difficulties ambulating or any other signs concerning for red flag symptoms indicative of spinal pathology. Given this will treat symptomatically and reassess. Patient multiple need outpatient referral for Neurosurgery * ED Triage Notes - Karolyn Mchugh RN - 12/28/2022 8:51 PM EDT Pt arrives to ED w c/o a severe headache and neck pain that radiates down her left arm along with left leg pain. Pt stated this has been going on for the last week, but worsened in the last 24 hours.Pt is followed by neuro. * Progress Notes - The, Isa Echavarria MD - 12/28/2022 8:51 PM EDT I received sign-out and accepted care of this patient from the departing Drs: resident Franks andgrace Wyatt at 23:00. Please see the primary providers??? note for complete elements of the history, physical exam, and ED course. Illness Severity: Stable Patient Summary: Taniya Martin is a 42 y.o. female with a PMHx of Past Medical History: Diagnosis Date Personal history of other diseases of urinary system History of kidney disease Personal history of other endocrine, nutritional and metabolic disease History of hypoglycemia Personal history of other specified conditions History of abdominal pain presented to the ED with a headache. Most recent vital signs: Visit Vitals BP (!) 151/95 (BP Location: Right arm, Patient Position: Sitting) Pulse 72 Temp 37.1 ??C (98.8 ??F) (Oral) Resp 18 Ht 1.575 m (5' 2 ) Wt 79.4 kg (175 lb) LMP 08/06/2019 (Exact Date) SpO2 98% BMI 32.01 kg/m?? OB Status Hysterectomy Smoking Status Every Day BSA 1.86 m?? Lab and imaging results: Recent MRI of the head reviewed Action plan (To Do): Follow-up on patient's physical exam and pain after medication management in the emergency depart Disposition: Patient's symptoms improved. She was requesting discharge home. She was told to follow-up outpatient and return to the ED if symptoms change or worsen Clinical Impressions as of 12/29/22 0726 Nonintractable headache, unspecified chronicity pattern, unspecified headache type - Cosigned by Gee Monroy MD at 12/30/2022 2:31 AM EDT Associated attestation - Gee Monroy MD - 12/30/2022 2:31 AM EDT Seen by resident only. documented in this encounter Plan of Treatment Upcoming Encounters Date Type Department Care Team (Late st Contact Info) Description 05/17/2024 2:00 PM EST Office Visit [facility] Interventional Pain Medicine [address] [place] [address] Markell Lucas MD [address] [facility] [address] [place] [phone] 06/08/2024 2:00 PM EST Procedure Visit [facility] Interventional Pain Medicine [address] [place] [address] Markell Lucas MD [address] [facility] [address] [place] [address] [address] documented as of this encounter Visit Diagnoses Diagnosis Nonintractable headache, unspecified chronicity pattern, unspecified headache type- Primary documented in this encounter Administered Medications Inactive Administered Medications - up to 3 most recent administrations Medication Order MAR Action Action Date Dose Rate Site droperidol (Inapsine) injection 2.5 mg 2.5 mg, Intravenous, Once, 1 dose, On 12/28/22 at 2210, STAT Given 12/28/2022 10:25 PM EDT 2.5 mg HYDROmorphone (Dilaudid) injection 0.5 mg 0.5 mg, Intravenous, Once, 1 dose, On 12/29/22 at 0045, Routine Given 12/29/2022 12:57 AM EDT 0.5 mg ketorolac (Toradol) injection 15 mg 15 mg, Intravenous, Once, 1 dose, On 12/28/22 at 2210, STAT Given 12/28/2022 10:25 PM EDT 15 mg lactated Ringer's infusion 1,000 mL 1,000 mL, Intravenous, Once, 1 dose, On 12/28/22 at 2210, STAT New Bag 12/28/2022 10:25 PM EDT 1,000 mL methocarbamol (Robaxin) tablet 500 mg 500 mg, Oral, Once, 1 dose, On 12/29/22 at 0045, STAT Given 12/29/2022 12:57 AM EDT 500 mg documented in this encounter Active and Recently Administered Medications Times are shown in EDT. Scheduled Medication Order 12/27/2022 12/28/2022 12/29/2022 droperidol (Inapsine) injection 2.5 mg (COMPLETED) 2.5 mg, Intravenous, Once, 1 dose, On 12/28/22 at 2210, STAT 2225 (Given - Provider: Vik Duran LPN) HYDROmorphone (Dilaudid) injection 0.5 mg (COMPLETED) 0.5 mg, Intravenous, Once, 1 dose, On 12/29/22 at 0045, Routine 0057 (Given - Provid er: Vik Duran LPN) ketorolac (Toradol) injection 15 mg (COMPLETED) 15 mg, Intravenous, Once, 1 dose, On 12/28/22 at 2210, STAT 2225 (Given - Provider: Vik Duran LPN) lactated Ringer's infusion 1,000 mL (COMPLETED) 1,000 mL, Intravenous, Once, 1 dose, On 12/28/22 at 2210, STAT 2225 (New Bag - Provider: Vik Duran LPN) 0330 (Stopped - Provider: Vik Duran LPN) methocarbamol (Robaxin) tablet 500 mg (COMPLETED) 500 mg, Oral, Once, 1 dose, On 12/29/22 at 0045, STAT 0057 (Given - Provid er: Vik Duran LPN) documented in this encounter Additional Health Concerns Assessment Noted Time A Body Mass Index follow-up plan has been documented for the patient 12/13/2022 1:37 PM EDT documented as of this encounter Care Teams Mapping Pilot Relationship Specialty Start Date End Date Ira Melendez APRN [address] [place], [place] [id number] PCP - General 12/28/22 01/29/24 documented as of this encounter
--- OUTSIDE RECORDS SUMMARY | 2024-04-21 20:08 | XMS_ITS | Encounter Summary ---
Author Organization [facility] Address [address] [place] [address] Care Team Providers Care Ballroom Dancer Name Role Phone Markell Mejia MD Primary Care Provider [phone] Encounter Details Date Type Department Care Team (Latest Contact Info) Description 12/13/2022 11:36 AM EDT - 12/13/2022 11:59 PM EDT Hospital Encounter [place] [facility] [address], [address] [place] [address] Cervicalgia; Status post cervical spinal [...] mouth 1 (one) time each day. 10/03/2022 estradiol (Estring) 2 MG vaginal ring Insert [...] 11/19/2022 4 documented as of this encounter Plan of Treatment Upcoming Encounters Date Type Department Care Team (Late st Contact Info) Description 05/17/2024 2:00 PM EST Office Visit [facility] Interventional Pain Medicine [address] [place] [address] Markell Lucas MD [address] [facility] [address] [place] [address] 06/08/2024 2:00 PM EST Procedure Visit [facility] Interventional Pain Medicine [address] [facility] [place] [address] Markell Lucas MD [address] [facility] [address] [place] [address] documented as of this encounter Procedures Procedure Name Priority Date/Time Associated Diagnosis Comments XR CERVICAL SPINE COMPLETE 4 TO 5 VIEWS Routine 12/13/2022 12:00 PM EDT Cervicalgia Status post cervical spinal [...] documented as of this encounter Care Teams Ballroom Dancer Relationship Specialty Start Date End Date Markell Mejia MD [address] [place] [address] PCP - General 10/20/20 12/27/22 documented as of this encounter
--- OUTSIDE RECORDS SUMMARY | 2024-04-21 20:08 | XMS_ITS | Encounter Summary ---
Author Organization [facility] Address [address] [place] [address] Care Team Providers Care Pot Puller Name Role Phone Ira Melendez APRN Primary Care Provider [phone] Reason for Visit * Reason Onset Date Comments HCN - Patient Message 10/06/2023 Encounter Details Date Type Department Care Team (Late st Contact Info) Description 10/06/2023 Telephone [place] [facility] [address] [place] [address] Osman Connor MD [address] [place] [address] HCN - Patient Message Social History Tobacco Use Types Packs/Day Years [...] encounter Miscellaneous Notes * Telephone Encounter - LastJames moreland Julio - 10/06/2023 11:45 AM EDT Patient Phone Message Reason for Call: Patient returning a call. Best contact number and optimal time of day to reach caller: Note: Please do not reply to this [...] 05/17/2024 2:00 PM EST Office Visit [facility] Interventional Pain Medicine [address] [place] [address] Markell Lucas MD [address] [place] [phone] 06/08/2024 2:00 PM EST Procedure Visit [facility] Interventional Pain Medicine [address] [place] [phone] Markell Lucas MD [address] [place] [phone] documented as of this encounter Visit Diagnoses Not on filedocumented in this encounter Additional Health Concerns Assessment Noted Time A fall risk assessment has been complete d for the patient 01/07/2023 11:43 AM EDT A Body Mass Index follow-up plan has been documented for the patient 01/07/2023 12:30 PM EDT documented as of this encounter Care Teams Pot Puller Relationship Specialty Start Date End Date Ira Melendez APRN [address] [place] [address] PCP - General 12/28/22 01/29/24 documented as of this encounter
--- OUTSIDE RECORDS SUMMARY | 2024-04-21 20:08 | XMS_ITS | Encounter Summary ---
Author Organization [facility] Address [address] [place] [address] Care Team Providers Care Cash Application Clerk Name Role Phone Markell Mejia MD Primary Care Provider [phone] Encounter Details Date Type Department Care Team (Latest Contact Info) Description 09/03/2022 Travel Social History Tobacco Use Types Packs/Day [...] PM EDT documented as of this encounter Plan of Treatment Upcoming Encounters Date Type Department Care Team (Late st Contact Info) Description 05/17/2024 2:00 PM EST Office Visit [facility] Interventional Pain Medicine [address] [place] [address] Markell Lucas MD [address] [facility] [address] [place] [address] 06/08/2024 2:00 PM EST Procedure Visit [facility] Interventional Pain Medicine [address] [place] [address] Markell Lucas MD [address] [facility] [address] [place] [phone] documented as of this encounter Visit Diagnoses Not on filedocumented in this encounter Care Teams Cash Application Clerk Relationship Specialty Start Date End Date Markell Mejia MD [address] [place] [address] PCP - General 10/20/20 12/27/22 documented as of this encounter
--- OUTSIDE RECORDS SUMMARY | 2024-04-21 20:08 | XMS_ITS | Encounter Summary ---
Author Organization [facility] Address [address] [place] [address] Care Team Providers Care Machine Shop Lead Man Name Role Phone Al Ira Drew VALERIO Primary Care Provider [phone] Encounter Details Date Type Department Care Team (Late st Contact Info) Description 03/20/2023 Refill [place] [facility] [address] [place] [address] Eufemia Acharya PA [address] [place] [address] Cervicalgia (Primary Dx); Status post [...] Encounter - Eufemia Acharya PA - 03/20/2023 12:52 PM EDT Ashleigh sent to pharmacy. Barth request #: [id number] reviewed and appropriate. documented in this encounter Plan of Treatment Upcoming Encounters Date Type Department Care Team (Late st Contact Info) Description 05/17/2024 2:00 PM EST Office Visit [facility] Interventional Pain Medicine [address] [place] [phone] Markell Lucas MD [address] [facility] [address] [place] [address] 06/08/2024 2:00 PM EST Procedure Visit [facility] Interventional Pain Medicine [address] [place] [address] Markell Lucas MD [address] [address] documented as of this encounter [...] documented as of this encounter Care Teams Machine Shop Lead Man Relationship Specialty Start Date End Date Ira Melendez APRN [address] [place] [address] PCP - General 12/28/22 01/29/24 documented as of this encounter
--- OUTSIDE RECORDS SUMMARY | 2024-04-21 20:08 | XMS_ITS | Encounter Summary ---
Author Organization [facility] Address [address] [place] [address] Care Team Providers Care Axle Inspector Name Role Phone Al Ira Drew VALERIO Primary Care Provider [phone] Encounter Details Date Type Department Care Team (Late st Contact Info) Description 10/06/2023 Refill [place] [facility] [address] [place] [address] Eufemia Acharya PA [address] [place] [address] Cervicalgia; Status post cervical spinal fusion; Cervical [...] Telephone Encounter - Eufemia Acharya PA - 10/06/2023 11:58 AM EDT Report # : [id number] reviewed and appropriate. Lyrica 75 mg po TID sent to Dr. Connor to authorize medication. documented in this encounter Plan of Treatment Upcoming Encounters Date Type Department Care Team (Late st Contact Info) Description 05/17/2024 2:00 PM EST Office Visit [facility] Interventional Pain Medicine [address] [place] [address] Markell Lucas MD [address] [facility] [address] [place] [phone] 06/08/2024 2:00 PM EST Procedure Visit [facility] Interventional Pain Medicine [address] [place] [phone] Markell Lucas MD [address] [phone] documented as of this encounter [...] documented as of this encounter Care Teams Axle Inspector Relationship Specialty Start Date End Date Ira Melendez APRN [address] [place] [address] PCP - General 12/28/22 01/29/24 documented as of this encounter
--- OUTSIDE RECORDS SUMMARY | 2024-04-21 20:08 | XMS_ITS | Encounter Summary ---
Author Organization [facility] Address [address] [place] [address] Care Team Providers Care Knife Glazer Name Role Phone Al Ira Drew VALERIO Primary Care Provider [phone] Encounter Details Date Type Department Care Team (Late Contact Info) Description 10/07/2023 Refill [place] [facility] [address] [place] [address] Osman Connor MD [address] [place] [address] Cervicalgia; Status post cervical spinal [...] PM EST Office Visit [facility] Interventional Pain Medicine [address] [place] [address] Markell Lucas MD [address] [facility] [address] [place] [address] 06/08/2024 2:00 PM EST Procedure Visit [facility] Interventional Pain Medicine [address] [place] [address] Markell Lucas MD [address] [facility] [address] [place] [address] documented as of this encounter [...] documented as of this encounter Care Teams Knife Glazer Relationship Specialty Start Date End Date Ira Melendez APRN [address] [place] [id number] PCP - General 12/28/22 01/29/24 documented as of this encounter
--- OUTSIDE RECORDS SUMMARY | 2024-04-21 20:08 | XMS_ITS | Encounter Summary ---
Author Organization [facility] Address [address] [place] [address] Care Team Providers Care Fixed Route Bus Operator Name Role Phone Markell Mejia MD Primary Care Provider [phone] Reason for Visit * Auth/Cert (Routine) Specialty Diagnoses / Procedures Referred By Jefe blackwood Referred To Contact Diagnoses Calculus of gallbladder without cholecystitis without obstruction Sriram Higgins K, DO [address] [facility] [address] [place] [address] Phone: tel: fax: [facility] [address] [place] [address] Phone: tel: Referral ID Status Reason Start Date Expiration Date Visits Re quested Visits Authorized [id number] 1 1 Encounter Details Date Type Department Care Team (Late st Contact Info) Description 07/21/2022 7:31 AM EST Anesthesia Event [facility] [address] [place] [phone] Gaetano Delgado MD [address] [place] [phone] Jimenez Watson MD [address] [place], [place] [id number] Anesthesia Record Procedure Summary Procedure Name Responsible Anesthesiologist Anesthesia Start Time Anesthesia Stop Time CHOLECYSTECTOMY, LAPAROSCOPIC (Abdomen) Gaetano Delgado MD 07/21/22 0731 07/21/22 0955 Events Date Time Event Comment 07/21/2022 0658 0731 An Start 0736 An Start Data 0736 In Room 0741 An Induction The patient was reevaluated immediately before moderate or deep sedation use and before anesthesia induction. 0744 An Intubation 0748 Anesthesia Ready 0808 Proc Start 0937 Proc Fin 0943 An Extubation 0947 an stop data 0948 Out of Room 0950 Handoff to Receiving I compl eted my handoff to the receiving clinician during which we: 1. Identified the patient 2. Identified the responsible provider 3. Reviewed the pertinent medical history 4. Discussed the surgical course 5. Reviewed intra-op anesthesia management and issues during anesthesia 6. Set expectations for post-procedure period 7. Allowed opportunity for questions and acknowledgement of understanding. 0955 An Stop Meds Name Total midazolam (Versed) injection 1 mg/mL 2 m g fentaNYL (Sublimaze) injection 50 mcg/mL 250 mcg lidocaine PF (Xylocaine-MPF) 2% 100 mg propofol (Diprivan) injection 10 mg/mL 2 00 mg rocuronium (ZeMuron) injection 10 mg/mL 70 mg dexamethasone (Decadron) injection 4 mg/ mL 8 mg HYDROmorphone PF (Dilaudid) injection 1 mg/mL 2 mg ondansetron (Zofran) injection 2 mg/mL 4 mg sugammadex (Bridion) injection 100 mg/mL 300 mg piperacillin-tazobactam (Zos yn) 3.375 g in sodium chloride 0.9% 100 mL IVPB (Mini-Bag Plus) 3.375 g ketorolac 30 MG/ML 30 mg lactated Ringer's infusion 1,500 mL * Agents Name O2 N2O Air Sevoflurane Isoflurane Desflurane Inspired Desflurane Inspired Isoflurane Inspired Sevoflurane N2O Inspired N2O * Blood No blood administrations on file. Lines, Drains, and Airways Type Details Placement Removal Wound 07/21/22; 08; Inci reba; Abdomen; Anterior 07/21/22 08 by Marichuy Lopez Peripheral IV Placement Date: 07/10 07/01; Placement Time: 1000; Catheter Size: 22 G; Orientation: Posterior, Right; Location: Hand; Site Prep: Alcohol; Insertion Attempts: 2; Patient Tolerance: Tolerated well; Removal Date: 07/21/22; Removal Time: 1000; Removal Reason: Catheter damage 07/20/22 1000 by Yasmin Estrada RN 07/21/22 1000 by Carolyn Santa RN Peripheral IV Placement Date: 07/10 07/01; Placement Time: 2200; Catheter Size: 22 G; Orientation: Anterior, Distal, Left, Lower; Location: Leg; Site Prep: Alcohol; Technique: Anatomical landmarks; Inserted by: Jericho Patterson RN; Insertion Attempts: 1; Patient Tolerance: Tolerated well; Removal Date: 07/22/22; Removal Time: 1451; Removal Reason: Discharge 07/20/22 2200 by Mitra Aponte RN 07/22/22 1451 by Celine Franco RN ETT Placement Date: 07/10 08/01; Placement Time: 0744 (created via procedure documentation); Mask Ventilation: 2; Technique: Direct laryngoscopy; Type: ETT - single; Single Lumen Tube Size: 7.5 mm; Cuffed: Yes; Laryngoscope: David; Blade Size: 2; Location: Oral; Grade View: Grade I; Insertion Attempts: 1; Placement Verification: Auscultation, Capnometry, Palpation of cuff; Airway Comments: Atraumatic. No change to dentition. ; Placed by: CARLI; Removal Date: 07/21/22; Removal Time: 0947 07/21/22 0744 by Tereso Mullins CRNA 07/21/22 0947 by Tereso Mullins CRNA Peripheral IV Placement Date: 07/10 08/01; Placement Time: 0745 (created via procedure documentation); Catheter Size: 18 G; Orientation: Left; Location: Wrist; Local Anesth: None; Technique: Anatomical landmarks; Inserted by: Tereso Mullins CRNA; Insertion Attempts: 1; Removal Date: 07/21/22; Removal Time: 1538; Removal Reason: Other (Comment) (pain) 07/21/22 0745 by Tereso Mullins CRNA 07/21/22 1538 by Jennifer Camacho RN Peripheral IV Placement Date: 07/10 08/01; Placement Time: 0830 (created via procedure documentation); Catheter Size: 18 G; Orientation: Left; Location: Antecubital; Local Anesth: None; Technique: Ultrasound guidance; Insertion Attempts: 2; Removal Date: 07/22/22; Removal Time: 0400; Removal Reason: Infiltrated 07/21/22 0830 by Tereso uMllins CRNA 07/22/22 0400 by Fawn Garnett RN documented in this encounter Social History Tobacco Use Types Packs/Day Years [...] PM EST documented as of this encounter Miscellaneous Notes * Addendum Note - Jimenez Watson MD - 07/21/2022 10:57 AM EST Addendum created 07/21/22 1057 by Jimenez Watson MD Order list changed, Pharmacy for encounter modified * Anesthesia Postprocedure Evaluation - Tereso Mullins CRNA - 07/21/2022 9:58 AM EST Patient: Taniya Richardson Anesthesia Type: general Vitals Value Taken Time BP 129/87 07/21/22 0958 Temp 36.6 07/21/22 0958 Pulse 66 07/21/22 0958 Resp 14 07/21/22 0958 SpO2 99 07/21/22 0958 Anesthesia Post-Evaluation: No notable events documented. * Anesthesia Procedure Notes - Tereso Mullins CRNA - 07/21/2022 8:41 AM EST Associated Order(s): Peripheral IV Peripheral IV Date/Time: 07/21/2022 8:30 AM Placement Needle size: 18 G Location: antecubital Local anesthetic: none Site prep: alcohol Technique: ultrasound guided Attempts: 2 * Anesthesia Procedure Notes - Tereso Mullins CRNA - 07/21/2022 8:25 AM EST Associated Order(s): Peripheral IV Peripheral IV Date/Time: 07/21/2022 7:45 AM Inserted by: Tereso Mullins CRNA Placement Needle size: 18 G Location: wrist Local anesthetic: none Site prep: alcohol Technique: anatomical landmarks Attempts: 1 * Anesthesia Procedure Notes - Tereso Mullins CRNA - 07/21/2022 8:24 AM EST Associated Order(s): Airway Airway Date/Time: 07/21/2022 7:44 AM Urgency: elective Airway not difficult General Information and Staff Patient location during procedure: OR Anesthesiologist: Gaetano Delgado MD TIME CYCLE OPERATOR: Tereso Mullins CRNA Performed: CARLI Indications and Patient Condition Indications for airway management: anesthesia and airway protection Spontaneous Ventilation: absent Preoxygenated: yes Patient position: sniffing MILS not maintained throughout Mask difficulty assessment: 2 - vent by mask + OA or adjuvant +/- NMBA Final Airway Details Final airway type: endotracheal airway Successful airway: ETT Cuffed: yes Successful intubation technique: direct laryngoscopy Endotracheal tube insertion site: oral Blade: David Blade size: #2 ETT size (mm): 7.5 Cormack-Lehane Classification: grade I - full view of glottis Placement verified by: chest auscultation, capnometry and palpation of cuff Measured from: teeth ETT to teeth (cm): 21 Number of attempts at approach: 1 Ventilation between attempts: none Number of other approaches attempted: 0 Additional Comments Atraumatic. No change to dentition. * Anesthesia Preprocedure Evaluation - Gaetano Delgado MD - 07/21/2022 6:47 AM EST Patient: Taniya Richardson Procedure Information Date/Time: 07/21/22 0730 Procedures: CHOLECYSTECTOMY, LAPAROSCOPIC (Abdomen) CHOLANGIOGRAM (Abdomen) [facility] [address] [place] [address] OR Surgeons: Glenroy Kirby MD No anesthesia staff entered. HPI Taniya Richardson is a 41 y.o. female who presents with Calculus of gallbladder without cholecystitis without obstruction now scheduled for CHOLECYSTECTOMY, LAPAROSCOPIC (N/A), CHOLANGIOGRAM (N/A).PMHx includes controlled GERD & anxiety/depression. Denies recent illness, cxp, or sob. Able to achieve >4 METs. Denies any issues from prior anesthetics. ALLERGIES Allergies Allergen Reactions ??? Tegaderm Ag Mesh [Silver] Hives ??? Tetracycline Hives ??? Chlorhexidine Unknown ??? Penicillins Unknown ??? Wound Dressing Adhesive Rash NPO STATUS Appropriately NPO AIRWAY HISTORY Past Medical History: Diagnosis Date ??? Personal history of other diseases of urinary system History of kidney disease ??? Personal history of other endocrine, nutritional and metabolic disease History of hypoglycemia ??? Personal history of other specified conditions History of abdominal pain MEDICATIONS Outpatient No medications prior to admission. No current outpatient medications Scheduled ??? acetaminophen, 1,000 mg, Oral, q6h FADUMO ??? [Held by provider] enoxaparin, 40 mg, Subcutaneous, Daily ??? ibuprofen, 400 mg, Oral, q6h ??? piperacillin-tazobactam, 3.375 g, Intravenous, q6h PRNs PRN medications: ondansetron, oxyCODONE, promethazine SURGICAL HX: Past Surgical History: Procedure Laterality Date ??? BLADDER SURGERY N/A Bladder Surgery from [facility] ??? SECTION, LOW TRANSVERSE N/A Section from [facility] ??? DILATION AND CURETTAGE OF UTERUS N/A Dilation and curettage from [facility] ??? HYSTERECTOMY N/A Hysterectomy from [facility] [employer]AL [employer]AC[facility] SOCIAL HX: Social History Tobacco Use ??? Smoking status: Every Day Substance Use Topics ??? Drug use: Not Currently Comment: Drug use: History of drug use OBJECTIVE DATA LABS Type and Screen No results found for: ABO COVID SARS CoV-2/COVID-19 RNA PCR Result Date Value Ref Range Status 07/20/2022 Not Detected Not Detected Final Lab Results Component Value Date WBC 6.05 07/20/2022 HGB 11.9 07/20/2022 HCT 35.9 07/20/2022 MCV 91 07/20/2022 PLT 218 07/20/2022 Lab Results Component Value Date GLUCOSE 85 07/20/2022 CALCIUM 8.8 (L) 07/20/2022 NA 137 07/20/2022 K 3.4 (L) 07/20/2022 CO2 23 07/20/2022 CL 104 07/20/2022 BUN 13 07/20/2022 CREATININE 0.75 07/20/2022 Diabetic Labs No results found for: HGBA1C Lab Results Component Value Date PGLU 116 (H) 10/06/2019 ABG No results found for: PHART, PIU3AOM, PO2ART, SO2ART, BEART, NXV8QII, HCTART, SODIUMART, POTASSIUMART, POCTCL, POCGLU, IONCALART, LACTATE Lab Results Component Value Date NA 137 07/20/2022 EKG No results found for this or any previous visit (from the past 4464 hour(s)). ECHO No echocardiogram results found for the past 12 months PFTs No results found for: MAO4WOO, YBN2KOKQ, WTK7KRR, FVCPRED Relevant Problems Anesthesia (within normal limits) Cardio (within normal limits) Endo (within normal limits) GI (+) Diarrhea (+) GERD (gastroesophageal reflux disease) /Renal (within normal limits) Neuro/Psych (+) History of psychiatric treatment Pulmonary (within normal limits) ROS Anesthesia: history of previous anesthesia. Clinical information reviewed: Allergies Allergies Allergen Reactions ??? Tegaderm Ag Mesh [Silver] Hives ??? Tetracycline Hives ??? Chlorhexidine Unknown ??? Penicillins Unknown ??? Wound Dressing Adhesive Rash Physical Exam Airway Mallampati: II Mouth opening: normal TM distance: >3 FB Neck ROM: full Upper lip bite test: II Cardiovascular - normal exam Dental (+) edentulous Pulmonary - normal exam Neurological - normal exam Skin Musculoskeletal Extremities Anesthesia Plan ASA 2 Anesthesia technique(s) discussed with the patient/family: General Anesthesia plan agreed upon was: general Induction planned: intravenous Airway management planned: general endotracheal Premedication planned: midazolam Anesthetic plan and risks discussed with patient. Use of blood products discussed with patient who consented to blood products. Plan discussed with attending. Additional Equipment Requests documented in this encounter Plan of Treatment Upcoming Encounters Date Type Department Care Team (Late st Contact Info) Description 05/17/2024 2:00 PM EST Office Visit [facility] Interventional Pain Medicine [address] [place] [address] Markell Lucas MD [address] [facility] [address] [place] [phone] 06/08/2024 2:00 PM EST Procedure Visit [facility] Interventional Pain Medicine [address] [place] [address] Markell Lucas MD [address] [facility] [address] [place] [phone] documented as of this encounter Procedures Procedure Name Priority Date/Time Associated Diagnosis Comments ANESTHESIA ULTRASOUND GUIDED Routine 07/21/2022 8:30 AM EST ANESTHESIA PERIPHERAL IV PLACEMENT Routine 07/21/2022 7:45 AM EST PB ANESTHESIA PLACEHOLDER Routine 07/21/2022 7:44 AM EST W[place] AN ELECTIVE ENDOTRACHEAL AIRWAY Routine 07/21/2022 7:44 AM EST documented in this encounter Results * ANESTHESIA ULTRASOUND GUIDED (07/21/2022 8:30 AM EST) Narrative Tereso Mullins CRNA - 07/21/2022 8:30 AM EST Tereso Mullins CRNA ? 07/21/2022 ??8:42 AM Peripheral IV Date/Time: 07/21/2022 8:30 AM Placement Needle size: 18 G Location: antecubital Local anesthetic: none Site prep: alcohol Technique: ultrasound guided Attempts: 2 us Gaetano Delgado MD ANESTHESIA ORDERABLES Final R esult * Peripheral IV (07/21/2022 7:45 AM EST) Narrative Tereso Mullins CRNA - 07/21/2022 7:45 AM EST Tereso Mullins CRNA ? 07/21/2022 ??8:25 AM Peripheral IV Date/Time: 07/21/2022 7:45 AM Inserted by: Tereso Mullins CRNA Placement Needle size: 18 G Location: wrist Local anesthetic: none Site prep: alcohol Technique: anatomical landmarks Attempts: 1 Gaetano Delgado MD ANESTHESIA ORDERABLES Final R esult * [place] AN ELECTIVE ENDOTRACHEAL AIRWAY, PB ANESTHESIA PLACEHOLDER (07/21/2022 7:44 AM EST) Tereso Foy CRNA - 07/21/2022 7:44 AM EST Terseo Mullins CRNA ? 07/21/2022 ??8:25 AM Airway Date/Time: 07/21/2022 7:44 AM Urgency: elective Airway not difficult General Information and Staff Patient location during procedure: OR Anesthesiologist: Gaetano Delgado MD TIME CYCLE OPERATOR: Tereso Mullins CRNA Performed: TIME CYCLE OPERATOR Indications and Patient Condition Indications for airway management: anesthesia and airway protection Spontaneous Ventilation: absent Preoxygenated: yes Patient position: sniffing MILS not maintained throughout Mask difficulty assessment: 2 - vent by mask + OA or adjuvant +/- NMBA Final Airway Details Final airway type: endotracheal airway Successful airway: ETT Cuffed: yes Successful intubation technique: direct laryngoscopy Endotracheal tube insertion site: oral Blade: David Blade size: #2 ETT size (mm): 7.5 Cormack-Lehane Classification: grade I - full view of glottis Placement verified by: chest auscultation, capnometry and palpation of cuff Measured from: teeth ETT to teeth (cm): 21 Number of attempts at approach: 1 Ventilation between attempts: none Number of other approaches attempted: 0 Additional Comments Atraumatic. No change to dentition. us Gaetano Delgado MD ANESTHESIA ORDERABLES Final R esult documented in this encounter Visit Diagnoses Not on filedocumented in this encounter Administered Medications Inactive Administered Medications - up to 3 most recent administrations Medication Order MAR Action Action Date Dose Rate Site dexamethasone (Decadron) injection Intravenous, As needed, Starting on 07/21/22 at 0751, Until 07/21/22 at 0958, Routine, Anesthesia Intraprocedure Given 07/21/2022 7:51 AM EST 8 mg fentaNYL (Sublimaze) injection Intravenous, As needed, Starting on 07/21/22 at 0812, Until 07/21/22 at 0958, Routine, Anesthesia Intraprocedure Given 07/21/2022 8:12 AM EST 150 mcg Given 07/21/2022 7:41 AM EST 100 mcg HYDROmorphone PF (Dilaudid) injection Intravenous, As needed, Starting on 07/21/22 at 0918, Until 07/21/22 at 0958, Routine, Anesthesia Intraprocedure Given 07/21/2022 9:18 AM EST 2 m g ketorolac (Toradol) injection Intravenous, As needed, Starting on 07/21/22 at 0939, Until 07/21/22 at 0958, Routine, Anesthesia Intraprocedure Given 07/21/2022 9:39 AM EST 30 mg lactated Ringer's infusion Intravenous, Continuous PRN, Starting on 07/21/22 at 0736, Until 07/21/22 at 0958, Routine New Bag 07/21/2022 7:36 AM EST lidocaine PF (Xylocaine) 2 % injection Intravenous, As needed, Starting on 07/21/22 at 0741, Until 07/21/22 at 0958, Routine, Anesthesia Intraprocedure Given 07/21/2022 7:41 AM EST 100 mg midazolam (Versed) injection Intravenous, As needed, Starting on 07/21/22 at 0731, Until 07/21/22 at 0958, Routine, Anesthesia Intraprocedure Given 07/21/2022 7:31 AM EST 2 m g ondansetron (Zofran) injection Intravenous, As needed, Starting on 07/21/22 at 0918, Until 07/21/22 at 0958, Routine, Anesthesia Intraprocedure Given 07/21/2022 9:18 AM EST 4 m g piperacillin-tazobactam (Zosyn) 3.375 g in sodium chloride 0.9% 100 mL IVPB (Mini-Bag Plus) 3.375 g, Intravenous, Every 6 hours, First dose on 07/20/22 at 0835, Until Discontinued, Routine Bolus 07/21/2022 8:03 AM EST 3.375 g New Bag 07/21/2022 4:00 AM EST 3.375 g New Bag 07/20/2022 10:39 PM EST 3.375 g propofol (Diprivan) injection Intravenous, As needed, Starting on 07/21/22 at 0741, Until 07/21/22 at 0958, Routine, Anesthesia Intraprocedure Given 07/21/2022 7:41 AM EST 200 mg rocuronium (ZeMuron) injection Intravenous, As needed, Starting on 07/21/22 at 0741, Until 07/21/22 at 0958, Routine, Anesthesia Intraprocedure Given 07/21/2022 9:14 AM EST 10 mg Given 07/21/2022 7:41 AM EST 60 mg sugammadex (Bridion) 200 MG/2ML injection Intravenous, As needed, Starting on 07/21/22 at 0938, Until 07/21/22 at 0958, Routine, Anesthesia Intraprocedure Given 07/21/2022 9:38 AM EST 300 mg documented in this encounter Additional Health Concerns Infection Onset Date Last Indicated Resolved Time Gastrointestinal Rule-Out 07/20/2022 07/20/2022 1:09 PM EST documented as of this encounter Care Teams Fixed Route Bus Operator Relationship Specialty Start Date End Date Markell Mejia MD [address] [place] [address] PCP - General 10/20/20 12/27/22 documented as of this encounter
--- OUTSIDE RECORDS SUMMARY | 2024-04-21 20:08 | XMS_ITS | Encounter Summary ---
Author Organization [facility] Address [address] [place] [address] Care Team Providers Care Sustainability Purchasing Agent Name Role Phone AlIra vick Drew VALERIO Primary Care Provider [phone] Encounter Details Date Type Department Care Team (Latest Contact Info) Description 12/04/2023 Travel Social History Tobacco Use Types Packs/Day [...] 05/17/2024 2:00 PM EST Office Visit [facility] Interventional Pain Medicine [address] [place] [address] Markell Lucas MD [address] [phone] 06/08/2024 2:00 PM EST Procedure Visit [facility] Interventional Pain Medicine [address] [place] [address] Markell Lucas MD [address] [place] [address] documented as of this encounter Visit Diagnoses Not on filedocumented in this encounter Additional Health Concerns Assessment Noted Time A fall risk assessment has been complete d for the patient 12/04/2023 1:59 PM EDT A Body Mass Index follow-up plan has been documented for the patient 12/09/2023 8:26 PM EDT documented as of this encounter Care Teams Sustainability Purchasing Agent Relationship Specialty Start Date End Date Ira Melendez APRN [address] [place] [address] PCP - General 12/28/22 01/29/24 documented as of this encounter
--- OUTSIDE RECORDS SUMMARY | 2024-04-21 20:08 | XMS_ITS | Encounter Summary ---
Author Organization [facility] Address [address] [place] [address] Care Team Providers Care Ticker Wirer Name Role Phone AlIra vick Drew VALERIO Primary Care Provider [phone] Encounter Details Date Type Department Care Team (Latest Contact Info) Description 12/28/2022 Travel Social History Tobacco Use Types Packs/Day [...] Description 05/17/2024 2:00 PM EST Office Visit [facility] Interventional Pain Medicine [address] [place] [address] Markell Lucas MD [address] [phone] 06/08/2024 2:00 PM EST Procedure Visit [facility] Interventional Pain Medicine [address] [place] [address] Markell Lucas MD [facility] [address] [address] documented as of this encounter Visit Diagnoses Not on filedocumented in this encounter Additional Health Concerns Assessment Noted Time A Body Mass Index follow-up plan has been documented for the patient 12/13/2022 1:37 PM EDT documented as of this encounter Care Teams Ticker Wirer Relationship Specialty Start Date End Date Ira Melendez APRN [address] [place] [address] PCP - General 12/28/22 01/29/24 documented as of this encounter
--- OUTSIDE RECORDS SUMMARY | 2024-04-21 20:08 | XMS_ITS | Encounter Summary ---
Author Organization [facility] Address [address] [place] [address] Care Team Providers Care Area Captain Name Role Phone Markell Mejia MD Primary Care Provider Encounter Details Date Type Department Care Team (Late st Contact Info) Description 12/13/2022 Refill [place] [facility] [address] [place] [address] Eufemia Acharya, MORRIS [address] [place] [address] Claustrophobia (Primary Dx) Social History Tobacco Use Types [...] [facility] Interventional Pain Medicine [address] [place] [address] Markell Lucas MD [address] [facility] [address] [place] [phone] 06/08/2024 2:00 PM EST Procedure Visit [facility] Interventional Pain Medicine [address] [place] [address] Markell Lucas MD [address] [facility] [address] [place] [address] documented as of this encounter Visit Diagnoses Diagnosis Claustrophobia- Primary Other isolated or specific phobias documented in this encounter Additional Health Concerns Assessment Noted Time A Body Mass Index follow-up plan has been documented for the patient 12/13/2022 1:37 PM EDT documented as of this encounter Care Teams Area Captain Relationship Specialty Start Date End Date Markell Mejia MD [address] [place] [address] PCP - General 10/20/20 12/27/22 documented as of this encounter
--- OUTSIDE RECORDS SUMMARY | 2024-04-21 20:08 | XMS_ITS | Encounter Summary ---
Author Organization [facility] Address [address] [place] [address] Care Team Providers Care Human Resources Psychologist Name Role Phone AlIra vick Drew VALREIO Primary Care Provider [phone] Encounter Details Date Type Department Care Team (Latest Contact Info) Description 01/07/2023 Travel Social History Tobacco Use Types Packs/Day [...] [facility] Interventional Pain Medicine [address] [place] [address] Markell Lucas MD [address] [address] 06/08/2024 2:00 PM EST Procedure Visit [facility] Interventional Pain Medicine [address] [place] [address] Markell Lucas MD [address] [place] [address] documented as of this encounter Visit Diagnoses Not on filedocumented in this encounter Additional Health Concerns Assessment Noted Time A fall risk assessment has been complete d for the patient 01/07/2023 11:43 AM EDT A Body Mass Index follow-up plan has been documented for the patient 01/07/2023 12:30 PM EDT documented as of this encounter Care Teams Human Resources Psychologist Relationship Specialty Start Date End Date Ira Melendez APRN [address] [place] [address] PCP - General 12/28/22 01/29/24 documented as of this encounter
--- OUTSIDE RECORDS SUMMARY | 2024-04-21 20:08 | XMS_ITS | Encounter Summary ---
Author Organization [facility] Address [address] [place] [address] Care Team Providers Care Brim Plater Name Role Phone Markell Mejia MD Primary Care Provider Encounter Details Date Type Department Care Team (Latest Contact Info) Description 12/13/2022 Travel Social History Tobacco Use Types Packs/Day [...] [facility] Inter[facility] Medicine [address] [place] [address] Markell Lucas MD [address] [facility] [address] [address] 06/08/2024 2:00 PM EST Procedure Visit [facility] Interventional Pain Medicine [address] [place] [address] Markell Lucas MD [address] [facility] [address] [address] documented as of this encounter Visit Diagnoses Not on filedocumented in this encounter Additional Health Concerns Assessment Noted Time A Body Mass Index follow-up plan has been documented for the patient 12/13/2022 1:37 PM EDT documented as of this encounter Care Teams Brim Plater Relationship Specialty Start Date End Date Markell Mejia MD [address] [place] [address] PCP - General 10/20/20 12/27/22 documented as of this encounter
--- OUTSIDE RECORDS SUMMARY | 2024-04-21 20:08 | XMS_ITS | Encounter Summary ---
Author Organization [facility] Address [address] [place] [address] Care Team Providers Care Scrapper Name Role Phone Markell Mejia MD Primary Care Provider [phone] Ira Melendez APRN Primary Care Provider [phone] Reason for Visit * Reason Onset Date Comments HCN - Patient Message 12/11/2022 appt Encounter Details Date Type Department Care Team (Late st Contact Info) Description 12/11/2022 Telephone [place] [facility] [address] [place] [address] [facility]ufemia Acharya, [facility] [address] [place] [address] HCN - Patient Message (appt) Social History Tobacco Use Types Packs/Day Years Used Date Smoking Tobacco: Every Day Comments No Sex and Gender Information Value Date Recorded Sex Assigned at Not on file Legal Sex Female 7:41 PM EDT Gender Identity Not on file Sexual Orientation Not on file documented as of this encounter Miscellaneous Notes * Telephone Encounter - [place] triana Gali - 12/11/2022 12:10 PM EDT Spoke to patient, she wishes to come her to get new imaging ordered, scheduled for 12/13 since Eufemia had cancellation. * Telephone Encounter - AnantKelsi - 12/11/2022 11:17 AM EDT Patient Phone Message Reason for Call: Having constant headaches, neck pain, arm tingling on both sides again, hand tingling Wants to get back in to be seen Best contact number and optimal time of day to reach caller: [phone] / pt Note: Please do not reply to this message. Follow-up communication and further actions as a result of this message need to be communicated with the patient directly, if the patient is not active onMyChart. If the patient is active on MyChart, they will receive notification of the communication/outcome via Wobeek[facility]. documented in this encounter Plan of Treatment Upcoming Encounters Date Type Department Care Team (Late st Contact Info) Description 05/17/2024 2:00 PM EST Office Visit [facility] Interventional Pain Medicine [facility] [place] [address] Markell Lucas MD [address] [place] [address] 06/08/2024 2:00 PM EST Procedure Visit [facility] Interventional Pain Medicine [address] [place] [address] Markell Lucas MD [facility] [address] [phone] documented as of this encounter Visit Diagnoses Not on filedocumented in this encounter Care Teams Scrapper Relationship Specialty Start Date End Date Markell Mejia MD [address] [place] [address] PCP - General 10/20/20 12/27/22 Ira Melendez APRN [address] [place] [address] PCP - General 12/28/22 01/29/24 documented as of this encounter
--- OUTSIDE RECORDS SUMMARY | 2024-04-21 20:09 | XMS_ITS | Encounter Summary ---
Author Organization [facility] Address [address] [place] [address] Care Team Providers Care Skilled Helper Name Role Phone Markell Mejia MD Primary Care Provider Reason for Visit * Reason Comments Laceration Encounter Details Date Type Department Care Team ([facility] st Contact Info) Description 01/25/2022 6:46 PM EDT - 01/25/2022 9:24 PM EDT Emergency [facility] [address] [place] [address] Jere Stockton MD [address] [place] [address] Thumb laceration, right, initial encounter (Primary Dx) Discharge Disposition: Home or Self Care Social History Tobacco Use Types Packs/Day Years Used Date Smoking Tobacco: Every Day Comments Unknown Sex and Gender Information Value Date Recorded Sex Assigned at Not on file Legal Sex Female 7:41 PM EDT Gender Identity Not on file Sexual Orientation Not on file COVID-19 Exposure Response Date Recorded In the last 10 days, have yo u been in contact with someone who was confirmed or suspected to have Coronavirus/COVID-19? No / Unsure 01/25/2022 6:34 PM EDT documented as of this encounter Last Filed Vital Signs Vital Sign Reading Time Taken Comments Blood Pressure 128/74 01/25/2022 9:23 PM EDT Pulse 61 01/25/2022 9:23 PM EDT Temperature 37 ??C (98.6 ??F) 01/25/2022 9:23 PM EDT Respiratory Rate 16 01/25/2022 9:23 PM EDT Oxygen Saturation 99% 01/25/2022 9:23 PM EDT Inhaled Oxygen Concentration - - Weight - - Height - - Body Mass Index - - documented in this encounter Discharge Instructions * Discharge Instructions* Roxann Ocampo MD - 01/25/2022 8:59 PM EDT Cover the wound with nonadherent dressing for the first 24-48 hours. Please clean the wound with soap and water and monitor for signs of infection daily. You may try elevation, ice, ibuprofen or tylenol as needed for discomfort. You can apply over the counter antibiotic ointment for the next 3-5 days. Your sutures will self absorb. Consider elevation of the affected limb to reduce swelling and help in healing. Please avoid sun exposure while the wound is healing. Please consider wearing sunblock for the next 6-12 months over the injury to optimize cosmetic outcome. * Attachments The following attachments cannot be sent through Care Everywhere. * Laceration, Extremity: Stitches, Staple, or Tape (Lao) documented in this encounter Medications at Time of Discharge Medication Sig Dispense Quantity Refills Last Filled Start D ate End Date albuterol (Ventolin HFA) 108 (90 Base) MCG/ACT inhaler 09/16/2019 fluticasone (Flonase) 50 MCG/ACT nasal spray 09/16/2019 12/13/2022 documented as of this encounter Miscellaneous Notes * ED Procedure Note - Roxann Ocampo MD - 01/25/2022 6:31 PM EDT Associated Order(s): Laceration Repair Procedure Reason: laceration repair Laceration Repair Performed by: Roxann Ocampo MD Authorized by: Jere Stockton MD Consent: Consent obtained: Verbal Consent given by: Patient [place] protocol: Patient identity confirmed: Verbally with patient Anesthesia: Anesthesia method: Local infiltration and nerve block Local anesthetic: Lidocaine 1% w/o epi Block needle gauge: 25 G Block anesthetic: Lidocaine 1% w/o epi Laceration details: Location: Finger Finger location: R thumb Length (cm): 1 Exploration: Imaging obtained: x-ray Treatment: Area cleansed with: Saline Amount of cleaning: Standard Irrigation solution: Sterile saline Skin repair: Repair method: Sutures Suture size: 4-0 Suture material: Chromic gut Suture technique: Simple interrupted Number of sutures: 3 Approximation: Approximation: Close Repair type: Repair type: Simple Post-procedure details: Dressing: Open (no dressing) Procedure completion: Tolerated well, no immediate complications Roxann Ocampo MD Resident 01/26/22 0026 Cosigned by Jere Stockton MD at 01/29/2022 11:51 PM EDT Associated attestation - Jere Stockton MD - 01/29/2022 11:51 PM EDT I saw and evaluated the patient with the resident/fellow. I discussed the case with the resident/fellow and agree with the findings and plan as documented. I was present during the critical and baum portions of the procedure and immediately available to furnish services the entire duration. See resident note for details. * ED Provider Notes - Roxann Ocampo MD - 01/25/2022 6:31 PM EDT HPI Chief Complaint Patient presents with Laceration PIT Note Taniya Richardson is a 41 y.o. female who presents to the ED with a laceration. Pt states that she was at [facility] and reached for an item for a client when she sliced her right thumb on a broken glass bottle. Patient denies nausea, vomiting, fever, and chills. Damaris: agree with above. No other injuries sustained. This took place around 530 pm. History provided by: Patient sign language interpreter used: No No data recorded Patient History Past Medical History: Diagnosis Date Personal history of other diseases of urinary system History of kidney disease Personal history of other endocrine, nutritional and metabolic disease History of hypoglycemia Personal history of other specified conditions History of abdominal pain Past Surgical History: Procedure Laterality Date BLADDER SURGERY N/A Bladder Surgery from [facility] SECTION, LOW TRANSVERSE N/A Section from [facility] DILATION AND CURETTAGE OF UTERUS N/A Dilation and curettage from [facility] HYSTERECTOMY N/A Hysterectomy from [facility] Family History Problem Relation Name Age of Onset Cardiac disorder Mother Cardiac disorder Other Stroke Mother Stroke Other Hypertension Mother Hypertension Other Colon cancer Mother Colon cancer Other Tobacco Use Smoking status: Every Day Substance Use Topics Drug use: Not Currently Comment: Drug use: History of drug use Immunization History Immunization History: reviewed Allergies: Not on File Review of Systems Review of Systems Constitutional: Negative for chills and fever. HENT: Negative for ear pain and sore throat. Eyes: Negative for pain and visual disturbance. Respiratory: Negative for cough and shortness of breath. Cardiovascular: Negative for chest pain and palpitations. Gastrointestinal: Negative for abdominal pain and vomiting. Genitourinary: Negative for dysuria and hematuria. Musculoskeletal: Negative for arthralgias and back pain. Skin: Positive for wound. Negative for color change and rash. Lac rt thumb. Neurological: Negative for seizures and syncope. All other systems reviewed and are negative. Physical Exam ED Triage Vitals [01/25/22 1834] Temp Heart Rate Resp BP 37.3 ??C (99.2 ??F) 87 18 125/79 SpO2 Temp Source Heart Rate Source Patient Position 98 % Oral -- Sitting BP Location FiO2 (%) Right arm -- Physical Exam Vitals and nursing note reviewed. Constitutional: General: She is not in acute distress. Appearance: Normal appearance. HENT: Head: Normocephalic and atraumatic. Nose: No rhinorrhea. Mouth/Throat: Mouth: Mucous membranes are moist. Pharynx: Oropharynx is clear. Eyes: General: Right eye: No discharge. Left eye: No discharge. Conjunctiva/sclera: Conjunctivae normal. Pupils: Pupils are equal, round, and reactive to light. Pulmonary: Effort: Pulmonary effort is normal. No respiratory distress. Breath sounds: No stridor. Musculoskeletal: General: Normal range of motion. Cervical back: No rigidity. Skin: General: Skin is warm and dry. Findings: Laceration present. Comments: 1 cm laceration horizontal superficial to right anterior thumb. Full extension of the thumb. Neurological: Mental Status: She is alert and oriented to person, place, and time. Psychiatric: Mood and Affect: Mood normal. Behavior: Behavior normal. ED Course & MDM Clinical Impressions as of 01/26/2225 Thumb laceration, right, initial encounter ED Disposition: MDM Number of Diagnoses or Management Options Thumb laceration, right, initial encounter Diagnosis management comments: Date/Time: 01/25/2022/6:45 PM Entered by Antonette Gary, acting as scribe for Dr. Silveira. Scribe Attestation: This note was dictated to me, Miriam Gary, acting as a scribe for Dr. Silveira. Attending Attestation: The documentation was recorded by Antonette Gary acting as scribe in my presence at the time of the encounter and accurately reflects the service I personally performed. Taniya Richardson is a 41 y.o. female who presents with right thumb laceration sustained after cutting herself on a glass bottle around 530 pm. No other injury sustained. Upon arrival, patient is nontoxic appearing. On exam, patient has approximately one cm superficial laceration to the right thumb. Neurovascularly intact. XR obtained and negative for fracture or obvious foreign body. Patient does have full extension and flexion of her thumb. Wound was cleansed copiously. Laceration repaired, please see procedure note for additional details. Tetanus is updated. Discussed wound care at length. ED Prescriptions None Sign Off Checklist Clinical Impression: Complete ED Disposition: Complete Roxann Ocampo MD Resident 01/26/2227 Cosigned by Jere Stockton MD at 01/29/2022 11:51 PM EDT Associated attestation - Jere Stockton MD - 01/29/2022 11:51 PM EDT I saw and evaluated the patient with the resident/fellow. I discussed the case with the resident/fellow and agree with the findings and plan as documented. * ED Triage Notes - Aditya, Shereen Julio - 01/25/2022 6:31 PM EDT Pt reports slicing her right thumb on a glass bottle at [facility]. documented in this encounter Plan of Treatment Upcoming Encounters Date Type Department Care Team (Late st Contact Info) Description 05/17/2024 2:00 PM EST Office Visit [facility] Interventional Pain Medicine [address] [place] [address] Markell Lucas MD [facility] [address] [address] 06/08/2024 2:00 PM EST Procedure Visit [facility] Interventional Pain Medicine [address] [place] [address] Markell uLcas MD [facility] [address] [address] documented as of this encounter Procedures Procedure Name Priority Date/Time Associated Diagnosis Comments XR HAND RIGHT 3+ VIEWS STAT 01/25/2022 8:10 PM EDT HC APPLICATION DERMABOND Routine 01/25/2022 6:31 PM EDT KS RESUPERF WND BODY <2.5CM Routine 01/25/2022 6:31 PM EDT documented in this encounter Results * XR Hand Right 3+ Views (01/25/2022 8:10 PM EDT) Anatomical Region Laterality Modality Upper Extremities, Hand Right Computed Radiography Impressions 01/25/2022 8:26 PM EDT No retained radiopaque foreign body. CRITICAL RESULT: ?? No. COMMUNICATION: Per this written report. Approved by Denise Tolliver MD on 01/25/2022 8:17 PM By electronically signing this report, I, the attending physician, attest that I have personally reviewed the images/data for the above examination(s) and agree with the final edited report. Dictated by Denise Tolliver MD on 01/25/2022 8:17 PM Signed by Eulogio Rocha MD on 01/25/2022 8:26 PM Narrative 01/25/2022 8:26 PM EDT Exam/Procedure: XR HAND RIGHT 3+ VIEWS ordered by JERE STOCKTON [id number] CLINICAL INDICATION: laceration, r/o foreign body TECHNIQUE: XR HAND RIGHT 3+ VIEWS COMPARISON: None FINDINGS: No acute fracture or dislocation. Normal osseous alignment. Preserved joint spaces. No retained radiopaque foreign body. No significant soft tissue swelling. No subcutaneous free air. Procedure Note Eulogio Rocha MD - 01/25/2022 Exam/Procedure: XR HAND RIGHT 3+ VIEWS ordered by JERE STOCKTON [id number] CLINICAL INDICATION: laceration, r/o foreign body TECHNIQUE: XR HAND RIGHT 3+ VIEWS COMPARISON: None FINDINGS: No acute fracture or dislocation. Normal osseous alignment. Preservedjoint spaces. No retained radiopaque foreign body. No significant softtissue swelling. No subcutaneous free air. IMPRESSION: No retained radiopaque foreign body. CRITICAL RESULT: No. COMMUNICATION: Per this written report. Approved by Denise Tolliver MD on 01/25/2022 8:17 PM By electronically signing this report, I, the attending physician, attestthat I have personally reviewed the images/data for the aboveexamination(s) and agree with the final edited report. Dictated by Denise Tolliver MD on 01/25/2022 8:17 PM Signed by Eulogio Rocha MD on 01/25/2022 8:26 PM us Jere Stockton MD IMG XR PROCEDURES Final Result * KS RESUPERF WND BODY <2.5CM, HC APPLICATION DERMABOND (01/25/2022 6:31 PM EDT) Jere Alvarez MD - 01/25/2022 6:31 PM EDT Roxann Ocampo MD ? 01/26/2022 12:26 AM Laceration Repair Performed by: Roxann Ocampo MD Authorized by: Jere Stockton MD Consent: ??Consent obtained: ??Verbal ??Consent given by: ??Patient [place] protocol: ??Patient identity confirmed: ??Verbally with patient Anesthesia: ??Anesthesia method: ??Local infiltration and nerve block ??Local anesthetic: ??Lidocaine 1% w/o epi ??Block needle gauge: ??25 G ??Block anesthetic: ??Lidocaine 1% w/o epi Laceration details: ??Location: ??Finger ??Finger location: ??R thumb ??Length (cm): ??1 Exploration: ??Imaging obtained: x-ray ?? Treatment: ??Area cleansed with: ??Saline ??Amount of cleaning: ??Standard ??Irrigation solution: ??Sterile saline Skin repair: ??Repair method: ??Sutures ??Suture size: ??4-0 ??Suture material: ??Chromic gut ??Suture technique: ??Simple interrupted ??Number of sutures: ??3 Approximation: ??Approximation: ??Close Repair type: ??Repair type: ??Simple Post-procedure details: ??Dressing: ??Open (no dressing) ??Procedure completion: ??Tolerated well, no immediate complications us Jere Stockton MD IN CLINIC/BEDSIDE ORDERABLES Fin al Result documented in this encounter Visit Diagnoses Diagnosis Thumb laceration, right, initial encounter- Primary documented in this encounter Care Teams Skilled Helper Relationship Specialty Start Date End Date Markell Mejia MD [address] [place] [address] PCP - General 10/20/20 12/27/22 documented as of this encounter
--- OUTSIDE RECORDS SUMMARY | 2024-04-21 20:09 | XMS_ITS | Encounter Summary ---
Author Organization [facility] Address [address] [place] [address] Care Team Providers Care Database Dba Name Role Phone Markell Mejia MD Primary Care Provider Encounter Details Date Type Department Care Team (Latest Contact Info) Description 07/19/2022 Travel Social History Tobacco Use Types Packs/Day [...] PM EST documented as of this encounter Plan of Treatment Upcoming Encounters Date Type Department Care Team (Late st Contact Info) Description 05/17/2024 2:00 PM EST Office Visit [facility] Interventional Pain Medicine [address] [place] [address] Markell Lucas MD [address] [facility] [address] [place] [address] 06/08/2024 2:00 PM EST Procedure Visit [facility] Interventional Pain Medicine [address] [place] [address] Markell Lucas MD [address] [facility] [address] [place] [address] documented as of this encounter Visit Diagnoses Not on filedocumented in this encounter Care Teams Database Dba Relationship Specialty Start Date End Date Markell Mejia MD [address] [place] [address] PCP - General 10/20/20 12/27/22 documented as of this encounter
--- OUTSIDE RECORDS SUMMARY | 2024-04-21 20:09 | XMS_ITS | Patient Health Record ---
Author Organization [facility] Address [address] [place] [address] Care Team Providers Care Digital Marketing Apprentice Name Role Phone Jennifer Bailey Primary Care Provider Allergies Allergen (clinical drug ingredient) Drug/Non Drug Allergy documented on EMR Reaction Allergy Type Onset Date Status horse radish (uncoded) Unknown Allergy Active tetracycline Tetracycline HCl Unknown Drug Allergy Active Reason For Referral No Information Medications Medication SIG (Take, Route, Fr equency, Duration) Notes Start Date End Date Status PROzac 40 MG 1 capsule Orally Once a day Active Melatonin 5 MG 1 tablet in the even ing Orally Once a day Active Vivitrol 380 MG 4 ml Intramuscular e very 4 weeks for 28 days 06/20/2021 Active Social History Tobacco Use: Social History Observation Description Date Details (start date - stop date) Current Smoker NA - NA Tobacco Use/Smoking Question Answer Notes Are you a current smoker How often do you smoke cigarettes? every day How many cigarettes a day do you smoke? 5 or les s Problems Problem Type SNOMED Code ICD Code Onset Dates Problem Status W/U Status Risk Notes Problem Alcohol dependence (54361229) Uncomplicated alcohol dependence (F10.20) Active confirmed Problem Opioid dependence (48102205) Uncomplicated opioid dependence (F11.20) Active confirmed Plan Of Treatment No Information Insurance Providers Payer Name Payer Address Payer Phone Subscriber Number Group Number Insured Name Patient Relationship to Insured Coverage Start Date Coverage End Date Human Medicaid [address] [address] [place] [address] [id number] Taniya Martin Self - patient is the insured 1 Medical (General) History Medical History History ICD Code PTSD (post-traumatic stress disorder) F4 3.10 anxiety opioid addiction hydronephrosis hepatitis C Surgical History Surgery Date(Month/Year) TOTAL HYSTERECTOMY 2019 renal stent 2000 c-spine fusion 2019 Section dilatation and curettage left first finger amputated
--- OUTSIDE RECORDS SUMMARY | 2024-04-21 20:09 | XMS_ITS | Encounter Summary ---
Author Organization [facility] Address [address] [place] [address] Care Team Providers Care Night Auditor Name Role Phone Markell Mejia MD Primary Care Provider [phone] Encounter Details Date Type Department Care Team (Latest Contact Info) Description 01/25/2022 Travel Social History Tobacco Use Types Packs/Day [...] 05/17/2024 2:00 PM EST Office Visit [facility] Interventional Pain Medicine [address] [place] [address] Markell Lucas MD [address] [facility] [address] [place] [address] 06/08/2024 2:00 PM EST Procedure Visit [facility] Interventional Pain Medicine [address] [place] [address] Markell Lucas MD [address] [facility] [address] [place] [address] documented as of this encounter Visit Diagnoses Not on filedocumented in this encounter Care Teams Night Auditor Relationship Specialty Start Date End Date Markell Mejia MD [address] [place] [address] PCP - General 10/20/20 12/27/22 documented as of this encounter
--- OUTSIDE RECORDS SUMMARY | 2024-04-21 20:09 | XMS_ITS | Data Portability ---
Author Organization [facility] [place] [facility] Ledezma ADMIN Address [address] [place] [address] Care Team Providers Care Mri Technician Name Role Phone ELISEO IBARRA Primary Care Provider Assessment No assessment recorded. Plan of Treatment Reminders Order Date Submit Date Provider Last Modified By Organization Details Last Modified Time Details Appointments None recorde d. Lab HbA1c (hemogl obin A1c), blood 024 11/11/19 24 [email or web address] [address] [facility] [address], [place], [address], 22:28:50 Referral None recorde d. Procedures None recorde d. Surgeries None recorde d. Imaging None recorde d. Medication Orders None recorde d. Patient TargetsNo targets recorded. Patient Instructions Encounter Date Encounter Id Patient Instructions Last Modified By Organization Details Last Modified Time 11/11/2023 [id number] I spent 30 minutes with patient gathering her history, reviewing continuity of care notes from [facility] in [place], performing physical exam, developing POC, and documenting in chart [email or web address] Not available 11/11/2023 22:43:08 Reason for Referral None Reported. Results Created Date Observation Date Name Description Value Unit Range Abnormal Flag Note LastModifiedBy Organization Detail LastModifiedTime 11/11/19 24 11/11/2023 HbA1c (hemo globi n A1c), blood HbA1c 5.7 % Not Available [facility] [address], [place], [address], 11/11/2023 22:27:45 04/02/20 23 12/26/2022 home sleep study No observ ation record ed. [email or web address] Not Available 2022 15:03:58 Result Notes None recorded. Problems Name Problem SNOMED Code Status Onset Date Resolution Date Notes Provider Name and Address Organization Details Recorded Time Neuralgia 22815076 Active 2023 Jacqui King null, [place] - [facility] [place] 4 10:37:40 Prediabetes 746630161 Active 2023 Jacqui King null, [place] - [facility] & [place] 4 10:38:25 Anxiety 06262390 Active 2023 Jacqui King null, [place] [facility] [place] 4 10:49:52 Depressive disorder 48435015 Active 2023 Jacqui King null, [place] - [facility] [place] 4 10:49:59 Sleep apnea 44349608 Active 2023 Jacqui King null, [place] - [facility] & [place] 4 10:50:20 Problem Notes None recorded. Procedures Surgical History Date Name Laterality Status Provider Name and Address Organization Details Recorded Time 07/21/19 23 Cholecystectomy completed Opal Kumaramer [place] - [facility] - [facility] & [place] 03/12/2024 15:12:49 06/09/19 20 procedure on finger completed Opal Kumaramer [place] - [facility] - [facility] & [place] 03/12/2024 15:15:48 06/09/19 20 procedure on spine completed Opal Kumaramer [place] - [facility] [place] 03/12/2024 15:15:31 06/09/19 19 Hysterectomy completed Brigitte Louis [place] - [facility] - [facility] & [place] 11/26/2023 14:53:07 06/09/19 percutaneous transluminal insertion of stent into renal artery completed Brigitte Louis [place] - [facility] - [facility] & [place] 11/26/2023 14:53:35 procedure on neck completed Rebecca [place] [facility] - & [place] 11/11/2023 10:51:33 procedure on gallbladder completed Jacqui SUH - [facility] & [place] 11/11/2023 10:51:40 operation on urinary bladder completed Opal SUH - [facility] & [place] 03/12/2024 15:08:11 section completed Opal SUH - [facility] & [place] 03/12/2024 15:08:28 dilation and curettage of uterus completed Opal SUH - [facility] & [place] 03/12/2024 15:08:48 Imaging Results Imaging Date Name Status LastModified by [employer] ation Details LastModified Time 12/26/2022 home sleep study completed [email or web address] Information not available 04/02/2023 15:03:58 Procedure Notes None recorded. Medical Equipment None Reported. Allergies Allergen ID Allergen Name Allergen Category Reaction Reaction Severity Criticality Documentation Date Start Date Code Code System Note Provider Name and Address Organization Details Recorded Time 774840 chlorhexi dine medicatio n Not available Not available low 10/30/2023 2358 RxNorm Opal Murillo null, [place] - [place] [facility] & [place] 15:10:47 632603 Medicinal product containin g penicilli n and acting as antibacte rial agent (product) medicatio n Not available Not available low 10/30/2023 41498 05 SNOMED Opal Murillo null, [place] - [facility] & [place] 15:10:51 678749 silver medicatio n hives Not available Not available 10/30/2023 05099 43 RxNorm criti calit y mediu m Opal Murillo null, [place] - [facility] & [place] 15:11:04 966787 tetracycl ine medicatio n hives Not available Not available 10/30/2023 76044 RxNorm And relat ed drugs ; criti calit y mediu m Opal Murillo null, [place] - [facility] & [place] 15:11:11 506567 adhesive tape environme nt,medica tion rash Not available low 10/30/2023 Opal Murillo null, [place] - [facility] - [place] & [place] 15:11:19 Medications Name Sig Start Date Stop Date Status Note LastModified by Organization Details LastModified Time melatonin 10mg sublingua l tabs TAKE 1 TABLET BY MOUTH EVERY NIGHT AT BEDTIME active Not Available Not Available No t Available fluoxetin e 40 mg capsule TAKE 2 CAPSULES BY MOUTH EVERY DAY 11/10 completed Not Available Not Available Not Available methocarb caterina 500 mg tablet TAKE 1 TABLET BY MOUTH TWICE DAILY NEEDED 11/10 completed Not Available Not Available Not Available oxcarbaze pine 150 mg tablet TAKE 1 TABLET BY MOUTH TWICE DAILY FOR MOOD 11/10 completed Not Available Not Available Not Available Estring 2 mg (7.5 mcg/24 hour) vaginal ring INSERT 1 RING VAGINALL Y EVERY 3 MONTHS AT BEDTIME 11/10 completed Not Available Not Available Not Available trazodone 50 mg tablet TAKE 1/2 TO 1 TABLET BY MOUTH DAILY AT BEDTIME active Not Available Not Available No t Available cetirizin e 10 mg tablet TAKE 1 TABLET BY MOUTH DAILY 11/10 completed Not Available Not Available Not Available ibuprofen 800 mg tablet TAKE 1 TABLET BY MOUTH THREE TIMES DAILY NEEDED 11/10 completed Not Available Not Available Not Available fluconazo le 150 mg tablet TAKE 1 TABLET BY MOUTH TODAY AND AGAIN IN 3 DAYS 11/10 completed Not Available Not Available Not Available amoxicill in 600 mg-potass ium clavulana te 42.9 mg/5 mL oral suspensio n SHAKE LIQUID AND TAKE 8.5 ML BY MOUTH TWICE DAILY FOR 10 DAYS. DISCARD REMAINDE R 11/10 completed Not Available Not Available Not Available hydrocodo ne 5 mg-acetam inophen 325 mg tablet TAKE 1 TABLET BY MOUTH EVERY 6 HOURS NEEDED active Not Available Not Available No t Available prazosin 1 mg capsule TAKE 1 CAPSULE BY MOUTH AT BEDTIME 11/10 completed Not Available Not Available Not Available sucralfat e 1 gram tablet TAKE 1 TABLET BY MOUTH FOUR TIMES DAILY FOR 14 DAYS DIRECTED 11/10 completed Not Available Not Available Not Available phenazopy ridine 200 mg tablet TAKE 1 TABLET BY MOUTH EVERY 8 HOURS FOR PAIN FOR 2 DAYS active Not Available Not Available No t Available prednison e 20 mg tablet TAKE 2 TABLETS BY MOUTH DAILY IN THE MORNING 11/10 completed Not Available Not Available Not Available hydroxyzi ne pamoate 50 mg capsule TAKE 1 CAPSULE BY MOUTH THREE TIMES DAILY NEEDED FOR ANXIETY 11/10 completed Not Available Not Available Not Available metronida zole 500 mg tablet TAKE 1 TABLET BY MOUTH TWICE DAILY. DO NOT CONSUME ALCOHOL WHILE TAKING THIS PRODUCT 11/10 completed Not Available Not Available Not Available amlodipin e 5 mg tablet TAKE 1 TABLET BY MOUTH EVERY DAY DIRECTED 11/10 completed Not Available Not Available Not Available ciproflox acin 500 mg tablet TAKE 1 TABLET ORAL ROUTE EVERY 12 HOURS FOR 10 DAYS active Not Available Not Available No t Available sulfameth oxazole 800 mg-trimet hoprim 160 mg tablet TAKE 1 TABLET BY MOUTH TWICE DAILY FOR 7 DAYS 11/10 completed Not Available Not Available Not Available olanzapin e 2.5 mg tablet TAKE 1 TABLET BY MOUTH AT BEDTIME 11/10 completed Not Available Not Available Not Available acetamino phen 500 mg tablet 11/10 completed Not Available Not Available Not Available ondansetr on 8 mg disintegr ating tablet DISSOLVE 1 TABLET ON THE TONGUE EVERY 6 HOURS FOR 5 DAYS active Not Available Not Available No t Available lamotrigi ne 25 mg tablet TAKE 2 TABLETS BY MOUTH AT BEDTIME 11/10 completed Not Available Not Available Not Available famotidin e 20 mg tablet TAKE 1 TABLET BY MOUTH TWICE DAILY FOR 7 DAYS 11/10 completed Not Available Not Available Not Available methocarb caterina 750 mg tablet TAKE 1 TABLET BY MOUTH TWICE DAILY NEEDED active Not Available Not Available No t Available trazodone 100 mg tablet TAKE 1 TO 2 TABLETS BY MOUTH ONCE A DAY AT BEDTIME active Not Available Not Available No t Available OneTouch Ultra Test strips TEST GLUCOSE ONCE DAILY active Not Available Not Available No t Available phenazopy ridine 100 mg tablet TAKE 1 TO 2 TABLETS BY MOUTH EVERY 8 HOURS NEEDED FOR PAIN 11/10 completed Not Available Not Available Not Available hydrocodo ne 7.5 mg-acetam inophen 325 mg tablet TAKE 1 TABLET BY MOUTH EVERY 8 HOURS NEEDED FOR SEVERE PAIN active Not Available Not Available No t Available cephalexi n 500 mg capsule 11/10 completed Not Available Not Available Not Available promethaz ine 25 mg tablet TAKE 1 TABLET BY MOUTH EVERY 6 HOURS NEEDED FOR FOR NAUSEA 11/10 completed Not Available Not Available Not Available gabapenti n 300 mg capsule TAKE ONE CAPSULE BY MOUTH DAILY FOR 7 DAYS THEN TAKE 2 CAPSULES DAILY FOR 7 DAYS THEN START 3 CAPSULES DAILY active Not Available Not Available No t Available hydrochlo rothiazid e 25 mg tablet TAKE 1 TABLET BY MOUTH EVERY DAY DIRECTED 11/10 completed Not Available Not Available Not Available oxybutyni n chloride 5 mg tablet TAKE 2 TABLETS BY MOUTH EVERY DAY DIRECTED active Not Available Not Available No t Available ondansetr on 4 mg disintegr ating tablet DISSOLVE 1 TABLET UNDER THE TONGUE EVERY 6 HOURS active Not Available Not Available No t Available cefdinir 300 mg capsule TAKE 1 CAPSULE BY MOUTH TWICE DAILY FOR 7 DAYS active Not Available Not Available No t Available fluticaso ne propionat e 50 mcg/actua tion nasal spray,[employer] pension INSTILL 2 SPRAYS IN EACH NOSTRIL EVERY DAY FOR 7 DAYS active Not Available Not Available No t Available lamotrigi ne 100 mg tablet TAKE 1 TABLET BY MOUTH AT BEDTIME 11/10 completed Not Available Not Available Not Available loratadin e 10 mg tablet TAKE 1 TABLET BY MOUTH EVERY DAY DIRECTED 11/10 completed Not Available Not Available Not Available prazosin 2 mg capsule TAKE 1 CAPSULE BY MOUTH DAILY AT BEDTIME active Not Available Not Available No t Available diazepam 5 mg tablet active Not Available Not Available Not Available amoxicill in 875 mg-potass ium clavulana te 125 mg tablet TAKE 1 TABLET BY MOUTH TWICE DAILY FOR 10 DAYS 11/10 completed Not Available Not Available Not Available oxycodone 5 mg tablet 11/10 completed Not Available Not Available Not Available aripipraz ole 10 mg tablet TAKE 1 TABLET BY MOUTH AT BEDTIME 11/10 completed Sever Anxiety Not Available Not Available Not Available aripipraz ole 15 mg tablet TAKE 1 TABLET BY MOUTH AT BEDTIME 11/10 completed Not Available Not Available Not Available aripipraz ole 20 mg tablet Take 1 tablet every day by oral route at bedtime. active Anxiety Not Available Not Available No t Available aripipraz ole 30 mg tablet TAKE 1 TABLET BY MOUTH DAILY active Not Available Not Available No t Available atomoxeti ne 40 mg capsule TAKE 1 CAPSULE BY MOUTH EVERY DAY 11/10 completed Not Available Not Available Not Available aripipraz ole 5 mg tablet TAKE 1 TABLET BY MOUTH AT BEDTIME active Not Available Not Available No t Available nitrofura ntoin monohydra te/macroc rystals 100 mg capsule TAKE 1 CAPSULE BY MOUTH EVERY 12 HOURS WITH FOOD FOR 7 DAYS active Not Available Not Available No t Available pregabali n 50 mg capsule 11/10 completed Not Available Not Available Not Available pregabali n 75 mg capsule Take 1 capsule 3 times a day by oral route for 30 days. active Not Available Not Available No t Available pregabali n 100 mg capsule active Not Available Not Available Not Available Vivitrol 380 mg intramusc ular suspensio n,extende d release INJECT 380MG INTRAMUS CULARLY EVERY 28 DAYS 11/10 completed Not Available Not Available Not Available aripipraz ole 2 mg tablet TAKE 1 TABLET BY MOUTH AT BEDTIME 11/10 completed Not Available Not Available Not Available Mucinex DM 60 mg-1,200 mg tablet,ex tended release 12 hr TAKE 1 TABLET BY MOUTH EVERY 12 HOURS FOR COUGH AND CONGESTI ON 11/10 completed Not Available Not Available Not Available desvenlaf axine succinate ER 50 mg tablet,ex tended release 24 hr TAKE 1 TABLET BY MOUTH EVERY MORNING WITH FOOD 11/10 completed Not Available Not Available Not Available desvenlaf axine succinate ER 100 mg tablet,ex tended release 24 hr TAKE 1 TABLET BY MOUTH DAILY active Not Available Not Available No t Available Senexon-S 8.6 mg-50 mg tablet 11/10 completed Not Available Not Available Not Available fluoxetin e 60 mg tablet TAKE 1 TABLET BY MOUTH EVERY DAY 11/10 completed Not Available Not Available Not Available Stahist AD 25 mg-60 mg tablet 11/10 completed Not Available Not Available Not Available Abilify Maintena 400 mg intramusc ular suspensio n,extende d release INJECT 1 INJECTIO N INTRAMUS CULAR ONCE MONTHLY active Not Available Not Available No t Available desvenlaf axine succinate ER 25 mg tablet,ex tended release 24 hr TAKE 1 TABLET BY MOUTH EVERY MORNING WITH FOOD 11/10 completed Not Available Not Available Not Available Rexulti 0.5 mg tablet TAKE 1 TABLET BY MOUTH EVERY DAY 11/10 completed Not Available Not Available Not Available melatonin 10 mg-lemon balm leaf extract 1 mg tablet TAKE 1 TABLET BY MOUTH EVERY NIGHT AT BEDTIME active Not Available Not Available No t Available naloxone 4 mg/actuat ion nasal spray GIVE 1 SPRAY IN NOSTRIL FOR NO OR SLOW BREATHIN G OR CAN NOT WAKE AFTER OPIOID USE. CALL 911AND CAN REPEAT IN OTHER NOSTRIL IF SYMPTOMS CONTINUE active Not Available Not Available No t Available OneTouch Ultra2 Meter FOLLOW PACKAGE DIRECTIO NS active Not Available Not Available No t Available OneTouch Delica Plus Lancet 33 gauge Take 1 each twice a day by miscell. route for 50 days. active Not Available Not Available No t Available OneTouch Delica Plus Lancet 30 gauge TEST DAILY DIRECTED active Not Available Not Available No t Available BinaxNOW COVID-19 Ag Self Test kit TEST DIRECTED TODAY 11/10 completed Not Available Not Available Not Available Vitals Date Recorded Body height Body mass index (BMI) Body weight Body temperature Oxygen saturation Oxygen saturation in Arterial blood by Pulse oximetry Heart rate Systolic blood pressure Diastolic blood pressure Provider Name and Address Organization Details Last Updated DateTime 3 157.48 cm 32 kg/m2 04198.6 6 g 97.7 [degF] 98 % 98 % 95 /min 120 mm[Hg] 82 mm[Hg] Savita Couozzy [facility] & [place] 3 10:40:14 Date Recorded Body height Body mass index (BMI) Body weight Body temperature Oxygen saturation Oxygen saturation in Arterial blood by Pulse oximetry Heart rate Systolic blood pressure Diastolic blood pressure Provider Name and Address Organization Details Last Updated DateTime 4 157.48 cm 32.4 kg/m2 46869.9 5 g 98.2 [degF] 99 % 99 % 68 /min 139 mm[Hg] 79 mm[Hg] Jacqui Fernando [facility] & [place] 4 10:55:20 Social History Question Answer Notes LastModified by Organizat ion Details LastModified Time Tobacco Smoking Status Never Smoker Savita Couozzy crandall [facility] & [place] 12/11/2022 10:40:56 What Is Your Level Of Alcohol Consumption? None [email or web address] Information not available 12/11/2022 If You Are , What Was Your Level Of Alcohol Consumption Prior To ? None [email or web address] Information not available 11/11/2023 What Is Your Level Of Caffeine Consumption? Heavy [email or web address] Information not available 11/11/2023 Do You Use Any Illicit Or Recreational Drugs? No [email or web address] Information not available 11/11/2023 Has Tobacco Cessation Counseling Been Provided? No [email or web address] Information not available 11/11/2023 Do You Or Have You Ever Used Any Other Forms Of Tobacco Or Nicotine? No [email or web address] Information not available 11/11/2023 Sex: Unknown Functional Status None recorded. Mental Status None recorded. Family History Relationship Description Onset Age of this Age Resolved Age Notes LastModified by Organization Details LastModified Time Mother Family history of cardiac disorder Not available 10/29 15:24:11 Mother Malignant tumor of colon [email or web address] Not available 10/29 15:24:20 Mother Hypertensive disorder [email or web address] Not available 10/29 15:24:34 Mother Cerebrovascu lar accident [email or web address] Not available 15:24:42 Unspecified Relation Family history of cardiac disorder [email or web address] Not available 2023 15:08:57 Unspecified Relation Cerebrovascu lar accident [email or web address] Not available 09/2023 15:09:04 Medical History Condition Response Anxiety Disorder Y Muscle, Joint, or Bone Problems Other Y Reflux/GERD Y Sleep Apnea Y Hepatitis Y Mental Illness Y Gynecological HistoryNo gynecological history recorded. Obstetrics History GPAL:G 0 P 0 0 0 0 Immunizations Vaccine Type Date Status Provider Name and Address Organization Details Recorded Time Influenza, MDCK, quadrivalent, PF 03/19/2022 completed Kateryna Best null, [place] - [facility] - [place] [facility] [place] 10/30/2023 15:23:03 MMR 09/27/1997 completed Kateryna Best null[place] [facility] [place] [facility] [place] 10/30/2023 15:23:03 COVID-19, mRNA, LNP-S, PF, 100 mcg/0.5mL dose or 50 mcg/0.25mL dose 07/07/2021 completed Kateryna Best null[place] [facility] [place] [facility] [place] 10/30/2023 15:23:03 COVID-19, mRNA, LNP-S, PF, 100 mcg/0.5mL dose or 50 mcg/0.25mL dose 10/27/2020 completed Kateryna Best [place] [facility] [place] [facility] [place] 10/30/2023 15:23:03 COVID-19, mRNA, LNP-S, PF, 100 mcg/0.5mL dose or 50 mcg/0.25mL dose 11/28/2020 completed Kateryna Best [place] [facility] [place] [facility] [place] 10/30/2023 15:23:03 Tdap 04/08/2020 completed Kateryna [place] [facility] [facility] [place] 10/30/2023 15:23:03 Influenza, split virus, trivalent, PF 03/11/2018 completed Kateryna [place] [facility] [facility] [place] 10/30/2023 15:23:03 Influenza, split virus, quadrivalent, PF 02/04/2023 completed Brigitte Louis null[place] [facility] [place] [facility] [place] 11/26/2023 14:51:37 Tdap 01/25/2022 completed Opal Murillo [place] [facility] [facility] [place] 03/12/2024 15:17:03 Past Encounters Encounter ID Performer Location Encounter Start Date Encounter Closed Date Diagnosis/Indication Diagnosis SNOMED-CT Code Diagnosis ICD10 Code [id number] Stewart Powell MD [address] [place] [address] 04/11/2022 13:24:23 04/11/2022 15:16:47 [id number] MD Felipe Shelton [place] [id number] [facility] [address] [address] [place] [address] 05/07/2022 13:11:08 05/07/2022 17:08:42 [id number] MD Felipe Shelton [place] [id number] [facility] [place] [address] 12/11/2022 10:39:02 12/11/2022 [facility]:14[id number] G47.10 [id number] Eliseo Ibarra MD [facility] [address] [place] [address] 11/11/2023 10:19:55 11/11/2023 11:41:09 Neck pain 23052807 M54.2 Prediabetes 932791269 R7 3.03 Health Concerns Section Related Observation LastModified by Organization Detai ls LastModified Time None Recorded Concern Status LastModified by Organization Details LastModified Time None Recorded Advance Directives Directive None Recorded Payers Encounter Date Sequence Insurance Name Policy Number Policy Tucker Covered Member ID Tucker Member ID Guarantor Name 04/11/2022 1 [employer] [place] - [place] Taniya E Martin [id number] Taniya E Martin 05/07/2022 1 [employer] [place] - [place] Taniya E Martin [id number] Taniya E Martin 12/11/2022 1 [employer] [place] - [place]) Taniya E Martin [id number] Taniya E Martin 11/11/2023 1 [employer] [place] - [place]) Taniya E Martin [id number] Taniya E Martin Notes Date Note Type Note Provider Name and Address Organization Details Recorded Time 12/11/2022 text/html she is here for sleep telemedicine visit. Her primary care provider is recommended evaluation because loud snoring and hypersomnia symptoms. Patient reports she is always fatigued in the afternoon. She snores loudly but sleeps alone so she is unsure she has apneic episodes. She awakes with a headache in the morning. Her BMI is over 30. Her [place] Sleepiness Scale is 15/24. We spent some time talking about the causes and treatment of hypersomnia she is agreeable to investigate further. Stewart Powell MD [address], [place], [address], [facility] [place] [facility] [place] [facility] [place] 12/11/2022 12:58:37 11/11/2023 text/html 42 yo WF present s to establish care. Has a h/o cervical fusion per Dr. Connor at 4 years ago. Is still having LUE issues and sees Dr. Connor again at the end of this month. Also sees Gilmer Ely at [facility] in [place] for diagnosis of depression and anxiety. States she had a PCP in [place] at [facility] but stopped seeing her over a year ago since she moved. Patient states she was told by the neurosurgery clinic at [facility] they would no longer be filling her Lyrica and that she would have to find a PCP to start filling that. 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 Also states she has a history of prediabetes. Is also interested in getting back on methocarbamol which she says she use to take for muscle spasms but has been off for a year since she moved away from her PCP. Eliseo Ibarra MD [address], [place], [address], [facility] - [facility] - [place] & [place] 11/11/2023 22:43:47 OBGyn Episode No OBEpisode recorded.
--- OUTSIDE RECORDS SUMMARY | 2024-04-21 20:09 | XMS_ITS | Encounter Summary ---
Author Organization [facility] Address [address] [place] [address] Care Team Providers Care Service Station Manager Name Role Phone Markell Mejia MD Primary Care Provider [phone] Reason for Visit * Reason Comments Diarrhea Vomiting Abdominal Pain * Auth/Cert (Routine) Specialty Diagnoses / Procedures Referred By Contac t Referred To Contact Diagnoses Calculus of gallbladder without cholecystitis without obstruction Sriram Higgins DO [address] [facility] [address] [place] [address] Phone: tel: fax: [facility] A Emergency Department [address] [place] [address] Phone: tel: Referral ID Status Reason Start Date Expiration Date Visits Re quested Visits Authorized [id number] 1 1 Encounter Details Date Type Department Care Team (Late st Contact Info) Description 07/21/2022 7:30 AM EST - 07/21/2022 10:40 AM EST Surgery [facility] A OPERATING ROOM [address] [place] [address] Glenroy Kirby MD [address] [facility] [address] [place] [address] CHOLECYSTECTOMY, LAPAROSCOPIC Surgery Details Date/Time Status Location OR Service Patient Class Case Class Case Type Trauma Case? 07/21/2022 7:30 AM Posted [facility] OR 12 General Surgery Inpatient E-Electi ve Panel 1 Procedure LRB Anes Op Region Wound Class Comments CHOLECYSTECTOMY, LAPAROSCOPIC N/A General Abdomen Class II/ Clean Contaminated Surgeon Surgeon Role Service Panel Lalitha Styles MD Resident - Assisting [facility] 1 Glenroy Kirby MD Primary General Surgery 1 Special Needs Intra-op cholangioghram documented in this encounter Social History Tobacco [...] Sign Reading Time Taken Comments Blood Pressure 125/97 07/21/2022 10:30 AM EST Pulse 73 07/21/2022 10:30 AM EST Temperature 36.6 ??C (97.9 ??F) 07/21/2022 9:50 AM ES T Respiratory Rate 11 07/21/2022 10:30 AM EST Oxygen Saturation 98% 07/21/2022 10:30 AM EST Inhaled Oxygen Concentration - - [...] after discharge from the hospital, please call [phone] for [facility]. Working hours are Friday - Friday 8:00 AM to 4:00 PM. After hours, weekends and holidays please call [phone] and ask for the resident television producer for Emergency General Surgery. For appointments please call our General Surgery Clinic at [phone]. Medication requests should be made between the hours of 9:00 AM to 3:00 PM Friday thru Friday. Please note that based upon recent changes to [place] law related to prescribing opioid pain medications, our providers will not provide refills on controlled medications after your hospital discharge following a major surgery or trauma. [place] 201 KAR9:260. * Attachments The following attachments cannot be sent through Care Everywhere. * Diet, Low Fat (Mongolian) * Cholecystitis, Confirmed (Mongolian) * Laparoscopic Cholecystectomy, Having (Mongolian) * Incision Care (Mongolian) * Surgical Site Infections, Preventing (Mongolian) * Controlled Substance Discharge Sheet - [facility] () (Mongolian) * Oxycodone Oral Tablet 5 mg (Mongolian) documented in this encounter Medications at [...] this time. * Discharge Summary - Kathia Field APRN - 07/22/2022 2:00 PM EST Hospitalization Admit Date/Time: 07/19/2022 7:14 PM Admitting Attending: Sriram Higgins Discharge Date: 07/22/2022 Discharge Attending Physician: Taniya Vines Md PCP name and Address: Markell Mejia MD [address] [place] [address] / [place] [address] Referring provider name and address: No referring provider defined for this encounter. Chief Concern, Brief History of Present Illness, and Hospital Course Taniya Richardson is a 41 y.o. female with PMHx significant for anxiety and GERD who presented to the [facility] on 07/19/2022 with abdominal pain. Patient reports [...] le years ago at the beginning of [facility] where she did have epigastric pain [...] Your Medications These medications were sent to [facility] - [place], [place] - [address] [place] [id number] acetaminophen 500 MG tablet naloxone 4 mg/0.1 [...] after discharge from the hospital, please call [phone] for [facility]. Working hours are Friday - Friday 8:00 AM to 4:00 PM. After hours, weekends and holidays please call [phone] and ask for the resident television producer for Emergency General Surgery. For appointments please call our General Surgery Clinic at [phone]. Medication requests should be made between the hours of 9:00 AM to 3:00 PM Friday thru Friday. Please note that based upon recent changes to [place] law related to prescribing opioid pain medications, [...] anxiety and GERD who presented to the [facility] on 07/19/2022 with abdominal pain. Patient reports [...] le years ago at the beginning of [facility] where she did have epigastric pain [...] Fawn Garnett RN Progress: improving Taken 07/21/2022 07 by Marichuy Lopez Plan of Care Reviewed [...] AM EST Operative Note Date: 07/21/22 Location: [facility] Name: Taniya Richardson, : 1980, Diagnoses: Pre-op Diagnosis Calculus of gallbladder without cholecystitis without obstruction Post-op Diagnosis Calculus of gallbladder without cholecystitis without obstruction Procedure(s): Laparoscopic cholecystectomy Attending Surgeon(s): * Glenroy Kirby - Primary Felling Machine Operator(s): * Lalitha Styles MD - Resident - [...] trocar site was then closed with a [id number] Vicryl suture. Subcuticular Monocryl suture was then [...] Lalitha Styles MD PGY-5 General Surgery Pager #[phone] * H&P - Glo Marr MD - [...] (CMS/HCC) Overview Signed 07/20/2022 1:41 AM by Gol Marr MD Vascular surgery consulted Appears to have skin changes in his toes Rib fracture Overview Signed 07/20/2022 1:42 AM by Glo Marr MD R 9-12 Multimodal pain control Pulmonary toilet Sternal manubrial [...] significant for anxiety and [facility]D [facility]. Patient [...] multiple years ago at the beginning of [facility] where she did have epigastric pain [...] tablet 1,000 mg 1,000 mg Oral q6h [facility] Glo Marr MD dextrose 5 % and [...] Glo Marr MD General Surgery Resident Pager: [phone] Cosigned by Sriram Higgins DO at 07/28/2022 [...] fever and chills. History provided by: Patient cut pressman used: No No data recorded Patient History [...] 3:55 AM EST Associated attestation - Fadumo Mckee MD - 07/20/2022 3:55 AM EST I attest to being involved in providing substantive time in patient care. documented in this encounter Plan of Treatment Upcoming Encounters Date Type Department Care Team (Late st Contact Info) Description 05/17/2024 2:00 PM EST Office Visit [facility] Interventional Pain Medicine [address] [place] [address] Markell Lucas MD [address] [facility] [address] [place] [address] [address] 06/08/2024 2:00 PM EST Procedure Visit [facility] Interventional Pain Medicine [address] [place] [address] Markell Lucas MD [address] [facility] [address] [place] [address] [address] documented as of this encounter [...] - 99 mg/dL 07/22/2022 5:12 AM EST [facility] BUN, Plasma 10 7 - 21 mg/dL 07/22/2022 5:12 AM EST [facility] Creatinine, Plasma 0.83 0.60 - 1.10 mg/dL 07/22/2022 5:12 AM EST [facility] BUN/Creatinine Ratio 12 07/22/2022 5:12 AM [facility] Sodium, Plasma 144 136 - 145 mmol/L 07/22/2022 5:12 AM [facility] Potassium, Plasma 4.0 3.7 - 4.8 mmol/L 07/22/2022 5:12 AM [facility] Chloride, Plasma 108(H) 97 - 107 mmol/L 07/22/2022 5:12 AM [facility] CO2, Plasma 26 22 - 29 mmol/L 07/22/2022 5:12 AM [facility] Anion Gap 10 6 - 16 mmol/L 07/22/2022 5:12 AM [facility] Total Calcium, Plasma 8.9 8.9 - 10.2 mg/dL 07/22/2022 5:12 AM [facility] Total Protein 6.2(L) 6.3 - 7.9 g/dL 07/22/2022 5:12 AM [facility] Albumin, Plasma 3.8 3.5 - 5.2 g/dL 07/22/2022 5:12 AM [facility] AST, Plasma 16 11 - 32 U/L 07/22/2022 5:12 AM [facility] ALT, Plasma 16 8 - 33 U/L 07/22/2022 5:12 AM [facility] Alkaline Phosphatase, Plasma 36 35 - 104 U/L 07/22/2022 5:12 AM [facility] Total Bilirubin, Plasma <0.2(L) 0.2 - 1.1 mg/dL 07/22/2022 5:12 AM [facility] eGFRcr 91.5 mL/min/1.7 3m*2 07/22/2022 5:12 AM [facility] Comment: Reported eGFRcr in mL/min/1.73m2 is based the CKD-EPI 2021 equation that does not use a race coefficient. Effective 01/02/22 our laboratory changed the eGFR calculation to the CKD-EPI 2021 equation from the previously reported eGFR, based on the MDRD equation. ??For comparisons between the two equations, please see laboratory website: ??[email or web address] Blood Venous blood specimen / Unknown Venipuncture / Unknown 07/22/2022 3:54 AM EST 07/22/2022 4:23 AM EST us Sriram Higgins DO LAB BLOOD ORDERABLES Final Res ult [facility] [address] [place] [address] * Surgical Pathology Exam (07/21/2022 8:59 AM EST) Case Report Surgical Pathology ?Case: [id number] ? Authorizing Provider: ??Glenroy Kirby MD ? Collected: ? 07/21/2022 0859 ? Ordering Location: ? [facility] ? Received: ?07/22/2022 0716 ? Pathologist: ? Bobby Miranda MD ? Specimen: ?Gallbladder, GALLBLADDER ? 07/24/2022 3:24 PM EST [facility] Final Diagnosis A. GALLBLADDER, CHOLECYSTECTOMY: - CHRONIC CHOLECYSTITIS WITH CHOLELITHIASIS (0.9 CM) AND CHOLESTEROLOSIS 07/24/2022 3:24 PM EST [facility] Clinical Information Calculus of gallbladder without cholecystitis without obstruction [K80.20] 07/24/2022 3:24 PM EST [facility] Gross Description A. GALLBLADDER Specimen received [...] other gross abnormalities identified upon close inspection. General Office Dispatcher sections are submitted in one cassette. Rustam Rodriguez DO 07/24/2022 3:24 PM EST [facility] Note: A resident was involved in the service. I attest I examined the relevant preparations for the specimens and confirmed the diagnosis or interpretation. 07/24/2022 3:24 PM EST [facility] Tissue Gallbladder structure / Unknown 07/21/2022 8:59 AM EST 07/22/2022 7:16 AM EST Comment:Pre-op diagnosis: Calculus of gallbladder without cholecystitis without obstruction [K80.20] Glenroy Kirby MD LAB PATHOLOGY ORDERABLES Fin al Result [facility] [address] [place] [id number] * Phosphorus (07/20/2022 3:57 AM EST) Phosphorus, Plasma 3.7 2.5 - 4.5 mg/dL 07/20/2022 5:02 AM EST [facility] Blood Venous blood specimen / Unknown Venipuncture / Unknown 07/20/2022 3:57 AM EST 07/20/2022 4:08 AM EST Sriram Larkiner DO LAB BLOOD ORDERABLES Final Res ult Performing Organization Address City/[facility]/ZIP Co de Phone Number [facility] [address] [place] [address] * (ABNORMAL) Magnesium (07/20/2022 3:57 AM EST) Pathologist [facility] Magnesium, Plasma 1.7(L) 1.9 - 2.4 mg/dL 07/20/2022 5:02 AM EST [facility] Blood Venous blood specimen / Unknown Venipuncture / Unknown 07/20/2022 3:57 AM EST 07/20/2022 4:08 AM EST Sriram Pineda [facility] LAB BLOOD ORDERABLES Final Res ult Performing Organization Address City/[facility]/ZIP Co de Phone Number [facility] [address] [place] [address] * (ABNORMAL) Comprehensive Metabolic Panel (07/20/2022 3:57 AM EST) Pathologist [facility] Glucose, Plasma 85 74 - 99 mg/dL 07/20/2022 5:02 AM EST [facility] BUN, Plasma 13 7 - 21 mg/dL 07/20/2022 5:02 AM EST [facility] Creatinine, Plasma 0.75 0.60 - 1.10 mg/dL 07/20/2022 5:02 AM EST [facility] BUN/Creatinine Ratio 17 07/20/2022 5:02 AM EST [facility] Sodium, Plasma 137 136 - 145 mmol/L 07/20/2022 5:02 AM EST [facility] Potassium, Plasma 3.4(L) 3.7 - 4.8 mmol/L 07/20/2022 5:02 AM EST [facility] Chloride, Plasma 104 97 - 107 mmol/L 07/20/2022 5:02 AM EST [facility] CO2, Plasma 23 22 - 29 mmol/L 07/20/2022 5:02 AM EST [facility] Anion Gap 10 6 - 16 mmol/L 07/20/2022 5:02 AM EST [facility] Total Calcium, Plasma 8.8(L) 8.9 - 10.2 mg/dL 07/20/2022 5:02 AM EST [facility] Total Protein 6.6 6.3 - 7.9 g/dL 07/20/2022 5:02 AM EST [facility] Albumin, Plasma 4.0 3.5 - 5.2 g/dL 07/20/2022 5:02 AM EST [facility] AST, Plasma 12 11 - 32 U/L 07/20/2022 5:02 AM EST [facility] ALT, Plasma 9 8 - 33 U/L 07/20/2022 5:02 AM EST [facility] Alkaline Phosphatase, Plasma 27(L) 35 - 104 U/L 07/20/2022 5:02 AM EST [facility] Total Bilirubin, Plasma 0.2 0.2 - 1.1 mg/dL 07/20/2022 5:02 AM EST [facility] eGFRcr 103.4 mL/min/1.7 3m*2 07/20/2022 5:02 AM EST [facility] Comment: Reported eGFRcr in mL/min/1.73m2 is based the CKD-EPI 2020 equation that does not use a race coefficient. Effective 01/02/22 our laboratory changed the eGFR calculation to the CKD-EPI 2021 equation from the previously reported eGFR, based on the MDRD equation. ??For comparisons between the two equations, please see laboratory website: ??[email or web address] Blood Venous blood specimen / Unknown Venipuncture / Unknown 07/20/2022 3:57 AM EST 07/20/2022 4:08 AM EST us Sriram Higgins DO LAB BLOOD ORDERABLES Final Res ult [facility] [address] [place] [id number] * CBC (07/20/2022 3:57 AM EST) WBC Count 6.05 3.70 - 10.30 10*3/uL LAB HEMATOLOGY METHOD 07/20/2022 4:05 AM EST [facility] RBC Count 3.96 3.90 - 5.20 10*6/uL LAB HEMATOLOGY METHOD 07/20/2022 4:05 AM EST [facility] HGB 11.9 11.2 - 15.7 g/dL LAB HEMATOLOGY METHOD 07/20/2022 4:05 AM EST [facility] HCT 35.9 34.0 - 45.0 % LAB HEMATOLOGY METHOD 07/20/2022 4:05 AM EST [facility] Platelet Count 218 155 - 369 10*3/uL LAB HEMATOLOGY METHOD 07/20/2022 4:05 AM EST [facility] MCV 91 79 - 98 fL LAB HEMATOLOGY METHOD 07/20/2022 4:05 AM EST [facility] MCH 30.1 26.0 - 32.0 pg LAB HEMATOLOGY METHOD 07/20/2022 4:05 AM EST [facility] MCHC 33.1 30.7 - 35.5 g/dL LAB HEMATOLOGY METHOD 07/20/2022 4:05 AM EST [facility] RDW 12.8 11.5 - 14.5 % LAB HEMATOLOGY METHOD 07/20/2022 4:05 AM EST [facility] MPV 9.4 8.8 - 12.5 fL LAB HEMATOLOGY METHOD 07/20/2022 4:05 AM EST [facility] nRBC 0.0 <=0.0 per 100 WBCs LAB HEMATOLOGY METHOD 07/20/2022 4:05 AM EST [facility] Blood Venous blood specimen / Unknown Venipuncture / Unknown 07/20/2022 3:57 AM EST 07/20/2022 4:03 AM EST Sriram Higgins DO LAB BLOOD ORDERABLES Final Res ult [facility] [address] [place] [address] * SARS CoV-2/COVID-19 by PCR (07/20/2022 3:57 AM EST) SARS CoV-2/COVID-1 9 RNA PCR Result Not Detected Not Detected 07/20/2022 5:00 AM EST [facility] Swab Nasopharyngeal structure / Unknown [...] MICROBIOLOGY - GENERAL ORD ERABLES Final Result [facility] [address] [place] [address] * CT Abdomen Pelvis w IV Contrast [...] W IV CONTRAST ordered by FADUMO MCKEE, [id number] CLINICAL INDICATION: diffuse abdominal pain, diarrhea TECHNIQUE: [...] W IV CONTRAST ordered by FADUMO BREWSTER [id number] CLINICAL INDICATION: diffuse abdominal pain, diarrhea TECHNIQUE: [...] - AUTOMATED METHOD 07/19/2022 8:33 PM EST [facility] Clarity, Urine Cloudy LAB URINALYSIS - AUTOMATED METHOD 07/19/2022 8:33 PM EST [facility] Spec [place], Urine 1.029 <=1.005 to >=1.030 LAB URINALYSIS - AUTOMATED METHOD 07/19/2022 8:33 PM EST [facility] pH, Urine 5.5 4.5 to 8 LAB URINALYSIS - AUTOMATED METHOD 07/19/2022 8:33 PM EST [facility] Protein, Urine Negative Negative mg/dL LAB URINALYSIS - AUTOMATED METHOD 07/19/2022 8:33 PM EST [facility] Glucose, Urine Negative Negative mg/dL LAB URINALYSIS - AUTOMATED METHOD 07/19/2022 8:33 PM EST [facility] Ketones, Urine Negative Negative mg/dL LAB URINALYSIS - AUTOMATED METHOD 07/19/2022 8:33 PM EST [facility] Blood, Urine Negative Negative LAB URINALYSIS - AUTOMATED METHOD 07/19/2022 8:33 PM EST [facility] Bilirubin, Urine Negative Negative LAB URINALYSIS - AUTOMATED METHOD 07/19/2022 8:33 PM EST [facility] Urobilinogen, Urine 0.2 0.2 to 1.0 mg/dL LAB URINALYSIS - AUTOMATED METHOD 07/19/2022 8:33 PM EST [facility] Leukocytes, Urine Negative Negative LAB URINALYSIS - AUTOMATED METHOD 07/19/2022 8:33 PM EST [facility] Nitrite, Urine Negative Negative LAB URINALYSIS - AUTOMATED METHOD 07/19/2022 8:33 PM EST [facility] Urine Urine specimen obtained by clean catch procedure / Unknown Non-blood Collection / Unknown 07/19/2022 8:10 PM EST 07/19/2022 8:30 PM EST us Fadumo Mckee MD LAB URINE ORDERABLES Final Re sult [facility] [address] [place] [address] * US Abdomen RUQ (07/19/2022 8:05 PM [...] US ABDOMEN RUQ ordered by FADUMO MCKEE [id number] CLINICAL INDICATION: RUQ pain TECHNIQUE: Multiplanar grayscale [...] US ABDOMEN RUQ ordered by FADUMO MCKEE, [id number] CLINICAL INDICATION: RUQ pain TECHNIQUE: Multiplanar grayscale [...] Not Detected . 07/21/2022 3:15 PM EST [facility] Hepatitis C Virus (HCV) Quantitative Viral Load Log Result <1.08 <1.08 log10 IU/mL 07/21/2022 3:15 PM EST [facility] Hepatitis C Virus (HCV) Quantitative IU/mL Result <12 <12 IU/mL 07/21/2022 3:15 PM EST [facility] Blood Venous blood specimen / Unknown Venipuncture / Unknown 07/19/2022 6:45 PM EST 07/19/2022 7:05 PM EST Narrative [facility] - 07/21/2022 3:15 PM EST The [...] ORDERABLES Final Re sult [facility] [address] [place] [address] * HIV 1 & 2 Antibody/Antigen Screen (07/19/2022 6:45 PM EST) Pathologist [facility] HIV 1 & 2 Antibody/Antigen Screen Non Reactive Non Reactive 07/19/2022 7:46 PM EST [facility] Comment:Screening for HIV 1 & 2 antibodies, and P24 antigen is NONREACTIVE. No confirmatory testing is required. Blood Venous blood specimen / Unknown Venipuncture / Unknown 07/19/2022 6:45 PM EST 07/19/2022 7:05 PM EST Fadumo Mckee MD LAB BLOOD ORDERABLES Final Re sult Performing Organization Address City/[facility]/ZIP Co de Phone Number [facility] [address] [place] [address] * hCG qualitative (07/19/2022 6:45 PM EST) [facility] Test Negative Negative 07/19/2022 7:15 PM EST [facility] Blood Venous blood specimen / Unknown Venipuncture / Unknown 07/19/2022 6:45 PM EST 07/19/2022 6:50 PM EST Narrative [facility] - 07/19/2022 7:15 PM EST Reference Range: Males and non- females: Negative. us Fadumo Mckee MD LAB BLOOD ORDERABLES Final Re sult Performing Organization Address City/[facility]/ZIP Co de Phone Number [facility] [address] [place] [address] * (ABNORMAL) CBC w/diff (07/19/2022 6:45 PM EST) Pathologist [facility] WBC Count 10.05 3.70 - 10.30 10*3/uL LAB HEMATOLOGY METHOD 07/19/2022 6:52 PM EST [facility] RBC Count 4.51 3.90 - 5.20 10*6/uL LAB HEMATOLOGY METHOD 07/19/2022 6:52 PM EST [facility] HGB 13.6 11.2 - 15.7 g/dL LAB HEMATOLOGY METHOD 07/19/2022 6:52 PM EST [facility] HCT 40.4 34.0 - 45.0 % LAB HEMATOLOGY METHOD 07/19/2022 6:52 PM [facility] Platelet Count 267 155 - 369 10*3/uL LAB HEMATOLOGY METHOD 07/19/2022 6:52 PM EST [facility] MCV 90 79 - 98 fL LAB HEMATOLOGY METHOD 07/19/2022 6:52 PM EST [facility] MCH 30.2 26.0 - 32.0 pg LAB HEMATOLOGY METHOD 07/19/2022 6:52 PM EST [facility] MCHC 33.7 30.7 - 35.5 g/dL LAB HEMATOLOGY METHOD 07/19/2022 6:52 PM EST [facility] RDW 12.6 11.5 - 14.5 % LAB HEMATOLOGY METHOD 07/19/2022 6:52 PM [facility] MPV 9.1 8.8 - 12.5 fL LAB HEMATOLOGY METHOD 07/19/2022 6:52 PM [facility] nRBC 0.0 <=0.0 per 100 WBCs LAB HEMATOLOGY METHOD 07/19/2022 6:52 PM [facility] Differential Type Automated LAB HEMATOLOGY METHOD 07/19/2022 6:52 PM [facility] Neutrophils % 88.0 % LAB HEMATOLOGY METHOD 07/19/2022 6:52 PM [facility] Lymphocytes % 7.0 % LAB HEMATOLOGY METHOD 07/19/2022 6:52 PM [facility] Monocytes % 4.0 % LAB HEMATOLOGY METHOD 07/19/2022 6:52 PM [facility] Eosinophils % 1.0 % LAB HEMATOLOGY METHOD 07/19/2022 6:52 PM [facility] Basophils % 0.0 % LAB HEMATOLOGY METHOD 07/19/2022 6:52 PM [facility] Immature Granulocytes % 0.0 % LAB HEMATOLOGY METHOD 07/19/2022 6:52 PM [facility] Neutrophils Absolute 8.80(H) 1.60 - 6.10 10*3/uL LAB HEMATOLOGY METHOD 07/19/2022 6:52 PM [facility] Lymphocytes Absolute 0.70(L) 1.20 - 3.90 10*3/uL LAB HEMATOLOGY METHOD 07/19/2022 6:52 PM [facility] Monocytes Absolute 0.41 0.30 - 0.90 10*3/uL LAB HEMATOLOGY METHOD 07/19/2022 6:52 PM [facility] Eosinophils Absolute 0.08 0.00 - 0.50 10*3/uL LAB HEMATOLOGY METHOD 07/19/2022 6:52 PM EST [facility] Basophils Absolute 0.03 0.00 - [...] ORDERABLES Final Re sult Performing Organization Address [facility] de Phone Number [facility] [address] [place] [address] * Lipase (07/19/2022 6:45 PM EST) Pathologist [facility] Lipase, Plasma 32 19 - 63 U/L 07/19/2022 7:15 PM EST [facility] Blood Venous blood specimen / Unknown Venipuncture / Unknown 07/19/2022 6:45 PM EST 07/19/2022 6:50 PM EST Result Jodi Mckee MD LAB BLOOD ORDERABLES Final Re sult Performing Organization Address [facility] de Phone Number [facility] [address] [place] [address] * (ABNORMAL) Hepatitis C Antibody - ED (07/19/2022 6:45 PM EST) Hepatitis C Antibody Positive(A ) Negative 07/19/2022 7:58 PM EST [facility] Blood Venous blood specimen / Unknown Venipuncture / Unknown 07/19/2022 6:45 PM EST 07/19/2022 7:05 PM EST Result Jodi Mckee MD LAB BLOOD ORDERABLES Final Re sult Performing Organization Address City/[facility] Co de Phone Number [facility] [address] [place] [address] * (ABNORMAL) CMP (07/19/2022 6:45 PM EST) Glucose, Plasma 105(H) 74 - 99 mg/dL 07/19/2022 7:15 PM EST [facility] BUN, Plasma 17 7 - 21 mg/dL 07/19/2022 7:15 PM EST [facility] Creatinine, Plasma 0.69 0.60 - 1.10 mg/dL 07/19/2022 7:15 PM EST [facility] BUN/Creatinine Ratio 25 07/19/2022 7:15 PM EST [facility] Sodium, Plasma 140 136 - 145 mmol/L 07/19/2022 7:15 PM EST [facility] Potassium, Plasma 4.1 3.7 - 4.8 mmol/L 07/19/2022 7:15 PM EST [facility] Chloride, Plasma 106 97 - 107 mmol/L 07/19/2022 7:15 PM EST [facility] CO2, Plasma 23 22 - 29 mmol/L 07/19/2022 7:15 PM EST [facility] Anion Gap 11 6 - 16 mmol/L 07/19/2022 7:15 PM EST [facility] Total Calcium, Plasma 9.4 8.9 - 10.2 mg/dL 07/19/2022 7:15 PM EST [facility] Total Protein 7.7 6.3 - 7.9 g/dL 07/19/2022 7:15 PM EST [facility] Albumin, Plasma 4.5 3.5 - 5.2 g/dL 07/19/2022 7:15 PM EST [facility] AST, Plasma 11 11 - 32 U/L 07/19/2022 7:15 PM EST [facility] ALT, Plasma 10 8 - 33 U/L 07/19/2022 7:15 PM EST [facility] Alkaline Phosphatase, Plasma 35 35 - 104 U/L 07/19/2022 7:15 PM EST [facility] Total Bilirubin, Plasma 0.2 0.2 - 1.1 mg/dL 07/19/2022 7:15 PM EST [facility] eGFRcr 112.7 mL/min/1.7 3m*2 07/19/2022 7:15 PM EST [facility] Comment: Reported eGFRcr in mL/min/1.73m2 is based the CKD-EPI 2021 equation that does not use a race coefficient. Effective 01/02/22 our laboratory changed the eGFR calculation to the CKD-EPI 2021 equation from the previously reported eGFR, based on the MDRD equation. ??For comparisons between the two equations, please see laboratory website: ??[email or web address] Blood Venous blood specimen / Unknown Venipuncture / Unknown 07/19/2022 6:45 PM EST 07/19/2022 6:50 PM EST us Fadumo Mckee MD LAB BLOOD ORDERABLES Final Re sult [facility] [address] [id number] documented in this encounter Visit Diagnoses Diagnosis Calculus of gallbladder without cholecystitis without obstruction- Primary Calculus of gallbladder without cholecystitis without obstruction Cholelithiasis Calculus of gallbladder without mention of cholecystitis or obstruction Dilated cbd, acquired Diarrhea GERD (gastroesophageal reflux disease) Esophageal reflux History of psychiatric treatment Calculus of gallbladder without cholecystitis without obstruction documented in this encounter Admitting Diagnoses Diagnosis [...] Given 07/21/2022 5:04 PM EST 1,000 mg bupivacaine PF (Marcaine) 0.25 % injection As needed, Starting on 07/21/22 at 0808, Until 07/21/22 at 0948, Routine, Intraprocedure Given 07/21/2022 8:08 AM EST 20 mL Abdominal Tissue dextrose 5 % and lactated Ringer's infusion 100 mL/hr, Intravenous, Continuous, Starting on 07/20/22 at 0330, Until 07/21/22 at 0955, Routine New Bag 07/21/2022 12:32 AM EST 100 mL/hr 100 mL/hr New Bag 07/20/2022 3:44 AM EST 100 mL/hr 100 mL/hr dextrose 5 % and lactated Ringer's infusion 50 mL/hr, Intravenous, Continuous, Starting on Fri07/21/22 at 1015, Until Fri07/22/22 at 2006, Routine New Bag 07/22/2022 8:59 AM EST 50 mL/ hr 50 mL/hr New Bag 07/21/2022 12:34 PM EST 50 mL/hr 50 mL/hr enoxaparin (Lovenox) syringe 40 mg 40 mg, Subcutaneous, Daily, First dose on 07/20/22 at 0900, Until Discontinued, Routine, On hold since Fri07/21/2022 at 0059 until manually unheld Given 07/20/2022 8:36 AM EST 40 mg Le ft Lower Abdomen enoxaparin (Lovenox) syringe 40 mg 40 mg, Subcutaneous, Daily, First dose (after last modification) on Fri07/22/22 at 0900, Until Discontinued, Routine, Recovery(Phase II-Outpatient)/On Unit(Inpatient) Given 07/22/2022 8:34 AM EST 40 mg Ri ght Lower Abdomen fentaNYL (Sublimaze) injection 50 mcg 50 mcg, Intravenous, Every 5 min PRN, 4 doses, Starting on Fri07/21/22 at 0920, Until Fri07/21/22 at 1217, Routine, Recovery (Phase I only), pain score of 5-8 out of 10 Given 07/21/2022 11:09 AM EST 50 mcg Given 07/21/2022 10:45 AM EST 50 mcg FLUoxetine (PROzac) capsule 60 mg 60 mg, Oral, Daily, First dose on Fri07/22/22 at 1145, Until Discontinued Given 07/22/2022 12:51 PM EST 60 mg HYDROmorphone (Dilaudid) injection 0.5 mg 0.5 mg, Intravenous, Once, 1 dose, On Fri07/19/22 at 2220, STAT Given 07/19/2022 10:26 PM EST 0.5 mg HYDROmorphone (Dilaudid) injection 0.5 mg 0.5 mg, Intravenous, Once, 1 dose, On Fri07/20/22 at 0415, STAT Given 07/20/2022 4:19 AM [...] Oral, 4 times daily, First dose on Fri07/21/22 at 1400, Until Discontinued, Routine, Recovery(Phase II-Outpatient)/On [...] 4 mg, Intravenous, Once, 1 dose, On 07/19/22 at 2035, STAT Given 07/19/2022 8:57 PM [...] RN) 0156 (Not Given - Provider: Mitra Q Feolog - Reason: Patient/family refused)0616 (Not Given - Provider: Mitra Q Feolog - Reason: Patient in procedure)0740 (MAR Hold - Provider: Automatic Transfer Provider - Reason: Patient in procedure)1101 (MAR Unhold - Provider: Carolyn Santa RN)1106 (Given - Provider: Carolyn Santa, CHRISTOPHER)1704 (Given - Provider: Jennifer Camacho)2311 (Given - Provider: Fawn Garnett RN) 0558 (Not Given - Provider: Fawn Garnett [...] RN) 0059 (Held by provider - Provider: Midny Layne MD - Reason: Upcoming test/procedure)0900 (Dose Auto Held - Provider: Mindy Layne MD)0955 (Unheld by provider - Provider: Lalitha Styles MD) enoxaparin (Lovenox) syringe 40 mg 40 mg, Subcutaneous, Daily, First dose (after last modification) on Fri07/22/22 at 0900, Until Discontinued, Routine, Recovery(Phase II-Outpatient)/On Unit(Inpatient) 0834 (Given - Provid er: Celine Hampton RN) FLUoxetine (PROzac) capsule 60 mg 60 mg, Oral, Daily, First dose on 07/22/22 at 1145, Until Discontinued 1251 (Given - Provid er: Celine Hampton RN) HYDROmorphone (Dilaudid) injection 0.5 mg (COMPLETED) 0.5 mg, Intravenous, Once, 1 dose, On 07/20/22 at 0415, STAT 0419 (Given - Provider: Taniya Sr, CHRISTOPHER) ibuprofen tablet 400 mg 400 mg, Oral, Every 6 hours, First dose on 07/20/22 at 0330, Until Discontinued, Routine 0344 (Given - Provider: Taniya Sr RN)0836 (Given - Provider: Yasmin Estrada RN)1616 (Given - Provider: Yasmin Estrada RN)2247 (Given - Provider: Mitra Madsen Feolog) 0411 (Not Given - Provider: Mitra Q Feolog - Reason: Patient/family refused)0740 (MAR Hold - Provider: Automatic Transfer Provider - Reason: Patient in procedure)0930 (Dose Auto Held - Provider: Automatic Transfer Provider)1217 (MAR Unhold - Provider: Automatic Transfer Provider)1540 (Given - Provider: Jennifer Camacho)2046 (Given - Provider: Fawn Garnett, CHRISTOPHER) 0354 (Given - Provider: Fawn Garnett RN)0833 (Given - Provider: Celine Hampton, CHRISTOPHER)1507 (Given - Provider: Celine Hampton RN) ipratropium-albuterol [...] Provider: Jennifer Camacho)2121 (Given - Provider: Fawn Garnett, CHRISTPOHER) 0833 (Given - Provider: Celine Hampton, CHRISTOPHER)1507 (Given - Provider: Celine Hampton RN)1800 (Canceled [...] Carolyn Santa RN)1109 (Given - Provider: Carolyn Santa, CHRISTOPHER) morphine PF 2 mg 2 mg, Intravenous, Every 3 hours PRN, 3 doses, Starting on 07/21/22 at 0954, Until 07/22/22 at 2006, Routine, Recovery(Phase II-Outpatient)/On Unit(Inpatient), severe pain ondansetron (Zofran) injection 4 mg 4 mg, Intravenous, Every 6 hours PRN, Starting on 07/20/22 at 1005, Until 07/22/22 at 2006, Routine, nausea, vomiting 1020 (Given - Provider: Yasmin Estrada, CHRISTOPHER)1615 (Given - Provider: Yasmin Estrada RN) 0740 (AUG Hold - Provider: Automatic Transfer [...] Garnett, CHRISTOPHER) 0355 (Given - Provider: Fawn Garnett, CHRISTOPHER) oxyCODONE (Roxicodone) immediate release tablet 5 mg 5 mg, Oral, Every 6 hours PRN, Starting on 07/21/22 at 0954, Until 07/22/22 at 2005, Routine, Recovery(Phase II-Outpatient)/On Unit(Inpatient), severe pain promethazine (Phenergan) injection 12.5 mg 12.5 mg, Intravenous, Every 6 hours PRN, Starting on 07/20/22 at 2113, Until Fri07/22/22 at 2005, Routine, nausea, vomiting, Restricted to patients refractory to ondansetron. When rapid onset is required and oral is insufficient or NPO 2200 (Given - Provider: Mitra Aponte) 0740 (AUG Hold - Provider: Automatic Transfer Provider - Reason: Patient in procedure)1217 (AUG Unhold - Provider: Automatic Transfer Provider)1711 (Given - Provider: Jennifer Camacho)2312 (Given - Provider: Fawn Garnett, CHRISTOPHER) 0834 (Given - Provider: Celine Hampton RN) [...] documented as of this encounter Care Teams Service Station Manager Relationship Specialty Start Date End Date Markell Mejia MD [address] [place] [address] PCP - General 10/20/20 12/27/22 documented as of this encounter
--- NOTE | 2024-04-21 20:18 | ED_ITS ---
<Statement entered by Lucero Bailey DO - 04/21/24 23:09> I was consulted by the CHARMAINE, and we discussed the complexity of the problems being addressed. I approved the treatment and management plan for this patient's care in the emergency department, thus performing a substantive portion of the medical decision making. Lucero Bailey DO Discharge Plan Disposition Chief Complaint: Headache Prescriptions Prescriptions: No Action trazodone 100 mg tablet 100 mg PO HS Patient Comments: TAKE 1 TO 2 TABLETS BY MOUTH ONCE A DAY AT BEDTIME hydrocodone-acetaminophen 7.5-325 mg tablet 1 tab PO Q8HP PRN (Reason: Pain) Patient Comments: TAKE 1 TABLET BY MOUTH EVERY 8 HOURS NEEDED FOR SEVERE PAIN gabapentin 300 mg capsule 300 mg PO DAILY Patient Comments: TAKE ONE CAPSULE BY MOUTH DAILY FOR 7 DAYS THEN TAKE 2 CAPSULES DAILY FOR 7 DAYS THEN START 3 CAPSULES DAILY prazosin 2 mg capsule 2 mg PO DAILY Patient Comments: TAKE 1 CAPSULE BY MOUTH DAILY AT BEDTIME aripiprazole 30 mg tablet 30 mg PO DAILY Patient Comments: TAKE 1 TABLET BY MOUTH DAILY desvenlafaxine succinate 100 mg tablet extended release 24 hr 100 mg PO DAILY Patient Comments: TAKE 1 TABLET BY MOUTH DAILY melatonin-lemon balm leaf extr 10-1 mg tablet 1 tab PO DAILY Patient Comments: TAKE 1 TABLET BY MOUTH EVERY NIGHT AT BEDTIME methocarbamol 750 mg tablet 750 mg PO DAILYP PRN (Reason: Pain) cefdinir 300 mg capsule 300 mg PO BID 7 Days Qty: 14 0RF Referrals Follow up/Referrals: Eliseo Ibarra [Primary Care Provider] - See instructions Print Language Print Language: Albanian Discharge ED Provider: Cricket Disla General Adult HPI <MORRIS Archuleta - Last Filed: 04/21/24 23:08> General Chief complaint: Headache Stated complaint: neck inj 04/20, STRAUSS vomiting Time Seen by Provider: 04/21/24 20:09 Mode of Arrival: Ambulatory Source of Information: Patient Limitations: No Limitations History of Present Illness HPI narrative: 43-year-old female presents emergency department with a headache with nausea and vomiting has been present since yesterday, gradually worsened throughout the day today. Patient did have what sounds like facet versus cervical epidural steroid injections at pain management clinic yesterday. Patient states that the headache is improved with position changes, most improved with laying down, she did have an episode of pain myself after vomiting . Taken Tylenol and ibuprofen with little to no relief, she denies any fever chills chest pain shortness of breath, abdominal pain, admits to diarrhea, denies constipation, denies any other urinary type symptomatology, denies any radicular type symptomatology, denies any numbness at bowel dysfunction denies any visual disturbance, denies any flashes floaters, does admit to some photophobia. Other past medical history consistent with cervical degenerative disc disease status post ACDF at C5-C6, lumbar radiculopathy, anxietyi/depression, she is a current everyday smoker, denies any other alcohol or drug use, no history as well as grossly unremarkable. Onset (ago): day(s) Related Data Home Medications ?Medication ?Instructions ?Recorded ?Confirmed aripiprazole 30 mg tablet 30 mg PO DAILY 02/12/24 03/10/24 desvenlafaxine succinate 100 mg 100 mg PO DAILY 02/12/24 03/10/24 tablet,extended release 24 hr gabapentin 300 mg capsule 300 mg PO DAILY 02/12/24 03/10/24 hydrocodone 7.5 mg-acetaminophen 1 tab PO Q8HP PRN Pain 02/12/24 03/10/24 325 mg tablet melatonin 10 mg-lemon balm leaf 1 tab PO DAILY 02/12/24 03/10/24 extract 1 mg tablet methocarbamol 750 mg tablet 750 mg PO DAILYP PRN Pain 02/12/24 03/10/24 prazosin 2 mg capsule 2 mg PO DAILY 02/12/24 03/10/24 trazodone 100 mg tablet 100 mg PO HS 03/10/24 03/10/24 Previous Rx's ?Medication ?Instructions ?Recorded cefdinir 300 mg capsule 300 mg PO BID 7 days #14 caps 03/13/24 Allergies Allergy/AdvReac Type Severity Reaction Status Date / Time tetracycline (TETRACYCLINE) Allergy Mild Verified 03/10/24 11:02 silver (From Tegaderm AG Allergy Verified 03/10/24 11:02 Mesh) [facility] <MORRIS Archuleta - Last Filed: 04/21/24 23:08> [facility] Disclaimer: The information contained in this section may have been updated after the patient was seen, as this information can be updated by other users. Medical History Depression Anxiety Urinary tract infection Kidney stone Asthma Hypertension Surgical History History of tonsillectomy History of hysterectomy History of cholecystectomy History of section Social History Smoking Status: Current every day smoker tobacco type: cigarettes packs per day: 1 alcohol intake: never substance use type: former substance user current occupational status: other Travel in the last 8 weeks: None household members: spouse housing: house caffeine: No Other Medical History Have you received the Flu Vaccine for this season: Yes Have you received the Pneumonia Vaccine: No <MORRIS Archuleta - Last Filed: 04/21/24 23:08> ROS Obtained: Yes All systems reviewed & no additional complaints except as documented Physical Exam <MORRIS Archuleta - Last Filed: 04/21/24 23:08> General General appearance: alert, in no apparent distress and anxious Comment: Quite tearful appearing, uncomfortable appearing. Head Head exam: atraumatic and normocephalic Eye Eye exam: Present PERRL and EOMI ENT ENT exam: Present mucous membranes moist Neck Neck exam: Present normal inspection Chest Chest inspection: Present normal inspection and symmetric chest wall rise Respiratory Respiratory exam: Present normal lung sounds bilaterally; Absent respiratory distress Cardiovascular Cardiovascular exam: Present regular rate and normal rhythm Abdominal Exam Abdominal exam: Present soft; Absent tenderness, guarding, rebound or rigidity Extremities Exam Extremities exam: Present normal inspection Back Exam Back exam: Present tenderness Comment: Mild C-spine tenderness to palpation, negative T-spine negative L-spine Neurological Exam Neurological exam: Present alert, oriented X3 and other (Patient has 5 out of 5 strength in the bilateral lower and upper extremities, no gross sensation deficit, negative Bassam sign bilaterally) Psychiatric Psychiatric exam: Present normal affect Skin Skin exam: Present warm and dry Medical Decision Making <MORRIS Archuleta - Last Filed: 04/21/24 23:08> Medical Records Medical records reviewed: Yes I reviewed the patient's medical records. Screening: Per USPSTF and CDC recommendations, given the prevalence of disease in our region, it is our hospital?s policy to screen for HIV and viral Hepatitis for all patients aged 18 and over and those with ongoing risk factors. Tab Inquiry Pt receiving controlled substance: No Tab was queried for this patient: No Vital Signs: 04/21/24 19:41 04/21/24 20:11 04/21/24 20:56 Temperature 98.6 F Temperature Source Oral Pulse Rate 89 87 Pulse Rate [Right] 92 H Respiratory Rate 20 Blood Pressure 138/97 H 122/86 Blood Pressure [Left Arm] 138/97 H Blood Pressure Mean [Left Arm] 110 Blood Pressure Source [Left Arm] Automatic Cuff 02 Sat by Pulse Oximetry 97 96 97 Oxygen Delivery Method Room Air 04/21/24 21:01 04/21/24 21:31 04/21/24 22:15 Temperature Temperature Source Pulse Rate 85 79 84 Pulse Rate [Right] Respiratory Rate 16 Blood Pressure 134/85 150/90 H 132/87 Blood Pressure [Left Arm] Blood Pressure Mean [Left Arm] Blood Pressure Source [Left Arm] 02 Sat by Pulse Oximetry 96 97 97 Oxygen Delivery Method 04/21/24 22:30 Temperature Temperature Source Pulse Rate 66 Pulse Rate [Right] Respiratory Rate Blood Pressure 130/72 Blood Pressure [Left Arm] Blood Pressure Mean [Left Arm] Blood Pressure Source [Left Arm] 02 Sat by Pulse Oximetry 99 Oxygen Delivery Method Lab Data Lab results reviewed: Yes I reviewed the patient's lab results. Lab Results 04/21/24 20:33: WBC 12.2 H, RBC 5.28, Hgb 15.5, Hct 47.3 H, MCV 89.7, MCH 29.3, MCHC 32.7, RDW 13.4, Plt Count 342, MPV 7.5, Neut % (Auto) 76.0, Lymph % (Auto) 18.5, [place] % (Auto) 3.5, Eos % (Auto) 1.4, Baso % (Auto) 0.6, Neut # (Auto) 9.3 H, Lymph # (Auto) 2.3, [place] # (Auto) 0.4, Eos # (Auto) 0.2, Baso # (Auto) 0.1, Sodium 140, Potassium 4.0, Chloride 108 H, Carbon Dioxide 20 L, Anion Gap 16.0 H , BUN 14, Creatinine 0.60, Estimated Creat Clear 166, Estimated GFR 110, Est GFR ( Amer) 133, Glucose 105 H, Calcium 9.9, Total Bilirubin 0.5, AST 22, ALT 17, Alkaline Phosphatase 31 L, Total Protein 8.7 H, Albumin 5.0, Globulin 3.7 H, Albumin/Globulin Ratio 1.4, HIV 1&2 Antibody Rapid Nonreactive 04/21/24 20:33 04/21/24 20:33 Orders (Tests/Meds): ED MEDICATIONS Generic Name Dose Route Start Last Admin Trade Name Roberto PRN Reason Stop Dose Admin Sodium Chloride 10 ml 04/21/24 21:12 04/21/24 21:12 Sodium Chloride 0.9% 10ml Syr (Rad Only) IV 05/21/24 21:11 10 ml NEEDED PRN Administration Maintain IV Site Discontinued Medications Generic Name Dose Route Start Last Admin Trade Name Roberto PRN Reason Stop Dose Admin Droperidol 2.5 mg 04/21/24 21:55 04/21/24 22:12 Droperidol 5mg/2ml Vial IV 04/21/24 21:56 2.5 mg ONCE ONE Administration Lactated Ringer's 1,000 mls @ 999 mls/hr 04/21/24 22:03 04/21/24 22:17 Lactated Ringer's 1000 Ml Bag IV 04/21/24 23:03 999 mls/hr .Q1H1M ONE Administration Iopamidol 75 ml 04/21/24 21:12 04/21/24 21:13 Iopamidol-370 (76%);100ml Bottle IV 04/21/24 21:13 75 ml ONCE ONE Administration Morphine Sulfate 4 mg 04/21/24 20:21 04/21/24 20:57 Morphine 4mg/Ml Syringe IV 04/21/24 20:22 4 mg ONCE ONE Administration Ondansetron HCl 4 mg 04/21/24 20:21 04/21/24 20:57 Ondansetron 4mg/2ml Vial IV 04/21/24 20:22 4 mg ONCE ONE Administration ORDERS Category Date Time Status CT cervical spine w con Stat Cat Scan 04/21/24 20:[address] head/brain wo con Stat Cat Scan 04/21/24 20:36 Completed Complete Blood Count Auto Diff Stat Lab 04/21/24 20:33 Completed Comprehensive Metabolic Panel Stat Lab 04/21/24 20:33 Completed HIV (1&2) Antibody Rapid Stat Lab 04/21/24 20:33 Completed Hep C Ab with Reflex to RNA Stat Lab 04/21/24 20:33 Received Medical Decision Narrative: 43-year-old female presents to the emergency department with a headache after cervical epidural steroid injections yesterday, differential diagnose include but not limited to postdural headache, cervicalgia, cervical degenerative disc disease, tension headache, migraine headache, cluster headache I discussed patient case with attending physician Dr. Bailey Will obtain basic laboratory studies, CT head without contrast, CT neck with and without contrast for further evaluation/characterization, will give 4 mg IV morphine and 4 mg IV Zofran for nausea. Laboratory studies notable for leukocytosis of 12.2 which I do think is mildly reactive CMP is unremarkable Reexamination of the patient approximately 9:45 PM, patient still complaining of headache and nausea she states that the medication helped for some time, but now the headache has returned with nausea. Will give 1.5 droperidol IV, for persistent symptomatology, will also give 1 L LR IV for fluid replacement. I reviewed the patient's CT head without contrast, CT cervical spine with and without contrast along the corresponding radiologic reports. The patient CT head is unremarkable, no cute findings, the patient CT cervical spine shows hardware at C5-C6 in the anterior plane, no significant disc bulge or herniation, no severe spinal canal stenosis, mild bilateral bony foraminal stenosis C5-C6 otherwise no acute findings. I reviewed along with the attending physician the patient's EKG, NSR at 76 bpm, CT within normal limits, QT interval, there is no STEMI. I was notified by nursing staff that the patient would like to try to attempt tolerate p.o. intake, patient is feeling better as far as headache and nausea vomiting or concerned after droperidol administration. Will continue to monitor. Discussed this patient's case with the attending physician Dr. Disla at shift change, he will be assuming the patient's care, patient most likely pending disposition home after monitoring after IV droperidol. <Lucero Bailey, DO - Last Filed: 04/21/24 22:10> Vital Signs: 04/21/24 19:41 04/21/24 20:11 04/21/24 20:56 Temperature 98.6 F Temperature Source Oral Pulse Rate 89 87 Pulse Rate [Right] 92 H Respiratory Rate 20 Blood Pressure 138/97 H 122/86 Blood Pressure [Left Arm] 138/97 H Blood Pressure Mean [Left Arm] 110 Blood Pressure Source [Left Arm] Automatic Cuff 02 Sat by Pulse Oximetry 97 96 97 Oxygen Delivery Method Room Air 04/21/24 21:01 04/21/24 21:31 04/21/24 22:15 Temperature Temperature Source Pulse Rate 85 79 84 Pulse Rate [Right] Respiratory Rate 16 Blood Pressure 134/85 150/90 H 132/87 Blood Pressure [Left Arm] Blood Pressure Mean [Left Arm] Blood Pressure Source [Left Arm] 02 Sat by Pulse Oximetry 96 97 97 Oxygen Delivery Method 04/21/24 22:30 Temperature Temperature Source Pulse Rate 66 Pulse Rate [Right] Respiratory Rate Blood Pressure 130/72 Blood Pressure [Left Arm] Blood Pressure Mean [Left Arm] Blood Pressure Source [Left Arm] 02 Sat by Pulse Oximetry 99 Oxygen Delivery Method Lab Data Lab Results 04/21/24 20:33: WBC 12.2 H, RBC 5.28, Hgb 15.5, Hct 47.3 H, MCV 89.7, MCH 29.3, MCHC 32.7, RDW 13.4, Plt Count 342, MPV 7.5, Neut % (Auto) 76.0, Lymph % (Auto) 18.5, [place] % (Auto) 3.5, Eos % (Auto) 1.4, Baso % (Auto) 0.6, Neut # (Auto) 9.3 H, Lymph # (Auto) 2.3, [place] # (Auto) 0.4, Eos # (Auto) 0.2, Baso # (Auto) 0.1, Sodium 140, Potassium 4.0, Chloride 108 H, Carbon Dioxide 20 L, Anion Gap 16.0 H , BUN 14, Creatinine 0.60, Estimated Creat Clear 166, Estimated GFR 110, Est GFR ( Amer) 133, Glucose 105 H, Calcium 9.9, Total Bilirubin 0.5, AST 22, ALT 17, Alkaline Phosphatase 31 L, Total Protein 8.7 H, Albumin 5.0, Globulin 3.7 H, Albumin/Globulin Ratio 1.4, HIV 1&2 Antibody Rapid Nonreactive Orders (Tests/Meds): ED MEDICATIONS Generic Name Dose Route Start Last Admin Trade Name Freq PRN Reason Stop Dose Admin Sodium Chloride 10 ml 04/21/24 21:12 04/21/24 21:12 Sodium Chloride 0.9% 10ml Syr (Rad Only) IV 05/21/24 21:11 10 ml NEEDED PRN Administration Maintain IV Site Discontinued Medications Generic Name Dose Route Start Last Admin Trade Name Roberto PRN Reason Stop Dose Admin Droperidol 2.5 mg 04/21/24 21:55 04/21/24 22:12 Droperidol 5mg/2ml Vial IV 04/21/24 21:56 2.5 mg ONCE ONE Administration Lactated Ringer's 1,000 mls @ 999 mls/hr 04/21/24 22:03 04/21/24 22:17 Lactated Ringer's 1000 Ml Bag IV 04/21/24 23:03 999 mls/hr .Q1H1M ONE Administration Iopamidol 75 ml 04/21/24 21:12 04/21/24 21:13 Iopamidol-370 (76%);100ml Bottle IV 04/21/24 21:13 75 ml ONCE ONE Administration Morphine Sulfate 4 mg 04/21/24 20:21 04/21/24 20:57 Morphine 4mg/Ml Syringe IV 04/21/24 20:22 4 mg ONCE ONE Administration Ondansetron HCl 4 mg 04/21/24 20:21 04/21/24 20:57 Ondansetron 4mg/2ml Vial IV 04/21/24 20:22 4 mg ONCE ONE Administration ORDERS Category Date Time Status CT cervical spine w con Stat Cat Scan 04/21/24 20:[address] head/brain wo con Stat Cat Scan 04/21/24 20:36 Completed Complete Blood Count Auto Diff Stat Lab 04/21/24 20:33 Completed Comprehensive Metabolic Panel Stat Lab 04/21/24 20:33 Completed HIV (1&2) Antibody Rapid Stat Lab 04/21/24 20:33 Completed Hep C Ab with Reflex to RNA Stat Lab 04/21/24 20:33 Received ECG Data Tracing #1: I reviewed this ECG and interpreted as documented below: Normal sinus rhythm with a ventricular rate of [address] changes concerning for ischemia. Normal intervals, including QT interval ECG initial impression date: 04/21/24 ECG initial impression time: 22:10 Critical Care <MORRIS Archuleta - Last Filed: 04/21/24 23:08> Critical Care Time Critical Care Time: No
--- NOTE | 2024-04-21 20:36 | CT_ITS ---
PROCEDURE INFORMATION: Exam: CT Head Without Contrast Exam date and time: 04/21/2024 9:09 PM Age: 43 years old Clinical indication: Pain; Headache; Additional info: Headache, n/b, TECHNIQUE: Imaging protocol: Computed tomography of the head without contrast. Radiation optimization: All CT scans at this facility use at least one of these dose optimization techniques: automated exposure control; mA and/or kV adjustment per patient size (includes targeted exams where dose is matched to clinical indication); or iterative reconstruction. COMPARISON: No relevant prior studies available. FINDINGS: Brain: Normal. No hemorrhage. Unremarkable white matter. No mass effect. Cerebral ventricles: No ventriculomegaly. Paranasal sinuses: Visualized sinuses are unremarkable. No fluid levels. Mastoid air cells: Visualized mastoid air cells are well aerated. Bones: Unremarkable. No acute fracture. Soft tissues: Unremarkable. IMPRESSION: No acute intracranial abnormality.
--- NOTE | 2024-04-21 20:36 | CT_ITS ---
PROCEDURE INFORMATION: Exam: CT Cervical Spine With Contrast Exam date and time: 04/21/2024 9:11 PM Age: 43 years old Clinical indication: Neck pain; Additional info: STRAUSS, neck pain, cervical injection yesterday TECHNIQUE: Imaging protocol: Computed tomography of the cervical spine with contrast. Radiation optimization: All CT scans at this facility use at least one of these dose optimization techniques: automated exposure control; mA and/or kV adjustment per patient size (includes targeted exams where dose is matched to clinical indication); or iterative reconstruction. Contrast material: ISOVUE; Contrast volume: 75 ml; Contrast route: IV; COMPARISON: CT HEAD/BRAIN WO CON 04/21/2024 9:09 PM FINDINGS: Bones: No acute fracture. Normal alignment. Anterior plate and screw fixation hardware at C5-C6. No significant disc bulge or herniation. No severe spinal canal stenosis. Mild bilateral bony foraminal stenosis at C5-C6. Lungs: Lung apices are normal. Soft tissues: Unremarkable. IMPRESSION: No acute findings.
[2024-04-21] MEDS: ONDANSETRON 4MG/2ML VIAL 4 MG IV (20:57)
[2024-04-21] MEDS: MORPHINE 4MG/ML SYRINGE 4 MG IV (20:57)
[2024-04-21 21:10] LABS: Basophils # 0.1 K/mm3 (0-0.2); Basophils % 0.6 % (0.1-2.0); Eosinophils # 0.2 K/mm3 (0.0-0.4); Eosinophils % 1.4 % (0.1-12.0); Hematocrit 47.3 % (37.0-47.0); Hemoglobin 15.5 g/dL (12.2-16.2); Lymphocytes # 2.3 K/mm3 (0.7-4.5); Lymphocytes % 18.5 % (10-50); Mean Corpuscular HGB Conc 32.7 g/dL (31.8-35.4); Mean Corpuscular Hemoglobin 29.3 pg (27.0-31.2); Mean Corpuscular Volume 89.7 fl (81-99); Mean Platelet Volume 7.5 fl (7.4-10.4); Monocytes # 0.4 K/mm3 (0.1-1.0); Monocytes % 3.5 % (1.7-9.3); Neutrophils # 9.3 K/mm3 (1.8-7.8); Platelet Count 342 K/mm3 (142-424); Red Blood Count 5.28 M/mm3 (4.20-5.40); Red Cell Distribution Width 13.4 % (11.5-17.5); White Blood Count 12.2 K/mm3 (4.8-10.8)
[2024-04-21 21:12] LABS: Alanine Aminotransferase 17 U/L (12-78); Albumin/Globulin Ratio 1.4 (1.1-1.8); Alkaline Phosphatase 31 U/L (38-126); Aspartate Amino Transferase 22 U/L (14-36); Bilirubin,Total 0.5 mg/dl (0.2-1.3); Blood Urea Nitrogen 14 mg/dl (7-17); Calcium 9.9 mg/dl (8.4-10.2); Carbon Dioxide 20 mmol/L (22.0-30.0); Chloride 108 mmol/L (98-107); Creatinine Clearance Estimated 166 mL/min (50-200); Estimated Glomerular Filt Rate 110 ml/min (>60); GFR (African American) 133 ML/MIN (>60); Globulin 3.7 g/dL (1.3-3.2); Glucose 105 mg/dl (74-100); Sodium 140 mmol/L (136-145); Total Protein,Serum 8.7 g/dl (6.3-8.2)
[2024-04-21] MEDS: SODIUM CHLORIDE 0.9% 10ML SYR (RAD ONLY) 10 ML IV (21:12)
[2024-04-21] MEDS: IOPAMIDOL-370 (76%);100ML BOTTLE 75 ML IV (21:13)
[2024-04-21 21:51] LABS: HIV (1&2) Antibody Rapid NONREACTIVE (NONREACTIVE)
--- NOTE | 2024-04-21 22:08 | ECG_ITS ---
APPROVED REPORT Exam: Resting ECG HR:76 bpm ECG Measurements Heart Rate 76 AXES MA 148 P 48 QRSd 78 QRS -24 QT 375 T 10 QTc 405 Conclusion SINUS RHYTHM BORDERLINE LEFT AXIS DEVIATION [QRS AXIS < -20] BORDERLINE ECG UNCONFIRMED REPORT Electronically signed by : GLENDY CHOWDARY, 04/23/2024 06:50:33
[2024-04-21] MEDS: droPERidol 5MG/2ML VIAL 2.5 MG IV (22:12)
[2024-04-21] MEDS: LACTATED RINGERS 1000ML 1,000 ML 999 ML IV (22:17)
[2024-04-21] MEDS: KETOROLAC 30MG/ML VIAL 30 MG IV (23:46)
[2024-04-21] MEDS: ACETAMINOPHEN 1,000MG/100ML VIAL 1000 MG IV (23:47)
[2024-04-21] MEDS: DEXAMETHASONE 4MG/ML 1ML VIAL 8 MG IV (23:47)
[2024-04-21] MEDS: PROCHLORPERAZINE 10MG/2ML VIAL 10 MG IV (23:47)
[2024-04-22 00:53] VITALS: BP 102/56; PULSE 64; RESP 16; TEMP 37; O2SAT 97
[2024-04-26 14:12] LABS: HCV Ab Reactive (Non Reactive)
== END 2024-04-22 00:55 | disposition home or self-care (01) ==
PROVIDERS: Emergency Medicine; Physician Assistant; Emergency Provider Emergency Medicine; PCP Family Medicine
DX: R51.9 Headache, unspecified (principal); R11.2 Nausea with vomiting, unspecified; H53.149 Visual discomfort, unspecified
CPT/HCPCS: 70450; 72126; 80053; 85025; 86803; 87389; 93005; 96361; 96374; 96375; 99285; J0131; J0780; J1100; J1790; J1885; J2270; J2405; J7120; Q9967

== ENCOUNTER 2024-08-08 15:39 | Emergency (ER) | payer MEDICAID, SELFPAY ==
[2024-08-08 15:45] VITALS: BP 146/76; PULSE 72; RESP 18; TEMP 36.7; O2SAT 98; BMI 34.7
--- NOTE | 2024-08-08 16:13 | ED_ITS ---
<Statement entered by Emilee Luna MD - 08/09/24 00:20> I was consulted by the CHARMAINE, and we discussed the complexity of problems being addressed. I approved the treatment and management plan for this patient's care in the emergency department, thus performing a substantive portion of the medical decision making. Emilee Luna MD Discharge Plan Disposition Patient Disposition: Home, Self-Care Condition: Good Prescriptions Prescriptions: No Action trazodone 100 mg tablet 100 mg PO HS Patient Comments: TAKE 1 TO 2 TABLETS BY MOUTH ONCE A DAY AT BEDTIME hydrocodone-acetaminophen 7.5-325 mg tablet 1 tab PO Q8HP PRN (Reason: Pain) Patient Comments: TAKE 1 TABLET BY MOUTH EVERY 8 HOURS NEEDED FOR SEVERE PAIN gabapentin 300 mg capsule 300 mg PO DAILY Patient Comments: TAKE ONE CAPSULE BY MOUTH DAILY FOR 7 DAYS THEN TAKE 2 CAPSULES DAILY FOR 7 DAYS THEN START 3 CAPSULES DAILY prazosin 2 mg capsule 2 mg PO DAILY Patient Comments: TAKE 1 CAPSULE BY MOUTH DAILY AT BEDTIME aripiprazole 30 mg tablet 30 mg PO DAILY Patient Comments: TAKE 1 TABLET BY MOUTH DAILY desvenlafaxine succinate 100 mg tablet extended release 24 hr 100 mg PO DAILY Patient Comments: TAKE 1 TABLET BY MOUTH DAILY melatonin-lemon balm leaf extr 10-1 mg tablet 1 tab PO DAILY Patient Comments: TAKE 1 TABLET BY MOUTH EVERY NIGHT AT BEDTIME methocarbamol 750 mg tablet 750 mg PO DAILYP PRN (Reason: Pain) cefdinir 300 mg capsule 300 mg PO BID 7 Days Qty: 14 0RF Referrals Follow up/Referrals: Eliseo Ibarra MD [Primary Care Provider] - See instructions Activity Restrictions/Add. Instructions Additional Instructions/Restrictions: Today your evaluated in the emergency department, your right knee x-ray was unremarkable for any acute fracture. Your CT of your chest did not show a pulmonary embolism. You have been given an outpatient order to receive a ultrasound for DVT rule out of your right knee. Please arrive in the morning to have this done. Please return to the ED for worsening of condition Clinical Impressions Clinical Impression: Acute pain of right knee Stand Alone Forms Stand Alone Forms: Work/School Release Instructions Patient Instructions: DI for Acute Pain -- Adult Print Language Print Language: Estonian Discharge ED Provider: Emilee Luna General Adult HPI General Chief complaint: PAIN Stated complaint: Right knee pain radiation up to groin Time Seen by Provider: 08/08/24 16:00 Mode of Arrival: Ambulatory Source of Information: Patient Limitations: No Limitations Description of Symptoms (Recalled from ER Triage Doc. by RN): Pt presents with c/o pain to her right knee. Pt states pain radiates the whole length of her leg. Pt denies any injuries. Pt states she has had the pain for 2-3 days, and has become worse over the last 24 hours. History of Present Illness HPI narrative: Patient is a 43-year-old female PMHx tobacco use who presents to the ED for posterior right knee pain and mild shortness of breath x 3 days. Patient states that she had a sudden onset posterior right knee pain that radiates into her right calf and right groin. Related Data Home Medications ?Medication ?Instructions ?Recorded ?Confirmed aripiprazole 30 mg tablet 30 mg PO DAILY 02/12/24 03/10/24 desvenlafaxine succinate 100 mg 100 mg PO DAILY 02/12/24 03/10/24 tablet,extended release 24 hr gabapentin 300 mg capsule 300 mg PO DAILY 02/12/24 03/10/24 hydrocodone 7.5 mg-acetaminophen 1 tab PO Q8HP PRN Pain 02/12/24 03/10/24 325 mg tablet melatonin 10 mg-lemon balm leaf 1 tab PO DAILY 02/12/24 03/10/24 extract 1 mg tablet methocarbamol 750 mg tablet 750 mg PO DAILYP PRN Pain 02/12/24 03/10/24 prazosin 2 mg capsule 2 mg PO DAILY 02/12/24 03/10/24 trazodone 100 mg tablet 100 mg PO HS 03/10/24 03/10/24 Previous Rx's ?Medication ?Instructions ?Recorded cefdinir 300 mg capsule 300 mg PO BID 7 days #14 caps 03/13/24 Allergies Allergy/AdvReac Type Severity Reaction Status Date / Time tetracycline (TETRACYCLINE) Allergy Mild Verified 03/10/24 11:02 silver (From Teg[employer]erm [employer] Allergy Verified 03/10/24 11:02 Mesh) [facility] Disclaimer: The information contained in this section may have been updated after the patient was seen, as this information can be updated by other users. Medical History Depression Anxiety Urinary tract infection Kidney stone Asthma Hypertension Surgical History History of tonsillectomy History of hysterectomy History of cholecystectomy History of section Social History Smoking Status: Never smoker alcohol intake: never substance use type: former substance user current occupational status: other Travel in the last 8 weeks: None household members: spouse housing: house caffeine: No Have you lived/traveled outside [place] in past 30 days?: No Contact w/someone who lives/traveled outside US past 30 days?: No Exposure to someone with infectious disease in past 14 days?: No Do you have a fever (greater than 100.4 F or 38 C)?: No Have you tested positive for COVID-19: No Exposed to someone with COVID-19 in past 14 days?: No Do you have a sore throat?: No Do you have a cough?: No Do you have any weakness?: No Do you have any diarrhea?: No Are you experiencing any unusual bleeding?: No Do you have any muscle aches/pain?: No Do you have any abdominal pain?: No Are you experiencing loss of taste or smell?: No Other Medical History Have you received the Flu Vaccine for this season: Yes Have you received the Pneumonia Vaccine: No ROS Obtained: Yes Systems reviewed as appropriate & no additional complaints except as documented Physical Exam General General appearance: alert and in no apparent distress Head Head exam: atraumatic and normocephalic Eye Eye exam: Present normal appearance and PERRL ENT ENT exam: Present normal exam Neck Neck exam: Present normal inspection Chest Chest inspection: Present normal inspection and symmetric chest wall rise; Absent tenderness Respiratory Respiratory exam: Present normal lung sounds bilaterally Cardiovascular Cardiovascular exam: Present regular rate Abdominal Exam Abdominal exam: Present soft and normal bowel sounds; Absent tenderness Extremities Exam Extremities exam: Present full ROM, tenderness (Right posterior knee tenderness, patella midline, quadricep muscle intact) and other (Pain in right calf with flexion of right foot); Absent edema, joint swelling or calf tenderness Back Exam Back exam: Present normal inspection and full ROM Neurological Exam Neurological exam: Present alert and oriented X3 Psychiatric Psychiatric exam: Present normal affect and normal mood Skin Skin exam: Present warm and dry Medical Decision Making Medical Records Screening: Per USPSTF and CDC recommendations, given the prevalence of disease in our region, it is our hospital?s policy to screen for HIV and viral Hepatitis for all patients aged 18 and over and those with ongoing risk factors. Tab Inquiry Pt receiving controlled substance: No Tab was queried for this patient: No Vital Signs: 08/08/24 15:45 08/08/24 16:16 08/08/24 17:19 Temperature 98.1 F Temperature Source Oral Pulse Rate 72 65 Pulse Rate [Right] 72 Respiratory Rate 18 Blood Pressure 127/85 133/77 Blood Pressure [Right Arm] 146/76 H Blood Pressure Mean [Right Arm] 99 Blood Pressure Source Manual Cuff/ Auscultation Manual Cuff/ Auscultation Blood Pressure Source [Right Arm] Automatic Cuff Blood Pressure Position Sitting Sitting Blood Pressure Position [Right Arm] Sitting 02 Sat by Pulse Oximetry 98 97 98 Oxygen Delivery Method Room Air Room Air 08/08/24 18:17 08/08/24 20:14 Temperature 98.2 F Temperature Source Oral Pulse Rate 60 68 Pulse Rate [Right] Respiratory Rate 20 Blood Pressure 137/83 140/80 Blood Pressure [Right Arm] Blood Pressure Mean [Right Arm] Blood Pressure Source Manual Cuff/ Auscultation Automatic Cuff Blood Pressure Source [Right Arm] Blood Pressure Position Sitting Sitting Blood Pressure Position [Right Arm] 02 Sat by Pulse Oximetry 99 Oxygen Delivery Method Room Air Room Air Lab Data Lab Results 08/08/24 17:25: WBC 8.6, RBC 4.26, Hgb 12.3, Hct 37.8, MCV 88.7, MCH 28.9, MCHC 32.5, RDW 13.3, Plt Count 281, MPV 9.5, Neut % (Auto) 61.9, Lymph % (Auto) 29.1, [place] % (Auto) 6.2, Eos % (Auto) 2.0, Baso % (Auto) 0.7, Neut # (Auto) 5.3, Lymph # (Auto) 2.5, [place] # (Auto) 0.5, Eos # (Auto) 0.2, Baso # (Auto) 0.1, Sodium 139, Potassium 3.7, Chloride 105, Carbon Dioxide 28, Anion Gap 9.7, BUN 14, Creatinine 0.70, Estimated Creat Clear 142, Estimated GFR 92, Est GFR ( Amer) 111, Glucose 108 H, Calcium 9.2, Total Bilirubin 0.1 L, AST 26, ALT 18, A lkaline Phosphatase 37 L, Troponin I < 0.01, Total Protein 7.2, Albumin 4.3, Globulin 2.9, Albumin/Globulin Ratio 1.5 08/08/24 17:25 08/08/24 17:25 Orders (Tests/Meds): ED MEDICATIONS Discontinued Medications Generic Name Dose Route Start Last Admin Trade Name Tonyq PRN Reason Stop Dose Admin Hydrocodone Bitart/Acetaminophen 1 tab 08/08/24 18:32 08/08/24 18:49 Apap/Hydrocodone 325mg/7.5mg Tab PO 08/08/24 18:33 1 tab ONCE ONE Administration Iopamidol 70 ml 08/08/24 17:39 08/08/24 17:40 Iopamidol-370 (76%);100ml Bottle IV 08/08/24 17:40 70 ml ONCE ONE Administration Sodium Chloride 50 ml 08/08/24 17:39 08/08/24 17:40 0.9 % Sodium Chloride 50 Ml Vial IV 08/08/24 17:40 50 ml ONCE ONE Administration Sodium Chloride 10 ml 08/08/24 17:39 08/08/24 17:40 Sodium Chloride 0.9% 10ml Syr (Rad Only) IV 08/08/24 17:40 10 ml ONCE ONE Administration ORDERS Category Date Time Status CT angio chest PE protocol Stat Cat Scan 08/08/24 16:18 Completed CXR --portable [XR chest portable] Stat Exams 08/08/24 16:18 Completed Knee XR right 3 views [XR knee RT 3V] Stat Exams 08/08/24 16:16 Completed CBC w/Auto Diff [Complete Blood Count Auto Diff] Stat Lab 08/08/24 17:25 Completed CMP [Comprehensive Metabolic Panel] Stat Lab 08/08/24 17:25 Completed Trop I [Troponin I] Stat Lab 08/08/24 17:25 Completed Medical Decision Narrative: In summary, patient is a 43-year-old female PMHx tobacco use who presents to the ED for posterior right knee pain and mild, intermittent shortness of breath x 3 days. Patient states that she had a sudden onset posterior right knee pain that radiates into her right calf and right groin. She denies any injury or trauma. Right knee pain is worse upon flexion of right foot. Denies any overlying skin changes. Surgical history of hysterectomy. Upon initial exam, patient is alert, oriented and cooperative. Patient is hemodynamically stable. Physical exam remarkable for posterior right knee tenderness. Normal respiratory exam. Neuroexam intact. Denies fever, chills, headache, visual disturbances, abdominal pain, nausea, vomiting. Denies taking oral contraceptives. Differential diagnosis includes pulmonary embolism, DVT, ligamentous injury, fracture, infectious process, among others. Initial workup will be conducted with hematologic labs, cxr, CT PE. Initial workup reviewed by me. CBC unremarkable for any leukocytosis, stable H&H. CMP unremarkable for any actionable abnormalities. First troponin < 0.01. Chest x-ray unremarkable for any acute findings. Chest CTA unremarkable for any pulmonary embolism. Knee x-ray unremarkable for any acute findings. Upon repeat evaluation, patient condition remains the same. They were ambulatory in the ED. Able to tolerate p.o. I discussed with patient that she will need a DVT ultrasound of her right leg, we are unable to do that tonight as we do not have in-house ultrasound. I gave patient a outpatient form and advised her to return in the morning first thing for her ultrasound. She did verbalized understanding of this. Discussed that she will also need to follow-up with her PCP and return to the ED for any worsening of condition. Patient verbalized understanding. She was ambulatory from the ED without difficulty Critical Care Critical Care Time Critical Care Time: No
[2024-08-08 16:16] VITALS: BP 127/85; PULSE 72; O2SAT 97
--- NOTE | 2024-08-08 16:16 | XR_ITS ---
PROCEDURE INFORMATION: Exam: XR Right Knee Exam date and time: 08/08/2024 5:41 PM Age: 43 years old Clinical indication: Pain; Knee; Right; Additional info: Pain /(posterior TECHNIQUE: Imaging protocol: Radiologic exam of the right knee. Views: 3 views. COMPARISON: CR XR FEMUR RT 2V 03/30/2020 1:56 PM FINDINGS: Bones/joints: Normal. Soft tissues: Normal. IMPRESSION: No acute findings.
--- NOTE | 2024-08-08 16:18 | CT_ITS ---
PROCEDURE INFORMATION: Exam: CTA Chest With Contrast Exam date and time: 08/08/2024 5:34 PM Age: 43 years old Clinical indication: Shortness of breath; Additional info: SOA TECHNIQUE: Imaging protocol: Computed tomographic angiography of the chest with contrast. Exam focused on the arteries. 3D rendering (Not supervised by radiologist): MIP and/or 3D reconstructed images were created by the technologist. Radiation optimization: All CT scans at this facility use at least one of these dose optimization techniques: automated exposure control; mA and/or kV adjustment per patient size (includes targeted exams where dose is matched to clinical indication); or iterative reconstruction. Contrast material: ISOVUE 370; Contrast volume: 70 ml; Contrast route: INTRAVENOUS (IV); COMPARISON: CT ANGIO CHEST PE PROTOCOL 03/17/2024 10:42 AM FINDINGS: Pulmonary arteries: No CT evidence for pulmonary embolism. Aorta: Unremarkable. No aortic aneurysm. No aortic dissection. Lungs: Small lung volumes identified. No acute infiltrates. Pleural spaces: Unremarkable. No pneumothorax. No pleural effusion. Heart: Unremarkable. No cardiomegaly. No pericardial effusion. Lymph nodes: Unremarkable. No enlarged lymph nodes. Kidneys: Stone within the infundibulum to a major calyx left kidney mid so. Stone measures 6 mm. Bones/joints: Unremarkable. No acute fracture. Soft tissues: Unremarkable. IMPRESSION: 1. No CT evidence for pulmonary embolism. 2. Stone within the infundibulum to a major calyx left kidney mid so. Stone measures 6 mm. 3. No acute abnormalities are identified.
--- NOTE | 2024-08-08 16:18 | XR_ITS ---
PROCEDURE INFORMATION: Exam: XR Chest Exam date and time: 08/08/2024 5:41 PM Age: 43 years old Clinical indication: Shortness of breath; Additional info: SOA TECHNIQUE: Imaging protocol: Radiologic exam of the chest. Views: 1 view. COMPARISON: CT ANGIO CHEST PE PROTOCOL 08/08/2024 5:34 PM FINDINGS: Lungs: Unremarkable. No consolidation. Pleural spaces: Unremarkable. No pleural effusion. No pneumothorax. Heart/Mediastinum: Unremarkable. No cardiomegaly. Bones/joints: Unremarkable. IMPRESSION: No acute findings.
[2024-08-08 17:19] VITALS: BP 133/77; PULSE 65; O2SAT 98
[2024-08-08] MEDS: SODIUM CHLORIDE 0.9% 10ML SYR (RAD ONLY) 10 ML IV (17:40)
[2024-08-08] MEDS: IOPAMIDOL-370 (76%);100ML BOTTLE 70 ML IV (17:40)
[2024-08-08] MEDS: 0.9 % SODIUM CHLORIDE 50 ML VIAL IV (17:40)
[2024-08-08 17:46] LABS: Albumin Level 4.3 g/dl (3.5-5.0); Chloride 105 mmol/L (98-107); Sodium 139 mmol/L (136-145)
[2024-08-08 17:47] LABS: Potassium 3.7 mmoL/L (3.5-5.1)
[2024-08-08 17:49] LABS: Alanine Aminotransferase 18 U/L (12-78); Albumin/Globulin Ratio 1.5 (1.1-1.8); Alkaline Phosphatase 37 U/L (38-126); Anion Gap 9.7 mEq/L (5-15); Aspartate Amino Transferase 26 U/L (14-36); Blood Urea Nitrogen 14 mg/dl (7-17); Carbon Dioxide 28 mmol/L (22.0-30.0); Creatinine Clearance Estimated 142 mL/min (50-200); Estimated Glomerular Filt Rate 92 ml/min (>60); GFR (African American) 111 ML/MIN (>60); Globulin 2.9 g/dL (1.3-3.2); Total Protein,Serum 7.2 g/dl (6.3-8.2)
[2024-08-08 17:50] LABS: Calcium 9.2 mg/dl (8.4-10.2); Glucose 108 mg/dl (74-100)
[2024-08-08 17:52] LABS: Basophils # 0.1 K/mm3 (0-0.2); Basophils % 0.7 % (0.1-2.0); Eosinophils # 0.2 K/mm3 (0.0-0.4); Hematocrit 37.8 % (37.0-47.0); Hemoglobin 12.3 g/dL (12.2-16.2); Lymphocytes # 2.5 K/mm3 (0.7-4.5); Lymphocytes % 29.1 % (10-50); Mean Corpuscular HGB Conc 32.5 g/dL (31.8-35.4); Mean Corpuscular Hemoglobin 28.9 pg (27.0-31.2); Mean Corpuscular Volume 88.7 fl (81-99); Mean Platelet Volume 9.5 fl (7.4-10.4); Monocytes # 0.5 K/mm3 (0.1-1.0); Monocytes % 6.2 % (1.7-9.3); Neutrophils # 5.3 K/mm3 (1.8-7.8); Neutrophils % 61.9 % (37.0-80.0); Platelet Count 281 K/mm3 (142-424); Red Blood Count 4.26 M/mm3 (4.20-5.40); Red Cell Distribution Width 13.3 % (11.5-17.5); White Blood Count 8.6 K/mm3 (4.8-10.8)
[2024-08-08 18:01] LABS: Bilirubin,Total 0.1 mg/dl (0.2-1.3)
[2024-08-08 18:10] LABS: Troponin I < 0.01 ng/ml (0.00-0.034)
[2024-08-08 18:17] VITALS: BP 137/83; PULSE 60; O2SAT 99
[2024-08-08] MEDS: APAP/HYDROCODONE 325MG/7.5MG TAB 1 TAB PO (18:49)
[2024-08-08 20:14] VITALS: BP 140/80; PULSE 68; RESP 20; TEMP 36.8; O2SAT 98
== END 2024-08-08 20:18 | disposition home or self-care (01) ==
PROVIDERS: Nurse Practitioner; Emergency Provider Student in an Organized Health Care Education/Training Program; PCP Family Medicine
DX: M25.561 Pain in right knee (principal); R06.02 Shortness of breath
CPT/HCPCS: 71045; 71275; 73562; 80053; 84484; 85025; 99285; Q9967

== ENCOUNTER 2024-08-09 14:02 | Outpatient (CLI) | payer MEDICAID, SELFPAY ==
--- NOTE | 2024-08-09 | CA_ITS ---
FINAL REPORT TECHNIQUE: Compression crockett scale and Doppler evaluation CLINICAL HISTORY: Patient states her right leg has been hurting for 2-3 days. Pain behind right knee extending to right groin. No history of DVT. Currently vapes COMPARISON: None FINDINGS: Femoral and popliteal veins show normal compressibility and flow. Visualized portion of the calf veins are patent by Doppler exam. IMPRESSION: No evidence of right lower extremity deep venous thrombosis Reviewed, Interpreted and Dictated by Rohini Mckeon MD Transcribed by Tana Garnett Authenticated and [facility]
== END 2024-08-09 23:59 | disposition home or self-care (01) ==
LOC: RT 14:02
PROVIDERS: PCP Family Medicine; Visit Provider Nurse Practitioner
DX: M25.561 Pain in right knee (principal); F17.290 Nicotine dependence, other tobacco product, uncomplicated
CPT/HCPCS: 93971

== ENCOUNTER 2024-09-04 17:00 | Outpatient (CLI) | payer MEDICAID, SELFPAY | END 2024-09-04 23:59 | disposition home or self-care (01) | LOC: LAB.DROPOF 09-09 13:27 | PROVIDERS: PCP Nurse Practitioner; Visit Provider Nurse Practitioner | DX: R35.0 Frequency of micturition (principal); B96.1 Klebsiella pneumoniae [K. pneumoniae] as the cause of diseases classified elsewhere | CPT/HCPCS: 87086; 87088; 87186 ==

== ENCOUNTER 2024-09-12 11:16 | Emergency (ER) | payer MEDICAID, SELFPAY ==
[2024-09-12 11:29] VITALS: BP 127/93; PULSE 96; RESP 20; TEMP 37.2; O2SAT 98; BMI 34.7
--- NOTE | 2024-09-12 11:29 | PC.NURSE ---
Dr Harrell at bedside
[2024-09-12 11:31] LABS: Microscopic, Urine URINE MICROSCOPIC (MICROSCOPIC)
[2024-09-12 11:34] LABS: Appearance,Urine SL CLOUDY (Clear); Bilirubin,Urine Negative (Negative); Blood, Urine 3+ (Negative); Color,Urine YELLOW (Yellow); Glucose,Urine (UA) Negative (Negative); Ketones,Urine Negative (Negative); Leukocyte Esterase,Urine 1+ (Negative); Nitrate,Urine Negative (Negative); Protein,Urine Negative (Negative); Specific Gravity, Urine >= 1.030 (1.005-1.030); Urobilinogen,Urine 0.2 EU/dl (0.2)
--- NOTE | 2024-09-12 11:36 | CT_ITS ---
PROCEDURE INFORMATION: Exam: CT Abdomen And Pelvis With Contrast Exam date and time: 09/12/2024 1:02 PM Age: 43 years old Clinical indication: Abdominal pain; Additional info: Recent UTI, R flank pain vom TECHNIQUE: Imaging protocol: Computed tomography of the abdomen and pelvis with contrast. Radiation optimization: All CT scans at this facility use at least one of these dose optimization techniques: automated exposure control; mA and/or kV adjustment per patient size (includes targeted exams where dose is matched to clinical indication); or iterative reconstruction. Contrast material: ISOVUE; Contrast volume: 75 ml; Contrast route: IV; COMPARISON: CT ABDOMEN PELVIS W CON 08/14/2019 3:34 AM FINDINGS: Lungs: Calcified granuloma in the right lower lobe consistent with prior granulomatous disease Liver: Normal. No mass. Gallbladder and biliary ducts: Cholecystectomy Pancreas: Normal. No ductal dilation. Spleen: Normal. No splenomegaly. Adrenal glands: Normal. No mass. Kidneys and ureters: 9 millimeter proximal LEFT ureteral calculus causes moderate dilatation of LEFT collecting system and LEFT ureter. The LEFT kidney is edematous .. Subcentimeter low attenuation area in the right kidney is too small for characterization. Stomach and bowel: Constipation throughout the colon Appendix: Normal appendix Intraperitoneal space: Unremarkable. No free air. No significant fluid collection. Vasculature: Unremarkable. No abdominal aortic aneurysm. Lymph nodes: Unremarkable. No enlarged lymph nodes. Urinary bladder: Unremarkable as visualized. Reproductive: Unremarkable as visualized. Bones/joints: Unremarkable. No acute fracture. Soft tissues: Unremarkable. IMPRESSION: 9 millimeter proximal LEFT ureteral calculus causes moderate dilatation of LEFT collecting system and LEFT ureter. The LEFT kidney is edematous ..
--- NOTE | 2024-09-12 11:38 | ED_ITS ---
Discharge Plan Disposition Patient Disposition: Xfer Short-Term Hosp Prescriptions Prescriptions: No Action phenazopyridine [Pyridium] 200 mg tablet 200 mg PO Q8H 2 Days Qty: 6 0RF cefdinir 300 mg capsule 300 mg PO BID 10 Days Qty: 20 0RF gabapentin 300 mg capsule 300 mg PO DAILY Patient Comments: TAKE ONE CAPSULE BY MOUTH DAILY FOR 7 DAYS THEN TAKE 2 CAPSULES DAILY FOR 7 DAYS THEN START 3 CAPSULES DAILY prazosin 2 mg capsule 2 mg PO DAILY Patient Comments: TAKE 1 CAPSULE BY MOUTH DAILY AT BEDTIME aripiprazole 30 mg tablet 30 mg PO DAILY Patient Comments: TAKE 1 TABLET BY MOUTH DAILY desvenlafaxine succinate 100 mg tablet extended release 24 hr 100 mg PO DAILY Patient Comments: TAKE 1 TABLET BY MOUTH DAILY methocarbamol 750 mg tablet 750 mg PO DAILYP PRN (Reason: Pain) Referrals Follow up/Referrals: Provider,Referral, MD [Referring] - See instructions Activity Restrictions/Add. Instructions Additional Instructions/Restrictions: Please present immediately to [facility] emergency department and tell them you are on the expected list, they are expecting you. Clinical Impressions Clinical Impression: UTI (urinary tract infection), Ureterolithiasis Stand Alone Forms Stand Alone Forms: Transfer Record - ED Print Language Print Language: Hebrew Discharge ED Provider: Edwardo Harrell General Adult HPI General Chief complaint: PAIN Stated complaint: right side pain Time Seen by Provider: 09/12/24 11:22 History of Present Illness HPI narrative: Patient is a 43-year-old female with who presents emergency department for evaluation of right flank pain. Patient was recently diagnosed with urinary tract infection and prescribed cefdinir for which her dysuria has been improving however over the last 24 hours she has had acute onset of right flank pain that is become concerning to her and caused her to present here for continued evaluation. 1 episode of nonbloody nonbilious vomiting, no other acute complaints at this time. History of previous hysterectomy and cholecystectomy. Please note that above description of symptoms, in this electronic medical record under categorization of recalled from ER triage doctor by RN are reflective of an initial nursing assessment, however, is not reflective of my full history and physical exam that was personally taken and clarified. Consequentially, this preceding description of symptoms, which may include the patient's categorized chief complaint in the EMR, do not reflect my personal clinical impression, and the ultimate description of history of present illness and patient stated complaints should be deferred to this section of the note. Unless stated otherwise or congruent with this section of the note, additional signs, symptoms, or incongruence should be interpreted as inaccurate with my clinical impression. Related Data Home Medications ?Medication ?Instructions ?Recorded ?Confirmed aripiprazole 30 mg tablet 30 mg PO DAILY 02/12/24 09/03/24 desvenlafaxine succinate 100 mg 100 mg PO DAILY 02/12/24 09/03/24 tablet,extended release 24 hr gabapentin 300 mg capsule 300 mg PO DAILY 02/12/24 09/03/24 methocarbamol 750 mg tablet 750 mg PO DAILYP PRN Pain 02/12/24 09/03/24 prazosin 2 mg capsule 2 mg PO DAILY 02/12/24 09/03/24 Previous Rx's ?Medication ?Instructions ?Recorded cefdinir 300 mg capsule 300 mg PO BID 10 days #20 caps 09/03/24 phenazopyridine 200 mg tablet 200 mg PO Q8H 2 days #6 tabs 09/03/24 (Pyridium) Allergies Allergy/AdvReac Type Severity Reaction Status Date / Time tetracycline (TETRACYCLINE) Allergy Mild Verified 09/03/24 14:47 silver (From Teg[employer]erm [employer] Allergy Verified 09/03/24 14:47 Mesh) [facility] Disclaimer: The information contained in this section may have been updated after the patient was seen, as this information can be updated by other users. Medical History Depression Anxiety Urinary tract infection Kidney stone Asthma Hypertension Surgical History History of tonsillectomy History of hysterectomy History of cholecystectomy History of section Social History Smoking Status: Current every day smoker tobacco type: cigarettes packs per day: 1 alcohol intake: never substance use type: former substance user current occupational status: other Travel in the last 8 weeks: None household members: spouse housing: house caffeine: No Have you lived/traveled outside US in past 30 days?: No Contact w/someone who lives/traveled outside US past 30 days?: No Exposure to someone with infectious disease in past 14 days?: No Do you have a fever (greater than 100.4 F or 38 C)?: No Have you tested positive for COVID-19: No Exposed to someone with COVID-19 in past 14 days?: No Do you have a sore throat?: No Do you have a cough?: No Do you have any weakness?: No Do you have any diarrhea?: No Are you experiencing any unusual bleeding?: No Do you have any muscle aches/pain?: No Do you have any abdominal pain?: No Are you experiencing loss of taste or smell?: No Other Medical History Have you received the Flu Vaccine for this season: Yes Have you received the Pneumonia Vaccine: No ROS Obtained: Yes Systems reviewed as appropriate & no additional complaints except as documented Physical Exam General General appearance: alert and in no apparent distress Head Head exam: atraumatic and normocephalic Eye Eye exam: Present PERRL and EOMI ENT ENT exam: Present mucous membranes moist Neck Neck exam: Present normal inspection Chest Chest inspection: Present normal inspection and symmetric chest wall rise Respiratory Respiratory exam: Absent respiratory distress Cardiovascular Cardiovascular exam: Present regular rate and normal rhythm Abdominal Exam Abdominal exam: Present soft and tenderness (Mild, right lower quadrant) Extremities Exam Extremities exam: Present normal inspection Neurological Exam Neurological exam: Present alert Psychiatric Psychiatric exam: Present normal affect Skin Skin exam: Present warm and dry Medical Decision Making Medical Records Screening: Per USPSTF and CDC recommendations, given the prevalence of disease in our region, it is our hospital?s policy to screen for HIV and viral Hepatitis for all patients aged 18 and over and those with ongoing risk factors. Tab Inquiry Pt receiving controlled substance: No Vital Signs: 09/12/24 11:29 09/12/24 12:00 09/12/24 12:45 Temperature 98.9 F Temperature Source Oral Pulse Rate 67 61 Pulse Rate [Right] 96 H Respiratory Rate 20 Blood Pressure 133/103 H 115/65 Blood Pressure [Right Arm] 127/93 H Blood Pressure Mean [Right Arm] 104 Blood Pressure Source [Right Arm] Automatic Cuff 02 Sat by Pulse Oximetry 98 98 98 Oxygen Delivery Method Room Air Room Air Room Air 09/12/24 13:30 09/12/24 15:12 Temperature Temperature Source Pulse Rate 62 57 L Pulse Rate [Right] Respiratory Rate Blood Pressure 138/80 112/67 Blood Pressure [Right Arm] Blood Pressure Mean [Right Arm] Blood Pressure Source [Right Arm] 02 Sat by Pulse Oximetry 98 98 Oxygen Delivery Method Room Air Room Air Lab Data Lab Results 09/12/24 11:27: Urine Color Yellow, Urine Appearance Sl cloudy, Urine pH 6.0, Ur Specific [place] >= 1.030, Urine Protein Negative, Urine Glucose (UA) Negative, Urine Ketones Negative, Urine Blood 3+ A, Urine Nitrate Negative, Urine Bilirubin Negative, Urine Urobilinogen 0.2, Ur Leukocyte Esterase 1+ A, Urine RBC 10-20, Urine WBC 20-50, Ur Squamous Epith Cells 10-20, Urine Bacteria 3+ 09/12/24 12:27: WBC 8.5, RBC 4.41, Hgb 12.8, Hct 39.3, MCV 89.1, MCH 29.0, MCHC 32.6, RDW 12.3, Plt Count 265, MPV 9.3, Neut % (Auto) 59.7, Lymph % (Auto) 27.7, [place] % (Auto) 8.4, Eos % (Auto) 3.3, Baso % (Auto) 0.7, Neut # (Auto) 5.1, Lymph # (Auto) 2.4, [place] # (Auto) 0.7, Eos # (Auto) 0.3, Baso # (Auto) 0.1, Sodium 137, Potassium 4.1, Chloride 104, Carbon Dioxide 26, Anion Gap 11.1, BUN 11, Creatinine 0.70, Estimated GFR 92, Est GFR ( Amer) 111, Glucose 98, Calcium 9.3, Total Bilirubin 0.3, AST 20, ALT 15, Alkaline Phosphatase 37 L, Total Protein 7.2, Albumin 3.9, Globulin 3.3 H, Albumin/Globulin Ratio 1.2 09/12/24 14:35: Urine Color Yellow, Urine Appearance Clear, Urine pH 6.0, Ur Specific [place] 1.010, Urine Protein Negative, Urine Glucose (UA) Negative, Urine Ketones Negative, Urine Blood 2+ A, Urine Nitrate Negative, Urine Bilirubin Negative, Urine Urobilinogen 0.2, Ur Leukocyte Esterase Negative, Urine RBC 20-50, Urine WBC 10-20, Ur Squamous Epith Cells 5-10, Urine Bacteria 1+ 09/12/24 12:27 09/12/24 12:27 Orders (Tests/Meds): ED MEDICATIONS Generic Name Dose Route Start Last Admin Trade Name Freq PRN Reason Stop Dose Admin Sodium Chloride 10 ml 09/12/24 13:08 09/12/24 13:08 Sodium Chloride 0.9% 10ml Syr (Rad Only) IV 10/12/24 13:07 10 ml NEEDED PRN Administration Maintain IV Site Discontinued Medications Generic Name Dose Route Start Last Admin Trade Name Roberto PRN Reason Stop Dose Admin Acetaminophen 1,000 mg 09/12/24 11:36 09/12/24 12:28 Acetaminophen 1,000mg/100ml Vial IV 09/12/24 11:37 1,000 mg ONCE ONE Administration Iopamidol 75 ml 09/12/24 13:08 09/12/24 13:08 Iopamidol-370 (76%);100ml Bottle IV 09/12/24 13:09 75 ml ONCE ONE Administration Ketorolac Tromethamine 30 mg 09/12/24 11:36 09/12/24 12:29 Ketorolac 30mg/Ml Vial IV 09/12/24 11:37 30 mg ONCE ONE Administration Levofloxacin 750 mg 09/12/24 13:35 09/12/24 13:47 Levofloxacin 750 Mg Tablet PO 09/12/24 13:36 750 mg ONCE ONE Administration Morphine Sulfate 4 mg 09/12/24 11:36 09/12/24 12:29 Morphine 4mg/Ml Syringe IV 09/12/24 11:37 4 mg ONCE ONE Administration Morphine Sulfate 4 mg 09/12/24 14:34 09/12/24 14:41 Morphine 4mg/Ml Syringe IV 09/12/24 14:35 4 mg ONCE ONE Administration Ondansetron HCl 4 mg 09/12/24 11:36 09/12/24 12:29 Ondansetron 4mg/2ml Vial IV 09/12/24 11:37 4 mg ONCE ONE Administration ORDERS Category Date Time Status CT abdomen pelvis w con Stat Cat Scan 09/12/24 11:36 Completed CBC w/Auto Diff [Complete Blood Count Auto Diff] Stat Lab 09/12/24 12:27 Completed CMP [Comprehensive Metabolic Panel] Stat Lab 09/12/24 12:27 Completed UA [Urinalysis and Microscopic] Stat Lab 09/12/24 11:27 Completed UA [Urinalysis and Microscopic] Stat Lab 09/12/24 14:35 Completed Urine Culture Stat Micro 09/12/24 11:27 Received Medical Decision Narrative: In summary patient is a 43-year-old female with past medical history described above presents emerged part for evaluation of right flank pain in the setting of recent urinary tract infection on cefdinir. Patient is hemodynamically stable nontoxic-appearing upon arrival, afebrile. Differential includes ureteritis, infected stone, appendicitis, among others. Workup we conducted with hematologic labs, CT of the abdomen pelvis IV contrast, urinalysis. Initial inventions include multimodal pain control. Initial hematologic labs reviewed by me, no significant leukocytosis or anemia no REINALDO or critical electrolyte abnormality. Urinalysis equivocal but has persistent infection. Levofloxacin was given prior to resulting labs to switch antibiotics in case of failure. Culture data reviewed by me, it is sensitive to both ceftriaxone and levofloxacin and is positive for Klebsiella. CT imaging remarkable for a 9 mm left ureteral calculus that causes moderate dilatation of the left collecting system and left ureter with an edematous left kidney. Upon repeat evaluation it is interesting the patient has no pain on this side. The case was discussed with Dr. Cervantes [facility] urologist, given that patient is not fully obstructed on the left, hematologic labs are acceptable and patient does not have a fever it is reasonable to have a shared decision making discussion for transfer for emergent stent versus strict return precautions and completing antibiotics and followed up on an outpatient basis. Shared decision making discussion was had with patient she wishes to proceed to [facility] at this time for stenting. Given that patient does not appear septic and her pain is well-controlled I think she is appropriate to go POV. Patient will proceed to [facility] for definitive management at this time. Critical Care Critical Care Time Critical Care Time: No
--- NOTE | 2024-09-12 11:46 | PC.NURSE ---
1 unsuccessful IV attempt by Edith WHITE. Pt normally has to receive an USIV. [facility] called, will come to assist with USIV as soon she is available.
[2024-09-12 11:48] LABS: Bacteria,Urine 3+ /lpf; WBC,Urine 20-50 #/hpf (0-3)
[2024-09-12 12:00] VITALS: BP 133/103; PULSE 67; O2SAT 98
[2024-09-12] MEDS: ACETAMINOPHEN 1,000MG/100ML VIAL 1000 MG IV (12:28)
[2024-09-12] MEDS: ONDANSETRON 4MG/2ML VIAL 4 MG IV (12:29)
[2024-09-12] MEDS: MORPHINE 4MG/ML SYRINGE 4 MG IV ×2 (12:29→14:41)
[2024-09-12] MEDS: KETOROLAC 30MG/ML VIAL 30 MG IV (12:29)
[2024-09-12 12:45] VITALS: BP 115/65; PULSE 61; O2SAT 98
[2024-09-12 12:47] LABS: Alanine Aminotransferase 15 U/L (12-78); Albumin Level 3.9 g/dl (3.5-5.0); Albumin/Globulin Ratio 1.2 (1.1-1.8); Alkaline Phosphatase 37 U/L (38-126); Anion Gap 11.1 mEq/L (5-15); Aspartate Amino Transferase 20 U/L (14-36); Bilirubin,Total 0.3 mg/dl (0.2-1.3); Blood Urea Nitrogen 11 mg/dl (7-17); Calcium 9.3 mg/dl (8.4-10.2); Carbon Dioxide 26 mmol/L (22.0-30.0); Chloride 104 mmol/L (98-107); Estimated Glomerular Filt Rate 92 ml/min (>60); GFR (African American) 111 ML/MIN (>60); Globulin 3.3 g/dL (1.3-3.2); Glucose 98 mg/dl (74-100); Potassium 4.1 mmoL/L (3.5-5.1); Sodium 137 mmol/L (136-145); Total Protein,Serum 7.2 g/dl (6.3-8.2)
[2024-09-12 12:49] LABS: Basophils # 0.1 K/mm3 (0-0.2); Basophils % 0.7 % (0.1-2.0); Eosinophils # 0.3 K/mm3 (0.0-0.4); Eosinophils % 3.3 % (0.1-12.0); Hematocrit 39.3 % (37.0-47.0); Hemoglobin 12.8 g/dL (12.2-16.2); Lymphocytes # 2.4 K/mm3 (0.7-4.5); Lymphocytes % 27.7 % (10-50); Mean Corpuscular HGB Conc 32.6 g/dL (31.8-35.4); Mean Corpuscular Volume 89.1 fl (81-99); Mean Platelet Volume 9.3 fl (7.4-10.4); Monocytes # 0.7 K/mm3 (0.1-1.0); Monocytes % 8.4 % (1.7-9.3); Neutrophils # 5.1 K/mm3 (1.8-7.8); Neutrophils % 59.7 % (37.0-80.0); Platelet Count 265 K/mm3 (142-424); Red Blood Count 4.41 M/mm3 (4.20-5.40); Red Cell Distribution Width 12.3 % (11.5-17.5); White Blood Count 8.5 K/mm3 (4.8-10.8)
[2024-09-12] MEDS: SODIUM CHLORIDE 0.9% 10ML SYR (RAD ONLY) 10 ML IV (13:08)
[2024-09-12] MEDS: IOPAMIDOL-370 (76%);100ML BOTTLE 75 ML IV (13:08)
[2024-09-12 13:30] VITALS: BP 138/80; PULSE 62; O2SAT 98
[2024-09-12] MEDS: levoFLOXacin 750 MG TABLET PO (13:47)
--- NOTE | 2024-09-12 13:58 | PC.NURSE ---
called [facility] for urology consult per Dr Harrell. [facility] will call back.
[2024-09-12 14:41] LABS: Microscopic, Urine URINE MICROSCOPIC (MICROSCOPIC)
[2024-09-12 14:51] LABS: Appearance,Urine CLEAR (Clear); Bilirubin,Urine Negative (Negative); Blood, Urine 2+ (Negative); Color,Urine YELLOW (Yellow); Glucose,Urine (UA) Negative (Negative); Ketones,Urine Negative (Negative); Leukocyte Esterase,Urine Negative (Negative); Nitrate,Urine Negative (Negative); Protein,Urine Negative (Negative); Urobilinogen,Urine 0.2 EU/dl (0.2)
[2024-09-12 15:12] VITALS: BP 112/67; PULSE 57; O2SAT 98
[2024-09-12 15:37] LABS: Bacteria,Urine 1+ /lpf; RBC,Urine 20-50 #/hpf (0-3)
[2024-09-12 15:57] VITALS: BP 153/88; PULSE 66; RESP 18; TEMP 36.6; O2SAT 98
== END 2024-09-12 15:58 | disposition short-term general hospital (02) ==
PROVIDERS: Emergency Provider Emergency Medicine; PCP Family Medicine
DX: N20.1 Calculus of ureter (principal); N39.0 Urinary tract infection, site not specified; F17.210 Nicotine dependence, cigarettes, uncomplicated; R30.0 Dysuria; R10.9 Unspecified abdominal pain; R11.10 Vomiting, unspecified; Z82.49 Family history of ischemic heart disease and other diseases of the circulatory system; Z79.899 Other long term (current) drug therapy
CPT/HCPCS: 74177; 80053; 81001; 85025; 87086; 96374; 96375; 96376; 99285; J0131; J1885; J2270; J2405; Q9967

== ENCOUNTER 2025-03-30 09:12 | Outpatient (CLI) | payer MEDICAID, SELFPAY ==
[2025-03-30 20:34] LABS: Coronavirus 19, PCR Not Detected (NotDetected); Influenza A, PCR Not Detected (NotDetected); Influenza B, PCR Not Detected (NotDetected)
--- OUTSIDE RECORDS SUMMARY | 2025-04-01 09:33 | XMS_ITS | Encounter Summary ---
Author Organization [facility] Address [address] [place] [address] Care Team Providers Care Food Sanitarian Name Role Phone Eliseo Ibarra MD Primary Care Provider Reason for Visit * Reason Comments Med Refill Encounter Details Date Type Department Care Team (Late st Contact Info) Description 11/03/2024 Refill [facility] Interventional Pain Medicine [address] [place] [address] Markell Lucas MD [address] [facility] [address] [place] [address] Social History Tobacco Use Types Packs/Day Years [...] as of this encounter Plan of Treatment Not on file documented as of this encounter Visit Diagnoses Not on filedocumented in this encounter Additional Health Concerns Assessment Noted Time A fall risk assessment has been complete d for the patient 07/06/2024 8:17 AM EST A Body Mass Index follow-up plan has been documented for the patient 09/13/2024 7:52 AM EDT documented as of this encounter Care Teams Food Sanitarian Relationship Specialty Start Date End Date Eliseo Ibarra MD [address] [facility] [address] [place] [address] PCP - General 01/30/24 documented as of this encounter
--- OUTSIDE RECORDS SUMMARY | 2025-04-01 09:33 | XMS_ITS | Clinical Summary ---
Author Organization [facility] Address [address] [place] [address] Care Team Providers Care Senior Associate Name Role Phone Ira Melendez Primary Care Provider [phone] Allergies Active Allergy Reactions Criticality Noted Date Comments Adhesive Tape Rash Low 04/03/2021 Tetracyclines & Related Hives,Other (See Comments),Rash High 01/28/2016 Social History Tobacco Use Types Packs/Day Years Used Date Smoking Tobacco: Never Assessed Abuse Screen Answer Date Recorded Unsafe at Home or Work/School Not on file Feels Threatened by Someone? Not on file Does Anyone Keep You from Co ntacting Others or Doint Things Outside the Home? Not on file 02/26/2024 Physical Sign of Abuse Present Not on file 0 02/26/2024 Housing Stability Answer Date Recorded Current Living Arrangements Not on file 03/09 Potentially Unsafe Housing Conditions Not on donnie e 03/20/2023 Family and Community Support Answer Leonardo e Recorded Help with Day-to-Day Activities Not on file 03/20/2023 Lonely or Isolated Not on file 03/20/2023 Employment Answer Date Recorded Do you want help finding or keeping work or a mary b? Not on file 03/20/2023 Disabilities Answer Date Recorded Concentrating, Remembering, or Making Decisions Difficulty Not on file 03/20/2023 Doing Errands Independently Difficulty Not on fi le 03/20/2023 Education Answer Date Recorded Help with school or training? Not on file Preferred Language Not on file 03/20/2023 Comments No Sex and Gender Information Value Date Recorded Sex Assigned at Not on file Legal Sex Female 9:51 AM EDT Gender Identity Not on file Sexual Orientation Not on file Last Filed Vital Signs Vital Sign Reading Time Taken Comments Blood Pressure 134/91 02/26/2023 12:00 AM EDT Pulse 64 02/26/2023 12:28 AM EDT Temperature 37.1 C (98.8 F) 02/25/2023 8:16 PM EDT Respiratory Rate 18 02/25/2023 8:16 PM EDT Oxygen Saturation 96% 02/26/2023 12:28 AM EDT Inhaled Oxygen Concentration - - Weight 86.2 kg (190 lb) 02/25/2023 8:16 PM EDT Height 157.5 cm (5' 2 ) 02/25/2023 8:16 PM EDT Body Mass Index 34.75 02/25/2023 8:16 PM EDT Plan of Treatment Health Maintenance Due Date Last Done Comments Annual Gynecologic Pelvic an d Breast Exam 1981 ANNUAL PHYSICAL 02/20/2021 HEPATITIS C SCREENING 02/20/2021 MAMMOGRAM 2021 INFLUENZA VACCINE 01/07/2025 02/04/2023, 03/19/2022, 03/11/2018 TDAP/TD VACCINES (3 - Td or Tdap) 01/26/2032 01/25/2022, 04/08/2020 Pneumococcal Vaccine 0-49 Aged Out No longer eligible based on patient's age to complete this topic Insurance [employer] MEDICAID [place] Care Teams Senior Associate Relationship Specialty Start Date End Date [place] [address] PCP - General Nurse Practitioner 02/25/23
--- OUTSIDE RECORDS SUMMARY | 2025-04-01 09:33 | XMS_ITS | Clinical Summary ---
Author Organization [facility] Address [address] [place] [address] Care Team Providers Care Dough Machine Operator Name Role Phone Ira Melendez IMAN Primary Care Provider Allergies Active Allergy Reactions Criticality Noted Date Comments Penicillins 04/03/2021 Adhesive 04/03/2021 Chlorhexidine 04/03/2021 Tetracycline 04/03/2021 Medications FLUoxetine (PROZAC) 40 MG capsule Take 40 mg by mouth daily. Active Melatonin 10 MG CAPS Take by mouth. Active OXcarbazepine (TRILEPTAL) 150 MG tablet Take 150 mg by mouth 2 (two) times daily. Active diazePAM (VALIUM) 5 MG tablet Take 1 tablet by mouth as needed for Anxiety Take 1 tab 45mins prior to MRI. Take 2nd tab if needed.. Max Daily Amount: 5 mg 2 tablet 04/04/2021 Active ubrogepant (UBRELVY) 100 MG TABS tablet Take 1 tablet by mouth every 2 (two) hours as needed for Migraine If needed, a second dose of 100 mg may be taken at least 2 hours after the initial dose.. 30 tablet 05/01/2021 Active eletriptan (RELPAX) 20 MG tablet Take 1 tablet by mouth once as needed for Migraine, may repeat once in 2 hrs - max 40 mg/24 hrs. 10 tablet 05/09/2021 Active Social History Tobacco Use Types Packs/Day Years Used Date Smoking Tobacco: Never Assessed Comments Unknown Sex and Gender Information Value Date Recorded Sex Assigned at Not on file Legal Sex Female 11:40 AM EDT Gender Identity Not on file Sexual Orientation Not on file Last Filed Vital Signs Vital Sign Reading Time Taken Comments Blood Pressure 118/80 04/03/2021 7:49 AM EDT Pulse 66 04/03/2021 7:49 AM EDT Temperature - - Respiratory Rate - - Oxygen Saturation 97% 04/03/2021 7:49 AM EDT Inhaled Oxygen Concentration - - Weight 72.6 kg (160 lb) 05/07/2021 11:00 AM EST Height 158.8 cm (5' 2.5 ) 04/03/2021 7:49 AM ED T Body Mass Index 28.8 04/03/2021 7:49 AM EDT Plan of Treatment Health Maintenance Due Date Last Done Comments Breast Cancer Screening 1981 Hepatitis B (HepB) Vaccine ( 1 of 3 - 19+ 3-dose series) 2000 Tdap/Td Vaccine >11 yo (1 - Tdap) 2000 Cervical Cancer Screening 2002 HPV Vaccine (1 - 3-dose SCDM series) 2008 Colon Cancer Risk Assessment 2021 Annual SDOH Screening 06/09/2024 Influenza Vaccine (#1) 2025 Haemophilus Influenzae Type B (Hib) Vaccine Aged Out No longer eligible b ased on patient's age to complete this topic Hepatitis A (HepA) Vaccine Aged Out N o longer eligible based on patient's age to complete this topic Meningococcal ACWY Aged Out No longer eligible based on patient's age to complete this topic Pneumococcal Vaccines 6-49 yo Risk Aged Out No longer eligible based on patient's age to complete this topic Polio (IPV) Aged Out No longer eligi ble based on patient's age to complete this topic Rotavirus (RV) Vaccine Aged Out No lo nger eligible based on patient's age to complete this topic Insurance MEDICAID Care Teams Dough Machine Operator Relationship Specialty Start Date End Date Ira Melendez APRN [address] [place] [id number] PCP - General Nurse Practitioner 03/31/21
--- OUTSIDE RECORDS SUMMARY | 2025-04-01 09:33 | XMS_ITS | Clinical Summary ---
Author Organization [facility] Address [address] [place] [address] Phone Care Team Providers Care Coffee Grower Name Role Phone Home Infusion DD, [facility] Unavailable Unavailab le Conditions or Problems Problem Name Problem Code Onset Date Status Entry Date Provider Comment Standard Description Annotate Urinary tract infection (UTI) 69018363 (SNOMED CT) Active Antonella Castillo Urinary tract infectious disease Infection following a procedure, organ and space surgical site, subsequent encounter(s) T81.43xD (ICD-10-CM ) Active Antonella Castillo Infection following a procedure, organ and space surgical site, subsequent encounter Abscess, intra-abdomina l 18280437 (SNOMED CT) Active Antonella Castillo Acute bacterial peritonitis Hematuria, gross 29173736 (SNOMED CT) Active Antonella Castillo Blood in urine Neutrophilic leukemoid reaction D72.823 (ICD-10-CM ) Active Antonella Castillo Leukemoid reaction Medications Medication Instructions Start Date Stop Date Generic Name [facility] Provider CEFTRIAXONE SODIUM 2 GM SOLR IV Q 24 X 2 weeks [place] v[place] 9 CEFTRIAXONE SODIUM 04861106409 Jahaira Kimball RN VENTOLIN HFA 108 (90 Base) MCG/ACT AERS 2 puff qid 8 ALBUTEROL SULFATE 10306315286 Shaun Berger SEROQUEL 50 MG TABS take 1 tablet qhs 8 QUETIAPINE FUMARATE 62558581822 Shaun Berger PERCOCET 7.5-325 MG TABS take 1 tablet b.i.d. as needed 8 OXYCODONE-ACET AMINOPHEN 04985184114 Shaun Berger OXYBUTYNIN CHLORIDE ER 10 MG [id number] take 1 tablet qd 8 OXYBUTYNIN CHLORIDE 31064503859 Shaun Berger GABAPENTIN 600 MG TABS take 1 tablet t.i.d. 8 GABAPENTIN 24424537449 Shaun Berger FLUTICASONE PROPIONATE 50 MCG/ACT SUSP 2 sprays to each nostril qd 8 FLUTICASONE PROPIONATE 19217182010 Shaun Berger DICLOFENAC SODIUM 1 % TRANSDERMAL GEL apply qid 8 DICLOFENAC SODIUM 46640897594 Shaun Berger COLACE 100 MG CAPS take 1 capsule qd 8 DOCUSATE SODIUM 71555546397 Shaun Berger BACTRIM DS 800-160 MG TABS take 1 tablet b.i.d. 8 SULFAMETHOXAZO LE-TRIMETHOPRI Ab 40377412132 Shaun Berger CEFTRIAXONE SODIUM 2 GM SOLR IV Q 24 X 2 weeks [place] v[place] 9 CEFTRIAXONE SODIUM 19346736893 Dalila Rg Medications Administered No information available. Allergies, Adverse Reactions, Alerts Allergy Name Reaction Description Start Date Severity Statu s Provider TETRACYCLINE HCL Moderate Active Tony Berger BICILLIN C-R Moderate Active Shaun Berger Results Date Name Value Unit Range Flag Description Chart Maintenance: cbc, cmp, 09/14 BASOPHIL % 0.8 % Basophils/ 100 leukocytes in Blood by Manual count % EOS AUTO 3.6 % Eosinophil s/100 leukocytes in Blood by Automated count MONOCYTE % 6.7 % Monocytes/ 100 leukocytes in Blood by Automated count LYMPHS % 32.4 % Lymphocytes/ 100 leukocytes in Blood by Automated count PMN % 56.5 % Neutrophils/1 00 leukocytes in Blood by Automated count PLATELETS 265 10*3/mm3 Platelets [#/volume] in Blood by Automated count HCT 37.0 % Hematocrit [V olume Fraction] of Blood by Automated count HGB 11.8 g/dL Hemoglobin [Mass/volume] in Blood RBC 3.95 10*6/mm3 Erythrocytes [#/volume] in Blood by Automated count WBC 7.7 10*3/mm3 Leukocytes [ #/volume] in Blood by Automated count BILI TOTAL 0.1 mg/dL Bilirubin. total [Mass/volume] in Serum or Plasma SGOT (AST) 19 U/L Aspartate aminotransferase [Enzymatic activity/volume] in Serum or Plasma SGPT (ALT) 23 U/L Alanine aminotransferase [Enzymatic activity/volume] in Serum or Plasma ALK PHOS 44 U/L Alkaline janae sphatase [Enzymatic activity/volume] in Blood CREATININE 0.7 mg/dL Creatinine [Mass/volume] in Serum or Plasma BUN 15 mg/dL Urea nitrogen [Mass/volume] in Serum or Plasma CALCIUM 8.6 mg/dL Calcium [Mole s/volume] in Serum or Plasma POTASSIUM 3.4 mmol/L Potassium [Moles/volume] in Serum or Plasma SODIUM 142 mmol/L Sodium [Moles /volume] in Serum or Plasma GLUCOSE SER 108 mg/dL Glucose [ Mass/volume] in Serum or Plasma Office Visit: Room 8 [facility]osp[facility] Follow Up MEDS REVIEW Done Documenta tion of current medications (procedure) ORALTOBACUSE Never Tobacco smoking status CIGARET SMKG yes Tobacco smoking status SMOK STATUS Former smoker Tob acco smoking status External Other: Patient lee jones update - Email Teodoro, [facility] Infe ... PAT E-MAIL [email or web address] patient's e-mail address External Other: Patient lee jones update - AccountStat, [facility] I ... PATPORTALPIN Active This yocasta l be used to establish a PIN number for patients to register in the Patient Portal. Plan of Care Type Date Detail Pending order Continue IV anti biotics Pending order Continue oral an tibiotics Pending order Weekly PICC Line Care Pending order PICC Removal Procedures No information available. Vital Signs Date Name Value Unit Description BMI (Body Mass Index) 20.56 kg/m2 Bod y Mass Index (Ratio) Body Temperature 99.6 [degF] temperat ure E&M BP Diastolic 80 mm[Hg] blood pressu re, diastolic BP Systolic 116 mm[Hg] blood pressur e, systolic Heart Rate 64 /min pulse rate Height 62 [in_us] height E&M Respiratory Rate 16 /min respirat ory rate E&M Weight Measured 112.4 [lb_av] weight E& M Weight Measured 112.4 [lb_av] weight E& M Immunizations No information available. Advance Directives Directive Description Start Date NO ADVANCED DIRECTIVES AT THIS TIME 2018
--- OUTSIDE RECORDS SUMMARY | 2025-04-01 09:33 | XMS_ITS | Encounter Summary ---
Author Organization [facility] Address [address] [place] [address] Care Team Providers Care Visitor Services Representative Name Role Phone Markell Mejia MD Primary Care Provider + [phone] Ira Melendez APRN Primary Care Provider [phone] Eliseo Ibarra MD Primary Care Provider + [phone] Encounter Details Date Type Department Care Team (Late st Contact Info) Description 12/19/2022 Orders Only External Location [address] [place] [id number] Provider, External Social History Tobacco Use Types [...] on file documented as of this encounter Procedures Procedure [...] documented as of this encounter Care Teams Visitor Services Representative Relationship Specialty Start Date End Date Markell Mejia MD [address] [place] [address] [id number] PCP - General 10/20/20 12/27/22 Ira Melendez APRN [address] [place], [place] [id number] PCP - General 12/28/22 01/29/24 Eliseo Ibarra MD [address] [place] [address] [address] [place] [address] PCP - General 01/30/24 documented as of this encounter
--- OUTSIDE RECORDS SUMMARY | 2025-04-01 09:33 | XMS_ITS | Encounter Summary ---
Author Organization [facility] Address [address] [place] [address] Care Team Providers Care Adviser Sales Name Role Phone Eliseo Ibarra MD Primary Care Provider Reason for Visit * Reason Comments Med Refill Encounter Details Date Type Department Care Team (Late st Contact Info) Description 11/02/2024 Refill [facility] Interventional Pain Medicine [address] [place] [address] Markell Lucas MD [address] [facility] [address] [place] [address] Social History Tobacco Use Types [...] documented as of this encounter Care Teams Adviser Sales Relationship Specialty Start Date End Date Eliseo Ibarra MD [address] [facility] [address] [place] [address] PCP - General 01/30/24 documented as of this encounter
--- OUTSIDE RECORDS SUMMARY | 2025-04-01 09:34 | XMS_ITS | Patient Health Record ---
Author Organization [facility] Address [address] [place] [address] Care Team Providers Care Sorority Mother Name Role Phone Jennifer Bailey Primary Care Provider [phone] Allergies Allergen (clinical drug ingredient) Drug/Non Drug Allergy documented on EMR Reaction Allergy Type Onset Date Status Information temporarily unavailable horse radish (uncoded) Unknown Allergy Activ e Information temporarily unavailable Tetracycline HCl Unknown Drug Allergy Active Reason For Referral No Information Medications Medication SIG (Take, Route, Fr equency, Duration) Notes Start Date End Date Status PROzac 40 MG 1 capsule Orally Once a day Active Melatonin 5 MG 1 tablet in the even ing Orally Once a day Active Vivitrol 380 MG 4 ml Intramuscular e very 4 weeks; Duration: 28 days 06/20/2021 Active Social History Tobacco [...] Problem Status W/U Status Risk Notes Problem Information temporarily unavailable Uncomplicated alcohol dependence (F10.20) Active confirmed Problem Information temporarily unavailable Uncomplicated opioid dependence (F11.20) Active confirmed Plan Of Treatment No Information Insurance Providers Payer Name Payer Address Payer Phone Subscriber Number Group Number Insured Name Patient Relationship to Insured Coverage Start Date Coverage End Date [employer] Medicaid [address] [address] [place] [address] [id number] Taniya Martin Self - patient is the insured 1 Medical (General) History Medical History History ICD Code PTSD (post-traumatic stress disorder) F4 3.10 anxiety opioid addiction hydronephrosis hepatitis C Surgical History Surgery Date(Month/Year) TOTAL HYSTERECTOMY 2019 renal stent 2000 c-spine fusion 2019 Section dilatation and curettage left first finger amputated
--- OUTSIDE RECORDS SUMMARY | 2025-04-01 09:34 | XMS_ITS | Clinical Summary ---
Author Organization [facility] Address [address] [place] [address] Care Team Providers Care Submarine Operator Name Role Phone Eliseo Ibarra MD Primary Care Provider Allergies Active Allergy Reactions Criticality Noted Date Comments Tetracycline Hives Medium 01/25/2022 Tetracyclines & Related Other - please d ocument in the comment field,Rash High 01/28/2016 Medications fluticasone (Flonase) 50 MCG/ACT nasal spray Administer 2 sprays into each nostril 1 (one) time each day. Shake gently. Before first use, prime pump. After use, clean tip and replace cap. Active acetaminophen (Tylenol) 500 MG tablet 1 tablet. Active albuterol (Ventolin HFA) 108 (90 Base) MCG/ACT inhaler 0 Active cetirizine (ZyrTEC) 10 MG tablet Take 1 tablet (10 mg) by mouth 1 (one) time each day. 3 Active famotidine (Pepcid) 20 MG tablet Take 1 tablet (20 mg) by mouth. 2 Active ibuprofen 800 MG tablet Take 1 tablet by mouth as needed in the morning and 1 tablet as needed at noon and 1 tablet as needed in the evening. 2 Active sucralfate (Carafate) 1 g tablet 3 Active amLODIPine (Norvasc) 5 MG tablet Take 1 tablet (5 mg) by mouth 1 (one) time each day. 3 Active oxybutynin (Ditropan) 5 MG tablet Take 1 tablet (5 mg) by mouth 1 (one) time each day. 3 Active desvenlafaxine (Pristiq) 100 MG 24 hr tablet Take 1 tablet by mouth daily. 3 Active Blood Glucose Monitoring Suppl (ONE TOUCH ULTRA 2) w/Device kit device kit follow package directions 4 Active OneTouch Ultra test strip 4 Active Lancets (OneTouch Delica Plus [id number]) misc 4 Active prazosin (Minipress) 2 MG capsule Take 1 capsule by mouth nightly. 4 Active methocarbamol (Robaxin) 750 MG tabletIndications :Cervicalgia,Stat us post cervical spinal fusion,Cervical spondylosis with myelopathy Take 1 tablet (750 mg) by mouth 4 (four) times a day. 120 tablet 2 4 Active naloxone (Narcan) 4 mg/0.1 mL nasal spray 1. Give 1 spray in nostril for no/slow breathing or cannot wake after opioid use 2. Call 911 3. Repeat in other nostril if symptoms continue 1 each 4 Active ARIPiprazole (Abilify) 10 MG tablet Take 2.5 tablets by mouth daily. 4 Active Melatonin 10 MG sublingual tablet Take 1 tablet by mouth every night. 4 Active gabapentin (Neurontin) 300 MG capsuleIndication s:Spondylosis of cervical region without myelopathy or radiculopathy Take 1 capsule (300 mg) by mouth 3 (three) times a day. 90 capsule 4 Active amitriptyline (Elavil) 25 MG tablet TAKE 1 TO 2 TABLETS BY MOUTH DAILY AT BEDTIME 5 Active gabapentin (Neurontin) 300 MG capsule Take 1 capsule (300 mg) by mouth 3 (three) times a day. 90 capsule 2 5 Active Additional Information Patient not taking.Reported on 09/22/2024 oxyCODONE (Roxicodone) 5 MG immediate release tablet Take 1 tablet by mouth every 6 hours as needed for severe pain. 6 tablet 04/21/202 5 Active Hospital, Clinic, or Other Facility Administered Medication Ordered Dose Route Frequency Start Date End Date Status sodium chloride 0.9 % flush 10 mLIndications:Spondylosis of cervical region without myelopathy or radiculopathy 10 mL IV As needed 07/06/2024 Active Active Problems Problem Noted Date Diagnosed Date Ureteral stone 09/12/2024 Hx laparoscopic cholecystectomy 09/04/2022 Overview (09/04/2022): Surgery date 07/21/[address] Kirby vs available [facility] attending History of psychiatric treatment 07/21/2022 Resolved Problems Problem Noted Date Diagnosed Date Resolved Date Abdominal pain 09/04/2022 02/27/2025 Cholelithiasis 07/20/2022 07/22/2022 Overview (07/20/2022): No pericholecystic [...] with out cholecystitis without obstruction 07/20/2022 07/22/2022 Immunizations Immunization Administration Dates Next Due Tdap 01/25/2022 Family [...] Sign Reading Time Taken Comments Blood Pressure 138/99 09/24/2024 10:45 AM EDT Pulse 74 09/24/2024 10:45 AM EDT Temperature 36.8 C (98.3 F) 09/24/2024 10:45 AM EDT Respiratory Rate 17 09/24/2024 10:45 AM EDT Oxygen Saturation 96% 09/24/2024 10:45 AM EDT Inhaled Oxygen Concentration - - Weight 86.2 kg (190 lb) 09/22/2024 11:09 AM EDT Height 157.5 cm (5' 2 ) 09/22/2024 11:09 AM EDT Body Mass Index 34.75 09/22/2024 11:09 AM EDT Plan of Treatment Health Maintenance Due Date Last Done Comments [facility]-Depression Screening 1981 [facility]-/Child/Adol SDOH Screenings 1981 [facility]-Varicella Vaccines (1 of 2 - 13+ 2-dose series) 1994 [facility]- SDOH Screenings 12/13/1999 [facility]-Adult SDOH Screenings 12/13/1999 [facility]-Hepatitis B Vaccines (1 of 3 - 19+ 3-dose series) 2000 HPV Vaccines (1 - 3-dose SCDM series) 2008 [facility]-[id number]-66 Vaccine ( - season) 2025 07/07/2021, 11/28/2020, 10/27/2020 [facility]-Influenza Vaccine (#1) 02/07/202502/04, 03/19/2022, 03/11/2018 [facility]-Zoster Vaccines (1 of 2) 12/13/2031 [facility]-DTaP,Tdap,and Td Vaccines (3 - Td or Tdap) 01/26/2032 01/25/2022, 04/08/2020 [facility]-Hepatitis C Screening Completed 07/19/2022 [facility]-HIV Screening Completed 09/12/2024, 07/19/2022 [facility]-Obesity Intervention Completed 025, 09/12/2024, 07/06/2024, Additional history exists [facility]-HIB Vaccines Aged Out No longer e ligible based on patient's age to complete this topic [facility]-Hepatitis A Vaccines Aged Out No longer eligible based on patient's age to complete this topic [facility]-IPV Vaccines Aged Out No longer e ligible based on patient's age to complete this topic [facility]-Pneumococcal Vaccine: Pediatrics (0 to 5 Years) and At-Risk Patients (6 to 49 Years) Aged Out No longer eligible based on patient's age to complete this topic [facility]-Rotavirus Vaccines Aged Out No lo nger eligible based on patient's age to complete this topic Medical Devices Implanted Type Area Proofing Machine Operator Device Identifier Shelf Expiration Date Model / Serial / Lot Stent Ureteral Double Pigtail Pos 6fr 24cm - [id number] Implanted:Qty: 1 on 09/24/2024 by Clay Chapman MD at [facility] Stent Left: [id number] 07/23/2026 [id number] / / [id number] Stent Ureteral Double Pigtail Pos 6fr 26cm - [id number] Implanted:Qty: 1 on 09/12/2024 by Radha Cervantes MD at [facility] Left: [id number] 04/14/2027 [id number] / / [id number] Description:Used sub ref# [id number] Procedures Procedure Name Priority Date/Time Associated Diagnosis Comments ED HIV 1/2 ANTIBODY/ANTIGEN SCREEN WITH REFLEX TO HIV I/II DIFFERENTIATION STAT 09/12/2024 6:41 PM EDT HEPATITIS C ANTIBODY - ED W/REFLEX TO HCV QUANT PCR STAT 07/19/2022 6:45 PM EST from Last 3 Months or Most Recently Relevant to Health Maintenance Results * ED HIV 1/2 Antibody/Antigen Screen w/Reflex to HIV 1/2 Differentiation (09/12/2024 6:41 PM EDT) HIV 1 & 2 Antibody/Antigen Screen Non Reactive Non Reactive 09/12/2024 7:39 PM EDT [facility] Comment:Screening for HIV 1 & 2 antibodies, and P24 antigen is NONREACTIVE. No confirmatory testing is required. Blood Venous blood specimen / Unknown Venipuncture / Unknown 09/12/2024 6:41 PM EDT 09/12/2024 6:55 PM EDT us Rekha Crawford MD LAB BLOOD ORDERABLES Final Resu lt [facility] [address] [place] [address] * (ABNORMAL) Hepatitis C Antibody - ED (07/19/2022 6:45 PM EST) Hepatitis C Antibody Positive(A ) Negative 07/19/2022 7:58 PM EST [facility] Blood Venous blood specimen / Unknown Venipuncture / Unknown 07/19/2022 6:45 PM EST 07/19/2022 7:05 PM EST us Fadumo Gleason MD LAB BLOOD ORDERABLES Final Re sult Performing Organization Address City/[facility] Co de Phone Number [facility] [address] [place] [address] from Last 3 Months or Most Recently Relevant to Health Maintenance Insurance [facility] [employer] [facility] MEDICAID Advance Directives * Full Code (Latest Code Status on File) Date Activated Date Inactivated Comments 09/12/2024 11:05 PM 09/13/2024 12:20 PM * Full Code Date Activated Date Inactivated Comments 07/20/2022 3:29 AM 07/22/2022 8:11 PM Question Answer Comments Patient has decision-making capacity? Yes Care Teams Submarine Operator Relationship Specialty Start Date End Date Eliseo Ibarra MD [address] [facility] [address] [place] [address] PCP - General 01/30/24
== END 2025-03-30 23:59 ==
LOC: LAB.DROPOF 04-01 09:13
PROVIDERS: Visit Provider Student in an Organized Health Care Education/Training Program
DX: R50.9 Fever, unspecified (principal)
CPT/HCPCS: 87631

== ENCOUNTER 2025-04-19 11:44 | Emergency (ER) | payer MEDICAID, SELFPAY ==
[2025-04-19] VITALS (16 sets, daily range): BP systolic 108–143; BP diastolic 60–87; PULSE 60–77; RESP 15–18; TEMP 36.6–36.8; O2SAT 96–99; BMI 32.0
--- OUTSIDE RECORDS SUMMARY | 2025-04-19 12:00 | XMS_ITS | Clinical Summary ---
Author Organization [facility] Address [address] [place] [address] Care Team Providers Care Automation Sales Manager Name Role Phone Ira Melendez Primary Care Provider [phone] Allergies Active Allergy Reactions Criticality Noted Date [...] topic Insurance [employer] MEDICAID [place] Care Teams Automation Sales Manager Relationship Specialty Start Date End Date [place] [address] PCP - General Nurse Practitioner 02/25/23
--- OUTSIDE RECORDS SUMMARY | 2025-04-19 12:00 | XMS_ITS | Encounter Summary ---
Author Organization [facility] Address [address] [place] [address] Care Team Providers Care Booking Police Officer Name Role Phone Eliseo Ibarra MD Primary Care Provider Reason for Visit * Reason Comments Med Refill Encounter Details Date Type Department Care Team (Late st Contact Info) Description 11/02/2024 Refill [facility] Interventional Pain Medicine [address] [place] [address] Markell Lucas MD [address] [facility] [address] [place] [address] Social History Tobacco Use Types [...] documented as of this encounter Care Teams Booking Police Officer Relationship Specialty Start Date End Date Eliseo Ibarra MD [address] [facility] [address] [place] [address] PCP - General 01/30/24 documented as of this encounter
--- OUTSIDE RECORDS SUMMARY | 2025-04-19 12:00 | XMS_ITS | Clinical Summary ---
Author Organization [facility] Address [address] [facility] [address] [place] [address] Phone Care Team Providers Care Air Cargo Specialist Name Role Phone Home Infusion DD, [facility] Unavailable Unavailab le Conditions or Problems Problem Name Problem Code Onset Date Status Entry Date Provider Comment Standard Description Annotate Urinary tract infection (UTI) 16227847 (SNOMED CT) Active Antonella Castillo Urinary tract infectious disease Infection following a procedure, organ and space surgical site, subsequent encounter(s) T81.43xD (ICD-10-CM ) Active Antonella Castillo Infection following a procedure, organ and space surgical site, subsequent encounter Abscess, intra-abdomina l 73921592 (SNOMED CT) Active Antonella Castillo Acute bacterial peritonitis Hematuria, gross 14729203 (SNOMED CT) Active Antonella Castillo Blood in urine Neutrophilic leukemoid reaction D72.823 (ICD-10-CM ) Active Antonella Castillo Leukemoid reaction Medications Medication Instructions Start Date Stop Date Generic Name [facility] Provider CEFTRIAXONE SODIUM 2 GM SOLR IV Q 24 X 2 weeks [place] v[place] 9 CEFTRIAXONE SODIUM 27763191052 Jahaira Kimball RN VENTOLIN HFA 108 (90 Base) MCG/ACT AERS 2 puff qid 8 ALBUTEROL SULFATE 14732668137 Shaun Berger SEROQUEL 50 MG TABS take 1 tablet qhs 8 QUETIAPINE FUMARATE 97659632376 Shaun Berger PERCOCET 7.5-325 MG TABS take 1 tablet b.i.d. as needed 8 OXYCODONE-ACET AMINOPHEN 53365127487 Shaun Berger OXYBUTYNIN CHLORIDE ER 10 MG [id number] take 1 tablet qd 8 OXYBUTYNIN CHLORIDE 43400937569 Shaun Berger GABAPENTIN 600 MG TABS take 1 tablet t.i.d. 8 GABAPENTIN 45851259357 Shaun Berger FLUTICASONE PROPIONATE 50 MCG/ACT SUSP 2 sprays to each nostril qd 8 FLUTICASONE PROPIONATE 55137869452 Shaun Berger DICLOFENAC SODIUM 1 % TRANSDERMAL GEL apply qid 8 DICLOFENAC SODIUM 02775891116 Shaun Berger COLACE 100 MG CAPS take 1 capsule qd 8 DOCUSATE SODIUM 68142084891 Shaun Berger BACTRIM DS 800-160 MG TABS take 1 tablet b.i.d. 8 SULFAMETHOXAZO LE-TRIMETHOPRI Ab 07540504497 Shaun Berger CEFTRIAXONE SODIUM 2 GM SOLR IV Q 24 X 2 weeks [place] v[place] 9 CEFTRIAXONE SODIUM 90916113613 Dalila Rg Medications Administered No information available. [...] Patient lee jones update - Email Teodoro, [facility] Infe ... PAT E-MAIL [email or web address] patient's e-mail address External Other: Patient lee jones update - AccountStat, [facility] I ... PATPORTALPIN Active This yocasta l [...]
--- OUTSIDE RECORDS SUMMARY | 2025-04-19 12:00 | XMS_ITS | Patient Health Record ---
Author Organization [facility] Address [address] [place] [address] Care Team Providers Care Crusher Loader Equipment Operator Name Role Phone Jennifer Bailey Primary Care [...] W/U Status Risk Notes Problem Alcohol dependence (94745395) Uncomplicated alcohol dependence (F10.20) Active confirmed Problem Opioid dependence (60742512) Uncomplicated opioid dependence (F11.20) Active confirmed Plan Of Treatment No Information Insurance Providers Payer Name Payer Address Payer Phone Subscriber Number Group Number Insured Name Patient Relationship to Insured Coverage Start Date Coverage End Date [employer] Medicaid [address] [address] [place] [address] [id number] Taniya Martin Self - patient is the insured 1 Medical (General) History Medical History History ICD Code PTSD (post-traumatic stress disorder) F4 3.10 anxiety opioid addiction hydronephrosis hepatitis C Surgical History Surgery Date(Month/Year) TOTAL HYSTERECTOMY 2019 renal stent 2001 c-spine fusion 2019 Section dilatation and curettage left first finger amputated
--- OUTSIDE RECORDS SUMMARY | 2025-04-19 12:00 | XMS_ITS | Encounter Summary ---
Author Organization [facility] Address [address] [place] [address] Care Team Providers Care Crew Caller Name Role Phone Markell Mejia MD Primary Care Provider + [phone] Ira Melendez APRN Primary Care Provider [phone] Eliseo Ibarra MD Primary Care Provider + [phone] Encounter Details Date Type Department Care Team (Late st Contact Info) Description 12/19/2022 Orders Only External Location [address] [place] [id number] Provider, External Social History Tobacco Use Types [...] documented as of this encounter Care Teams Crew Caller Relationship Specialty Start Date End Date Markell Mejia MD [address] [place] [id number] PCP - General 10/20/20 12/27/22 Ira Melendez APRN [address] [place], [place] [id number] PCP - General 12/28/22 01/29/24 Eliseo Ibarra MD [address] [place] [address] [address] [place] [address] PCP - General 01/30/24 documented as of this encounter
--- OUTSIDE RECORDS SUMMARY | 2025-04-19 12:00 | XMS_ITS | Clinical Summary ---
Author Organization [facility] Address [address] [place] [address] Care Team Providers Care Drafter Civil (Cad) Name Role Phone Ira Melendez IMAN Primary Care Provider [phone] Allergies Active Allergy Reactions Criticality Noted Date [...] complete this topic Insurance MEDICAID Care Teams Drafter Civil (Cad) Relationship Specialty Start Date End Date Ira Melendez APRN [address] [place] [id number] PCP - General Nurse Practitioner 03/31/21
--- OUTSIDE RECORDS SUMMARY | 2025-04-19 12:00 | XMS_ITS | Clinical Summary ---
Author Organization [facility] Address [address] [place] [address] Care Team Providers Care Project Manager Process Development Name Role Phone Eliseo Ibarra MD Primary [...] strip 4 Active Lancets (OneTouch Delica Plus [id number]) misc 4 Active prazosin (Minipress) 2 MG [...] Date Last Done Comments [facility]-Depression Screening 1981 [facility]-Infant/Child/Adol SDOH Screenings 1981 [facility]-Varicella Vaccines (1 of 2 - 13+ 2-dose series) 1994 [facility]- SDOH Screenings 12/13/1999 [facility]-Adult SDOH Screenings 12/13/1999 [facility]-Hepatitis B Vaccines (1 of 3 - 19+ 3-dose series) 2000 HPV Vaccines (1 - 3-dose SCDM series) 2008 SPF-[id number]-21 Vaccine ( - season) 2025 07/07/2021, 11/28/2020, [...] this topic Medical Devices Implanted Type Area Waste Duster Device Identifier Shelf Expiration Date Model / Serial / Lot Stent Ureteral Double Pigtail Pos 6fr 24cm - [id number] Implanted:Qty: 1 on 09/24/2024 by Clay Chapman MD at [facility] Stent Left: [id number] 07/23/2026 [id number] / / [id number] Stent Ureteral Double Pigtail Pos 6fr 26cm - [id number] Implanted:Qty: 1 on 09/12/2024 by Radha Cervantes MD at [facility] Left: [employer]-[id number] 04/14/2027 [id number] / / [id number] Description:Used sub ref# [id number] Procedures Procedure Name Priority Date/Time Associated Diagnosis [...] Reactive Non Reactive 09/12/2024 7:39 PM EDT [facility] Comment:Screening for HIV 1 & 2 antibodies, and P24 antigen is NONREACTIVE. No confirmatory testing is required. Blood Venous blood specimen / Unknown Venipuncture / Unknown 09/12/2024 6:41 PM EDT 09/12/2024 6:55 PM EDT us Rekha Crawford MD LAB BLOOD ORDERABLES Final Resu lt [facility] [address] [place] [address] * (ABNORMAL) Hepatitis C Antibody - ED (07/19/2022 6:45 PM EST) Hepatitis C Antibody Positive(A ) Negative 07/19/2022 7:58 PM EST [facility] Blood Venous blood specimen / Unknown Venipuncture / Unknown 07/19/2022 6:45 PM EST 07/19/2022 7:05 PM EST us Fadumo Gleason MD LAB BLOOD ORDERABLES Final Re sult Performing Organization Address City/[facility] Co de Phone Number [facility] [address] [place] [address] from Last 3 Months or Most Recently Relevant to Health Maintenance Insurance [facility] [employer] [facility] MEDICAID Advance Directives * Full Code (Latest Code Status on File) Date Activated Date Inactivated Comments 09/12/2024 11:05 PM 09/13/2024 12:20 PM * Full Code Date Activated Date Inactivated Comments 07/20/2022 3:29 AM 07/22/2022 8:11 PM Question Answer Comments Patient has decision-making capacity? Yes Care Teams Project Manager Process Development Relationship Specialty Start Date End Date Eliseo Ibarra MD [address] [facility] [address] [place] [address] PCP - General 01/30/24
--- OUTSIDE RECORDS SUMMARY | 2025-04-19 12:00 | XMS_ITS | Encounter Summary ---
Author Organization [facility] Address [address] [place] [address] Care Team Providers Care Training Associate Name Role Phone Eliseo Ibarra MD Primary Care Provider [phone] Reason for Visit * Reason Comments Med Refill Encounter Details Date Type Department Care Team (Late st Contact Info) Description 11/03/2024 Refill [facility] Interventional Pain Medicine [address] [place] [address] Markell Lucas MD [address] [facility] [address] [place] [address] Social History Tobacco Use Types [...] documented as of this encounter Care Teams Training Associate Relationship Specialty Start Date End Date Eliseo Ibarra MD [address] [facility] [address] [place] [address] PCP - General 01/30/24 documented as of this encounter
--- OUTSIDE RECORDS SUMMARY | 2025-04-19 12:00 | XMS_ITS | Data Portability ---
Author Organization [facility] [place] [facility] Address [address] [place] [id number] Care Team Providers Care Hide Or Skin Buffer Name Role Phone ELISEO IBARRA Primary Care Provider Assessment No assessment recorded. Plan of Treatment Reminders Order Date Submit Date Provider Last Modified By Organization Details Last Modified Time Details Appointments None recorde d. Lab HbA1c (hemogl obin A1c), blood 024 11/11/19 24 [email or web address] [address], [place], [address], 22:28:50 Referral None recorde d. Procedures None recorde d. Surgeries None recorde d. Imaging None recorde d. Medication Orders None recorde d. Patient TargetsNo targets recorded. Patient Instructions Encounter Date Encounter Id Patient Instructions Last Modified By Organization Details Last Modified Time 11/11/2023 [id number] I spent 30 minutes with patient gathering her history, reviewing continuity of care notes from [facility] in [place], performing physical exam, developing POC, and documenting in chart [email or web address] Not available 11/11/2023 22:43:08 Reason for Referral None Reported. Results Created Date Observation Date Name Description Value Unit Range Abnormal Flag Note LastModifiedBy Organization Detail LastModifiedTime 11/11/19 24 11/11/2023 HbA1c (hemo globi n A1c), blood HbA1c 5.7 % Not Available [facility] [address], [place], [address], 11/11/2023 22:27:45 04/02/20 23 12/26/2022 home sleep study No observ ation record ed. [email or web address] Not Available 2022 15:03:58 08/09/19 25 08/08/2024 CT, chest , w/ contr ast No observ ation record ed. [address], [place], [address], 10/02/2024 16:05:35 08/09/19 25 08/08/2024 XR, chest No observ ation record ed. [address], [place], [address], 10/02/2024 16:05:23 08/09/19 25 08/08/2024 XR, knee No observ ation record ed. [address], [place], [address], 10/02/2024 16:05:12 08/10/19 25 08/09/2024 US, doppl er, arter ial No observ ation record ed. [address], [place], [address], 10/02/2024 16:04:54 09/13/19 25 09/12/2024 CT, abdom en + pelvi s, w/ contr ast No observ ation record ed. [address], [place], [address], 10/02/2024 16:02:03 Result Notes None recorded. Problems Name Problem SNOMED Code Status Onset Date Resolution Date Notes Provider Name and Address Organization Details Recorded Time Neuralgia 88631087 Active 2023 K[facility] [place] [facility] [place] [facility] [place] 10:37:40 Prediabetes 891864385 Active 2023 KYLE [place] - [place] [facility] [place] 4 10:38:25 Anxiety 83889399 Active 2023 Jacquiayanna King null, [place] - [facility] - [place] [facility] [place] 4 10:49:52 Depressive disorder 12916457 Active 2023 Jacquiayanna King null, [place] [facility] [place] [facility] [place] 4 10:49:59 Sleep apnea 89808960 Active 2023 Jacquiayanna King null, [place] [facility] [place] [facility] [place] 4 10:50:20 Problem Notes None recorded. Procedures Surgical History Date Name Laterality Status Provider Name and Address Organization Details Recorded Time 07/21/19 23 Cholecystectomy completed Opal [place]amer [place] - [facility] [place] [facility] [place] 03/12/2024 15:12:49 06/09/19 20 procedure on finger completed Opal [place] [facility] [place] [facility] [place] 03/12/2024 15:15:48 06/09/19 20 procedure on spine completed Opal Kumar[place] [facility] [place] [facility] [place] 03/12/2024 15:15:31 06/09/19 19 Hysterectomy completed Brigitte Louis [place] - [facility] [place] [facility] [place] 11/26/2023 14:53:07 06/09/19 percutaneous transluminal insertion of stent into renal artery completed Brigitte Louis [place] [facility] [place] [facility] [place] 11/26/2023 14:53:35 procedure on neck completed Rebecca [place] [facility] [place] [facility] [place] 11/11/2023 10:51:33 procedure on gallbladder completed Jacqui King [place] [facility] [place] [facility] [place] 11/11/2023 10:51:40 operation on urinary bladder completed Opal [place] [facility] [place] [facility] [place] 03/12/2024 15:08:11 section completed Opal [place] [facility] [place] [facility] [place] 03/12/2024 15:08:28 dilation and curettage of uterus completed Opal [place] [facility] [place] [facility] [place] 03/12/2024 15:08:48 Imaging Results None recorded. Procedure Notes None recorded. Medical Equipment None Reported. Allergies Allergen ID Allergen Name Allergen Category Reaction Reaction Severity Criticality Documentation Date Start Date Code Code System Note Provider Name and Address Organization Details Recorded Time 375077 chlorhexi dine medicatio n Not available Not available low 10/30/2023 2358 RxNorm Opal [place] null, [place] - [facility] [place] 4 15:10:47 958176 Product containin g penicilli n (product) medicatio n Not available Not available low 10/30/2023 76658 8001 SNOMED Opal Kumar[place] null, [place] - [facility] [place] 4 15:10:51 907600 silver medicatio n hives Not available Not available 10/30/2023 67456 43 RxNorm criti calit fco Kumar[place] null, [place] - [facility] [place] 4 15:11:04 353917 tetracycl ine medicatio n hives Not available Not available 10/30/2023 61815 RxNorm And relat ed drugs ; criti calit fco Joseph [place] null, [place] - [facility] [place] 4 15:11:11 556516 adhesive tape environme nt,medica tion rash Not available low 10/30/2023 Opal Kumaramer null, [place] - [facility] [place] 4 15:11:19 Medications Name Sig Start Date Stop [...] completed Not Available Not Available Not Available amitripty line 50 mg tablet TAKE 1 TO 2 TABLETS BY MOUTH DAILY AT BEDTIME active Not Available Not Available No t Available acetamino phen 500 mg tablet 11/10 [...] completed Not Available Not Available Not Available amitripty line 25 mg tablet TAKE 1 TO 2 TABLETS BY MOUTH DAILY AT BEDTIME active Not Available Not Available No t Available methocarb caterina 750 mg tablet TAKE 1 TABLET BY MOUTH TWICE DAILY NEEDED active Not Available Not Available No t Available trazodone 100 mg tablet TAKE 1 TO 2 TABLETS BY MOUTH ONCE A DAY AT BEDTIME active Not Available Not Available No t Available [employer] Ultra Test strips TEST GLUCOSE ONCE DAILY 2023 active Not Available Not Available Not Avai lable phenazopy ridine 100 mg tablet TAKE 1 TO 2 TABLETS BY MOUTH EVERY 8 HOURS NEEDED FOR PAIN 11/10 completed Not Available Not Available Not Available hydrocodo ne 7.5 mg-acetam inophen 325 mg tablet TAKE 1 TABLET BY MOUTH EVERY 8 HOURS IF NEEDED FOR SEVERE PAIN FOR UP TO 20 DOSES active Not Available Not Available No t [...] Not Available No t Available aripipraz ole 15 mg tablet TAKE 1 TABLET BY MOUTH DAILY active Not Available Not Available No t Available aripipraz ole 20 mg tablet Take [...] blood by Pulse oximetry Heart rate Systolic And Diastolic Provider Name and Address Organization Details Last Updated DateTime 4 157.48 cm 32.4 kg/m2 25626.9 5 g 98.2 [degF] 99 % 99 % 68 /min 139/79 mm[Hg] Jacqui King [facility] [place] 4 10:55:20 Date Recorded Body height Body mass index (BMI) Body weight Body temperature Oxygen saturation Oxygen saturation in Arterial blood by Pulse oximetry Heart rate Systolic And Diastolic Provider Name and Address Organization Details Last Updated DateTime 3 157.48 cm 32 kg/m2 57792.6 6 g 97.7 [degF] 98 % 98 % 95 /min 120/82 mm[Hg] Savita Giraldo [facility] [place] 3 10:40:14 Social History Question Answer Notes LastModified by [employer] Details LastModified Time Tobacco Smoking Status Never Smoker Savita Giraldo [facility], [facility] [place] 12/11/2022 10:40:56 If You Are , What Was Your Level Of Alcohol Consumption Prior To ? None [email or web address] Information not available 11/11/2023 What Is Your Level Of Caffeine Consumption? Heavy [email or web address] Information not available 11/11/2023 Has Tobacco Cessation Counseling Been Provided? No Information not available 11/11/2023 Sex: Unknown Functional Status Question Answer Note LastModified by tic ion Details LastModified Time Do you use any illicit or recreational drugs? No [email or web address] Information not available 11/11/2023 Do you or have you ever used any other forms of tobacco or nicotine? No [email or web address] Information not available 11/11/2023 What is your level of alcohol consumption? None [email or web address] Information not available 12/11/2022 Mental Status None recorded. Family History Relationship Description Onset Age of this Age Resolved Age Notes LastModified by Organization Details LastModified Time Mother Family history of cardiac disorder [email or web address] Not available 10/29 15:24:11 Mother Malignant neoplasm of colon [email or web address] Not available 10/29 15:24:20 Mother Hypertensive disorder [email or web address] Not available 10/29 15:24:34 Mother Cerebrovascu lar accident [email or web address] Not available 15:24:42 Unspecified Relation Family history [...] 0 0 Immunizations Vaccine Type Date Status Note Provider Nam e and Address Organization Details Recorded Time Influenza, MDCK, quadrivalent, PF 03/19/2022 completed Kateryna [place], [place] - [facility] - [facility] 10/30/2023 15:23:03 MMR 09/27/1997 bibi [place], [place] - [facility] [place] 10/30/2023 15:23:03 COVID-19, mRNA, LNP-S, PF, 100 mcg/0.5mL dose or 50 mcg/0.25mL dose 07/07/2021 bibi [place], [place] [facility] [place] [facility] [place] 10/30/2023 15:23:03 COVID-19, mRNA, LNP-S, PF, 100 mcg/0.5mL dose or 50 mcg/0.25mL dose 10/27/2020 completed Kateryna [place] [facility] [place] [facility] [place] 10/30/2023 15:23:03 COVID-19, mRNA, LNP-S, PF, 100 mcg/0.5mL dose or 50 mcg/0.25mL dose 11/28/2020 completed Kateryna [place] [facility] [place] [facility] [place] 10/30/2023 15:23:03 Tdap 04/08/2020 completed Katerynamadison Best [place], [place] [facility] [place] [facility] [place] 10/30/2023 15:23:03 Influenza, split virus, trivalent, PF 03/11/2018 completed Kateryna [place] [facility] [place] [facility] [place] 10/30/2023 15:23:03 Influenza, split virus, quadrivalent, PF 02/04/2023 completed Brigitte Louis [place], [place] - [facility] - [place] [facility] [place] 11/26/2023 14:51:37 Tdap 01/25/2022 completed Opalbelgica Murillo [place], [place] - [facility] - [place] [facility] [place] 03/12/2024 15:17:03 Past Encounters Encounter ID Performer Location Encounter Start Date Encounter Closed Date Diagnosis/Indication Diagnosis SNOMED-CT Code Diagnosis ICD10 Code Diagnosis IMO Codes Diagnosis Note [id number] Stewart Powell MD [address] [facility] [place] [address] 04/11/2022 13:24:23 04/11/2022 15:16:47 [id number] Stewart Powell MD [address] [facility] [place] [address] 05/07/2022 13:11:08 05/07/2022 17:08:42 [id number] Stewart Powell MD [address] [facility] [place] [address] 12/11/2022 10:39:02 12/11/2022 15:14:53 Hypersomnia 62315729 G47.10 Make arrangemen ts for home sleep study testing to document if the patient has sleep apnea. Titration to auto PAP if patient is a candidate. [id number] Eliseo Ibarra MD [facility] [address] [place] [address] 11/11/2023 10:19:55 11/11/2023 11:41:09 Neck pain 25927082 M54.2 though we have some notes from [facility] it is not mentioned that they will no longer be filling her Lyrica and that she was instructed to find a PCP to start feeling that. I have asked her to get them to send us a letter effects indicating such we could start filling that. Will consider restarting methocarba mol at F/U visit Prediabetes 822748883 R7 3.03 A1c was 5.7. She is requesting a glucometer which we will send in Health Concerns Section Related Observation LastModified by Organization Detai ls LastModified Time None Recorded Concern Status LastModified by Organization Details LastModified Time None Recorded Advance Directives Directive None Recorded Payers Insurance Date Sequence Insurance Name Policy Number Policy Tucker Covered Member ID Tucker Member ID Guarantor Name 08/08/2024 1 [facility] (MEDICAID REPLACEMENT - HMO) Taniya Martin [id number] Taniya Martin Notes Date Note Type Note Provider [...] morning. Her BMI is over 30. Her Accident Sleepiness Scale is 15/24. We spent some time talking about the causes and treatment of hypersomnia she is agreeable to investigate further. Stewart Powell MD [address] [facility], [place], [address], [facility] - [facility] - [place] [facility] [place] 12/11/2022 12:58:37 11/11/2023 text/html 42 yo WF presents to establish care. Has a h/o cervical fusion per Dr. Connor at 4 years ago. Is still having LUE issues and sees Dr. Connor again at the end of this month. Also sees Gilmer Ely at [facility] in [place] for diagnosis of depression and anxiety. States she had a PCP in [place] at [facility] but stopped seeing her over a year ago since she moved. Patient states she was told by the neurosurgery clinic at [facility] they would no longer be filling her [...] away from her PCP. Eliseo Ibarra MD [address] [facility], [place], [address], [facility] [place] 11/11/2023 22:43:47 OBGyn Episode No OBEpisode recorded.
--- NOTE | 2025-04-19 12:02 | CT_ITS ---
FINAL REPORT TECHNIQUE: IV contrast enhanced exam This study was performed with techniques to keep radiation doses as low as reasonably achievable, (ALARA). Individualized dose reduction techniques using automated exposure control or adjustment of mA and/or kV according to the patient''s size were employed. CLINICAL HISTORY: Abd Pain COMPARISON: 09/12/2024 FINDINGS: Abdomen: No acute density is seen within the lung bases. There is interval passage of left proximal ureteral stone from prior exam. There are tiny nonobstructing lower pole left renal stones. The remaining solid abdominal organs are unremarkable. The gallbladder is unremarkable. No bowel obstruction is present. There is no free air. No fluid collection is seen. There is no adenopathy. Pelvis: The appendix is normal. There is ectopic insertion of the left ureter with UVJ located along the left lateral wall. The right UVJ is normal in location. Patient is status post hysterectomy. No bowel wall thickening is present. There is no free fluid. No pelvic mass is seen. IMPRESSION: Interval passage of obstructing stone of the left ureter from prior exam without hydronephrosis. Minimal left nephrolithiasis. Ectopic insertion of the left ureter. Reviewed, Interpreted and Dictated by Rohini Mckeon MD Transcribed by Leila Thomas Authenticated and . [facility]
--- NOTE | 2025-04-19 12:04 | ED_ITS ---
<Statement entered by Bharat Miller MD - 04/20/25 02:23> I was consulted by the CHARMAINE, and we discussed the complexity of the problems being addressed. I approve the treatment and management plan for this patient's care in the emergency department, thus performing a substantive portion of the medical decision making. Bharat Miller MD Discharge Plan Disposition Patient Disposition: Home, Self-Care Prescriptions Prescriptions: New cefdinir 300 mg capsule 300 mg PO BID 7 Days Qty: 14 0RF No Action cefdinir 300 mg capsule 300 mg PO BID Qty: 20 0RF guaifenesin 1,200 mg tablet extended release 12hr 1,200 mg PO BID Qty: 30 0RF prazosin 2 mg capsule 2 mg PO DAILY Patient Comments: TAKE 1 CAPSULE BY MOUTH DAILY AT BEDTIME desvenlafaxine succinate 100 mg tablet extended release 24 hr 100 mg PO DAILY Patient Comments: TAKE 1 TABLET BY MOUTH DAILY Referrals Follow up/Referrals: Provider,Referral, [Primary Care Provider, Medical] - See instructions Activity Restrictions/Add. Instructions Additional Instructions/Restrictions: Today you were evaluated in the emergency department and diagnosed with a urinary tract infection. Please take your antibiotics as directed, you may start them in the morning. Please follow-up with your PCP for further evaluation. Return to the ED for any worsening of your condition. Clinical Impressions Clinical Impression: UTI (urinary tract infection) Instructions Patient Instructions: DI for Urinary Tract Infection (UTI) Print Language Print Language: Algerian Discharge ED Provider: Edwardo Harrell General Adult HPI <Celine Villa APRN - Last Filed: 04/19/25 15:34> General Chief complaint: Abdominal Pain Stated complaint: left side pain Time Seen by Provider: 04/19/25 11:47 Mode of Arrival: Ambulatory Source of Information: Patient Description of Symptoms (Recalled from ER Triage Doc. by RN): patient stated she staretd having 10/10 riught sided abdominal pain that began last night and has progressively gotten worse. she denies any urinary problems or back problems. deniesv/d but endorses nausea. History of Present Illness HPI narrative: patient is a 44-year-old female PMHx renal calculi who presents to the ED with complaints of right flank pain that radiates into the right groin. Patient states her pain started last night, has been constant in nature since then. She has not taken any medication prior to arrival. History of cholecystectomy. Related Data Home Medications ?Medication ?Instructions ?Recorded ?Confirmed desvenlafaxine succinate 100 mg 100 mg PO DAILY 03/30/25 tablet,extended release 24 hr prazosin 2 mg capsule 2 mg PO DAILY 02/12/2403/30 Previous Rx's ?Medication ?Instructions ?Recorded cefdinir 300 mg capsule 300 mg PO BID #20 caps 03/30 guaifenesin 1,200 mg tablet, 1,200 mg PO BID #30 tabs 03/30/25 extended release 12 hr cefdinir 300 mg capsule 300 mg PO BID 7 days #14 cap s 04/19/25 Allergies Allergy/AdvReac Type Severity Reaction Status Date / Time tetracycline (TETRACYCLINE) Allergy Mild Hives Verified 03/30/25 17:38 silver (From Tegaderm AG Allergy Hives Verified 03/30/25 17:38 Mesh) [facility] <Celine Villa APRN - Last Filed: 04/19/25 15:34> [facility] Disclaimer: The information contained in this section may have been updated after the patient was seen, as this information can be updated by other users. Medical History Sinusitis Depression Anxiety Urinary tract infection Kidney stone Asthma Hypertension Surgical History History of tonsillectomy History of hysterectomy History of cholecystectomy History of section Social History Smoking Status: Never smoker alcohol intake: never substance use type: former substance user current occupational status: other Travel in the last 8 weeks?: None household members: spouse housing: house caffeine: No Have you lived/traveled outside [place] in past 30 days?: No Contact w/someone who lives/traveled outside US past 30 days?: No Exposure to someone with infectious disease in past 14 days?: No Do you have a fever (greater than 100.4 F or 38 C)?: No Have you tested positive for COVID-19?: No Exposed to someone with COVID-19 in past 14 days?: No Do you have a sore throat?: No Do you have a cough?: No Do you have any weakness?: No Do you have any diarrhea?: No Are you experiencing any unusual bleeding?: No Do you have any muscle aches/pain?: No Do you have any abdominal pain?: No Are you experiencing loss of taste or smell?: No Other Medical History Have you received the Flu Vaccine for this season: Yes Have you received the Pneumonia Vaccine: No <Celine Villa APRN - Last Filed: 04/19/25 15:34> ROS Obtained: Yes Systems reviewed as appropriate & no additional complaints except as documented Physical Exam <Celine Villa APRN - Last Filed: 04/19/25 15:34> General General appearance: alert Eye Eye exam: Present PERRL Neck Neck exam: Present full ROM Respiratory Respiratory exam: Present normal lung sounds bilaterally Cardiovascular Cardiovascular exam: Present regular rate Abdominal Exam Abdominal exam: Present tenderness (mild rlq) Extremities Exam Extremities exam: Present full ROM Back Exam Back exam: Present CVA tenderness (R) Neurological Exam Neurological exam: Present alert and oriented X3 Skin Skin exam: Present dry Medical Decision Making <Celine Villa APRN - Last Filed: 04/19/25 15:34> Medical Records Screening: Per USPSTF and CDC recommendations, given the prevalence of disease in our region, it is our hospital?s policy to screen for HIV and viral Hepatitis for all patients aged 18 and over and those with ongoing risk factors. Tab Inquiry Pt receiving controlled substance: No Vital Signs: 04/19/25 11:45 04/19/25 12:15 04/19/25 12:30 Temperature 98.2 F Temperature Source Oral Pulse Rate 69 64 Pulse Rate [Right Radial] 73 Respiratory Rate 18 Blood Pressure 123/69 139/76 Blood Pressure [Right Arm] 142/84 H Blood Pressure Mean [Right Arm] 103 Blood Pressure Source [Right Arm] Automatic Cuff Blood Pressure Position [Right Arm] Sitting 02 Sat by Pulse Oximetry 97 97 97 Oxygen Delivery Method Room Air 04/19/25 12:45 04/19/25 13:01 04/19/25 13:15 Temperature Temperature Source Pulse Rate 60 64 63 Pulse Rate [Right Radial] Respiratory Rate Blood Pressure 135/63 118/70 131/62 Blood Pressure [Right Arm] Blood Pressure Mean [Right Arm] Blood Pressure Source [Right Arm] Blood Pressure Position [Right Arm] 02 Sat by Pulse Oximetry 99 99 97 Oxygen Delivery Method 04/19/25 13:31 04/19/25 13:46 04/19/25 13:59 Temperature Temperature Source Pulse Rate 67 77 69 Pulse Rate [Right Radial] Respiratory Rate Blood Pressure 130/77 108/60 L 115/85 Blood Pressure [Right Arm] Blood Pressure Mean [Right Arm] Blood Pressure Source [Right Arm] Blood Pressure Position [Right Arm] 02 Sat by Pulse Oximetry 97 99 99 Oxygen Delivery Method 04/19/25 14:00 04/19/25 14:15 04/19/25 14:31 Temperature Temperature Source Pulse Rate 71 71 74 Pulse Rate [Right Radial] Respiratory Rate Blood Pressure 109/69 L 118/63 113/75 Blood Pressure [Right Arm] Blood Pressure Mean [Right Arm] Blood Pressure Source [Right Arm] Blood Pressure Position [Right Arm] 02 Sat by Pulse Oximetry 98 98 97 Oxygen Delivery Method 04/19/25 14:46 04/19/25 15:01 04/19/25 15:16 Temperature Temperature Source Pulse Rate 67 69 66 Pulse Rate [Right Radial] Respiratory Rate Blood Pressure 112/87 129/67 143/75 H Blood Pressure [Right Arm] Blood Pressure Mean [Right Arm] Blood Pressure Source [Right Arm] Blood Pressure Position [Right Arm] 02 Sat by Pulse Oximetry 98 96 99 Oxygen Delivery Method Lab Data Lab Results 04/19/25 11:50: Urine Color Yellow, Urine Appearance Clear, Urine pH 7.0, Ur Specific [place] 1.020, Urine Protein Negative, Urine Glucose (UA) Negative, Urine Ketones Negative, Urine Blood Negative, Urine Nitrate Negative, Urine Bilirubin Negative, Urine Urobilinogen 0.2, Ur Leukocyte Esterase 1+ A, Urine RBC None, Urine WBC 10-20, Ur Squamous Epith Cells 10-20, Urine Bacteria 1+, Urine HCG, Qual Negative 04/19/25 12:05: WBC 9.5, RBC 4.54, Hgb 13.0, Hct 39.7, MCV 87.4, MCH 28.6, MCHC 32.7, RDW 13.4, Plt Count 274, MPV 10.0, Neut % (Auto) 66.2, Lymph % (Auto) 26.6, Douglas % (Auto) 4.3, Eos % (Auto) 1.9, Baso % (Auto) 0.8, Neut # (Auto) 6.3, Lymph # (Auto) 2.5, Douglas # (Auto) 0.4, Eos # (Auto) 0.2, Baso # (Auto) 0.1 04/19/25 13:11: Sodium 136, Potassium 4.0, Chloride 105, Carbon Dioxide 25, Anion Gap 10.0, BUN 11, Creatinine 0.60, Estimated Creat Clear 152, Estimated GFR 109, Est GFR ( Amer) 132, Glucose 91, Calcium 9.1, Total Bilirubin 0.4, AST 28, ALT 15, Alkaline Phosphatase 37 L, Total Protein 7.7, Albumin 4.3, Globulin 3.4 H, Albumin/Globulin Ratio 1.3 04/19/25 12:05 04/19/25 13:11 Orders (Tests/Meds): ED MEDICATIONS Generic Name Dose Route Start Last Admin Trade Name Freq PRN Reason Stop Dose Admin Ceftriaxone Sodium 1 gm/ 50 mls @ 100 mls/hr 04/19/25 15:10 04/19/25 15:18 Sodium Chloride IV 04/19/25 15:39 100 mls/hr ONCE ONE Administration Discontinued Medications Generic Name Dose Route Start Last Admin Trade Name Freq PRN Reason Stop Dose Admin Hydromorphone HCl 1 mg 04/19/25 15:09 04/19/25 15:19 Hydromorphone 2mg/Ml Syringe IV 04/19/25 15:10 1 mg ONCE ONE Administration Sodium Chloride 1,000 mls @ 999 mls/hr 04/19/25 12:02 04/19/25 14:13 Sod Chlor 0.9% 1000ml Bag IV 04/19/25 13:02 Infused .Q1H1M ONE Infusion Iopamidol 75 ml 04/19/25 13:41 04/19/25 13:42 Iopamidol-370 (76%);100ml Bottle IV 04/19/25 13:42 75 ml ONCE ONE Administration Ketorolac Tromethamine 15 mg 04/19/25 12:02 04/19/25 12:19 Ketorolac 15mg/Ml Vial IV 04/19/25 12:03 15 mg ONCE ONE Administration Morphine Sulfate 4 mg 04/19/25 13:13 04/19/25 13:18 Morphine 4mg/Ml Syringe IV 04/19/25 13:14 4 mg ONCE ONE Administration Ondansetron HCl 4 mg 04/19/25 12:02 04/19/25 12:21 Ondansetron 4mg/2ml Vial IV 04/19/25 12:03 4 mg ONCE ONE Administration Sodium Chloride 10 ml 04/19/25 13:41 04/19/25 13:42 Sodium Chloride 0.9% 10ml Syr (Rad Only) IV 04/19/25 13:42 10 ml ONCE ONE Administration ORDERS Category Date Time Status CT abdomen pelvis w con Stat Cat Scan 04/19/25 12:02 Completed CBC w/Auto Diff [Complete Blood Count Auto Diff] Stat Lab 04/19/25 12:05 Completed CMP [Comprehensive Metabolic Panel] Stat Lab 04/19/25 13:11 Completed Urinalysis and Microscopic Stat Lab 04/19/25 11:50 Completed Urine Chlam/Gono/Trich ([facility]) Stat Lab 04/19/25 11:50 Received Urine , HCG Qual. Stat Lab 04/19/25 11:50 Completed Urine Culture Stat Micro 04/19/25 11:50 Received Medical Decision Narrative: In summary, patient is a 44-year-old female PMHx renal calculi who presents to the ED with complaints of right flank pain that radiates into the right groin. Patient states her pain started last night, has been constant in nature since then. She has not taken any medication prior to arrival. History of cholecystectomy. She denies fever, chills, body aches, chest pain, shortness of breath, vomiting, diarrhea, constipation, dysuria, difficulty urinating. Differential diagnosis includes renal calculi, sepsis, pyelonephritis, ectopic , musculoskeletal pain, UTI, among others. Upon initial presentation patient is alert, oriented and cooperative. She is holding her right flank area. Right flank is tender, mild right lower quadrant abdominal pain. Discussed with patient we will proceed with CT scan of the abdomen pelvis, rehydrate with IV fluids, administer Zofran and Toradol for symptomatic relief. Patient is agreeable to plan of care at this time. Hematologic labs reviewed. CBC unremarkable for any leukocytosis, stable H&H. CMP unremarkable for any actionable abnormalities. Urinalysis remarkable for 1+ leuk, 1+ bacteria, squames 10-20, will send for culture. Rocephin administered. CT remarkable minimal left nephrolithiasis. Discussed with patient we will treat for UTI with cefdinir. Advised her to follow-up with her PCP for further evaluation. We discussed increasing fluids and rest. We discussed return precautions to the ED and patient verbalized understanding. Edwardo Harrell MD: I was consulted by the CHARMAINE, and we discussed the complexity of the problems being addressed. I approved the treatment and management plan for this patient's care in the emergency department, thus performing a substantive portion of the medical decision making. I agree with initial workup and imaging which was pending at time of transfer of care to the oncoming physician, Dr. Miller <Edwardo Harrell MD - Last Filed: 04/19/25 14:46> Vital Signs: 04/19/25 11:45 04/19/25 12:15 04/19/25 12:30 Temperature 98.2 F Temperature Source Oral Pulse Rate 69 64 Pulse Rate [Right Radial] 73 Respiratory Rate 18 Blood Pressure 123/69 139/76 Blood Pressure [Right Arm] 142/84 H Blood Pressure Mean [Right Arm] 103 Blood Pressure Source [Right Arm] Automatic Cuff Blood Pressure Position [Right Arm] Sitting 02 Sat by Pulse Oximetry 97 97 97 Oxygen Delivery Method Room Air 04/19/25 12:45 04/19/25 13:01 04/19/25 13:15 Temperature Temperature Source Pulse Rate 60 64 63 Pulse Rate [Right Radial] Respiratory Rate Blood Pressure 135/63 118/70 131/62 Blood Pressure [Right Arm] Blood Pressure Mean [Right Arm] Blood Pressure Source [Right Arm] Blood Pressure Position [Right Arm] 02 Sat by Pulse Oximetry 99 99 97 Oxygen Delivery Method 04/19/25 13:31 04/19/25 13:46 04/19/25 13:59 Temperature Temperature Source Pulse Rate 67 77 69 Pulse Rate [Right Radial] Respiratory Rate Blood Pressure 130/77 108/60 L 115/85 Blood Pressure [Right Arm] Blood Pressure Mean [Right Arm] Blood Pressure Source [Right Arm] Blood Pressure Position [Right Arm] 02 Sat by Pulse Oximetry 97 99 99 Oxygen Delivery Method 04/19/25 14:00 04/19/25 14:15 04/19/25 14:31 Temperature Temperature Source Pulse Rate 71 71 74 Pulse Rate [Right Radial] Respiratory Rate Blood Pressure 109/69 L 118/63 113/75 Blood Pressure [Right Arm] Blood Pressure Mean [Right Arm] Blood Pressure Source [Right Arm] Blood Pressure Position [Right Arm] 02 Sat by Pulse Oximetry 98 98 97 Oxygen Delivery Method 04/19/25 14:46 04/19/25 15:01 04/19/25 15:16 Temperature Temperature Source Pulse Rate 67 69 66 Pulse Rate [Right Radial] Respiratory Rate Blood Pressure 112/87 129/67 143/75 H Blood Pressure [Right Arm] Blood Pressure Mean [Right Arm] Blood Pressure Source [Right Arm] Blood Pressure Position [Right Arm] 02 Sat by Pulse Oximetry 98 96 99 Oxygen Delivery Method Lab Data Lab Results 04/19/25 11:50: Urine Color Yellow, Urine Appearance Clear, Urine pH 7.0, Ur Specific [place] 1.020, Urine Protein Negative, Urine Glucose (UA) Negative, Urine Ketones Negative, Urine Blood Negative, Urine Nitrate Negative, Urine Bilirubin Negative, Urine Urobilinogen 0.2, Ur Leukocyte Esterase 1+ A, Urine RBC None, Urine WBC 10-20, Ur Squamous Epith Cells 10-20, Urine Bacteria 1+, Urine HCG, Qual Negative 04/19/25 12:05: WBC 9.5, RBC 4.54, Hgb 13.0, Hct 39.7, MCV 87.4, MCH 28.6, MCHC 32.7, RDW 13.4, Plt Count 274, MPV 10.0, Neut % (Auto) 66.2, Lymph % (Auto) 26.6, [place] % (Auto) 4.3, Eos % (Auto) 1.9, Baso % (Auto) 0.8, Neut # (Auto) 6.3, Lymph # (Auto) 2.5, [place] # (Auto) 0.4, Eos # (Auto) 0.2, Baso # (Auto) 0.1 04/19/25 13:11: Sodium 136, Potassium 4.0, Chloride 105, Carbon Dioxide 25, Anion Gap 10.0, BUN 11, Creatinine 0.60, Estimated Creat Clear 152, Estimated GFR 109, Est GFR ( Amer) 132, Glucose 91, Calcium 9.1, Total Bilirubin 0.4, AST 28, ALT 15, Alkaline Phosphatase 37 L, Total Protein 7.7, Albumin 4.3, Globulin 3.4 H, Albumin/Globulin Ratio 1.3 Orders (Tests/Meds): ED MEDICATIONS Generic Name Dose Route Start Last Admin Trade Name Freq PRN Reason Stop Dose Admin Ceftriaxone Sodium 1 gm/ 50 mls @ 100 mls/hr 04/19/25 15:10 04/19/25 15:18 Sodium Chloride IV 04/19/25 15:39 100 mls/hr ONCE ONE Administration Discontinued Medications Generic Name Dose Route Start Last Admin Trade Name Roberto PRN Reason Stop Dose Admin Hydromorphone HCl 1 mg 04/19/25 15:09 04/19/25 15:19 Hydromorphone 2mg/Ml Syringe IV 04/19/25 15:10 1 mg ONCE ONE Administration Sodium Chloride 1,000 mls @ 999 mls/hr 04/19/25 12:02 04/19/25 14:13 Sod Chlor 0.9% 1000ml Bag IV 04/19/25 13:02 Infused .Q1H1M ONE Infusion Iopamidol 75 ml 04/19/25 13:41 04/19/25 13:42 Iopamidol-370 (76%);100ml Bottle IV 04/19/25 13:42 75 ml ONCE ONE Administration Ketorolac Tromethamine 15 mg 04/19/25 12:02 04/19/25 12:19 Ketorolac 15mg/Ml Vial IV 04/19/25 12:03 15 mg ONCE ONE Administration Morphine Sulfate 4 mg 04/19/25 13:13 04/19/25 13:18 Morphine 4mg/Ml Syringe IV 04/19/25 13:14 4 mg ONCE ONE Administration Ondansetron HCl 4 mg 04/19/25 12:02 04/19/25 12:21 Ondansetron 4mg/2ml Vial IV 04/19/25 12:03 4 mg ONCE ONE Administration Sodium Chloride 10 ml 04/19/25 13:41 04/19/25 13:42 Sodium Chloride 0.9% 10ml Syr (Rad Only) IV 04/19/25 13:42 10 ml ONCE ONE Administration ORDERS Category Date Time Status CT abdomen pelvis w con Stat Cat Scan 04/19/25 12:02 Completed CBC w/Auto Diff [Complete Blood Count Auto Diff] Stat Lab 04/19/25 12:05 Completed CMP [Comprehensive Metabolic Panel] Stat Lab 04/19/25 13:11 Completed Urinalysis and Microscopic Stat Lab 04/19/25 11:50 Completed Urine Chlam/Gono/Trich (H) Stat Lab 04/19/25 11:50 Received Urine , HCG Qual. Stat Lab 04/19/25 11:50 Completed Urine Culture Stat Micro 04/19/25 11:50 Received Medical Decision Narrative: In summary, patient is a 44-year-old female PMHx renal calculi who presents to the ED with complaints of right flank pain that radiates into the right groin. Patient states her pain started last night, has been constant in nature since then. She has not taken any medication prior to arrival. History of cholecystectomy. She denies fever, chills, body aches, chest pain, shortness of breath, vomiting, diarrhea, constipation, dysuria, difficulty urinating. Differential diagnosis includes renal calculi, sepsis, pyelonephritis, ectopic , musculoskeletal pain, UTI, among others. Upon initial presentation patient is alert, oriented and cooperative. She is holding her right flank area. Right flank is tender, mild right lower quadrant abdominal pain. Discussed with patient we will proceed with CT scan of the abdomen pelvis, rehydrate with IV fluids, administer Zofran and Toradol for symptomatic relief. Patient is agreeable to plan of care at this time. Hematologic labs reviewed. CBC unremarkable for any leukocytosis, stable H&H. Edwardo Harrell MD: I was consulted by the CHARMAINE, and we discussed the complexity of the problems being addressed. I approved the treatment and management plan for this patient's care in the emergency department, thus performing a substantive portion of the medical decision making. I agree with initial workup and imaging which was pending at time of transfer of care to the oncoming physician, Dr. Miller Critical Care <Edwardo Harrell MD - Last Filed: 04/19/25 14:46> Critical Care Time Critical Care Time: No
[2025-04-19 12:07] LABS: Microscopic, Urine URINE MICROSCOPIC (MICROSCOPIC)
[2025-04-19 12:11] LABS: Bilirubin,Urine Negative (Negative); Color,Urine YELLOW (Yellow); Glucose,Urine (UA) Negative (Negative); Ketones,Urine Negative (Negative); Leukocyte Esterase,Urine 1+ (Negative); PH,Urine 7.0 (5.0-8.5); Protein,Urine Negative (Negative); Specific Gravity, Urine 1.020 (1.005-1.030); Urobilinogen,Urine 0.2 EU/dl (0.2)
[2025-04-19 12:12] LABS: Urine Pregnancy, HCG Qual. Negative (Negative)
[2025-04-19 12:15] LABS: Hematocrit 39.7 % (37.0-47.0); Hemoglobin 13.0 g/dL (12.2-16.2); Immature Granulocytes % 0.2 %; Mean Corpuscular HGB Conc 32.7 g/dL (31.8-35.4); Mean Corpuscular Hemoglobin 28.6 pg (27.0-31.2); Mean Corpuscular Volume 87.4 fl (81-99); Nucleated Red Blood Cells % 0 %; Platelet Count 274 K/mm3 (142-424); Red Blood Count 4.54 M/mm3 (4.20-5.40); Red Cell Distribution Width-SD 42.9 fL; White Blood Count 9.5 K/mm3 (4.8-10.8)
[2025-04-19] MEDS: KETOROLAC 15MG/ML VIAL 15 MG IV (12:19)
[2025-04-19] MEDS: 0.9 % SODIUM CHLORIDE 1000ML 1,000 ML 999 ML IV (12:19)
[2025-04-19] MEDS: ONDANSETRON 4MG/2ML VIAL 4 MG IV (12:21)
[2025-04-19 12:23] LABS: Bacteria,Urine 1+ /lpf
[2025-04-19] MEDS: MORPHINE 4MG/ML SYRINGE 4 MG IV (13:18)
[2025-04-19 13:26] LABS: Alanine Aminotransferase 15 U/L (12-78); Albumin Level 4.3 g/dl (3.5-5.0); Albumin/Globulin Ratio 1.3 (1.1-1.8); Alkaline Phosphatase 37 U/L (38-126); Anion Gap 10.0 mEq/L (5-15); Aspartate Amino Transferase 28 U/L (14-36); Bilirubin,Total 0.4 mg/dl (0.2-1.3); Blood Urea Nitrogen 11 mg/dl (7-17); Calcium 9.1 mg/dl (8.4-10.2); Carbon Dioxide 25 mmol/L (22.0-30.0); Chloride 105 mmol/L (98-107); Creatinine Clearance Estimated 152 mL/min (50-200); Creatinine,Serum 0.60 mg/dl (0.52-1.04); Estimated Glomerular Filt Rate 109 ml/min (>60); GFR (African American) 132 ML/MIN (>60); Globulin 3.4 g/dL (1.3-3.2); Glucose 91 mg/dl (74-100); Potassium 4.0 mmoL/L (3.5-5.1); Sodium 136 mmol/L (136-145); Total Protein,Serum 7.7 g/dl (6.3-8.2)
[2025-04-19] MEDS: SODIUM CHLORIDE 0.9% 10ML SYR (RAD ONLY) 10 ML IV (13:42)
[2025-04-19] MEDS: IOPAMIDOL-370 (76%);100ML BOTTLE 75 ML IV (13:42)
[2025-04-19] MEDS: HYDROMORPHONE 2MG/ML SYRINGE 1 MG IV (15:19)
--- NOTE | 2025-04-20 05:16 | PC.NURSE ---
Candy called in by Dr. Ott. This RN spoke with pt and provided results and education. Pt stated she understood and had no further questions.
== END 2025-04-19 15:59 | disposition home or self-care (01) ==
PROVIDERS: Nurse Practitioner; Emergency Provider Emergency Medicine
DX: N39.0 Urinary tract infection, site not specified (principal)
CPT/HCPCS: 74177; 80053; 81001; 81025; 85025; 87086; 87491; 87591; 87661; 96361; 96365; 96375; 99285; J0696; J1171; J1885; J2270; J2405; J7030; Q9967